=== PATIENT | female | born 1995 | race Caucasian/White ===

== ENCOUNTER 2020-04-21 18:13 | Inpatient (IN) | payer SELFPAY ==
--- NOTE | 2020-04-21 18:34 | ER Document Report ---
ED Medical Screen (RME) - General Chief Complaint: Chest Pain Stated Complaint: CHEST PAIN Time Seen by Provider: 04/21/20 18:26 Mode of Arrival: Ambulatory Information source: Patient Notes: 24-year-old female presented to ED for complaint of chest pain. She states she left [facility] AGAINST MEDICAL ADVICE due to the poor care and treatment she was getting on the floor she was on. She was therefore endocarditis and pneumonia. She states that when she went to the hospital she was septic about 2 to 3 weeks ago. She states that she was not getting proper care and her family encouraged her to leave that hospital and come down to [facility] because her family lives in this area. She does have a history of endocarditis pneumonia tonsillectomy and wisdom teeth removed. She states she is a former smoker last smoked 2 years ago she states she drinks alcohol maybe once or twice a year she is a recovering addict for heroin she used that last about 2 months ago she does use marijuana but has not used that in the last 2 or 3 weeks while she is been in the hospital. She states when she was admitted to [facility] she was septic and according to her close to . She states she was on the neurology floor but she does not remember the name of her doctor but the doctor did tell her that if the doctor here wanted to call them they call up there to find out what was going on. Patient is alert oriented respirations regular nonlabored speaking in full sentences. I have greeted and performed a rapid initial assessment of this patient. A comprehensive ED assessment and evaluation of the patient, analysis of test results and completion of medical decision making process will be conducted by an additional ED providers. Physical Exam - Vital signs Vitals: Temp Pulse Resp BP Pulse Ox 98.3 F 128 H 18 118/68 100 04/21/20 18:26 04/21/20 18:26 04/21/20 18:26 04/21/20 18:26 04/21/20 18:26 Course - Vital Signs Vital signs: Temp Pulse Resp BP Pulse Ox 98.3 F 128 H 18 118/68 100 04/21/20 18:26 04/21/20 18:26 04/21/20 18:26 04/21/20 18:26 04/21/20 18:26
--- NOTE | 2020-04-21 19:06 | RADIOLOGY REPORT (SQ) ---
EXAM DESCRIPTION: CHEST 2 VIEWS IMAGES COMPLETED DATE/TIME: 04/21/2020 6:53 pm REASON FOR STUDY: chest pain see hpi COMPARISON: None. TECHNIQUE: Frontal and lateral radiographic views of the chest acquired. NUMBER OF VIEWS: Two view. LIMITATIONS: None. FINDINGS: LUNGS AND PLEURA: Patchy bilateral areas of upper and lower lobe airspace disease. Potent ial nodules scattered throughout. No pneumothorax. Bilateral pleural effusions including what appea rs to be some loculated right lateral fluid. MEDIASTINUM AND HILAR STRUCTURES: No masses or contour abnormalities. HEART AND VASCULAR STRUCTURES: Heart normal size. No evidence for failure. BONES: Mild convex right scoliotic curve. HARDWARE: None in the chest. OTHER: No other significant finding. IMPRESSION: 1. Infiltrates and effusions as above. Presumably infectious/inflammatory. Possible loculated right lateral pleural fluid and suspected nodules. TECHNICAL DOCUMENTATION: JOB ID: [id number] 2010 [employer]- All Rights Reserved Reading location - IP/workstation name: [email or web address]
[2020-04-21 19:52] LABS: ALBUMIN 3.5 g/dL (3.5-5.0); ALKALINE PHOSPHATASE 70 U/L (38-126); ANION GAP 10 (5-19); ASPARTATE AMINO TRANSFERASE 20 U/L (14-36); BILIRUBIN,DIRECT 0.4 mg/dL (0.0-0.4); BILIRUBIN,TOTAL 0.6 mg/dL (0.2-1.3); BLOOD UREA NITROGEN 9 mg/dL (7-20); CALCIUM 9.1 mg/dL (8.4-10.2); CARBON DIOXIDE 26 mmol/L (22-30); CHLORIDE 102 mmol/L (98-107); CREATINE KINASE 43 U/L (30-135); GLUCOSE 94 mg/dL (75-110); POTASSIUM 4.7 mmol/L (3.6-5.0); TOTAL PROTEIN 8.3 g/dL (6.3-8.2)
[2020-04-21 19:54] LABS: APPEARANCE,URINE SLIGHTLY-CLOUDY; BILIRUBIN,URINE NEGATIVE (NEGATIVE); COLOR,URINE YELLOW; GLUCOSE, URINE NEGATIVE (NEGATIVE); KETONES,URINE NEGATIVE (NEGATIVE); LEUKOCYTE ESTERASE,URINE TRACE (NEGATIVE); NITRITE,URINE NEGATIVE (NEGATIVE); PROTEIN,URINE 30 mg/dL (NEGATIVE); URINE SPECIFIC GRAVITY 1.041; UROBILINOGEN,URINE NEGATIVE mg/dL (<2.0)
[2020-04-21] MEDS ORDERED: VANCOMYCIN HCL INJ 1000 MG VIAL IV ONE (20:40)
[2020-04-21] MEDS ORDERED: CEFEPIME INJ 1 GM VIAL IV ONE (20:40)
--- NOTE | 2020-04-21 20:42 | EKG REPORT ---
SEVERITY:- BORDERLINE ECG - SINUS TACHYCARDIA PROBABLE LEFT ATRIAL ABNORMALITY BORDERLINE RIGHT AXIS DEVIATION : Confirmed by: Andrea Chou MD 21-Apr-2020 20:41:34
[2020-04-21 20:45] LABS: ABSOLUTE BASOPHILS # (AUTO) 0.1 10^3/uL (0.0-0.2); ABSOLUTE LYMPHOCYTES (AUTO) 2.3 10^3/uL (0.5-4.7); ABSOLUTE MONOCYTES (AUTO) 0.6 10^3/uL (0.1-1.4); ABSOLUTE NEUT (AUTO) 9.9 10^3/uL (1.7-8.2); BASOPHILS % (AUTO) 0.8 % (0-2); EOSINOPHILS % (AUTO) 0.4 % (0-6); HEMATOCRIT 29.5 % (36.0-47.0); HEMOGLOBIN 9.8 g/dL (12.0-15.5); LYMPHOCYTES % (AUTO) 17.5 % (13-45); MEAN CORPUSCULAR HEMOGLOBIN 28.3 pg (27.0-33.4); MEAN CORPUSCULAR HGB CONC 33.3 g/dL (32.0-36.0); MEAN CORPUSCULAR VOLUME 85 fl (80-97); MONOCYTES % (AUTO) 4.9 % (3-13); PLATELET COUNT 323 10^3/uL (150-450); RED BLOOD COUNT 3.47 10^6/uL (3.72-5.28); RED CELL DISTRIBUTION WIDTH 18.4 % (11.5-14.0); SEGMENTED NEUTROPHILS % (AUTO) 76.4 % (42-78); TOTAL CELLS COUNTED % (AUTO) 100 %; WHITE BLOOD COUNT 12.9 10^3/uL (4.0-10.5)
[2020-04-21 20:51] LABS: INTERNATIONAL RATION (INR) 1.13; PROTHROMBIN TIME 14.7 SEC (11.4-15.4)
--- NOTE | 2020-04-21 20:51 | ER Document Report ---
ED General - General Chief Complaint: Chest Pain Stated Complaint: CHEST PAIN Time Seen by Provider: 04/21/20 18:26 Mode of Arrival: Ambulatory Notes: Patient is a 24-year-old female comes emergency department for chief complaint of intermittent chest pain, shortness of breath, and recent diagnosis of endocarditis and pneumonia. She states that she was at [facility] and has been hospitalized there for approximately 2 weeks, she states she left this morning by choice but told them that even though she was signing out AGAINST MEDICAL ADVICE that she was coming to [facility]. She has family in town here. Patient has a history of heroin abuse although she states that she has not used it for about 3 weeks and does not intend to use again. She smokes cigarettes and marijuana, denies any prescribed medications other than albuterol inhaler for asthma, denies medical history otherwise. Patient denies fever within the past 48 hours, she denies any other complaints. - Related Data Allergies/Adverse Reactions: No Known Allergies Allergy (Verified 04/21/20 18:32) Past Medical History - General Information source: Patient - Social History Smoking Status: Former Smoker Frequency of alcohol use: Rare Drug Abuse: Heroin, Marijuana Lives with: Family Family History: Reviewed & Not Pertinent Pulmonary Medical History: Reports: Hx Pneumonia Past Surgical History: Reports: Hx Oral Surgery - 2018 - Immunizations Hx Diphtheria, Pertussis, Tetanus Vaccination: Yes Review of Systems - Review of Systems Constitutional: See HPI EENT: No symptoms reported Cardiovascular: See HPI Respiratory: See HPI Gastrointestinal: No symptoms reported Genitourinary: No symptoms reported Female Genitourinary: No symptoms reported Musculoskeletal: No symptoms reported Skin: No symptoms reported Hematologic/Lymphatic: No symptoms reported Neurological/Psychological: No symptoms reported Physical Exam - Vital signs Vitals: Temp Pulse Resp BP Pulse Ox 98.3 F 128 H 18 118/68 100 04/21/20 18:26 04/21/20 18:26 04/21/20 18:26 04/21/20 18:26 04/21/20 18:26 - Notes Notes: GENERAL: Alert, interacts well. No acute distress. HEAD: Normocephalic, atraumatic. EYES: Pupils equal, round, and reactive to light. Extraocular movements intact. ENT: Oral mucosa moist, tongue midline. Oropharynx unremarkable. Airway patent. NECK: Full range of motion. Supple. Trachea midline. No lymphadenopathy. LUNGS: Clear to auscultation bilaterally, no wheezes, rales, or rhonchi. No respiratory distress. Non-tender chest wall. HEART: No overt murmur heard, tachycardia, normal rhythm ABDOMEN: Soft, non-tender. Non-distended. Bowel sounds present in all 4 quadrants. GENITOURINARY: Deferred EXTREMITIES: Moves all 4 extremities spontaneously. No edema, normal radial and dorsalis pedis pulses bilaterally. No cyanosis. BACK: no cervical, thoracic, lumbar midline tenderness. No saddle anesthesia, normal distal neurovascular exam. Moves all extremities in full range of motion. NEUROLOGICAL: Alert and oriented x3. Normal speech. Cranial nerves II through XII grossly intact. Strength 5/5 in all extremities. PSYCH: Normal affect, normal mood. SKIN: Warm, dry, normal turgor. No rashes or lesions noted. Course - Re-evaluation Re-evalutation: Patient tachycardic but otherwise well-appearing. We initially had some trouble establishing IV access but eventually this was obtained and work-up was obtained. This does show leukocytosis with elevation of neutrophils but no bandemia. Lactic acid is nonelevated, chemistry nonspecific. Troponin is 0.03 but this is still indeterminate. EKG nonspecific. Chest x-ray showing pneumonia but I suspect this is secondary to septic pulmonary emboli based on patient's clinical presentation. Patient reporting intermittent chest discomfort and shortness of breath but she is not in distress. She is not requesting narcotics and was resting comfortably after fluids and Toradol. Patient was started on vancomycin and cefepime pending [facility] records. We waited several hours and still have not had the records, they were contacted to get in soon after we obtain them. 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 Patient was being treated with cefazolin based on the cultures. Per their records patient was readmitted on 04/18/2020 and then was requesting [place] transfer because of her , they offered to transfer her but she signed out AGAINST MEDICAL ADVICE and then came here herself. Patient did have persistent vegetation on repeat echo of the tricuspid valve. I discussed with patient, will discuss with hospitalist for admission for endocarditis, septic pulmonary emboli. Patient states understanding and agreement. Discussed with Dr. Melgoza, hospitalist, patient accepted to telemetry full admission. - Vital Signs Vital signs: Temp Pulse Resp BP Pulse Ox 98.3 F 128 H 16 117/73 95 04/21/20 18:26 04/21/20 18:26 04/22/20 02:01 04/22/20 02:01 04/22/20 02:01 - Laboratory Result Diagrams: 04/21/20 20:30 04/21/20 19:11 Laboratory results interpreted by me: 04/21/20 04/21/20 04/21/20 19:11 19:30 20:30 WBC 12.9 H RBC 3.47 L Hgb 9.8 L Hct 29.5 L RDW 18.4 H Absolute Neuts (auto) 9.9 H ESR C-Reactive Protein Total Protein 8.3 H Urine Protein 30 H Ur Leukocyte Esterase TRACE H Urine Ascorbic Acid 20 H 04/21/20 04/22/20 20:30 00:59 WBC RBC Hgb Hct RDW Absolute Neuts (auto) ESR 64 H C-Reactive Protein 51.9 H Total Protein Urine Protein Ur Leukocyte Esterase Urine Ascorbic Acid - EKG Interpretation by Me Additional EKG results interpreted by me: EKG shows sinus tachycardia at a rate of 108, borderline right axis deviation, no T wave inversions or ST segment changes in consecutive leads. QTc 445 Discharge - Discharge Clinical Impression: Shortness of breath Septic pulmonary embolism Qualifiers: Chronicity: acute Acute cor pulmonale presence: without acute cor pulmonale Qualified Code(s): I26.90 - Septic pulmonary embolism without acute cor pulmonale Chest pain Qualifiers: Chest pain type: unspecified Qualified Code(s): R07.9 - Chest pain, unspecified Endocarditis Qualifiers: Endocarditis type: infective Infective endocarditis organism: bacterial Chronicity: acute Qualified Code(s): I33.0 - Acute and subacute infective endocarditis Condition: Stable Disposition: ADMITTED INPATIENT Admitting Provider: Abad (Hospitalist) Unit Admitted: Telemetry
[2020-04-21 20:52] LABS: PARTIAL THROMBOPLASTIN TIME 31.3 SEC (23.5-35.8)
[2020-04-21] MEDS ORDERED: KETOROLAC TROMETHAMINE INJ/PF 30 MG/1 ML SDV IV ONE (22:31)
[2020-04-21] MEDS ORDERED: NORMAL SALINE 1000 ML 1,000 ML IV ONE (22:31)
[2020-04-22] MEDS ORDERED: MAGNESIUM HYDROXIDE SUSP 30 ML UDCUP PO PRN (02:02)
[2020-04-22] MEDS ORDERED: LEVALBUTEROL HCL NEB 0.63 MG/3 ML AMPUL NEB PRN (02:02)
[2020-04-22] MEDS ORDERED: ONDANSETRON HCL INJ/PF 4 MG/2 ML SDV IV PRN (02:02)
[2020-04-22] MEDS ORDERED: MAG HYDROX/AL HYDROX/SIMETH SUSP 30 ML UDCUP PO PRN (02:02)
[2020-04-22] MEDS ORDERED: MORPHINE SULFATE 10 MG/ML INJ IV PRN (02:07)
[2020-04-22] MEDS ORDERED: ACETAMINOPHEN 325 MG TABLET PO PRN (02:07)
[2020-04-22] MEDS ORDERED: MELATONIN 5 MG TABLET PO PRN (02:07)
[2020-04-22] MEDS ORDERED: LORAZEPAM INJ 2 MG/1 ML VIAL IV PRN (02:07)
[2020-04-22] MEDS ORDERED: GUAIFENESIN SYRP 200 MG/10 ML UDC PO PRN (02:07)
--- NOTE | 2020-04-22 05:07 | PDOC H&P ---
History of Present Illness Admission Date/PCP: 04/22/20 01:31 No local PCP Patient complains of: Septic pulmonary emboli History of Present Illness: CHRIS MILLER is a 24 year old female who presents the emergency room with a 2-week history of septic pulmonary emboli. She admits that she was hospitalized at [facility] over the course of the last 2 weeks being treated for septic pulmonary emboli with IV antibiotics. She wished to be transferred to [facility] to be closer to her family and when immediate transfer was not available she signed out of the hospital at [facility] AGAINST MEDICAL ADVICE and brought herself to the emergency room here. She admits that she has occasional episodes of moderate chest pain and constant mild dyspnea. She denies other associated or accompanying signs and symptoms. She denies prior similar episodes. She admits sporadic use of IV heroin, with her last use 3 weeks ago. She has not identified any other aggravating or ameliorating factors for her septic pulmonary emboli. In the emergency room her [facility] records were obtained and were reviewed demonstrating a transesophageal echocardiogram showing a tricuspid valve endocarditis and a CT scan of the chest demonstrating acute septic pulmonary emboli. Patient had groin methicillin sensitive Staphylococcus aureus from her blood on her last positive blood cul ture and was being treated with IV cefazolin. Patient was subsequently admitted to hospital for further evaluation and treatment. Past Medical History Cardiac Medical History: Reports: Other - Acute tricuspid endocarditis Denies: Atrial Fibrillation, Coronary Artery Disease, DVT, Hypertension, Pulmonary Embolism Pulmonary Medical History: Reports: Asthma, Pneumonia EENT Medical History: Denies: Cataracts, Ears - Hearing aids Neurological Medical History: Denies: Multiple Sclerosis, Seizures Endocrine Medical History: Denies: Diabetes Mellitus Type 1, Hyperthyroidism, Hypothyroidism, Obesity Renal/ Medical History: Denies: Chronic Kidney Disease, Nephrolithiasis Malignancy Medical History: Reports: None GI Medical History: Denies: Cirrhosis, Hepatitis, Peptic Ulcer Disease Musculoskeltal Medical History: Denies: Arthritis, Fibromyalgia Skin Medical History: Denies: Eczema, Psoriasis Psychiatric Medical History: Reports: Substance Abuse, Tobacco Dependency Denies: Alcohol Dependency Traumatic Medical History: Reports: None Hematology: Denies: Anemia, Bleeding Tendencies Infectious Medical History: Reports: None Past Surgical History Past Surgical History: Reports: Other - Dental surgery Social History Information Source: Patient Lives with: Spouse/Significant other Smoking Status: Current Every Day Smoker Electronic Cigarette use?: No Frequency of Alcohol Use: Occasional Hx Recreational Drug Use: Yes Drugs: Heroin, Marijuana Hx Prescription Drug Abuse: No - Advance Directive Resuscitation Status: Full Code Surrogate healthcare decision maker:: [place] Family History Family History: denies: CAD, DM, Hypertension, Malignancy Parental Family History Reviewed: Yes Children Family History Reviewed: No Sibling(s) Family History Reviewed.: Yes Medication/Allergy Allergies/Adverse Reactions: No Known Allergies Allergy (Verified 04/21/20 18:32) Review of Systems Constitutional: PRESENT: chills - Initially with septic pulmonary emboli, fever(s) - Initially with septic pulmonary emboli Eyes: ABSENT: visual disturbances, other - Eye pain Ears: ABSENT: hearing changes, other - Ear pain Nose, Mouth, and Throat: ABSENT: headache(s), sore throat Cardiovascular: PRESENT: as per HPI, chest pain Respiratory: PRESENT: as per HPI, dyspnea. ABSENT: cough Gastrointestinal: ABSENT: abdominal pain, constipation, diarrhea, nausea, vomiting Genitourinary: ABSENT: dysuria, hematuria Musculoskeletal: ABSENT: back pain, joint swelling Integumentary: ABSENT: pruritus, rash Neurological: ABSENT: confusion, convulsions, focal weakness, memory loss, syncope Psychiatric: ABSENT: anxiety, depression Endocrine: ABSENT: cold intolerance, heat intolerance Hematologic/Lymphatic: ABSENT: easy bleeding, easy bruising Allergic/Immunologic: ABSENT: seasonal rhinorrhea Physical Exam Vital Signs: Temp Pulse Resp BP Pulse Ox 98.3 F 128 H 18 112/83 98 04/21/20 18:26 04/21/20 18:26 04/21/20 19:01 04/21/20 19:01 04/21/20 19:01 Intake & Output 04/20/20 04/21/20 04/22/20 23:59 23:59 23:59 Intake Total 1999 Balance 1999 Weight 68.946 kg General appearance: PRESENT: no acute distress, cooperative Head exam: PRESENT: atraumatic, normocephalic Eye exam: PRESENT: conjunctiva pink. ABSENT: conjunctival injection, scleral icterus Ear exam: PRESENT: normal external ear exam. ABSENT: bleeding, drainage Mouth exam: PRESENT: dry mucosa, neck supple Neck exam: ABSENT: thyromegaly, tracheal deviation Respiratory exam: PRESENT: clear to auscultation dustin, symmetrical, unlabored Cardiovascular exam: PRESENT: RRR. ABSENT: clicks, gallop, rubs Pulses: PRESENT: normal radial pulses, normal dorsalis pedis pul Vascular exam: PRESENT: normal capillary refill. ABSENT: pallor GI/Abdominal exam: PRESENT: normal bowel sounds, soft. ABSENT: tenderness Rectal exam: PRESENT: deferred Extremities exam: ABSENT: joint swelling, pedal edema Musculoskeletal exam: ABSENT: deformity, dislocation Neurological exam: PRESENT: alert, oriented to person, oriented to place, oriented to time, oriented to situation, CN II-XII grossly intact. ABSENT: motor sensory deficit Psychiatric exam: PRESENT: appropriate affect, normal mood Skin exam: PRESENT: dry, intact, warm. ABSENT: jaundice, rash, urticaria Results Laboratory Results: 04/21/20 20:30 04/21/20 19:11 04/21/20 04/21/20 04/21/20 19:11 19:11 19:11 WBC Cancelled RBC Cancelled Hgb Cancelled Hct Cancelled MCV Cancelled MCH Cancelled MCHC Cancelled RDW Cancelled Plt Count Cancelled Seg Neutrophils % Cancelled Sodium 138.3 Potassium 4.7 Chloride 102 Carbon Dioxide 26 Anion Gap 10 BUN 9 Creatinine 0.79 Est GFR ( Amer) > 60 Glucose 94 Lactic Acid Calcium 9.1 Magnesium 1.6 Total Bilirubin 0.6 AST 20 Alkaline Phosphatase 70 C-Reactive Protein Total Protein 8.3 H Albumin 3.5 Lipase 25.5 Urine Color Urine Appearance Urine pH Ur Specific [place] Urine Protein Urine Glucose (UA) Urine Ketones Urine Blood Urine Nitrite Ur Leukocyte Esterase Urine WBC (Auto) Urine RBC (Auto) 04/21/20 04/21/20 04/21/20 19:30 20:30 20:30 WBC 12.9 H RBC 3.47 L Hgb 9.8 L Hct 29.5 L MCV 85 MCH 28.3 MCHC 33.3 RDW 18.4 H Plt Count 323 Seg Neutrophils % 76.4 Sodium Potassium Chloride Carbon Dioxide Anion Gap BUN Creatinine Est GFR ( Amer) Glucose Lactic Acid Calcium Magnesium Total Bilirubin AST Alkaline Phosphatase C-Reactive Protein 51.9 H Total Protein Albumin Lipase Urine Color YELLOW Urine Appearance SLIGHTLY-CLOUDY Urine pH 6.0 Ur Specific [place] 1.041 Urine Protein 30 H Urine Glucose (UA) NEGATIVE Urine Ketones NEGATIVE Urine Blood NEGATIVE Urine Nitrite NEGATIVE Ur Leukocyte Esterase TRACE H Urine WBC (Auto) 9 Urine RBC (Auto) 6 04/21/20 04/22/20 21:57 00:59 WBC RBC Hgb Hct MCV MCH MCHC RDW Plt Count Seg Neutrophils % Sodium Potassium Chloride Carbon Dioxide Anion Gap BUN Creatinine Est GFR ( Amer) Glucose Lactic Acid 1.3 1.2 Calcium Magnesium Total Bilirubin AST Alkaline Phosphatase C-Reactive Protein Total Protein Albumin Lipase Urine Color Urine Appearance Urine pH Ur Specific [place] Urine Protein Urine Glucose (UA) Urine Ketones Urine Blood Urine Nitrite Ur Leukocyte Esterase Urine WBC (Auto) Urine RBC (Auto) 04/21/20 04/21/20 19:11 19:11 Creatine Kinase 43 Troponin I 0.039 Impressions: Chest X-Ray 04/21/20 18:35 IMPRESSION: 1. Infiltrates and effusions as above. Presumably infectious/inflammatory. Possible loculated right lateral pleural fluid and suspected nodules. Assessment and Plan - Diagnosis (1) Septic pulmonary embolism Qualifiers: Chronicity: acute Acute cor pulmonale presence: without acute cor pulmonale Qualified Code(s): I26.90 - Septic pulmonary embolism without acute cor pulmonale Is this a current diagnosis for this admission?: Yes (2) Acute bacterial endocarditis Is this a current diagnosis for this admission?: Yes (3) Intravenous drug abuse Is this a current diagnosis for this admission?: Yes (4) Tobacco use disorder, continuous Is this a current diagnosis for this admission?: Yes - Plan Summary Summary: Patient will be admitted to the hospital on the medical floor in a telemetry bed where she will receive routine supportive and symptomatic cares. Patient will be started back on cefazolin 2 g IV every 6 hours. Records from [facility] will be obtained. Cardiology consultation with Dr. Boyd will be obtained. Case management will be consulted. Patient will be on a regular diet. She will receive Ativan 1 mg IV every 4 hours as needed for anxiety or restlessness. She will receive morphine sulfate 2 to 4 mg IV every 2 hours as needed for pain. Smoking cessation is advised and counseled briefly at the bedside. Abstinence from IV heroin use is advised and counseled briefly at the bedside. - Time Time Spent with patient: 15-24 minutes Smoking Cessation Education: 3 to 10 minutes Anticipated Discharge Disposition: Home with Home Health Anticipated Discharge Timeframe: Undetermined - Inpatient Certification Based on my medical assessment, after consideration of the patient's comorbidities, presenting symptoms, or acuity I expect that the services needed warrant INPATIENT care.: Yes I certify that my determination is in accordance with my understanding of Medicare's requirements for reasonable and necessary INPATIENT services [42 CFR 412.3e].: Yes Medical Necessity: Need for IV Antibiotics, Risk of Complication if Not Cared For in Hospital
[2020-04-22] MEDS ORDERED: CEFAZOLIN 2 GM/D5W RTU 2 GM/50 ML RTUPB IV SCH (06:00)
--- NOTE | 2020-04-22 09:18 | PDOC CONSULTATION ---
Consultation Consult Date: 04/22/20 Attending physician:: ZANE DIXON Provider Consulted: YURI HENNING Consult reason:: Endocarditis History of Present Illness Admission Date/PCP: 04/22/20 01:31 History of Present Illness: 24y/o female with history of IV drug abuse, mainly heroin and fentanyl, who is consulted to our service for further evaluation and treatment of endocarditis. The patient was initially admitted to [facility] on APR 05 at which point she was found to be septic and had to be admitted to the ICU on vasopressors. She developed septic PE's and was eventually diagnosed with tricuspid valve endocarditis for which she had been on IV antibiotics for several weeks. Unfortunately she did not finish her antibiotic course and left AMA on APR 05. She was readmitted to finish her antibiotic course on APR 05 but, once again, she left AMA on the afternoon of MAY 06 but returned to the hospital on the evening of that same day. She left AMA, one more time, on MAY 06 at which point was admitted to our facility. It is strongly suspected that the patient left AMA so many times in order to use drugs. Physical exam on 04/22/2020: GENERAL: Sleeping comfortably. She has no cardiac complaints. Oriented x3 with normal mood. Not in acute distress. Well groomed and well developed. HEENT: Normocephalic, atraumatic. Sclerae anicteric. Oropharynx moist. NECK: No JVD. No carotid bruits. LUNGS: Clear to auscultation bilaterally. Normal respiratory effort without the use of accessory muscles or intercostal retractions. CARDIOVASCULAR: Regularl rate and rhythm, normal S1 and S2 without murmurs, rubs, or gallops. PMI not displaced. EXTREMITIES: No edema, no cyanosis, no clubbing. MUSCULOSKELETAL: No chest tenderness to palpation. NEUROLOGIC: Nonfocal. No gross sensory or motor deficits bilateral upper or lower extremities. Studies done at [facility]: Date of Service: April 20, 2020 [facility] ID Telephone Advice Consultation Chart reviewed. Patient is a 24-year-old woman with IVDU, mostly heroin, fentanyl, who has been in the hospital due to MSSA bacteremia, TV endocarditis and septic pulmonary emboli. She is an active drug user and has left against medical advice multiple times to use drugs and then returns to the hospital to continue treatment. She has been on cefazolin. Her blood cultures on 04/16 were negative (after returning from leaving [facility]), new blood cultures are in process from 04/18 after leaving [facility] again. She cleared blood cultures on 04/06. Last TTE on 04/03 showed 2 vegetations in TV, unclear what the status of these are. She is not a candidate for surgery yet and not a candidate for OPAT. She is currently on cefazolin 1g IV every 8 hr. ID consulted for recommendations. Assessment and Recommendations: Patient evaluated due to MSSA bacteremia and TV endocarditis with 2 large vegetations and moderate to severe tricuspid regurgitation but no signs of heart failure. She also has bilateral septic pulmonary emboli. Patient has had multiple sets of blood cultures positive. She cleared the bacteremia on 04/06, but has left the hospital against medical advice multiple times to inject. New blood cultures are in process. Will recommend to increase the dose of cefazolin to 2g IV every 8 hr. Will also recommend TTE to evaluate the size of the vegetations. Continue antibiotics for now. She will need 6 weeks of cefazolin 2g IV every 8 hr from the day of negative blood cultures. Off label alternative would be dalbavancin which is a long acting antibiotic but not available at this time. Not a candidate for oral antibiotics as therapy may be suboptimal and patient will likely be noncompliant. Please call if questions. CT CHEST W/ CONTRAST on 04/21/2020 9:05 am -LUNGS AND PLEURA: Interval development of moderate right and small left pleural effusions. Compressive atelectasis at the lung bases. Multifocal cavitary and solid nodules in both lungs are again demonstrated, not significantly changed from previous examination. No focal confluent consolidation. No pneumothorax. -HILAR AND MEDIASTINAL STRUCTURES: No identified masses or abnormal nodes. -HEART AND VASCULAR STRUCTURES: No aneurysm or dissection. No central pulmonary emboli. No pericardial effusion. -HARDWARE: None in the chest. -UPPER ABDOMEN: No significant findings. Limited exam. -THYROID AND OTHER SOFT TISSUES: No masses. No adenopathy. -BONES: No significant finding. -OTHER: No other significant finding. IMPRESSION: 1. Interval development of a moderate right and small left pleural effusion since previous. 2. Multifocal cavitary and solitary nodules in both lungs again demonstrated not significantly changed. Findings are suspicious for multifocal septic emboli. Limited echocardiogram on 04/20/2020 09:26 AM -The left ventricle is grossly normal size. -Left ventricular systolic function is normal (52-72%). -Left ventricular wall motion is normal. -Severe tricuspid regurgitation. -There are two masses on the tricuspid valve with associated flail leaflet that are unchanged from 04/05 assessment. Echocardiogram on 04/03/2020 09:22 AM -Normal left ventricular size and thickness with normal systolic function. -LVEF 55-60%. -Flattened septum is consistent with RV pressure overload. -Right ventricular systolic function is normal. -Right atrium is mildly dilated. -Severe tricuspid regurgitation. -Doppler findings suggest moderate pulmonary hypertension. -Two masses are noted. One is 1.3 cm x 1.3 cm on the tricuspid leaflet. There appears to be a flail tricuspid leaflet present. There is an additional mass measuring 1.8 cm x 1.3 cm on the lateral wall of the right ventricle. Unclear attachment site. The tricuspid valve is diffusely thickened. This is consistent with vegetation. Past Medical History Cardiac Medical History: Reports: Other - Acute tricuspid endocarditis Denies: Atrial Fibrillation, Coronary Artery Disease, DVT, Hypertension, Pulmonary Embolism Pulmonary Medical History: Reports: Asthma, Pneumonia EENT Medical History: Denies: Cataracts, Ears - Hearing aids Neurological Medical History: Denies: Multiple Sclerosis, Seizures Endocrine Medical History: Denies: Diabetes Mellitus Type 1, Hyperthyroidism, Hypothyroidism, Obesity Renal/ Medical History: Denies: Chronic Kidney Disease, Nephrolithiasis Malignancy Medical History: Reports: None GI Medical History: Denies: Cirrhosis, Hepatitis, Peptic Ulcer Disease Musculoskeltal Medical History: Denies: Arthritis, Fibromyalgia Skin Medical History: Denies: Eczema, Psoriasis Psychiatric Medical History: Reports: Substance Abuse, Tobacco Dependency Denies: Alcohol Dependency, Depression Traumatic Medical History: Reports: None Hematology: Denies: Anemia, Bleeding Tendencies Infectious Medical History: Reports: None Past Surgical History Past Surgical History: Reports: Other - Dental surgery Social History Lives with: Spouse/Significant other Smoking Status: Current Every Day Smoker Electronic Cigarette use?: No Frequency of Alcohol Use: Occasional Hx Recreational Drug Use: Yes Drugs: Heroin, Marijuana Hx Prescription Drug Abuse: No - Advance Directive Resuscitation Status: Full Code Family History Family History: denies: CAD, DM, Hypertension, Malignancy Parental Family History Reviewed: Yes Children Family History Reviewed: Yes Sibling(s) Family History Reviewed.: Yes Medication/Allergy Allergies/Adverse Reactions: No Known Allergies Allergy (Verified 04/21/20 18:32) Physical Exam Vital Signs: Temp Pulse Resp BP Pulse Ox 97.3 F 86 17 123/74 92 04/22/20 03:05 04/22/20 03:33 04/22/20 03:05 04/22/20 03:05 04/22/20 03:05 Intake & Output 04/20/20 04/21/20 04/22/20 06:59 06:59 06:59 Intake Total 1999 Balance 1999 Weight 71.7 kg Results Laboratory Results: 04/21/20 20:30 04/21/20 19:11 04/21/20 04/21/20 04/21/20 19:11 19:11 19:11 WBC Cancelled RBC Cancelled Hgb Cancelled Hct Cancelled MCV Cancelled MCH Cancelled MCHC Cancelled RDW Cancelled Plt Count Cancelled Seg Neutrophils % Cancelled Sodium 138.3 Potassium 4.7 Chloride 102 Carbon Dioxide 26 Anion Gap 10 BUN 9 Creatinine 0.79 Est GFR ( Amer) > 60 Glucose 94 Lactic Acid Calcium 9.1 Magnesium 1.6 Total Bilirubin 0.6 AST 20 Alkaline Phosphatase 70 C-Reactive Protein Total Protein 8.3 H Albumin 3.5 Lipase 25.5 Urine Color Urine Appearance Urine pH Ur Specific [place] Urine Protein Urine Glucose (UA) Urine Ketones Urine Blood Urine Nitrite Ur Leukocyte Esterase Urine WBC (Auto) Urine RBC (Auto) 04/21/20 04/21/20 04/21/20 19:30 20:30 20:30 WBC 12.9 H RBC 3.47 L Hgb 9.8 L Hct 29.5 L MCV 85 MCH 28.3 MCHC 33.3 RDW 18.4 H Plt Count 323 Seg Neutrophils % 76.4 Sodium Potassium Chloride Carbon Dioxide Anion Gap BUN Creatinine Est GFR ( Amer) Glucose Lactic Acid Calcium Magnesium Total Bilirubin AST Alkaline Phosphatase C-Reactive Protein 51.9 H Total Protein Albumin Lipase Urine Color YELLOW Urine Appearance SLIGHTLY-CLOUDY Urine pH 6.0 Ur Specific [place] 1.041 Urine Protein 30 H Urine Glucose (UA) NEGATIVE Urine Ketones NEGATIVE Urine Blood NEGATIVE Urine Nitrite NEGATIVE Ur Leukocyte Esterase TRACE H Urine WBC (Auto) 9 Urine RBC (Auto) 6 04/21/20 04/22/20 21:57 00:59 WBC RBC Hgb Hct MCV MCH MCHC RDW Plt Count Seg Neutrophils % Sodium Potassium Chloride Carbon Dioxide Anion Gap BUN Creatinine Est GFR ( Amer) Glucose Lactic Acid 1.3 1.2 Calcium Magnesium Total Bilirubin AST Alkaline Phosphatase C-Reactive Protein Total Protein Albumin Lipase Urine Color Urine Appearance Urine pH Ur Specific [place] Urine Protein Urine Glucose (UA) Urine Ketones Urine Blood Urine Nitrite Ur Leukocyte Esterase Urine WBC (Auto) Urine RBC (Auto) 04/21/20 04/21/20 19:11 19:11 Creatine Kinase 43 Troponin I 0.039 Impressions: Chest X-Ray 04/21/20 18:35 IMPRESSION: 1. Infiltrates and effusions as above. Presumably infectious/inflammatory. Possible loculated right lateral pleural fluid and suspected nodules. 04/21/20 20:30 04/21/20 19:11 MCV 85 fl (80-97) 04/21/20 20:30 MCH 28.3 pg (27.0-33.4) 04/21/20 20:30 MCHC 33.3 g/dL (32.0-36.0) 04/21/20 20:30 RDW 18.4 % (11.5-14.0) H 04/21/20 20:30 Seg Neutrophils % 76.4 % (42-78) 04/21/20 20:30 Chloride 102 mmol/L (98-107) 04/21/20 19:11 Carbon Dioxide 26 mmol/L (22-30) 04/21/20 19:11 Anion Gap 10 (5-19) 04/21/20 19:11 Est GFR ( Amer) > 60 (>60) 04/21/20 19:11 Glucose 94 mg/dL (75-110) 04/21/20 19:11 Lactic Acid 1.2 mmol/L (0.7-2.1) 04/22/20 00:59 Calcium 9.1 mg/dL (8.4-10.2) 04/21/20 19:11 Magnesium 1.6 mg/dL (1.6-2.3) 04/21/20 19:11 Total Bilirubin 0.6 mg/dL (0.2-1.3) 04/21/20 19:11 AST 20 U/L (14-36) 04/21/20 19:11 Alkaline Phosphatase 70 U/L (38-126) 04/21/20 19:11 C-Reactive Protein 51.9 mg/L (<10.0) H 04/21/20 20:30 Total Protein 8.3 g/dL (6.3-8.2) H 04/21/20 19:11 Albumin 3.5 g/dL (3.5-5.0) 04/21/20 19:11 Lipase 25.5 U/L (23-300) 04/21/20 19:11 Urine Color YELLOW 04/21/20 19:30 Urine Appearance SLIGHTLY-CLOUDY 04/21/20 19:30 Urine pH 6.0 (5.0-9.0) 04/21/20 19:30 Ur Specific [place] 1.041 04/21/20 19:30 Urine Protein 30 mg/dL (NEGATIVE) H 04/21/20 19:30 Urine Glucose (UA) NEGATIVE mg/dL (NEGATIVE) 04/21/20 19:30 Urine Ketones NEGATIVE mg/dL (NEGATIVE) 04/21/20 19:30 Urine Blood NEGATIVE (NEGATIVE) 04/21/20 19:30 Urine Nitrite NEGATIVE (NEGATIVE) 04/21/20 19:30 Ur Leukocyte Esterase TRACE (NEGATIVE) H 04/21/20 19:30 Urine WBC (Auto) 9 /HPF 04/21/20 19:30 Urine RBC (Auto) 6 /HPF 04/21/20 19:30 04/21/20 04/21/20 19:11 19:11 Creatine Kinase 43 Troponin I 0.039 Current Medication List Generic Name Dose Route Start Last Admin Trade Name Freq PRN Reason Stop Dose Admin Acetaminophen 650 mg 04/22/20 02:07 Tylenol 325 Mg Tablet PO 05/22/20 02:06 Q4HP PRN For headache, pain or fever Al Hydrox/Mg Hydrox/Simethicone 30 ml 04/22/20 02:02 Maalox Plus Susp 30 Udcup PO 05/22/20 02:01 Q6HP PRN [facility]ART[facility] Docusate Sodium 100 mg 04/22/20 10:00 Colace 100 Mg Capsule PO 05/22/20 09:59 BID ADELA Enoxaparin Sodium 40 mg 04/22/20 10:00 Lovenox Inj 40 Mg/0.4 Ml Disp.Syrin SUBCUT 05/22/20 09:59 DAILY ADELA Famotidine 20 mg 04/22/20 10:00 Pepcid 20 Mg Tablet PO 05/22/20 09:59 Q12 ADELA Guaifenesin 200 mg 04/22/20 02:07 Robitussin Syrup 200 Mg/10 Ml Ud Cup PO 05/22/20 02:06 Q4HP PRN COUGH Cefazolin Sodium 2 gm/ 100 mls @ 200 mls/hr 04/22/20 12:00 Dextrose IV 04/29/20 11:59 Q6 [facility] Levalbuterol HCl 0.63 mg 04/22/20 02:02 Xopenex Neb 0.63 Mg/3 Ml Ampul NEB 05/22/20 02:01 RTQ2HP PRN SHORTNESS OF BREATH Lorazepam 1 mg 04/22/20 02:07 Ativan Inj 2 Mg/1 Ml Vial IV 04/29/20 02:06 Q4HP PRN ANXIETY/AGITATION Magnesium Hydroxide 30 ml 04/22/20 02:02 Milk Of Magnesia 30 Ml Udcup PO 05/22/20 02:01 HSP PRN FOR CONSTIPATION Melatonin 5 mg 04/22/20 02:07 Melatonin 5 Mg Tablet PO 05/22/20 02:06 HSP PRN SLEEP OR INSOMNIA Morphine Sulfate 2 - 4 mg 04/22/20 02:07 Morphine 10 Mg/Ml Inj IV 04/29/20 02:06 Q2HP PRN See protocol Protocol Ondansetron HCl 4 mg 04/22/20 02:02 Zofran Inj/Pf 4 Mg/2 Ml Sdv IV 05/22/20 02:01 Q4HP PRN FOR NAUSEA/VOMITING Sodium Chloride 2.5 ml 04/22/20 06:00 04/22/20 05:47 Saline Flush 2.5 Ml Monoject Prefil Syrin IV 05/22/20 05:59 2.5 ml Q8 [facility] Administration Discontinued Medications Generic Name Dose Route Start Last Admin Trade Name Freq PRN Reason Stop Dose Admin Cefepime HCl 2 gm 04/21/20 20:40 04/21/20 22:04 Maxipime Inj 1 Gm Vial IV 04/21/20 20:41 2 gm NOW ONE Administration Sodium Chloride 1,000 mls @ 0 mls/hr 04/21/20 22:31 04/21/20 23:34 Nacl 0.9% 1000 Ml Iv Soln IV 04/21/20 22:32 Infused BOLUS ONE Infusion Wide Open Cefazolin Sodium/Dextrose 2 gm in 50 mls @ 100 mls/hr 04/22/20 06:00 04/22/20 06:17 Ancef Rtu 2 Gm/D5w 50 Ml Premix Bag IV 04/29/20 05:59 Infused Q6 ADELA Infusion Ketorolac Tromethamine 15 mg 04/21/20 22:31 04/21/20 22:46 Toradol Inj/Pf 30 Mg/1 Ml Sdv IV 04/21/20 22:32 15 mg NOW ONE Administration Vancomycin HCl 1,000 mg 04/21/20 20:40 04/21/20 23:31 Vancocin Inj 1000 Mg Vial IV 04/21/20 20:41 1,000 mg IVBAG (ED) ONE Administration Assessment & Plan - Diagnosis (1) Acute bacterial endocarditis Is this a current diagnosis for this admission?: Yes Plan: 24 y/o female, IV drug abuser with tricuspid valve endocarditis who has left [facility] multiple times to use drugs reason why she has not completed the prescribed IV antibiotic regimen. She is currently hemodynamically stable upon my evaluation this morning, without clinical evidence of right heart failure and without cardiac complaints. Unfortunately she is at a very high risk of leaving [facility] to use drugs again and will benefit from substance abuse counseling. She does not meet surgical criteria yet. Her TV vegetations are unchanged in size on limited TTE on 04/20/20 at [facility]. Recommendations: -Continue with IV antibiotic regimen as recommended by ID. -Continue with cardiac telemetry. -Repeat blood cultures if not done yet. -The patient will need surgical intervention if: there is recurrence of septic emboli, there is growth of the vegetations to >20mm, persistent bacteremia for 7 days despite adequate antibiotic treatment or if there is right heart failure with poor response to diuretic treatment.
[2020-04-22] MEDS ORDERED: ENOXAPARIN SODIUM INJ 40 MG/0.4 ML DISP.SYRIN SUBCUT SCH (10:00)
[2020-04-22] MEDS ORDERED: DOCUSATE SODIUM 100 MG CAPSULE PO SCH (10:00)
[2020-04-22] MEDS ORDERED: FAMOTIDINE 20 MG TABLET PO SCH (10:00)
[2020-04-22] MEDS ORDERED: CEFAZOLIN SODIUM 2 GM in DEXTROSE 5%-WATER 100 ML IV SCH (12:00)
[2020-04-22 14:31] VITALS: BP 123/74
--- NOTE | 2020-04-22 15:33 | Left Against Medical Advice ---
Against Medical Advice Admission Date/Time: 04/22/20 01:31 Primary Care Provider: Date of Patient Emigration: 04/22/20 - Diagnosis: (1) Acute bacterial endocarditis Is this a current diagnosis for this admission?: Yes (2) Intravenous drug abuse Is this a current diagnosis for this admission?: Yes - Summary: Summary: Please see Admission and Progress Notes as well. CHRIS MILLER is a 24 F, who LEFT AGAINST MEDICAL ADVICE. The Patient was admitted on 04/22/20 01:31. She came here after leaving [place] at [facility]. She was being treated for bacterial endocarditis.
== END 2020-04-22 14:30 | disposition left against medical advice (07) | DRG 290 ==
LOC: ER 18:13 → EH 04-22 01:31 → EEVIPCON 04-22 01:31 → 4S 04-22 03:05
PROVIDERS: ADMIT Emergency Medicine; ATTEND Internal Medicine
DX: I33.0 Acute and subacute infective endocarditis (principal); B95.61 Methicillin susceptible Staphylococcus aureus infection as the cause of diseases classified elsewhere; I07.1 Rheumatic tricuspid insufficiency; I27.20 Pulmonary hypertension, unspecified; F17.200 Nicotine dependence, unspecified, uncomplicated; F11.10 Opioid abuse, uncomplicated
CPT/HCPCS: 36415; 71046; 80053; 81001; 81025; 82550; 83605; 83690; 83735; 84484; 85025; 85610; 85652; 85730; 86140; 87040; 93005; 93010; 96361; 96365; 99285; J0690; J0692; J1650; J1885; J3370; J3490; J7030; J7060

== ENCOUNTER 2020-04-22 18:50 | Inpatient (IN) | payer OTHER ==
--- NOTE | 2020-04-22 20:02 | ER Document Report ---
ED Medical Screen (RME) - General Chief Complaint: Chest Pain Stated Complaint: CHEST PAIN Time Seen by Provider: 04/22/20 20:01 Mode of Arrival: Ambulatory Information source: Patient Notes: 24-year-old female presented to ED for complaint of chest pain. She states she was here yesterday with diagnosed endocarditis and pneumonia. She states she had to leave because her daughter was in a bad car accident and they told her that she would have to come back to the emergency room to get readmitted. She was up on the floor last night. Patient is alert and oriented she is very tachycardic. Patient states she knows she needs to go back upstairs. She is a former drug addict. I have greeted and performed a rapid initial assessment of this patient. A comprehensive ED assessment and evaluation of the patient, analysis of test results and completion of medical decision making process will be conducted by an additional ED providers. - Related Data Allergies/Adverse Reactions: No Known Allergies Allergy (Verified 04/21/20 18:32) Past Medical History - Past Medical History Cardiac Medical History: Denies: Hx Atrial Fibrillation, Hx Coronary Artery Disease, Hx DVT, Hx Hypertension, Hx Pulmonary Embolism Pulmonary Medical History: Reports: Hx Asthma, Hx Pneumonia Neurological Medical History: Denies: Hx Seizures Endocrine Medical History: Denies: Hx Diabetes Mellitus Type 1, Hx Hyperthyroi dism, Hx Hypothyroidism GI Medical History: Denies: Hx Cirrhosis, Hx Hepatitis Musculoskeltal Medical History: Denies Hx Arthritis, Denies Hx Fibromyalgia Skin Medical History: Denies Hx Eczema, Denies Hx Psoriasis Psychiatric Medical History: Denies: Hx Depression Infectious Medical History: Denies: Hx Hepatitis Past Surgical History: Reports: Hx Oral Surgery - 2018, Other - Dental surgery - Immunizations Hx Diphtheria, Pertussis, Tetanus Vaccination: Yes Physical Exam - Vital signs Vitals: Temp Pulse Resp BP Pulse Ox 98.4 F 127 H 16 104/60 95 04/22/20 19:20 04/22/20 19:20 04/22/20 19:20 04/22/20 19:20 04/22/20 19:20 Course - Vital Signs Vital signs: Temp Pulse Resp BP Pulse Ox 98.4 F 127 H 16 104/60 95 04/22/20 19:20 04/22/20 19:20 04/22/20 19:20 04/22/20 19:20 04/22/20 19:20
[2020-04-22 20:39] LABS: APPEARANCE,URINE SLIGHTLY-CLOUDY; BILIRUBIN,URINE NEGATIVE (NEGATIVE); COLOR,URINE YELLOW; GLUCOSE, URINE NEGATIVE (NEGATIVE); KETONES,URINE NEGATIVE (NEGATIVE); LEUKOCYTE ESTERASE,URINE NEGATIVE (NEGATIVE); NITRITE,URINE NEGATIVE (NEGATIVE); PROTEIN,URINE 30 mg/dL (NEGATIVE); URINE SPECIFIC GRAVITY 1.014; UROBILINOGEN,URINE NEGATIVE mg/dL (<2.0)
--- NOTE | 2020-04-22 20:43 | RADIOLOGY REPORT (SQ) ---
EXAM DESCRIPTION: X-ray, two views of the chest CLINICAL HISTORY: 24 years Female, diagnosed endocarditis chest pain COMPARISON: Radiographs of the chest April 21, 2020 FINDINGS: Lungs: Nodular infiltrate is again seen in both lungs with a cavitary lesion in the left lower lobe. Bilateral pleural effusions are seen in the right pleural effusion appears loculated with a component seen along the lateral chest wall. Findings are suggestive of septic embolization in addition to multifocal pneumonia. When compared to the previous exam the appearance is stable. Mediastinum: Cardiac and mediastinal silhouette are unchanged. Bones: Curvature of the thoracic spine convex right. IMPRESSION: 1. Multifocal infiltrate with bilateral pleural effusions. The right pleural effusion may be loculated. 2. There is a cavitation within multiple small nodular densities. This is suggestive of septic embolization. The appearance is stable.
[2020-04-22 20:57] LABS: URINE AMPHETAMINES SCREEN NEGATIVE; URINE BARBITURATES SCREEN NEGATIVE; URINE BENZODIAZEPINES SCREEN NEGATIVE; URINE COCAINE SCREEN NEGATIVE; URINE MARIJUANA (THC) SCREEN NEGATIVE; URINE METHADONE SCREEN NEGATIVE; URINE PHENCYCLIDINE SCREEN NEGATIVE
[2020-04-22 21:37] LABS: ABSOLUTE BASOPHILS # (AUTO) 0.2 10^3/uL (0.0-0.2); ABSOLUTE EOSINOPHILS # (AUTO) 0.1 10^3/uL (0.0-0.6); ABSOLUTE LYMPHOCYTES (AUTO) 2.6 10^3/uL (0.5-4.7); ABSOLUTE MONOCYTES (AUTO) 0.8 10^3/uL (0.1-1.4); ABSOLUTE NEUT (AUTO) 10.6 10^3/uL (1.7-8.2); BASOPHILS % (AUTO) 1.4 % (0-2); EOSINOPHILS % (AUTO) 0.6 % (0-6); HEMATOCRIT 28.8 % (36.0-47.0); HEMOGLOBIN 9.5 g/dL (12.0-15.5); MEAN CORPUSCULAR HEMOGLOBIN 28.4 pg (27.0-33.4); MEAN CORPUSCULAR VOLUME 86 fl (80-97); MONOCYTES % (AUTO) 5.6 % (3-13); PLATELET COUNT 382 10^3/uL (150-450); RED BLOOD COUNT 3.35 10^6/uL (3.72-5.28); RED CELL DISTRIBUTION WIDTH 18.1 % (11.5-14.0); SEGMENTED NEUTROPHILS % (AUTO) 74.4 % (42-78); TOTAL CELLS COUNTED % (AUTO) 100 %; WHITE BLOOD COUNT 14.3 10^3/uL (4.0-10.5)
[2020-04-22 21:51] LABS: ALBUMIN 3.5 g/dL (3.5-5.0); ALKALINE PHOSPHATASE 65 U/L (38-126); ANION GAP 12 (5-19); ASPARTATE AMINO TRANSFERASE 18 U/L (14-36); BILIRUBIN,DIRECT 0.3 mg/dL (0.0-0.4); BILIRUBIN,TOTAL 0.4 mg/dL (0.2-1.3); BLOOD UREA NITROGEN 11 mg/dL (7-20); CALCIUM 9.1 mg/dL (8.4-10.2); CARBON DIOXIDE 26 mmol/L (22-30); CHLORIDE 101 mmol/L (98-107); CREATINE KINASE 49 U/L (30-135); GLUCOSE 104 mg/dL (75-110); POTASSIUM 3.9 mmol/L (3.6-5.0); TOTAL PROTEIN 8.2 g/dL (6.3-8.2)
--- NOTE | 2020-04-22 22:00 | EKG REPORT ---
SEVERITY:- ABNORMAL ECG - SINUS TACHYCARDIA LEFT ATRIAL ABNORMALITY LEFT POSTERIOR FASCICULAR BLOCK : Confirmed by: Andrea Chou MD 22-Apr-2020 21:59:35
[2020-04-23] MEDS ORDERED: CEFAZOLIN 2 GM/D5W RTU 2 GM/50 ML RTUPB IV ONE (00:23)
--- NOTE | 2020-04-23 00:42 | ER Document Report ---
ED General - General Chief Complaint: Chest Pain Stated Complaint: CHEST PAIN Time Seen by Provider: 04/22/20 20:01 Mode of Arrival: Ambulatory Information source: Patient Notes: Patient is a 24-year-old female history of IV drug abuse and presents for readmission for acute endocarditis. She was initially seen at [facility] hospitalized for approximately 2 weeks ago diagnosis of the endocarditis and pneumonia. She left [facility] AGAINST MEDICAL ADVICE yesterday morning as she wanted to be admitted to [facility] due to having family nearby. Patient presented to the ED yesterday and was admitted. However she left AGAINST MEDICAL ADVICE last night due to her daughter being in a car accident. She has now returned and would like to be readmitted. She reports intermittent chest pain and fatigue but denies shortness of breath, fever, chills, nausea, and vomiting. Patient has a history of heroin abuse but states she has not used in about 3 weeks. Patient smokes cigarettes and marijuana. Patient has a history of asthma and uses an albuterol inhaler. She denies any other complaints at this time. - Related Data Allergies/Adverse Reactions: No Known Allergies Allergy (Verified 04/22/20 22:01) Past Medical History - General Information source: Patient - Social History Smoking Status: Current Every Day Smoker Chew tobacco use (# tins/day): No Frequency of alcohol use: None Drug Abuse: Heroin, Marijuana Family History: denies: CAD, DM, Hypertension, Malignancy Patient has homicidal ideation: No - Past Medical History Cardiac Medical History: Denies: Hx Atrial Fibrillation, Hx Coronary Artery Disease, Hx DVT, Hx Hypertension, Hx Pulmonary Embolism Pulmonary Medical History: Reports: Hx Asthma, Hx Pneumonia Neurological Medical History: Denies: Hx Seizures Endocrine Medical History: Denies: Hx Diabetes Mellitus Type 1, Hx Hyperthyroidism, Hx Hypothyroidism GI Medical History: Denies: Hx Cirrhosis, Hx Hepatitis Musculoskeletal Medical History: Denies Hx Arthritis, Denies Hx Fibromyalgia Skin Medical History: Denies Hx Eczema, Denies Hx Psoriasis Psychiatric Medical History: Denies: Hx Depression Infectious Medical History: Denies: Hx Hepatitis Past Surgical History: Reports: Hx Oral Surgery - 2018, Other - Dental surgery - Immunizations Hx Diphtheria, Pertussis, Tetanus Vaccination: Yes Review of Systems - Review of Systems Constitutional: No symptoms reported EENT: No symptoms reported Cardiovascular: See HPI Respiratory: No symptoms reported Gastrointestinal: No symptoms reported Genitourinary: No symptoms reported Female Genitourinary: No symptoms reported Musculoskeletal: No symptoms reported Skin: No symptoms reported Hematologic/Lymphatic: No symptoms reported Neurological/Psychological: No symptoms reported Physical Exam - Vital signs Vitals: Temp Pulse Resp BP Pulse Ox 98.4 F 127 H 16 104/60 95 04/22/20 19:20 04/22/20 19:20 04/22/20 19:20 04/22/20 19:20 04/22/20 19:20 - Notes Notes: PHYSICAL EXAMINATION: GENERAL: Well-appearing, well-nourished and in no acute distress. HEAD: Atraumatic, normocephalic. EYES: Pupils equal round and reactive to light, extraocular movements intact, sclera anicteric, conjunctiva are normal. ENT: nares patent, oropharynx clear without exudates. Moist mucous membranes. NECK: Normal range of motion, supple without lymphadenopathy LUNGS: Breath sounds clear to auscultation bilaterally and equal. No wheezes rales or rhonchi. HEART: Regular rate and rhythm. No overt murmur noted. ABDOMEN: Soft, nontender, normoactive bowel sounds. No guarding, no rebound. No masses appreciated. EXTREMITIES: Normal range of motion, no pitting or edema. No cyanosis. NEUROLOGICAL: No focal neurological deficits. Moves all extremities spontan eously and on command. PSYCH: Normal mood, normal affect. SKIN: Warm, Dry, normal turgor, no rashes or lesions noted. Course - Re-evaluation Re-evalutation: Patient is a 24-year-old female with a hx of IV drug use and presents for intermittent chest pain and a recent diagnosis of endocarditis. She was admitted last night but left AGAINST MEDICAL ADVICE because her daughter was in an accident. She has now returned to be readmitted. She is afebrile and her UDS was negative. WBC is elevated at 14.3 with absolute neutrophils at 10.6 and Hgb is low at 9.5. Tropinin negative (0.015). Patient restarted on 2g ancef IV and Dr. Melgoza was called for admission. Dr. Melgoza, hospitalist, accepted the patient for a full admission to telemetry. - Vital Signs Vital signs: Temp Pulse Resp BP Pulse Ox 98.7 F 127 H 11 L 107/77 95 04/22/20 21:53 04/22/20 19:20 04/23/20 01:02 04/23/20 01:02 04/23/20 01:02 - Laboratory Result Diagrams: 04/22/20 21:25 04/22/20 21:25 Laboratory results interpreted by me: 04/22/20 04/22/20 04/22/20 20:12 21:25 21:25 WBC 14.3 H RBC 3.35 L Hgb 9.5 L Hct 28.8 L RDW 18.1 H Absolute Neuts (auto) 10.6 H Lactic Acid 0.6 L Urine Protein 30 H Urine Blood SMALL H - EKG Interpretation by Me Additional EKG results interpreted by me: Sinus tachycardia with a rate of 123. QTc of 452. Right axis deviation. No T wave inversions or ST segment changes in consecutive leads. Discharge - Discharge Clinical Impression: Acute bacterial endocarditis, Septic embolism Chest pain Qualifiers: Chest pain type: unspecified Qualified Code(s): R07.9 - Chest pain, unspecified Condition: Stable Disposition: ADMITTED INPATIENT Admitting Provider: Abda (Hospitalist) Unit Admitted: Telemetry
[2020-04-23] MEDS ORDERED: CEFAZOLIN 1 GM/D5W RTU 2 GM/100 ML RTUPB IV ONE (01:11)
[2020-04-23] MEDS ORDERED: ONDANSETRON HCL INJ/PF 4 MG/2 ML SDV IV PRN (01:48)
[2020-04-23] MEDS ORDERED: MAG HYDROX/AL HYDROX/SIMETH SUSP 30 ML UDCUP PO PRN (01:48)
[2020-04-23] MEDS ORDERED: MAGNESIUM HYDROXIDE SUSP 30 ML UDCUP PO PRN (01:48)
[2020-04-23] MEDS ORDERED: GUAIFENESIN SYRP 200 MG/10 ML UDC PO PRN (01:52)
[2020-04-23] MEDS ORDERED: LORAZEPAM INJ 2 MG/1 ML VIAL IV PRN (01:52)
[2020-04-23] MEDS: MELATONIN 5 MG TABLET PO PRN ×2 (02:23→22:00)
[2020-04-23] MEDS: MORPHINE SULFATE 10 MG/ML INJ IV PRN ×2 (02:23→10:37)
--- NOTE | 2020-04-23 04:07 | PDOC H&P ---
History of Present Illness Admission Date/PCP: 04/23/20 00:59 No local PCP Patient complains of: Septic pulmonary emboli History of Present Illness: CHRIS MILLER is a 24 year old female who presented to the emergency room seeking readmission to the hospital after leaving AM on 04/22/2020. She denies any new symptoms or changes in her current status. She left the hospital AGAINST MEDICAL ADVICE because her daughter was involved in a car accident. She continues to have intermittent moderate chest pains and also continues to have mild to moderate fatigue. She continues to deny other associated or accompanying signs and symptoms. In the emergency room she had an essentially unchanged evaluation from earlier in the day. She was subsequently admitted to the hospital for continued IV antibiotic therapy. Past Medical History Cardiac Medical History: Denies: Atrial Fibrillation, Coronary Artery Disease, DVT, Hypertension, Pulmonary Embolism Pulmonary Medical History: Reports: Asthma, Pneumonia EENT Medical History: Denies: Cataracts, Ears - Hearing aids Neurological Medical History: Denies: Multiple Sclerosis, Seizures Endocrine Medical History: Denies: Diabetes Mellitus Type 1, Hyperthyroidism, Hypothyroidism Renal/ Medical History: Denies: Chronic Kidney Disease, Nephrolithiasis Malignancy Medical History: Reports: None GI Medical History: Denies: Cirrhosis, Hepatitis Musculoskeltal Medical History: Denies: Arthritis, Fibromyalgia Skin Medical History: Denies: Eczema, Psoriasis Psychiatric Medical History: Reports: Substance Abuse, Tobacco Dependency Denies: Alcohol Dependency, Depression Traumatic Medical History: Reports: None Hematology: Denies: Anemia, Bleeding Tendencies Infectious Medical History: Reports: None Past Surgical History Past Surgical History: Reports: Other - Dental surgery Social History Information Source: Patient Lives with: Family Smoking Status: Current Every Day Smoker Electronic Cigarette use?: No Frequency of Alcohol Use: Occasional Hx Recreational Drug Use: Yes Drugs: Heroin, Marijuana Hx Prescription Drug Abuse: No - Advance Directive Resuscitation Status: Full Code Surrogate healthcare decision maker:: [place] Family History Family History: denies: CAD, DM, Hypertension, Malignancy Parental Family History Reviewed: Yes Children Family History Reviewed: No Sibling(s) Family History Reviewed.: Yes Medication/Allergy Home Medications: No Home Medications 04/22/20 Allergies/Adverse Reactions: No Known Allergies Allergy (Verified 04/22/20 22:01) Review of Systems Constitutional: PRESENT: as per HPI, fatigue. ABSENT: chills, fever(s) Eyes: ABSENT: visual disturbances, other - Eye pain Ears: ABSENT: hearing changes, other - Ear pain Nose, Mouth, and Throat: ABSENT: headache(s), sore throat Cardiovascular: PRESENT: as per HPI, chest pain. ABSENT: palpitations Respiratory: ABSENT: cough, dyspnea Gastrointestinal: ABSENT: abdominal pain, constipation, diarrhea, nausea, vomiting Genitourinary: ABSENT: dysuria, hematuria Musculoskeletal: ABSENT: back pain, joint swelling, muscle weakness Integumentary: ABSENT: pruritus, rash Neurological: ABSENT: confusion, convulsions, focal weakness, memory loss, syncope Psychiatric: ABSENT: anxiety, depression Endocrine: ABSENT: cold intolerance, heat intolerance Hematologic/Lymphatic: ABSENT: easy bleeding, easy bruising Allergic/Immunologic: ABSENT: seasonal rhinorrhea Physical Exam Vital Signs: Temp Pulse Resp BP Pulse Ox 98.7 F 127 H 11 L 107/77 95 04/22/20 21:53 04/22/20 19:20 04/23/20 01:02 04/23/20 01:02 04/23/20 01:02 Intake & Output 04/21/20 04/22/20 04/23/20 23:59 23:59 23:59 Weight 63.503 kg General appearance: PRESENT: no acute distress, cooperative, well-developed Head exam: PRESENT: atraumatic, normocephalic Eye exam: PRESENT: conjunctiva pink. ABSENT: conjunctival injection, scleral icterus Ear exam: PRESENT: normal external ear exam. ABSENT: bleeding, drainage Mouth exam: PRESENT: dry mucosa, neck supple Neck exam: ABSENT: thyromegaly, tracheal deviation Respiratory exam: PRESENT: clear to auscultation dustin, symmetrical, unlabored Cardiovascular exam: PRESENT: RRR. ABSENT: clicks, gallop, rubs Pulses: ABSENT: normal radial pulses, normal dorsalis pedis pul Vascular exam: PRESENT: normal capillary refill. ABSENT: pallor GI/Abdominal exam: PRESENT: normal bowel sounds, soft Rectal exam: PRESENT: deferred Extremities exam: ABSENT: joint swelling, pedal edema Musculoskeletal exam: ABSENT: deformity, dislocation Neurological exam: PRESENT: alert, oriented to person, oriented to place, oriented to time, oriented to situation, CN II-XII grossly intact. ABSENT: motor sensory deficit Psychiatric exam: PRESENT: appropriate affect, normal mood Skin exam: PRESENT: dry, intact, warm. ABSENT: jaundice, rash, urticaria Results Laboratory Results: 04/22/20 21:25 04/22/20 21:25 04/22/20 04/22/20 04/22/20 20:12 21:25 21:25 WBC 14.3 H RBC 3.35 L Hgb 9.5 L Hct 28.8 L MCV 86 MCH 28.4 MCHC 33.0 RDW 18.1 H Plt Count 382 Seg Neutrophils % 74.4 Sodium 138.7 Potassium 3.9 Chloride 101 Carbon Dioxide 26 Anion Gap 12 BUN 11 Creatinine 0.86 Est GFR ( Amer) > 60 Glucose 104 Lactic Acid Calcium 9.1 Magnesium 1.8 Total Bilirubin 0.4 AST 18 Alkaline Phosphatase 65 Total Protein 8.2 Albumin 3.5 Urine Color YELLOW Urine Appearance SLIGHTLY-CLOUDY Urine pH 6.0 Ur Specific [place] 1.014 Urine Protein 30 H Urine Glucose (UA) NEGATIVE Urine Ketones NEGATIVE Urine Blood SMALL H Urine Nitrite NEGATIVE Ur Leukocyte Esterase NEGATIVE Urine WBC (Auto) 6 Urine RBC (Auto) 1 04/22/20 21:25 WBC RBC Hgb Hct MCV MCH MCHC RDW Plt Count Seg Neutrophils % Sodium Potassium Chloride Carbon Dioxide Anion Gap BUN Creatinine Est GFR ( Amer) Glucose Lactic Acid 0.6 L Calcium Magnesium Total Bilirubin AST Alkaline Phosphatase Total Protein Albumin Urine Color Urine Appearance Urine pH Ur Specific [place] Urine Protein Urine Glucose (UA) Urine Ketones Urine Blood Urine Nitrite Ur Leukocyte Esterase Urine WBC (Auto) Urine RBC (Auto) 04/22/20 04/22/20 21:25 21:25 Creatine Kinase 49 Troponin I 0.015 Impressions: Chest X-Ray 04/22/20 20:03 IMPRESSION: 1. Multifocal infiltrate with bilateral pleural effusions. The right pleural effusion may be loculated. 2. There is a cavitation within multiple small nodular densities. This is suggestive of septic embolization. The appearance is stable. Assessment and Plan - Diagnosis (1) Acute bacterial endocarditis Is this a current diagnosis for this admission?: Yes (2) Intravenous drug abuse Is this a current diagnosis for this admission?: Yes (3) Tobacco use disorder, continuous Is this a current diagnosis for this admission?: Yes (4) Septic embolism Is this a current diagnosis for this admission?: Yes (5) Chest pain Qualifiers: Chest pain type: unspecified Qualified Code(s): R07.9 - Chest pain, unspecified Is this a current diagnosis for this admission?: Yes - Plan Summary Summary: Patient will be readmitted to the medical floor on a monitor and storage bin tender. She will receive routine supportive and symptomatic cares. IV antibiotic therapy with cefazolin 2 g every 6 hours will be continued. Patient will receive Ativan 1 mg IV every 4 hours as needed for anxiety or restlessness. She will receive morphine sulfate 2 to 4 mg IV every 2 hours as needed for pain. She will be continued on a regular diet. CBCs metabolic profiles and additional radiographic and/or laboratory evaluations will be obtained as needed. - Time Time Spent with patient: Less than 15 minutes Medications reviewed and adjusted accordingly: No Anticipated Discharge Disposition: Undetermined Anticipated Discharge Timeframe: Undetermined - Inpatient Certification Based on my medical assessment, after consideration of the patient's comorbidities, presenting symptoms, or acuity I expect that the services needed warrant INPATIENT care.: Yes I certify that my determination is in accordance with my understanding of Medicare's requirements for reasonable and necessary INPATIENT services [42 CFR 412.3e].: Yes Medical Necessity: Need Close Monitoring Due to Risk of Patient Decompensation, Need for IV Antibiotics, Risk of Complication if Not Cared For in Hospital
[2020-04-23] MEDS ORDERED: CEFAZOLIN 2 GM/D5W RTU 2 GM/50 ML RTUPB IV SCH (06:00)
[2020-04-23] MEDS: ENOXAPARIN SODIUM INJ 40 MG/0.4 ML DISP.SYRIN SUBCUT SCH (10:37)
[2020-04-23] MEDS: DOCUSATE SODIUM 100 MG CAPSULE PO SCH ×2 (10:37→18:02)
[2020-04-23] MEDS: FAMOTIDINE 20 MG TABLET PO SCH ×2 (10:37→21:52)
[2020-04-23] MEDS: CEFAZOLIN SODIUM 2 GM in DEXTROSE 5%-WATER 100 ML IV SCH ×3 (11:47→23:02)
[2020-04-23] MEDS ORDERED: MORPHINE SULFATE 10 MG/ML INJ IV PRN ×4 (18:34→18:38)
--- NOTE | 2020-04-23 18:42 | PDOC PROGRESS REPORT ---
Subjective Progress Note for:: 04/23/20 Subjective:: Millie Iglesias is 24/F, known IV drug user, who came to our ED 04/21/20 after signing out AMA from [facility] where she was receiving treatment for Right sided endocarditis.because she wanted to be closer to her . She again left AMA 04/22/20 allegedly because her daughter was involved in a car accident and wanted to see her. She again came back the night of 04/22/20 in the ED to be readmitted to continue her cefazolin treatment. Per review of discharge summary report from [facility] she was initially admitted there 04/02/20 for endocarditis. She left AMA 04/14/20. She then came back 04/16/20 to resume her treatment for bacterial endocarditis. She again left AMA 04/18/20 in the morning because she wanted to smoke cigarette, then came back sometime in the afternoon. She was being treated for MSSA bacteremia/ tricuspid valve endocarditis with septic emboli to the lungs. Per documentation 04/18/20 repeat blood culture has been negative. Repeat 2d echo done 04/20/20 showed severe TR, 2 masses on the tricuspid valve with associated flail that are unchanged fr om 04/[address] done at [facility] showed multi cavitary lung lesions appear stable new right moderate pleural effusion. Chest x-ray that was done here at [place] on 04/22/2020 showed multifocal infiltrate with bilateral pleural effusion. The right pleural effusion may be loculated. She has since been restarted on cefazolin as this was what was used in [facility]. Will redraw blood cultures, do urine drug screen, and consult surgery for the possible loculated pleural effusion. Dr. Damon informed. She is afebrile, stable, not needing oxygen support. Reason For Visit: ACUTE BACTERIAL ENDOCARDITIS, SEPTIC PULMONARY Physical Exam Vital Signs: Temp Pulse Resp BP Pulse Ox 98.5 F 80 19 126/86 H 100 04/23/20 16:00 04/23/20 16:00 04/23/20 16:00 04/23/20 16:00 04/23/20 16:00 Intake & Output 04/22/20 04/23/20 04/24/20 06:59 06:59 06:59 Intake Total 272 650 Balance 272 650 Weight 62.8 kg General appearance: PRESENT: no acute distress, cooperative Head exam: PRESENT: atraumatic, normocephalic Eye exam: PRESENT: EOMI, PERRLA Mouth exam: PRESENT: moist Neck exam: PRESENT: full ROM. ABSENT: JVD Respiratory exam: PRESENT: decreased breath sounds - Bilateral, symmetrical, unlabored Cardiovascular exam: PRESENT: RRR, +S1, +S2 Pulses: PRESENT: +2 pedal pulses bilateral GI/Abdominal exam: PRESENT: normal bowel sounds, soft. ABSENT: distended, rebound Extremities exam: PRESENT: full ROM Musculoskeletal exam: PRESENT: full ROM Neurological exam: PRESENT: alert, awake, oriented to person, oriented to place, oriented to time, oriented to situation Psychiatric exam: PRESENT: normal mood Skin exam: PRESENT: normal color Results Laboratory Results: 04/22/20 21:25 04/22/20 21:25 04/22/20 04/22/20 04/22/20 20:12 21:25 21:25 WBC 14.3 H RBC 3.35 L Hgb 9.5 L Hct 28.8 L MCV 86 MCH 28.4 MCHC 33.0 RDW 18.1 H Plt Count 382 Seg Neutrophils % 74.4 Sodium 138.7 Potassium 3.9 Chloride 101 Carbon Dioxide 26 Anion Gap 12 BUN 11 Creatinine 0.86 Est GFR ( Amer) > 60 Glucose 104 Lactic Acid Calcium 9.1 Magnesium 1.8 Total Bilirubin 0.4 AST 18 Alkaline Phosphatase 65 Total Protein 8.2 Albumin 3.5 Urine Color YELLOW Urine Appearance SLIGHTLY-CLOUDY Urine pH 6.0 Ur Specific [place] 1.014 Urine Protein 30 H Urine Glucose (UA) NEGATIVE Urine Ketones NEGATIVE Urine Blood SMALL H Urine Nitrite NEGATIVE Ur Leukocyte Esterase NEGATIVE Urine WBC (Auto) 6 Urine RBC (Auto) 1 04/22/20 21:25 WBC RBC Hgb Hct MCV MCH MCHC RDW Plt Count Seg Neutrophils % Sodium Potassium Chloride Carbon Dioxide Anion Gap BUN Creatinine Est GFR ( Amer) Glucose Lactic Acid 0.6 L Calcium Magnesium Total Bilirubin AST Alkaline Phosphatase Total Protein Albumin Urine Color Urine Appearance Urine pH Ur Specific [place] Urine Protein Urine Glucose (UA) Urine Ketones Urine Blood Urine Nitrite Ur Leukocyte Esterase Urine WBC (Auto) Urine RBC (Auto) 04/22/20 04/22/20 21:25 21:25 Creatine Kinase 49 Troponin I 0.015 Impressions: Chest X-Ray 04/22/20 20:03 IMPRESSION: 1. Multifocal infiltrate with bilateral pleural effusions. The right pleural effusion may be loculated. 2. There is a cavitation within multiple small nodular densities. This is suggestive of septic embolization. The appearance is stable. Assessment and Plan - Diagnosis (1) Acute bacterial endocarditis Is this a current diagnosis for this admission?: Yes Plan: - admitted at [facility] 04/02/20 for right sided endarditis with septic emboli MSSA, 2/2 to IV drug use - she has left [place] twice at [facility] while undergoing treatment - per review of records latest blood cx have been negative - TTE 04/18/20 [place] tricuspid regurgitation, 2 masses on the tricuspid valve with associated flail leaflet that are unchanged from 820 assessment. - CT chest 04/18/20 showed interval development of a moderate right and small left pleural effusion. Multifocal cavitary and solitary nodules in both lungs again demonstrated not significantly changed from prior CT. lungs are suspicious for multifocal septic emboli -Not counting the days where and he was she was outside the hospital when she leaves [place], I suspect that she has had about 2 weeks of cumulative cefazolin treatment. Per notes from [facility] she is recommended to have a total of 6 weeks of treatment for right-sided endocarditis -Repeat blood cultures ordered -We will continue cefazolin -She will likely need to be transferred to a tertiary center where there is cardiothoracic surgery because of the severe tricuspid regurg and vegetation. Not sure how this is going to play out since she has a history of signing out A MA. (2) Septic embolism Is this a current diagnosis for this admission?: Yes Plan: -Secondary to right-sided bacterial endocarditis MSSA -CT scan done on April 18 showed interval development of a moderate right and small left pleural effusion since first CT on 04/16. Multifocal cavitary and solitary nodules in both lungs again demonstrated not significantly changed. Findings are suspicious for multifocal septic emboli. -Received about 2 weeks of cefazolin -We will continue cefazolin on this admission -Repeat CT chest ordered due to concern for loculated pleural effusion seen on x-ray done 04/22/20 (3) Pleural effusion due to bacterial infection Is this a current diagnosis for this admission?: Yes Plan: -Chest x-ray done on April 22, 2020 showed multifocal infiltrate with bilateral pleural effusions. The right pleural effusion may be loculated -Patient is afebrile not tachypneic not requiring oxygen with no complaints of shortness of breath -WBC count 14.3 -Dr. Damon consulted -Repeat CT chest ordered. She will need a chest tube if the CT shows loculation (4) Tricuspid valve regurgitation due to infection Is this a current diagnosis for this admission?: Yes Plan: -Reported on TTE done at [facility] on April 18, 2020. Severe tricuspid regurgitation 2 masses on the tricuspid valve with associated flail leaflet that are unchanged from prior echo on April 13. 52 to 72%. LV is grossly normal -No signs of decompensation -EKG done on April 22 showed sinus tachycardia left posterior fascicular block -Continue antibiotics (5) Chronic back pain Qualifiers: Back pain location: low back pain Sciatica presence: without sciatica Is this a current diagnosis for this admission?: Yes Plan: - has chronic back pain - midline tenderness lumbar L1-L2 area - according to her back pain is stable, not worsening - no focal deficit - will hold off MRI for now. Consider if back pain worsens (6) Intravenous drug abuse Is this a current diagnosis for this admission?: Yes Plan: - she has left AMA several times in the past in between admissions - I am afraid she gets heroine during these times. - will order drug screen (7) Tobacco use disorder, continuous Is this a current diagnosis for this admission?: Yes Plan: - counseling done - Plan Summary Summary: She is a 24-year-old female known IV drug user who was initially admitted at [facility] April 02 due to right-sided endocarditis with tricuspid regurgitation. Upon review of records from [facility] she went AMA April 14 came back April 16. Left AMA again April 18 only to come back on the same day. She then left AMA on April 21 and came to [facility] claiming that she is nearer to her family here. Cefazolin restarted for bacterial endocarditis surgery consulted for loculated pleural effusion seen on chest x- ray. - Time Time Spent with patient: 35 or more minutes Smoking Cessation Education: over 10 minutes Medications reviewed and adjusted accordingly: Yes Anticipated Discharge Disposition: Home, Self Care Anticipated Discharge Timeframe: to be determined
[2020-04-23 19:56] LABS: URINE AMPHETAMINES SCREEN NEGATIVE; URINE BARBITURATES SCREEN NEGATIVE; URINE BENZODIAZEPINES SCREEN NEGATIVE; URINE COCAINE SCREEN NEGATIVE; URINE MARIJUANA (THC) SCREEN NEGATIVE; URINE METHADONE SCREEN NEGATIVE; URINE PHENCYCLIDINE SCREEN NEGATIVE
--- NOTE | 2020-04-23 22:10 | RADIOLOGY REPORT (SQ) ---
EXAM DESCRIPTION: CT CHEST WITH IV CONTRAST COMPLETED DATE/TME: 04/23/2020 00:00 CLINICAL HISTORY: 24 years, Female, loculated pleural effusion. Cavitary lung lesions. COMPARISON: Chest x-ray 04/22/2020. TECHNIQUE: Axial images with 100 mL of Omnipaque 350. Sagittal coronal reconstruction. Images stored on PACS. All CT scanners at this facility use dose modulation, iterative reconstruction, and/or weight based dosing when appropriate to reduce radiation dose to as low as reasonably achievable (ALARA). FINDINGS: Limited study due to some motion artifact and limited IVP opacification. Normal size main pulmonary artery without central pulmonary embolus. Very limited evaluation of the middle and small size pulmonary arteries without ability to evaluate for PE. Aorta is unremarkable. There is gqiv-[id number] cardiomegaly including right and left heart. Presence of small mediastinal and bilateral hilar lymph nodes. No overt adenopathy. Small pericardial effusion. Bilateral pleural effusions, minimal to mild on the left and [id number] on the right. The majority of the fluid is not loculated. There may be minimal loculated component in the right upper chest. Multiple nodules bilaterally. Many are cavitated. Some are not cavitated. The mckeon of the cavitary lesions are relatively smooth and not thick. High suspicion of embolic infection. There is relative mild bilateral compressive atelectasis. There is no suspicious focal consolidation. No suspicious bony lesion. Limited images of the upper abdomen without obvious abnormality. Partially visualized borderline size spleen. IMPRESSION: 1. Multiple bilateral lung nodules some cavitary suspicious for embolic infectious process. 2. Non prominent bilateral pleural effusions larger on the right. Majority of the fluid is not loculated. Minimal loculated component possibly in the right upper chest. 3. Technically limited evaluation of the pulmonary arteries even centrally. No large pulmonary embolus. Difficult to exclude a small embolus. 4. Akge-ac-mykcawps cardiomegaly. Small pericardial effusion. Suspected borderline spleen size.
[2020-04-24 05:29] LABS: HEMATOCRIT 29.6 % (36.0-47.0); HEMOGLOBIN 10.1 g/dL (12.0-15.5); MEAN CORPUSCULAR HEMOGLOBIN 28.9 pg (27.0-33.4); MEAN CORPUSCULAR HGB CONC 34.1 g/dL (32.0-36.0); MEAN CORPUSCULAR VOLUME 85 fl (80-97); PLATELET COUNT 339 10^3/uL (150-450); RED BLOOD COUNT 3.49 10^6/uL (3.72-5.28); RED CELL DISTRIBUTION WIDTH 18.2 % (11.5-14.0); WHITE BLOOD COUNT 10.5 10^3/uL (4.0-10.5)
[2020-04-24 05:56] LABS: ANION GAP 9 (5-19); BLOOD UREA NITROGEN 9 mg/dL (7-20); CALCIUM 8.7 mg/dL (8.4-10.2); CARBON DIOXIDE 25 mmol/L (22-30); CHLORIDE 104 mmol/L (98-107); GLUCOSE 100 mg/dL (75-110); POTASSIUM 3.8 mmol/L (3.6-5.0)
[2020-04-24] MEDS: CEFAZOLIN SODIUM 2 GM in DEXTROSE 5%-WATER 100 ML IV SCH ×4 (06:36→23:12)
--- NOTE | 2020-04-24 07:02 | PDOC CONSULTATION ---
Consultation Consult Date: 04/24/20 Provider Consulted: SURGICAL SURGICALIST MD Consult reason:: Septic pulmonary emboli, with small pleural effusions. History of Present Illness Admission Date/PCP: 04/23/20 00:59 History of Present Illness: CHRIS MILLER is a 24 year old female with a history of IV drug abuse. She presents with multiple cavitary lung lesions and small pleural effusions bilaterally. She denies any shortness of breath or chest pain. The patient reports that she had "pneumonia" and was being treated at another hospital. She left that hospital, and now presents to [facility]. Surgery has been consulted to evaluate her pleural effusions. Currently she denies fevers, ch ills, shortness of breath, chest pain, nausea, vomiting, abdominal pain, melena, hematochezia. Her CT scan demonstrates multiple cavitary lesions in bilateral lung stark, consistent with septic emboli. She has a small amount of pleural fluid, without signs of loculation/empyema/complication. Past Medical History Cardiac Medical History: Denies: Atrial Fibrillation, Coronary Artery Disease, DVT, Hypertension, Pulmonary Embolism Pulmonary Medical History: Reports: Asthma, Pneumonia EENT Medical History: Denies: Cataracts, Ears - Hearing aids Neurological Medical History: Denies: Multiple Sclerosis, Seizures Endocrine Medical History: Denies: Diabetes Mellitus Type 1, Hyperthyroidism, Hypothyroidism Renal/ Medical History: Denies: Chronic Kidney Disease, Nephrolithiasis Malignancy Medical History: Reports: None GI Medical History: Denies: Cirrhosis, Hepatitis Musculoskeltal Medical History: Denies: Arthritis, Fibromyalgia Skin Medical History: Denies: Eczema, Psoriasis Psychiatric Medical History: Reports: Substance Abuse, Tobacco Dependency Denies: Alcohol Dependency, Depression Traumatic Medical History: Reports: None Hematology: Denies: Anemia, Bleeding Tendencies Infectious Medical History: Reports: None Past Surgical History Past Surgical History: Reports: Other - Dental surgery Social History Lives with: Family Smoking Status: Current Every Day Smoker Electronic Cigarette use?: No Frequency of Alcohol Use: Occasional Hx Recreational Drug Use: Yes Drugs: Heroin, Marijuana Hx Prescription Drug Abuse: No - Advance Directive Resuscitation Status: Full Code Family History Family History: denies: CAD, DM, Hypertension, Malignancy Parental Family History Reviewed: Yes Children Family History Reviewed: Yes Sibling(s) Family History Reviewed.: Yes Medication/Allergy Home Medications: No Home Medications 04/22/20 Allergies/Adverse Reactions: No Known Allergies Allergy (Verified 04/22/20 22:01) Review of Systems Constitutional: ABSENT: anorexia, chills, fatigue Eyes: ABSENT: visual disturbances Ears: ABSENT: hearing changes Nose, Mouth, and Throat: ABSENT: sore throat Cardiovascular: ABSENT: chest pain Respiratory: ABSENT: cough, dyspnea Gastrointestinal: ABSENT: abdominal pain, bloating Genitourinary: ABSENT: dysuria Musculoskeletal: ABSENT: back pain Integumentary: ABSENT: diaphoresis Neurological: ABSENT: confusion, convulsions, dizziness Psychiatric: ABSENT: anxiety, depression Endocrine: ABSENT: cold intolerance, heat intolerance Hematologic/Lymphatic: ABSENT: easy bleeding, easy bruising Physical Exam Vital Signs: Temp Pulse Resp BP Pulse Ox 98.3 F 90 17 132/80 H 94 04/23/20 23:15 04/24/20 02:00 04/23/20 23:15 04/23/20 23:15 04/23/20 23:15 Intake & Output 04/22/20 04/23/20 04/24/20 06:59 06:59 06:59 Intake Total 272 1450 Balance 272 1450 Weight 62.8 kg 64.7 kg General appearance: PRESENT: no acute distress, cooperative Head exam: PRESENT: atraumatic, normocephalic Eye exam: PRESENT: EOMI, PERRLA. ABSENT: scleral icterus Neck exam: ABSENT: meningismus, tenderness, thyromegaly, tracheal deviation Respiratory exam: PRESENT: unlabored. ABSENT: tachypnea, wheezes Vascular exam: PRESENT: normal capillary refill. ABSENT: pallor GI/Abdominal exam: PRESENT: soft. ABSENT: distended, tenderness Rectal exam: PRESENT: deferred Musculoskeletal exam: ABSENT: deformity Neurological exam: PRESENT: alert, awake, oriented to person, oriented to place, oriented to time, oriented to situation, CN II-XII grossly intact. ABSENT: motor sensory deficit Psychiatric exam: ABSENT: agitated, anxious, depressed Focused psych exam: ABSENT: delusional Skin exam: ABSENT: cyanosis, erythema, jaundice Results Laboratory Results: 04/24/20 04:54 04/24/20 04:54 04/24/20 04/24/20 04:54 04:54 WBC 10.5 RBC 3.49 L Hgb 10.1 L Hct 29.6 L MCV 85 MCH 28.9 MCHC 34.1 RDW 18.2 H Plt Count 339 Sodium 138.0 Potassium 3.8 Chloride 104 Carbon Dioxide 25 Anion Gap 9 BUN 9 Creatinine 0.65 Est GFR ( Amer) > 60 Glucose 100 Calcium 8.7 Magnesium 1.7 04/22/20 04/22/20 21:25 21:25 Creatine Kinase 49 Troponin I 0.015 Impressions: Chest X-Ray 04/22/20 20:03 IMPRESSION: 1. Multifocal infiltrate with bilateral pleural effusions. The right pleural effusion may be loculated. 2. There is a cavitation within multiple small nodular densities. This is suggestive of septic embolization. The appearance is stable. Chest CT 04/23/20 00:00 IMPRESSION: 1. Multiple bilateral lung nodules some cavitary suspicious for embolic infectious process. 2. Non prominent bilateral pleural effusions larger on the right. Majority of the fluid is not loculated. Minimal loculated component possibly in the right upper chest. 3. Technically limited evaluation of the pulmonary arteries even centrally. No large pulmonary embolus. Difficult to exclude a small embolus. 4. Ybzj-gk-ycjfzuzh cardiomegaly. Small pericardial effusion. Suspected borderline spleen size. Assessment & Plan - Diagnosis (1) Cavitary lesion of lung Is this a current diagnosis for this admission?: Yes (2) Septic embolism Is this a current diagnosis for this admission?: Yes - Plan Summary Plan Summary: This is a 24-year-old female with multiple cavitary lung lesions, consistent with septic emboli. She presents with very small bilateral pleural effusions. I have personally reviewed the patient's CT scan. I do not see any evidence of empyema or loculation. There is no air-fluid level, or suspicious finding. I would recommend continued treatment with intravenous antibiotics and repeat x- ray in 48 hours. If her pleural effusion is worsening, she may require thoracentesis versus chest tube placement. Continue with conservative/medical management for now. Follow-up with chest x-ray in 48 hours. Surgery will continue to follow with you.
[2020-04-24] MEDS: ENOXAPARIN SODIUM INJ 40 MG/0.4 ML DISP.SYRIN SUBCUT SCH (09:51)
[2020-04-24] MEDS: DOCUSATE SODIUM 100 MG CAPSULE PO SCH ×2 (09:51→18:17)
[2020-04-24] MEDS: FAMOTIDINE 20 MG TABLET PO SCH ×2 (09:51→22:22)
[2020-04-24] MEDS: MORPHINE SULFATE 10 MG/ML INJ IV PRN ×2 (10:06→16:45)
[2020-04-24] MEDS: HYDROMORPHONE HCL INJ/PF 2 MG/ML AMPULE IV PRN ×2 (18:52→23:11)
[2020-04-24] MEDS ORDERED: NICOTINE 7 MG/24 HR PATCH.TD24 TD PRN (18:57)
--- NOTE | 2020-04-24 19:07 | PDOC PROGRESS REPORT ---
Subjective Progress Note for:: 04/24/20 Subjective:: The patient is a 24-year-old female, known IV drug user, who came to the ED 04/21/2020 after signing out AMA for [facility] where she was receiving treatment for tricuspid valve endocarditis utilizing daptomycin. She was initially admitted there 04/02/2020, left AMA 04/14/2020, returned 04/16/2020, left again AMA 04/18/2020 returning the same day, and leaving again AMA 2% to [place]. Since admission here, she left AMA 04/22/2020 and returning that afternoon. Patient denies illicit drug use while out of the hospital. However, we will repeat blood cultures tomorrow morning for reassurance. Patient was seen on afternoon rounds. She is found resting in bed, comfortably, on room air. She reports continued back pain and pleuritic pain on deep breath and cough. She reports that the morphine is not adequate. We had a long discussion about transition to methadone versus Suboxone versus Subutex. Patient states that she has used methadone and Suboxone in the past but would prefer Subutex for its anti-abuse properties. However, she requests Dilaudid today ("that medication that starts with a 'D'") until her pain is improved. She is strongly counseled that although she is receiving opiate medications for her acute pain, she will be weaned from opiates and discharged without any narcotic prescriptions. She is strongly advised to transition to methadone or Subutex as early as possible as these can both be continued at the [facility] following discharge. We discussed endocarditis, tricuspid valve vegetations, septic emboli, and the need for prolonged antibiotic therapy and likely follow-up echocardiogram prior to her discharge to evaluate treatment success. Towards the end of the conversation, her mother to join us by speaker phone. All questions were addressed to their satisfaction. She denies fever, chills, dyspnea, orthopnea, abdominal pain, nausea vomiting or diarrhea. She reports good appetite. No concerns per nursing. Reason For Visit: ACUTE BACTERIAL ENDOCARDITIS, SEPTIC PULMONARY Physical Exam Vital Signs: Temp Pulse Resp BP Pulse Ox 98.3 F 83 17 132/80 H 94 04/24/20 10:00 04/24/20 07:00 04/23/20 23:15 04/23/20 23:15 04/23/20 23:15 Intake & Output 04/23/20 04/24/20 04/25/20 06:59 06:59 06:59 Intake Total 272 1450 200 Balance 272 1450 200 Weight 62.8 kg 64.7 kg General appearance: PRESENT: no acute distress, cooperative, disheveled, well- developed, well-nourished Head exam: PRESENT: atraumatic, normocephalic Eye exam: PRESENT: conjunctiva pink, EOMI, PERRLA. ABSENT: scleral icterus Mouth exam: PRESENT: moist, tongue midline Teeth exam: PRESENT: poor dentation Respiratory exam: PRESENT: clear to auscultation dustin, symmetrical, unlabored. ABSENT: rales, rhonchi, wheezes Cardiovascular exam: PRESENT: RRR, +S1, +S2, systolic murmur. ABSENT: diastolic murmur, rubs Pulses: PRESENT: normal dorsalis pedis pul Vascular exam: PRESENT: normal capillary refill Extremities exam: PRESENT: full ROM. ABSENT: calf tenderness, clubbing, pedal edema Neurological exam: PRESENT: alert, awake, oriented to person, oriented to place, oriented to time, oriented to situation, CN II-XII grossly intact. ABSENT: motor sensory deficit Psychiatric exam: PRESENT: appropriate affect, normal mood. ABSENT: homicidal ideation, suicidal ideation Skin exam: PRESENT: dry, intact, warm, other - scattered ecchymosis. ABSENT: cyanosis, rash Results Laboratory Results: 04/24/20 04:54 04/24/20 04:54 04/24/20 04/24/20 04:54 04:54 WBC 10.5 RBC 3.49 L Hgb 10.1 L Hct 29.6 L MCV 85 MCH 28.9 MCHC 34.1 RDW 18.2 H Plt Count 339 Sodium 138.0 Potassium 3.8 Chloride 104 Carbon Dioxide 25 Anion Gap 9 BUN 9 Creatinine 0.65 Est GFR ( Amer) > 60 Glucose 100 Calcium 8.7 Magnesium 1.7 04/22/20 20:12 Clean Catch Midstream Urine Culture - Final NO GROWTH 2 DAYS 04/22/20 04/22/20 21:25 21:25 Creatine Kinase 49 Troponin I 0.015 Impressions: Chest X-Ray 04/22/20 20:03 IMPRESSION: 1. Multifocal infiltrate with bilateral pleural effusions. The right pleural effusion may be loculated. 2. There is a cavitation within multiple small nodular densities. This is suggestive of septic embolization. The appearance is stable. Chest CT 04/23/20 00:00 IMPRESSION: 1. Multiple bilateral lung nodules some cavitary suspicious for embolic infectious process. 2. Non prominent bilateral pleural effusions larger on the right. Majority of the fluid is not loculated. Minimal loculated component possibly in the right upper chest. 3. Technically limited evaluation of the pulmonary arteries even centrally. No large pulmonary embolus. Difficult to exclude a small embolus. 4. Rwra-ls-pjdxgfdv cardiomegaly. Small pericardial effusion. Suspected borderline spleen size. Assessment and Plan - Diagnosis (1) Acute bacterial endocarditis Is this a current diagnosis for this admission?: Yes Plan: - admitted at [facility] 04/02/20 for right sided endarditis with septic emboli MSSA, 2 to IV drug use - she has left [place] twice at [facility] while undergoing treatment - per review of records latest blood cx have been negative - TTE 04/18/20 Severe tricuspid regurgitation, 2 masses on the tricuspid valve with associated flail leaflet that are unchanged from 820 assessment. - CT chest 04/18/20 showed interval development of a moderate right and small left pleural effusion. Multifocal cavitary and solitary nodules in both lungs again demonstrated not significantly changed from prior CT. lungs are suspicious for multifocal septic emboli -Repeat CT chest (04/23/2020) showed multiple bilateral lung nodules and sub- cavitary lesion suspicious for embolic infectious process, non-prominent bilateral pleural effusions, larger on the right. Majority of fluid is not loculated. Mild to moderate cardiomegaly with a small pericardial effusion. Suspect borderline spleen size. -Not counting the days where and he was she was outside the hospital when she leaves [place], I suspect that she has had about 2 weeks of cumulative cefazolin treatment. Per notes from [facility] she is recommended to have a total of 6 weeks of treatment for right-sided endocarditis Repeat blood cultures pending We will continue cefazolin Infectious Disease is consulted to help guide length of therapy considering the patient numerous AMA events. -She will likely need to be transferred to a tertiary center where there is cardiothoracic surgery because of the severe tricuspid regurg and vegetation. Will need repeat TTE/MARTI toward end of antibiotic course. (2) Chronic back pain Qualifiers: Back pain location: low back pain Sciatica presence: without sciatica Is this a current diagnosis for this admission?: Yes Plan: - has chronic back pain - midline tenderness lumbar L1-L2 area - according to her back pain is stable, not worsening - no focal deficit - will hold off MRI for now. Consider if back pain worsens (3) Septic embolism Is this a current diagnosis for this admission?: Yes Plan: -Secondary to right-sided bacterial endocarditis MSSA -CT scan done on April 18 showed interval development of a moderate right and small left pleural effusion since first CT on 04/16. Multifocal cavitary and solitary nodules in both lungs again demonstrated not significantly changed. Findings are suspicious for multifocal septic emboli. -Repeat CT chest (04/23/2020) showed multiple bilateral lung nodules and sub-cavitary lesion suspicious for embolic infectious process, non-prominent bilateral pleural effusions, larger on the right. Majority of fluid is not loculated. Mild to moderate cardiomegaly with a small pericardial effusion. Suspect borderline spleen size. -Received about 2 weeks of cefazolin -We will continue cefazolin on this admission Surgery was consulted; per Dr. Damon no indications for surgical intervention at this time. (4) Pleural effusion due to bacterial infection Is this a current diagnosis for this admission?: Yes Plan: -Chest x-ray done on April 22, 2020 showed multifocal infiltrate with bilateral pleural effusions. The right pleural effusion may be loculated -Patient is afebrile not tachypneic not requiring oxygen with no complaints of shortness of breath -Dr. Damon consulted; No indications for surgical intervention at this time. Remaining management as above. (5) Tricuspid valve regurgitation due to infection Is this a current diagnosis for this admission?: Yes Plan: -Reported on TTE done at [facility] on April 18, 2020. Severe tricuspid regurgitation 2 masses on the tricuspid valve with associated flail leaflet that are unchanged from prior echo on April 13. 52 to 72%. LV is grossly normal -No signs of decompensation -EKG done on April 22 showed sinus tachycardia left posterior fascicular block -Continue antibiotics (6) Intravenous drug abuse Is this a current diagnosis for this admission?: Yes Plan: - she has left [place] several times in the past in between admissions - I am afraid she gets heroine during these times. Drug screen positive for opiates; confirmation pending. She has received morphine/Dilaudid during her admissions for her pain related to septic emboli. Long discussion had today about need to transition to methadone or Subutex in anticipation that she will continue care through the [facility] post discharge. Patient is not receptive at this time; likely we will have to do a heart switch. (7) Tobacco use disorder, continuous Is this a current diagnosis for this admission?: Yes Plan: - counseling done Nicotine replacement therapies provided. - Time Time Spent with patient: 35 or more minutes Medications reviewed and adjusted accordingly: Yes Anticipated Discharge Disposition: Home, Self Care Anticipated Discharge Timeframe: >72 hours
[2020-04-24] MEDS: MELATONIN 5 MG TABLET PO PRN (23:12)
[2020-04-25] MEDS: HYDROMORPHONE HCL INJ/PF 2 MG/ML AMPULE IV PRN ×5 (04:35→22:13)
[2020-04-25 05:42] LABS: ANION GAP 8 (5-19); BLOOD UREA NITROGEN 14 mg/dL (7-20); CALCIUM 8.7 mg/dL (8.4-10.2); CARBON DIOXIDE 26 mmol/L (22-30); CHLORIDE 104 mmol/L (98-107); CREATINE KINASE 26 U/L (30-135); GLUCOSE 98 mg/dL (75-110); POTASSIUM 4.7 mmol/L (3.6-5.0)
[2020-04-25 05:43] LABS: HEMATOCRIT 32.8 % (36.0-47.0); HEMOGLOBIN 10.9 g/dL (12.0-15.5); MEAN CORPUSCULAR HEMOGLOBIN 28.4 pg (27.0-33.4); MEAN CORPUSCULAR HGB CONC 33.2 g/dL (32.0-36.0); MEAN CORPUSCULAR VOLUME 86 fl (80-97); PLATELET COUNT 375 10^3/uL (150-450); RED BLOOD COUNT 3.83 10^6/uL (3.72-5.28); RED CELL DISTRIBUTION WIDTH 18.2 % (11.5-14.0); WHITE BLOOD COUNT 12.1 10^3/uL (4.0-10.5)
[2020-04-25] MEDS: CEFAZOLIN SODIUM 2 GM in DEXTROSE 5%-WATER 100 ML IV SCH ×4 (05:46→23:18)
[2020-04-25] MEDS: DOCUSATE SODIUM 100 MG CAPSULE PO SCH ×2 (10:56→18:14)
[2020-04-25] MEDS: FAMOTIDINE 20 MG TABLET PO SCH ×2 (10:56→22:18)
[2020-04-25] MEDS: ENOXAPARIN SODIUM INJ 40 MG/0.4 ML DISP.SYRIN SUBCUT SCH (10:56)
[2020-04-25] MEDS ORDERED: ALBUTEROL SULFATE HFA (90 MCG/PUFF) 8 GM MDI IH PRN (14:17)
--- NOTE | 2020-04-25 14:30 | PDOC PROGRESS REPORT ---
Subjective Progress Note for:: 04/25/20 Subjective:: This 24 years old female with history of IVDA admitted initially on 04 21 after signing out from [facility] AGAINST MEDICAL ADVICE and he was currently under treatment for tricuspid valve endocarditis with daptomycin. She was initially admitted there on April 02, left AMA on April 14 and apparently returned on April 16 and then left again on April 18, returned the same day and then left again AMA and came to [facility] where she proceeded to sign out AMA again on April 22 and then returned that afternoon. Currently complaining of pain, generalized. She was given Dilaudid yesterday which she says works for her. The plan will be to start on methadone or Subutex. This time her records have been requested from [facility] and will review this when available. Reason For Visit: ACUTE BACTERIAL ENDOCARDITIS, SEPTIC PULMONARY Physical Exam Vital Signs: Temp Pulse Resp BP Pulse Ox 98.6 F 99 28 H 134/88 H 100 04/25/20 12:29 04/25/20 12:29 04/25/20 12:29 04/25/20 12:29 04/25/20 12:29 Intake & Output 04/24/20 04/25/20 04/26/20 06:59 06:59 06:59 Intake Total 1450 1100 100 Balance 1450 1100 100 Weight 64.7 kg 64.3 kg General appearance: PRESENT: no acute distress, thin Head exam: PRESENT: atraumatic, normocephalic Eye exam: PRESENT: conjunctiva pink, EOMI, PERRLA. ABSENT: scleral icterus Ear exam: PRESENT: normal external ear exam Mouth exam: PRESENT: moist, tongue midline Neck exam: ABSENT: carotid bruit, JVD, lymphadenopathy, thyromegaly Respiratory exam: PRESENT: clear to auscultation dustin. ABSENT: rales, rhonchi, wheezes Cardiovascular exam: PRESENT: RRR, +S1, +S2, systolic murmur. ABSENT: diastolic murmur, rubs Pulses: PRESENT: normal dorsalis pedis pul Vascular exam: PRESENT: normal capillary refill GI/Abdominal exam: PRESENT: normal bowel sounds, soft. ABSENT: distended, guarding, mass, organolmegaly, rebound, tenderness Rectal exam: PRESENT: deferred Extremities exam: PRESENT: full ROM. ABSENT: calf tenderness, clubbing, pedal edema Neurological exam: PRESENT: alert, awake, oriented to person, oriented to place, oriented to time, oriented to situation, CN II-XII grossly intact. ABSENT: motor sensory deficit Psychiatric exam: PRESENT: appropriate affect, normal mood. ABSENT: homicidal ideation, suicidal ideation Skin exam: PRESENT: dry, intact, warm. ABSENT: cyanosis, rash Results Laboratory Results: 04/25/20 04:37 04/25/20 04:37 04/25/20 04/25/20 04:37 04:37 WBC 12.1 H RBC 3.83 Hgb 10.9 L Hct 32.8 L MCV 86 MCH 28.4 MCHC 33.2 RDW 18.2 H Plt Count 375 Sodium 138.0 Potassium 4.7 Chloride 104 Carbon Dioxide 26 Anion Gap 8 BUN 14 Creatinine 0.70 Est GFR ( Amer) > 60 Glucose 98 Calcium 8.7 04/22/20 20:12 Clean Catch Midstream Urine Culture - Final NO GROWTH 2 DAYS 04/22/20 04/22/20 04/25/20 21:25 21:25 04:37 Creatine Kinase 49 26 L Troponin I 0.015 Impressions: Chest X-Ray 04/22/20 20:03 IMPRESSION: 1. Multifocal infiltrate with bilateral pleural effusions. The right pleural effusion may be loculated. 2. There is a cavitation within multiple small nodular densities. This is suggestive of septic embolization. The appearance is stable. Chest CT 04/23/20 00:00 IMPRESSION: 1. Multiple bilateral lung nodules some cavitary suspicious for embolic infectious process. 2. Non prominent bilateral pleural effusions larger on the right. Majority of the fluid is not loculated. Minimal loculated component possibly in the right upper chest. 3. Technically limited evaluation of the pulmonary arteries even centrally. No large pulmonary embolus. Difficult to exclude a small embolus. 4. Jxai-wd-tziiyeer cardiomegaly. Small pericardial effusion. Suspected borderline spleen size. Assessment and Plan - Diagnosis (1) Acute bacterial endocarditis Is this a current diagnosis for this admission?: Yes Plan: - admitted at [facility] 04/02/20 for right sided endarditis with septic emboli MSSA, 2/2 to IV drug use - she has left AMA twice at [facility] while undergoing treatment - per review of records latest blood cx have been negative - TTE 04/18/20 Severe tricuspid regurgitation, 2 masses on the tricuspid valve with associated flail leaflet that are unchanged from 820 assessment. - CT chest 04/18/20 showed interval development of a moderate right and small left pleural effusion. Multifocal cavitary and solitary nodules in both lungs again demonstrated not significantly changed from prior CT. lungs are suspicious for multifocal septic emboli -Repeat CT chest (04/23/2020) showed multiple bilateral lung nodules and sub- cavitary lesion suspicious for embolic infectious process, non-prominent bilateral pleural effusions, larger on the right. Majority of fluid is not loculated. Mild to moderate cardiomegaly with a small pericardial effusion. Suspect borderline spleen size. -Not counting the days where and he was she was outside the hospital when she leaves AMA, I suspect that she has had about 2 weeks of cumulative cefazolin treatment. Per notes from [facility] she is recommended to have a total of 6 weeks of treatment for right-sided endocarditis Repeat blood cultures pending We will continue cefazolin Infectious Disease is consulted to help guide length of therapy considering the patient numerous AMA events. -She will likely need to be transferred to a tertiary center where there is cardiothoracic surgery because of the severe tricuspid regurg and vegetation. Will need repeat TTE/MARTI toward end of antibiotic course. 04/25 Will follow up on records from [facility] (2) Cavitary lesion of lung Is this a current diagnosis for this admission?: Yes (3) Chronic back pain Qualifiers: Back pain location: low back pain Sciatica presence: without sciatica Is this a current diagnosis for this admission?: Yes Plan: - has chronic back pain - midline tenderness lumbar L1-L2 area - according to her back pain is stable, not worsening - no focal deficit Consider MRI if back pain worsens (4) Pleural effusion due to bacterial infection Is this a current diagnosis for this admission?: Yes Plan: -Chest x-ray done on April 22, 2020 showed multifocal infiltrate with bilateral pleural effusions. The right pleural effusion may be loculated -Patient is afebrile not tachypneic not requiring oxygen with no complaints of shortness of breath She is ambulatory -Dr. Damon consulted; No indications for surgical intervention at this time. Remaining management as above. (5) Septic embolism Is this a current diagnosis for this admission?: Yes Plan: -Secondary to right-sided bacterial endocarditis MSSA -CT scan done on April 18 showed interval development of a moderate right and small left pleural effusion since first CT on 04/16. Multifocal cavitary and s olitary nodules in both lungs again demonstrated not significantly changed. Findings are suspicious for multifocal septic emboli. -Repeat CT chest (04/23/2020) showed multiple bilateral lung nodules and sub- cavitary lesion suspicious for embolic infectious process, non-prominent bilateral pleural effusions, larger on the right. Majority of fluid is not loculated. Mild to moderate cardiomegaly with a small pericardial effusion. Suspect borderline spleen size. -Received about 2 weeks of cefazolin -We will continue cefazolin on this admission (6) Tricuspid valve regurgitation due to infection Is this a current diagnosis for this admission?: Yes Plan: -Reported on TTE done at [facility] on April 18, 2020. Severe tricuspid regurgitation 2 masses on the tricuspid valve with associated flail leaflet that are unchanged from prior echo on April 13. 52 to 72%. LV is grossly normal -No signs of decompensation -EKG done on April 22 showed sinus tachycardia left posterior fascicular block -Continue antibiotics, ID follow up (7) Intravenous drug abuse Is this a current diagnosis for this admission?: Yes Plan: - she has left AMA several times in the past in between admissions - I am afraid she gets heroine during these times. Drug screen positive for opiates; confirmation pending. She has received morphine/Dilaudid during her admissions for her pain related to septic emboli. Long discussion about need to transition to methadone or Subutex in anticipation that she will continue care through the [facility] post disch arge. Patient is not receptive at this time; likely we will have to do a heart switch!!!! (8) Tobacco use disorder, continuous Is this a current diagnosis for this admission?: Yes Plan: - counseling done Nicotine replacement therapies provided. - Plan Summary Summary: Her latest blood cultures have been negative. TTE on April 18 revealed severe tricuspid regurgitation, 2 masses on the tricuspid valve with associated flail leaflet and CT scan showed interval development of a moderate right and small left pleural effusion. Multifocal cavitary and solitary nodules in both lungs unchanged from prior CT and suspicious for multifocal septic emboli on the CT of April 18. Repeat CT chest in April 25 showed multiple bilateral lung nodules and some cavitary lesions suspicious for embolic infectious process, prominent bilateral pleural effusion larger on the right and mild to moderate cardiomegaly with a small pleural effusion. It has seemed that patient has had about 2 weeks of accumulative cefazolin treatment. I believe infectious disease has been consulted here to help was manage this patient due to recurrent AMA events - Time Time Spent with patient: 15-24 minutes Medications reviewed and adjusted accordingly: Yes Anticipated Discharge Disposition: Home, Self Care Anticipated Discharge Timeframe: TBD
--- NOTE | 2020-04-25 17:42 | PDOC PROGRESS REPORT ---
Subjective Progress Note for:: 04/25/20 Subjective:: Patient comfortable Reason For Visit: ACUTE BACTERIAL ENDOCARDITIS, SEPTIC PULMONARY Physical Exam Vital Signs: Temp Pulse Resp BP Pulse Ox 99.0 F 98 20 139/90 H 100 04/25/20 15:39 04/25/20 15:39 04/25/20 15:39 04/25/20 15:39 04/25/20 15:39 Intake & Output 04/24/20 04/25/20 04/26/20 06:59 06:59 06:59 Intake Total 1450 1100 100 Balance 1450 1100 100 Weight 64.7 kg 64.3 kg General appearance: PRESENT: no acute distress Respiratory exam: PRESENT: clear to auscultation dustin, other Results Laboratory Results: 04/25/20 04:37 04/25/20 04:37 04/25/20 04/25/20 04:37 04:37 WBC 12.1 H RBC 3.83 Hgb 10.9 L Hct 32.8 L MCV 86 MCH 28.4 MCHC 33.2 RDW 18.2 H Plt Count 375 Sodium 138.0 Potassium 4.7 Chloride 104 Carbon Dioxide 26 Anion Gap 8 BUN 14 Creatinine 0.70 Est GFR ( Amer) > 60 Glucose 98 Calcium 8.7 04/22/20 04/22/20 04/25/20 21:25 21:25 04:37 Creatine Kinase 49 26 L Troponin I 0.015 Impressions: Chest X-Ray 04/22/20 20:03 IMPRESSION: 1. Multifocal infiltrate with bilateral pleural effusions. The right pleural effusion may be loculated. 2. There is a cavitation within multiple small nodular densities. This is suggestive of septic embolization. The appearance is stable. Chest CT 04/23/20 00:00 IMPRESSION: 1. Multiple bilateral lung nodules some cavitary suspicious for embolic infectious process. 2. Non prominent bilateral pleural effusions larger on the right. Majority of the fluid is not loculated. Minimal loculated component possibly in the right upper chest. 3. Technically limited evaluation of the pulmonary arteries even centrally. No large pulmonary embolus. Difficult to exclude a small embolus. 4. Heyq-tg-umaqdsqk cardiomegaly. Small pericardial effusion. Suspected borderline spleen size. Assessment & Plan - Time Anticipated Discharge Disposition: Home, Self Care Anticipated Discharge Timeframe: As per PCP - Plan Summary Plan Summary: Assessment: History of IV drug abuse Bilateral pulmonary cavitations secondary to endocarditis Bilateral pleural effusion Plan: Possible unilateral or bilateral thoracentesis as per Dr. Damon tomorrow N.p.o. after midnight Chest x-ray two-view in the morning Hold Lovenox IV fluids
[2020-04-25] MEDS: NORMAL SALINE 1000 ML 1,000 ML IV PRN (18:14)
--- NOTE | 2020-04-25 21:10 | Progress Note ---
Provider Note Provider Note: [facility] ID Telephone Advice Consultation Chart reviewed. Patient is a 24-year-old woman with IVDU, mostly heroin, fentanyl, who has been in the hospital due to MSSA bacteremia, TV endocarditis and septic pulmonary emboli. She is an active drug user and has left against medical advice multiple times to use drugs and then returns to the hospital to continue treatment at [facility]. Her initial blood cultures were positive on 04/02 and 04/04. She cleared the bacteremia on 04/06. A TTE on 04/03 demonstrated 2 vegetations in the TV and flail tricuspid leaflet. She left AMA and returned on 04/16 then left again on 04/18 and cultures were all negative. She left again on 04/20. A new TTE at that time showed no changes on the vegetations or tricuspid leaflet. A CT scan of the chest showed new small bilateral pleural effusions and bilateral cavitary lesions consistent with septic pulmonary emboli. She has been on cefazolin. Not a candidate for OPAT. ID consulted for recommendations. PMH: IVDU TV endocarditis with septic pulmonary emboli MSSA infection Allergies: No Known Allergies Allergy (Verified 04/22/20 22:01) Medications: No Home Medications 04/22/20 Vital Signs: Temp Pulse Resp BP Pulse Ox 99.0 F 98 20 139/90 H 100 04/25/20 15:39 04/25/20 15:39 04/25/20 15:39 04/25/20 15:39 04/25/20 15:39 Intake & Output 04/24/20 04/25/20 04/26/20 06:59 06:59 06:59 Intake Total 1450 1100 100 Balance 1450 1100 100 Weight 64.7 kg 64.3 kg Weight/Height Weight 64.3 kg Height 5 ft 7 in Laboratories: 04/25/20 04:37 04/25/20 04:37 MCV 86 fl (80-97) 04/25/20 04:37 MCH 28.4 pg (27.0-33.4) 04/25/20 04:37 MCHC 33.2 g/dL (32.0-36.0) 04/25/20 04:37 RDW 18.2 % (11.5-14.0) H 04/25/20 04:37 Seg Neutrophils % 74.4 % (42-78) 04/22/20 21:25 Chloride 104 mmol/L (98-107) 04/25/20 04:37 Carbon Dioxide 26 mmol/L (22-30) 04/25/20 04:37 Anion Gap 8 (5-19) 04/25/20 04:37 Est GFR ( Amer) > 60 (>60) 04/25/20 04:37 Glucose 98 mg/dL (75-110) 04/25/20 04:37 Lactic Acid 0.6 mmol/L (0.7-2.1) L 04/22/20 21:25 Calcium 8.7 mg/dL (8.4-10.2) 04/25/20 04:37 Magnesium 1.7 mg/dL (1.6-2.3) 04/24/20 04:54 Total Bilirubin 0.4 mg/dL (0.2-1.3) 04/22/20 21:25 AST 18 U/L (14-36) 04/22/20 21:25 Alkaline Phosphatase 65 U/L (38-126) 04/22/20 21:25 Total Protein 8.2 g/dL (6.3-8.2) 04/22/20 21:25 Albumin 3.5 g/dL (3.5-5.0) 04/22/20 21:25 Urine Color YELLOW 04/22/20 20:12 Urine Appearance SLIGHTLY-CLOUDY 04/22/20 20:12 Urine pH 6.0 (5.0-9.0) 04/22/20 20:12 Ur Specific [place] 1.014 04/22/20 20:12 Urine Protein 30 mg/dL (NEGATIVE) H 04/22/20 20:12 Urine Glucose (UA) NEGATIVE mg/dL (NEGATIVE) 04/22/20 20:12 Urine Ketones NEGATIVE mg/dL (NEGATIVE) 04/22/20 20:12 Urine Blood SMALL (NEGATIVE) H 04/22/20 20:12 Urine Nitrite NEGATIVE (NEGATIVE) 04/22/20 20:12 Ur Leukocyte Esterase NEGATIVE (NEGATIVE) 04/22/20 20:12 Urine WBC (Auto) 6 /HPF 04/22/20 20:12 Urine RBC (Auto) 1 /HPF 04/22/20 20:12 04/22/20 04/22/20 04/25/20 21:25 21:25 04:37 Creatine Kinase 49 26 L Troponin I 0.015 Microbiology: Blood cultures: 04/02 MSSA 04/04 MSSA 04/06 NGTD 04/16 NGTD 04/18 NGTD 04/25 In process Radiology: Chest X-Ray 04/22/20 20:03 IMPRESSION: 1. Multifocal infiltrate with bilateral pleural effusions. The right pleural effusion may be loculated. 2. There is a cavitation within multiple small nodular densities. This is suggestive of septic embolization. The appearance is stable. Chest CT 04/23/20 00:00 IMPRESSION: 1. Multiple bilateral lung nodules some cavitary suspicious for embolic infectious process. 2. Non prominent bilateral pleural effusions larger on the right. Majority of the fluid is not loculated. Minimal loculated component possibly in the right upper chest. 3. Technically limited evaluation of the pulmonary arteries even centrally. No large pulmonary embolus. Difficult to exclude a small embolus. 4. [id number]-[id number] cardiomegaly. Small pericardial effusion. Suspected borderline spleen size. TTE 04/03 Two vegetations in TV first 1.3 x 1.3 the other 1.8 x 1.3, flail tricuspid leaflet, severe TR TTE 04/20 No changes from previous TTE on 04/03 Assessment and Recommendations: Patient evaluated due to TV endocarditis secondary to MSSA bacteremia with bilateral pulmonary emboli and now small bilateral pleural effusions. Her case is very challenging due to lack of compliance and active drug use. She still has 3 more weeks of antibiotic therapy. Her vegetations are likely sterile by now. She needs to continue cefazolin 2g iv every 8 hr. Blood cultures are in process, EOT will depend on cultures if positive, will have to start over, if negative, EOT will be 05/19/20. Bilateral pleural effusion should be monitored, if worsening, may need thoracentesis. CT surgery previously consulted on 04/05 and she was not a candidate for surgery at the time, it was recommended to repeat TTE at the end of therapy. Lakisha Noe MD [facility] ID [phone]
[2020-04-25] MEDS: MELATONIN 5 MG TABLET PO PRN (22:26)
[2020-04-26] MEDS: NORMAL SALINE 1000 ML 1,000 ML IV PRN (02:16)
[2020-04-26] MEDS: HYDROMORPHONE HCL INJ/PF 2 MG/ML AMPULE IV PRN ×5 (03:37→21:06)
[2020-04-26] MEDS: CEFAZOLIN SODIUM 2 GM in DEXTROSE 5%-WATER 100 ML IV SCH ×3 (05:15→17:05)
--- NOTE | 2020-04-26 08:42 | RADIOLOGY REPORT (SQ) ---
EXAM DESCRIPTION: CHEST 2 VIEWS IMAGES COMPLETED DATE/TIME: 04/26/2020 7:48 am REASON FOR STUDY: f/u lung effusion/cavitations COMPARISON: 04/22/2020 NUMBER OF VIEWS: Two view TECHNIQUE: Frontal and lateral radiographic images of the chest acquired. LIMITATIONS: None. FINDINGS: LUNGS AND PLEURA: Grossly stable in appearance. Minimal improvement in aeration in the trent ng bases. Persistent effusions. Persistent pleural-based opacification in the periphery of the righ t upper lobe. Scattered airspace disease in the left upper lobe. MEDIASTINUM AND HILAR STRUCTURES: Stable heart size and mediastinal structures. HEART AND VASCULAR STRUCTURES: Stable appearance. BONES: No acute findings. HARDWARE: None in the chest. OTHER: No other significant finding. IMPRESSION: Minimal improvement aeration in the lung bases. Otherwise stable two-view chest. TECHNICAL DOCUMENTATION: JOB ID: [id number] 2010 [employer]- All Rights Reserved Reading location - IP/workstation name: [email or web address]
--- NOTE | 2020-04-26 13:52 | PDOC PROGRESS REPORT ---
Subjective Progress Note for:: 04/26/20 Subjective:: 24-year-old female with septic emboli after lungs. She also has bilateral pleural effusions, tiny on the left, small to moderate on the right. She has no difficulty breathing. She denies any chest pain. She continues to receive intravenous antibiotics. She denies headache, nausea, vomiting, dizziness, orthostasis, blurry vision. Reason For Visit: ACUTE BACTERIAL ENDOCARDITIS, SEPTIC PULMONARY Physical Exam Vital Signs: Temp Pulse Resp BP Pulse Ox 99.0 F 80 16 127/82 H 100 04/26/20 11:02 04/26/20 11:02 04/26/20 11:02 04/26/20 11:02 04/26/20 11:02 Intake & Output 04/25/20 04/26/20 04/27/20 06:59 06:59 06:59 Intake Total 1100 1900 Balance 1100 1900 Weight 64.3 kg 63.1 kg General appearance: PRESENT: no acute distress, cooperative Head exam: PRESENT: atraumatic, normocephalic Eye exam: PRESENT: EOMI, PERRLA. ABSENT: scleral icterus Mouth exam: PRESENT: moist, neck supple Neck exam: ABSENT: meningismus, tenderness, thyromegaly, tracheal deviation Respiratory exam: PRESENT: unlabored. ABSENT: tachypnea Cardiovascular exam: ABSENT: tachycardia Pulses: PRESENT: normal femoral pulses GI/Abdominal exam: PRESENT: soft. ABSENT: distended, guarding, rebound, tenderness Rectal exam: PRESENT: deferred Extremities exam: ABSENT: clubbing Musculoskeletal exam: ABSENT: deformity Neurological exam: PRESENT: alert, awake, oriented to person, oriented to place, oriented to time, oriented to situation, CN II-XII grossly intact. ABSENT: motor sensory deficit Psychiatric exam: ABSENT: agitated, anxious, depressed Focused psych exam: ABSENT: delusional Skin exam: ABSENT: cyanosis, erythema, jaundice Results Laboratory Results: 04/25/20 04:37 04/25/20 04:37 04/22/20 04/22/20 04/25/20 21:25 21:25 04:37 Creatine Kinase 49 26 L Troponin I 0.015 Impressions: Chest CT 04/23/20 00:00 IMPRESSION: 1. Multiple bilateral lung nodules some cavitary suspicious for embolic infectious process. 2. Non prominent bilateral pleural effusions larger on the right. Majority of the fluid is not loculated. Minimal loculated component possibly in the right upper chest. 3. Technically limited evaluation of the pulmonary arteries even centrally. No large pulmonary embolus. Difficult to exclude a small embolus. 4. Ywck-fs-rhfbgzyb cardiomegaly. Small pericardial effusion. Suspected borderline spleen size. Chest X-Ray 04/26/20 05:00 IMPRESSION: Minimal improvement aeration in the lung bases. Otherwise stable two-view chest. Assessment & Plan - Diagnosis (1) Cavitary lesion of lung Is this a current diagnosis for this admission?: Yes (2) Septic embolism Is this a current diagnosis for this admission?: Yes - Time Anticipated Discharge Disposition: unknown Anticipated Discharge Timeframe: unknown - Plan Summary Plan Summary: 24-year-old female with septic emboli to bilateral lungs. She also has pleural effusions. Have offered her thoracentesis on the right side to diminish the amount of pleural fluid, as well as test the fluid for bacteria etc. The patient at this time has declined thoracentesis. She would prefer that her effusion be followed with x-ray. Today, I do believe her x-ray looks somewhat better. This is a reasonable course of action. If the patient's clinical exam declines, or the pleural fluid enlarges, intervention will be necessary. Repeat x-ray in several days. Renotify Dr. Damon if the patient changes her mind regarding thoracentesis.
[2020-04-26] MEDS: DOCUSATE SODIUM 100 MG CAPSULE PO SCH ×2 (15:03→20:12)
[2020-04-26] MEDS: FAMOTIDINE 20 MG TABLET PO SCH ×2 (15:03→21:06)
--- NOTE | 2020-04-26 15:41 | PDOC PROGRESS REPORT ---
Subjective Progress Note for:: 04/26/20 Subjective:: This 24 years old female with history of IVDA admitted initially on 04 21 after signing out from [facility] AGAINST MEDICAL ADVICE and he was currently under treatment for tricuspid valve endocarditis with daptomycin. She was initially admitted there on April 02, left AMA on April 14 and apparently returned on April 16 and then left again on April 18, returned the same day and then left again AMA and came to [facility] where she proceeded to sign out AMA again on April 22 and then returned that afternoon. Currently complaining of pain, generalized. She was given Dilaudid yesterday which she says works for her. The plan will be to start on methadone or Subutex. This time her records have been requested from [facility] and will review this when available. 04/26 plan had been to the chest tube due to the pleural effusion however patient has declined at this time. She is willing to wait and to proceed if clinically indicated subsequently. Chest x-ray done today shows stabilization and may be even improvement of the fluids and patient is hemodynamically stable. Reason For Visit: ACUTE BACTERIAL ENDOCARDITIS, SEPTIC PULMONARY Physical Exam Vital Signs: Temp Pulse Resp BP Pulse Ox 99.0 F 80 16 127/82 H 100 04/26/20 11:02 04/26/20 11:02 04/26/20 11:02 04/26/20 11:02 04/26/20 11:02 Intake & Output 04/25/20 04/26/20 04/27/20 06:59 06:59 06:59 Intake Total 1100 1900 100 Balance 1100 1900 100 Weight 64.3 kg 63.1 kg General appearance: PRESENT: no acute distress, well-developed, well-nourished Head exam: PRESENT: atraumatic, normocephalic Eye exam: PRESENT: conjunctiva pink, EOMI, PERRLA. ABSENT: scleral icterus Ear exam: PRESENT: normal external ear exam Mouth exam: PRESENT: moist, tongue midline Neck exam: ABSENT: carotid bruit, JVD, lymphadenopathy, thyromegaly Respiratory exam: PRESENT: clear to auscultation dustin, unlabored. ABSENT: rales, rhonchi, wheezes Cardiovascular exam: PRESENT: RRR, +S1, +S2, systolic murmur. ABSENT: diastolic murmur, rubs Pulses: PRESENT: normal dorsalis pedis pul Vascular exam: PRESENT: normal capillary refill GI/Abdominal exam: PRESENT: normal bowel sounds, soft. ABSENT: distended, gu arding, mass, organolmegaly, rebound, tenderness Rectal exam: PRESENT: deferred Extremities exam: PRESENT: full ROM. ABSENT: calf tenderness, clubbing, pedal edema Neurological exam: PRESENT: alert, awake, oriented to person, oriented to place, oriented to time, oriented to situation, CN II-XII grossly intact. ABSENT: mot or sensory deficit Psychiatric exam: PRESENT: appropriate affect, normal mood. ABSENT: homicidal ideation, suicidal ideation Skin exam: PRESENT: dry, intact, warm. ABSENT: cyanosis, rash Results Laboratory Results: 04/25/20 04:37 04/25/20 04:37 04/22/20 04/22/20 04/25/20 21:25 21:25 04:37 Creatine Kinase 49 26 L Troponin I 0.015 Impressions: Chest CT 04/23/20 00:00 IMPRESSION: 1. Multiple bilateral lung nodules some cavitary suspicious for embolic infectious process. 2. Non prominent bilateral pleural effusions larger on the right. Majority of the fluid is not loculated. Minimal loculated component possibly in the right upper chest. 3. Technically limited evaluation of the pulmonary arteries even centrally. No large pulmonary embolus. Difficult to exclude a small embolus. 4. Oyvy-ep-[id number] cardiomegaly. Small pericardial effusion. Suspected borderline spleen size. Chest X-Ray 04/26/20 05:00 IMPRESSION: Minimal improvement aeration in the lung bases. Otherwise stable two-view chest. Assessment and Plan - Diagnosis (1) Acute bacterial endocarditis Is this a current diagnosis for this admission?: Yes Plan: - admitted at [facility] 04/02/20 for right sided endarditis with septic emboli MSSA, 2/ to IV drug use - she has left AMA twice at [facility] while undergoing treatment - per review of records latest blood cx have been negative - TTE 04/18/20 Severe tricuspid regurgitation, 2 masses on the tricuspid valve with associated flail leaflet that are unchanged from 820 assessment. - CT chest 04/18/20 showed interval development of a moderate right and small left pleural effusion. Multifocal cavitary and solitary nodules in both lungs again demonstrated not significantly changed from prior CT. lungs are suspicious for multifocal septic emboli -Repeat CT chest (04/23/2020) showed multiple bilateral lung nodules and sub- cavitary lesion suspicious for embolic infectious process, non-prominent bilateral pleural effusions, larger on the right. Majority of fluid is not loculated. Mild to moderate cardiomegaly with a small pericardial effusion. Suspect borderline spleen size. -Not counting the days where and he was she was outside the hospital when she leaves AMA, I suspect that she has had about 2 weeks of cumulative cefazolin treatment. Per notes from [facility] she is recommended to have a total of 6 weeks of treatment for right-sided endocarditis Repeat blood cultures pending We will continue cefazolin Infectious Disease is consulted to help guide length of therapy considering the patient numerous AMA events. -She will likely need to be transferred to a tertiary center where there is cardiothoracic surgery because of the severe tricuspid regurg and vegetation. Will need repeat TTE/MARTI toward end of antibiotic course. 04/25 Will follow up on records from [facility] 04/26 serial chest x-ray to monitor pleural effusion, continue current antibiotics Continue to monitor as appropriate (2) Cavitary lesion of lung Is this a current diagnosis for this admission?: Yes (3) Chronic back pain Qualifiers: Back pain location: low back pain Sciatica presence: without sciatica Is this a current diagnosis for this admission?: Yes Plan: - has chronic back pain - midline tenderness lumbar L1-L2 area - according to her back pain is stable, not worsening - no focal deficit Consider MRI if back pain worsens (4) Pleural effusion due to bacterial infection Is this a current diagnosis for this admission?: Yes Plan: -Chest x-ray done on April 22, 2020 showed multifocal infiltrate with bilateral pleural effusions. The right pleural effusion may be loculated -Patient is afebrile not tachypneic not requiring oxygen with no complaints of shortness of breath She is ambulatory -Dr. Damon consulted; monitor with serial chest x-ray for now (5) Septic embolism Is this a current diagnosis for this admission?: Yes Plan: -Secondary to right-sided bacterial endocarditis MSSA -CT scan done on April 18 showed interval development of a moderate right and small left pleural effusion since first CT on 04/16. Multifocal cavitary and solitary nodules in both lungs again demonstrated not significantly changed. Findings are suspicious for multifocal septic emboli. -Repeat CT chest (04/23/2020) showed multiple bilateral lung nodules and sub- cavitary lesion suspicious for embolic infectious process, non-prominent bilateral pleural effusions, larger on the right. Majority of fluid is not loculated. Mild to moderate cardiomegaly with a small pericardial effusion. Suspect borderline spleen size. -Received about 2 weeks of cefazolin from her intermittent in and out hospital stays -We will continue cefazolin on this admission (6) Tricuspid valve regurgitation due to infection Is this a current diagnosis for this admission?: Yes Plan: -Reported on TTE done at [facility] on April 18, 2020. Severe tricuspid regurgitation 2 masses on the tricuspid valve with associated flail leaflet that are unchanged from prior echo on April 13. 52 to 72%. LV is grossly normal -No signs of decompensation -EKG done on April 22 showed sinus tachycardia left posterior fascicular block -Continue antibiotics, ID follow up (7) Intravenous drug abuse Is this a current diagnosis for this admission?: Yes Plan: - she has left AMA several times in the past in between admissions - I am afraid she gets heroine during these times. Drug screen positive for opiates; confirmation pending. She has received morphine/Dilaudid during her admissions for her pain related to septic emboli. Long discussion about need to transition to methadone or Subutex in anticipation that she will continue care through the [facility] post discharge. Patient is not receptive at this time; likely we will have to do a heart switch !!!! (8) Tobacco use disorder, continuous Is this a current diagnosis for this admission?: Yes Plan: - counseling done Nicotine replacement therapies provided. - Plan Summary Summary: Her latest blood cultures have been negative. TTE on April 18 revealed severe tricuspid regurgitation, 2 masses on the tricuspid valve with associated flail leaflet and CT scan showed interval development of a moderate right and small left pleural effusion. Multifocal cavitary and solitary nodules in both lungs unchanged from prior CT and suspicious for multifocal septic emboli on the CT of April 18. Repeat CT chest in April 25 showed multiple bilateral lung nodules and some cavitary lesions suspicious for embolic infectious process, prominent bilateral pleural effusion larger on the right and mild to moderate cardiomegaly with a small pleural effusion. It has seemed that patient has had about 2 weeks of accumulative cefazolin treatment. I believe infectious disease has been consulted here to help was manage this patient due to recurrent AMA events - Time Time Spent with patient: 15-24 minutes Medications reviewed and adjusted accordingly: Yes Anticipated Discharge Disposition: Home, Self Care Anticipated Discharge Timeframe: TBD
[2020-04-26] MEDS: TRAZODONE HCL 50 MG TABLET PO SCH (21:49)
[2020-04-27] MEDS: CEFAZOLIN SODIUM 2 GM in DEXTROSE 5%-WATER 100 ML IV SCH ×4 (00:21→18:23)
[2020-04-27] MEDS: NORMAL SALINE 1000 ML 1,000 ML IV PRN (02:58)
[2020-04-27] MEDS: HYDROMORPHONE HCL INJ/PF 2 MG/ML AMPULE IV PRN ×5 (02:58→20:33)
[2020-04-27 09:25] LABS: ABSOLUTE EOSINOPHILS # (AUTO) 0.4 10^3/uL (0.0-0.6); ABSOLUTE LYMPHOCYTES (AUTO) 2.3 10^3/uL (0.5-4.7); ABSOLUTE MONOCYTES (AUTO) 0.5 10^3/uL (0.1-1.4); ABSOLUTE NEUT (AUTO) 6.9 10^3/uL (1.7-8.2); BASOPHILS % (AUTO) 0.5 % (0-2); EOSINOPHILS % (AUTO) 3.9 % (0-6); HEMATOCRIT 30.6 % (36.0-47.0); HEMOGLOBIN 10.1 g/dL (12.0-15.5); LYMPHOCYTES % (AUTO) 22.4 % (13-45); MEAN CORPUSCULAR HEMOGLOBIN 28.3 pg (27.0-33.4); MEAN CORPUSCULAR HGB CONC 33.1 g/dL (32.0-36.0); MEAN CORPUSCULAR VOLUME 86 fl (80-97); MONOCYTES % (AUTO) 5.4 % (3-13); PLATELET COUNT 320 10^3/uL (150-450); RED BLOOD COUNT 3.57 10^6/uL (3.72-5.28); RED CELL DISTRIBUTION WIDTH 18.5 % (11.5-14.0); SEGMENTED NEUTROPHILS % (AUTO) 67.8 % (42-78); TOTAL CELLS COUNTED % (AUTO) 100 %; WHITE BLOOD COUNT 10.1 10^3/uL (4.0-10.5)
[2020-04-27] MEDS: FAMOTIDINE 20 MG TABLET PO SCH ×2 (10:52→22:33)
[2020-04-27] MEDS: DOCUSATE SODIUM 100 MG CAPSULE PO SCH ×2 (10:52→17:57)
[2020-04-27] MEDS: OXYCODONE-ACETAMINOPHEN 5-325 MG TABLET PO PRN (13:24)
--- NOTE | 2020-04-27 16:21 | PDOC PROGRESS REPORT ---
Subjective Progress Note for:: 04/27/20 Subjective:: This 24 years old female with history of IVDA admitted initially on 04 21 after signing out from [facility] AGAINST MEDICAL ADVICE and he was currently under treatment for tricuspid valve endocarditis with daptomycin. She was initially admitted there on April 02, left AMA on April 14 and apparently returned on April 16 and then left again on April 18, returned the same day and then left again AMA and came to [facility] where she proceeded to sign out AMA again on April 22 and then returned that afternoon. Currently complaining of pain, generalized. She was given Dilaudid yesterday which she says works for her. The plan will be to start on methadone or Subutex. This time her records have been requested from [facility] and will review this when available. 04/26 plan had been to the chest tube due to the pleural effusion however patient has declined at this time. She is willing to wait and to proceed if clinically indicated subsequently. Chest x-ray done today shows stabilization and may be even improvement of the fluids and patient is hemodynamically stable. Patient denies any new complaints. She is feeling better, no cough, chest pain or fever Reason For Visit: ACUTE BACTERIAL ENDOCARDITIS, SEPTIC PULMONARY Physical Exam Vital Signs: Temp Pulse Resp BP Pulse Ox 98.3 F 73 17 127/82 H 96 04/27/20 09:57 04/27/20 07:33 04/27/20 05:24 04/27/20 07:33 04/27/20 07:33 Intake & Output 04/26/20 04/27/20 04/28/20 06:59 06:59 06:59 Intake Total 1899 2019 100 Balance 1899 2019 100 Weight 63.1 kg 63.1 kg General appearance: PRESENT: no acute distress, well-developed, well-nourished Head exam: PRESENT: atraumatic, normocephalic Eye exam: PRESENT: conjunctiva pink, EOMI, PERRLA. ABSENT: scleral icterus Ear exam: PRESENT: normal external ear exam Mouth exam: PRESENT: moist, tongue midline Neck exam: ABSENT: carotid bruit, JVD, lymphadenopathy, thyromegaly Respiratory exam: PRESENT: decreased breath sounds. ABSENT: rales, rhonchi, wheezes Cardiovascular exam: PRESENT: RRR, +S1, +S2, systolic murmur. ABSENT: diastolic murmur, rubs Pulses: PRESENT: normal dorsalis pedis pul Vascular exam: PRESENT: normal capillary refill GI/Abdominal exam: PRESENT: normal bowel sounds, soft. ABSENT: distended, guarding, mass, organolmegaly, rebound, tenderness Rectal exam: PRESENT: deferred Extremities exam: PRESENT: full ROM. ABSENT: calf tenderness, clubbing, pedal edema Neurological exam: PRESENT: alert, awake, oriented to person, oriented to place, oriented to time, oriented to situation, CN II-XII grossly intact. ABSENT: motor sensory deficit Psychiatric exam: PRESENT: appropriate affect, normal mood. ABSENT: homicidal ideation, suicidal ideation Skin exam: PRESENT: dry, intact, warm. ABSENT: cyanosis, rash Results Laboratory Results: 04/27/20 09:16 04/25/20 04:37 04/27/20 09:16 WBC 10.1 RBC 3.57 L Hgb 10.1 L Hct 30.6 L MCV 86 MCH 28.3 MCHC 33.1 RDW 18.5 H Plt Count 320 Seg Neutrophils % 67.8 04/22/20 04/22/20 04/25/20 21:25 21:25 04:37 Creatine Kinase 49 26 L Troponin I 0.015 Impressions: Chest CT 04/23/20 00:00 IMPRESSION: 1. Multiple bilateral lung nodules some cavitary suspicious for embolic infectious process. 2. Non prominent bilateral pleural effusions larger on the right. Majority of the fluid is not loculated. Minimal loculated component possibly in the right upper chest. 3. Technically limited evaluation of the pulmonary arteries even centrally. No large pulmonary embolus. Difficult to exclude a small embolus. 4. [id number]-[id number] cardiomegaly. Small pericardial effusion. Suspected borderline spleen size. Chest X-Ray 04/26/20 05:00 IMPRESSION: Minimal improvement aeration in the lung bases. Otherwise stable two-view chest. Assessment and Plan - Diagnosis (1) Acute bacterial endocarditis Is this a current diagnosis for this admission?: Yes (2) Cavitary lesion of lung Is this a current diagnosis for this admission?: Yes (3) Chronic back pain Qualifiers: Back pain location: low back pain Sciatica presence: without sciatica Is this a current diagnosis for this admission?: Yes (4) Pleural effusion due to bacterial infection Is this a current diagnosis for this admission?: Yes (5) Septic embolism Is this a current diagnosis for this admission?: Yes (6) Tricuspid valve regurgitation due to infection Is this a current diagnosis for this admission?: Yes (7) Intravenous drug abuse Is this a current diagnosis for this admission?: Yes (8) Tobacco use disorder, continuous Is this a current diagnosis for this admission?: Yes - Plan Summary Summary: Her latest blood cultures have been negative. TTE on April 18 revealed severe tricuspid regurgitation, 2 masses on the tricuspid valve with associated flail leaflet and CT scan showed interval development of a moderate right and small left pleural effusion. Multifocal cavitary and solitary nodules in both lungs unchanged from prior CT and suspicious for multifocal septic emboli on the CT of April 18. Repeat CT chest in April 25 showed multiple bilateral lung nodules and some cavitary lesions suspicious for embolic infectious process, prominent bilateral pleural effusion larger on the right and mild to moderate cardiomegaly with a small pleural effusion. It has seemed that patient has had about 2 weeks of accumulative cefazolin treatment. 04/27 Will continue to monitor - Time Time Spent with patient: Less than 15 minutes Anticipated Discharge Disposition: Home, Self Care Anticipated Discharge Timeframe: TBD
[2020-04-27] MEDS: MELATONIN 5 MG TABLET PO PRN (22:33)
[2020-04-27] MEDS: TRAZODONE HCL 50 MG TABLET PO SCH (22:34)
[2020-04-28] MEDS: CEFAZOLIN SODIUM 2 GM in DEXTROSE 5%-WATER 100 ML IV SCH ×5 (00:35→23:21)
[2020-04-28] MEDS: HYDROMORPHONE HCL INJ/PF 2 MG/ML AMPULE IV PRN ×4 (00:35→15:16)
[2020-04-28] MEDS: FAMOTIDINE 20 MG TABLET PO SCH ×2 (13:17→21:34)
[2020-04-28] MEDS: DOCUSATE SODIUM 100 MG CAPSULE PO SCH ×2 (13:17→18:33)
[2020-04-28] MEDS: OXYCODONE-ACETAMINOPHEN 5-325 MG TABLET PO PRN ×2 (13:18→19:52)
--- NOTE | 2020-04-28 16:46 | PDOC PROGRESS REPORT ---
Subjective Progress Note for:: 04/28/20 Subjective:: This 24 years old female with history of IVDA admitted initially on 04 21 after signing out from [facility] AGAINST MEDICAL ADVICE and he was currently under treatment for tricuspid valve endocarditis with daptomycin. She was initially admitted there on April 02, left AMA on April 14 and apparently returned on April 16 and then left again on April 18, returned the same day and then left again AMA and came to [facility] where she proceeded to sign out AMA again on April 22 and then returned that afternoon. Currently complaining of pain, generalized. She was given Dilaudid yesterday which she says works for her. The plan will be to start on methadone or Subutex. This time her records have been requested from [facility] and will review this when available. 04/26 plan had been to the chest tube due to the pleural effusion however patient has declined at this time. She is willing to wait and to proceed if clinically indicated subsequently. Chest x-ray done today shows stabilization and may be even improvement of the fluids and patient is hemodynamically stable. Patient denies any new complaints. She is feeling better, no cough, chest pain or fever 04/28 no new complaints. Patient is stable. There is no fever and her back pain was never mentioned today. Her breathing is stable Reason For Visit: ACUTE BACTERIAL ENDOCARDITIS, SEPTIC PULMONARY Physical Exam Vital Signs: Temp Pulse Resp BP Pulse Ox 97.8 F 100 20 126/89 H 99 04/28/20 15:47 04/28/20 15:47 04/28/20 15:47 04/28/20 15:47 04/28/20 15:47 Intake & Output 04/27/20 04/28/20 04/29/20 06:59 06:59 06:59 Intake Total 2019 2142 1335 Balance 2019 2141 1335 Weight 63.1 kg 69 kg General appearance: PRESENT: no acute distress, thin Head exam: PRESENT: atraumatic, normocephalic Eye exam: PRESENT: conjunctiva pink, EOMI, PERRLA. ABSENT: scleral icterus Ear exam: PRESENT: normal external ear exam Mouth exam: PRESENT: moist, tongue midline Neck exam: ABSENT: carotid bruit, JVD, lymphadenopathy, thyromegaly Respiratory exam: PRESENT: clear to auscultation dustin. ABSENT: rales, rhonchi, wheezes Cardiovascular exam: PRESENT: RRR, +S1, +S2, systolic murmur. ABSENT: diastolic murmur, rubs Pulses: PRESENT: normal dorsalis pedis pul Vascular exam: PRESENT: normal capillary refill GI/Abdominal exam: PRESENT: normal bowel sounds, soft. ABSENT: distended, guarding, mass, organolmegaly, rebound, tenderness Rectal exam: PRESENT: deferred Extremities exam: PRESENT: full ROM. ABSENT: calf tenderness, clubbing, pedal edema Neurological exam: PRESENT: alert, awake, oriented to person, oriented to place, oriented to time, oriented to situation, CN II-XII grossly intact. ABSENT: motor sensory deficit Psychiatric exam: PRESENT: appropriate affect, normal mood. ABSENT: homicidal ideation, suicidal ideation Skin exam: PRESENT: dry, intact, warm. ABSENT: cyanosis, rash Results Laboratory Results: 04/27/20 09:16 04/25/20 04:37 04/22/20 04/22/20 04/25/20 21:25 21:25 04:37 Creatine Kinase 49 26 L Troponin I 0.015 Impressions: Chest CT 04/23/20 00:00 IMPRESSION: 1. Multiple bilateral lung nodules some cavitary suspicious for embolic infectious process. 2. Non prominent bilateral pleural effusions larger on the right. Majority of the fluid is not loculated. Minimal loculated component possibly in the right upper chest. 3. Technically limited evaluation of the pulmonary arteries even centrally. No large pulmonary embolus. Difficult to exclude a small embolus. 4. Bkce-ee-vlvbllnl cardiomegaly. Small pericardial effusion. Suspected borderline spleen size. Chest X-Ray 04/26/20 05:00 IMPRESSION: Minimal improvement aeration in the lung bases. Otherwise stable two-view chest. Assessment and Plan - Diagnosis (1) Acute bacterial endocarditis Is this a current diagnosis for this admission?: Yes (2) Cavitary lesion of lung Is this a current diagnosis for this admission?: Yes (3) Chronic back pain Qualifiers: Back pain location: low back pain Sciatica presence: without sciatica Is this a current diagnosis for this admission?: Yes (4) Pleural effusion due to bacterial infection Is this a current diagnosis for this admission?: Yes (5) Septic embolism Is this a current diagnosis for this admission?: Yes (6) Tricuspid valve regurgitation due to infection Is this a current diagnosis for this admission?: Yes (7) Intravenous drug abuse Is this a current diagnosis for this admission?: Yes (8) Tobacco use disorder, continuous Is this a current diagnosis for this admission?: Yes - Plan Summary Summary: Her latest blood cultures have been negative. TTE on April 18 revealed severe tricuspid regurgitation, 2 masses on the tricuspid valve with associated flail leaflet and CT scan showed interval development of a moderate right and small left pleural effusion. Multifocal cavitary and solitary nodules in both lungs unchanged from prior CT and suspicious for multifocal septic emboli on the CT of April 18. Repeat CT chest in April 25 showed multiple bilateral lung nodules and some cavitary lesions suspicious for embolic infectious process, prominent bilateral pleural effusion larger on the right and mild to moderate cardiomegaly with a small pleural effusion. It has seemed that patient has had about 2 weeks of accumulative cefazolin treatment. 04/27 Will continue to monitor 04/28 Continue to monitor. F/u CXR/Ct next week - Time Time Spent with patient: Less than 15 minutes Medications reviewed and adjusted accordingly: Yes Anticipated Discharge Disposition: Home, Self Care Anticipated Discharge Timeframe: TBD
[2020-04-28] MEDS ORDERED: NALOXONE HCL INJ/PF 0.4 MG/1 ML SDV ONE ×2 (17:58→18:00)
--- NOTE | 2020-04-28 19:07 | Progress Note ---
Provider Note Provider Note: Responded to rapid response code which was ultimately changed to CODE BLUE. Patient was apparently found on the floor cyanotic and unresponsive. She was placed back on the bed. She maintained a pulse throughout the whole episode. Her breathing was found to be compromised and patient was assisted with mask device. Patient was given 0.4 mg of Narcan and she immediately aroused and became alert and oriented. It is suspected that patient likely used illicit IV drug although she maintains she only use Percocet. Patient had also been on Dilaudid IV so this will be adjusted. Will obtain toxicology screen and patient will get a sitter to monitor her.
[2020-04-28] MEDS ORDERED: HYDROMORPHONE HCL INJ/PF 2 MG/ML AMPULE IV PRN (19:08)
[2020-04-28] MEDS: TRAZODONE HCL 50 MG TABLET PO SCH (21:34)
[2020-04-28] MEDS: MELATONIN 5 MG TABLET PO PRN (21:35)
[2020-04-29] MEDS: CEFAZOLIN SODIUM 2 GM in DEXTROSE 5%-WATER 100 ML IV SCH ×4 (05:10→23:55)
[2020-04-29] MEDS: OXYCODONE-ACETAMINOPHEN 5-325 MG TABLET PO PRN (09:54)
[2020-04-29] MEDS: DOCUSATE SODIUM 100 MG CAPSULE PO SCH ×2 (09:54→17:31)
[2020-04-29] MEDS: FAMOTIDINE 20 MG TABLET PO SCH ×2 (09:55→22:15)
[2020-04-29] MEDS ORDERED: NALOXONE HCL INJ/PF 0.4 MG/1 ML SDV ONE ×2 (10:52→10:54)
[2020-04-29] MEDS ORDERED: NALOXONE HCL INJ/PF 0.4 MG/1 ML SDV IV ONE ×2 (11:03)
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
[2020-04-29 14:17] LABS: URINE AMPHETAMINES SCREEN NEGATIVE; URINE BARBITURATES SCREEN NEGATIVE; URINE BENZODIAZEPINES SCREEN NEGATIVE; URINE COCAINE SCREEN NEGATIVE; URINE MARIJUANA (THC) SCREEN NEGATIVE; URINE METHADONE SCREEN NEGATIVE; URINE PHENCYCLIDINE SCREEN NEGATIVE
[2020-04-29] MEDS: METHADONE HCL 10 MG TABLET PO SCH ×2 (15:14→22:15)
--- NOTE | 2020-04-29 16:04 | PDOC PROGRESS REPORT ---
Subjective Progress Note for:: 04/29/20 Subjective:: The patient is a 24-year-old female, known IV drug user, who came to the ED 04/21/2020 after signing out AMA for [facility] where she was receiving treatment for tricuspid valve endocarditis utilizing daptomycin. She was initially admitted there 04/02/2020, left AMA 04/14/2020, returned 04/16/2020, left again AMA 04/18/2020 returning the same day, and leaving again AMA 2% to [place]. Since admission here, she left AMA 04/22/2020 and returning that afternoon. Blood cultures (04/25/20) remain negative at 4 days. Patient with 2 nurse first assist/24 hrs; both times requiring Narcan. Patient has now admitted to continuing Heroin use while admitted. Patient was seen on afternoon rounds. Upon entering the room, she was found lying face down at the foot of the bed with a dusky appearance. alarm security or surveillance monitor was noted to be at the patient's pillow. Empty flush syringe was noted underneath patient when she was rolled over. Nursing was notified immediately for need for airway assistance and Narcan. Patient was promptly repositioned with initiation of respiratory support via BVM and O2. Improved skin coloration was noted. Patient was provided Narcan 0.4 mg IV x1 w/ slight response (eyes fluttered, grimaced response to sternal rub). Continued to provide BVM until second dose of Narcan could be provided. Upon second dose, patient immediately responded w/ full alertness, now maintaining airway, and communicating with staff. Patient was asked what she had taken; she disclosed that she "had some heroin left over from yesterday." Review of telemetry shows that monitor was removed ~2 minutes prior to my entering the room. Patient was seen again shortly later. She asks if her current medical condition has caused her to be at increased risk of overdosing. She denies intentional OD/suicide attempt, however, does admit that she intentionally removed her telemetry prior to injecting Heroin "so I wouldn't get caught." She is informed that she is being placed under suicide precautions until she can be seen by Mental Health services and that it was expected that she would be placed under IVC status for a period of time as she has been making unsafe decisions. Patient expresses understanding; does not want her mother to be told. We discussed her medication options at this time; Subutex vs. Methadone only and that as needed medication doses would be considered on a [id number]-[id number] basis without standing orders to reduce future overdose risk. Patient expressed understanding and requested to trial Methadone for management of her addiction and pain. She denies fever, chills, dyspnea, orthopnea, abdominal pain, nausea vomiting or diarrhea. She has no other questions or concerns at this time. Plan of care discussed w/ nursing. Reason For Visit: ACUTE BACTERIAL ENDOCARDITIS, SEPTIC PULMONARY Physical Exam Vital Signs: Temp Pulse Resp BP Pulse Ox 97.9 F 97 19 121/87 H 99 04/29/20 11:11 04/29/20 11:11 04/29/20 11:11 04/29/20 11:11 04/29/20 11:11 Intake & Output 04/28/20 04/29/20 04/30/20 06:59 06:59 06:59 Intake Total 2142 2635 700 Balance 2142 2635 700 Weight 69 kg 69.2 kg General appearance: PRESENT: no acute distress - following [employer] care, disheveled, thin, well-developed, well-nourished Head exam: PRESENT: atraumatic, normocephalic Eye exam: PRESENT: conjunctiva pink, EOMI, PERRLA. ABSENT: scleral icterus Ear exam: PRESENT: normal external ear exam Mouth exam: PRESENT: moist, tongue midline Teeth exam: PRESENT: poor dentation Respiratory exam: PRESENT: clear to auscultation dustin, symmetrical, unlabored. ABSENT: rales, rhonchi, wheezes Cardiovascular exam: PRESENT: RRR, +S1, +S2, systolic murmur. ABSENT: diastolic murmur, rubs Pulses: PRESENT: normal dorsalis pedis pul Vascular exam: PRESENT: normal capillary refill Extremities exam: PRESENT: full ROM. ABSENT: calf tenderness, clubbing, pedal edema Neurological exam: PRESENT: alert, awake, oriented to person, oriented to place, oriented to time, oriented to situation, CN II-XII grossly intact. ABSENT: motor sensory deficit Psychiatric exam: PRESENT: anxious - tearful, normal mood. ABSENT: homicidal ideation, suicidal ideation Skin exam: PRESENT: dry, intact, warm. ABSENT: cyanosis, rash Results Laboratory Results: 04/27/20 09:16 04/25/20 04:37 04/22/20 04/22/20 04/25/20 21:25 21:25 04:37 Creatine Kinase 49 26 L Troponin I 0.015 Impressions: Chest CT 04/23/20 00:00 IMPRESSION: 1. Multiple bilateral lung nodules some cavitary suspicious for embolic infectious process. 2. Non prominent bilateral pleural effusions larger on the right. Majority of the fluid is not loculated. Minimal loculated component possibly in the right upper chest. 3. Technically limited evaluation of the pulmonary arteries even centrally. No large pulmonary embolus. Difficult to exclude a small embolus. 4. [id number] cardiomegaly. Small pericardial effusion. Suspected borderline spleen size. Chest X-Ray 04/26/20 05:00 IMPRESSION: Minimal improvement aeration in the lung bases. Otherwise stable two-view chest. Assessment and Plan - Diagnosis (1) Acute bacterial endocarditis Is this a current diagnosis for this admission?: Yes Plan: - admitted at [facility] 04/02/20 for right sided endarditis with septic emboli MSSA, 2/ to IV drug use - she has left [facility] twice at [facility] while undergoing treatment - per review of records latest blood cx have been negative - TTE 04/18/20 Severe tricuspid regurgitation, 2 masses on the tricuspid valve with associated flail leaflet that are unchanged from 820 assessment. - CT chest 04/18/20 showed interval development of a moderate right and small left pleural effusion. Multifocal cavitary and solitary nodules in both lungs again demonstrated not significantly changed from prior CT. lungs are suspicious for multifocal septic emboli -Repeat CT chest (04/23/2020) showed multiple bilateral lung nodules and sub-cavi tary lesion suspicious for embolic infectious process, non-prominent bilateral pleural effusions, larger on the right. Majority of fluid is not loculated. Mild to moderate cardiomegaly with a small pericardial effusion. Suspect borderline spleen size. -Not counting the days where and he was she was outside the hospital when she leaves [facility], I suspect that she has had about 2 weeks of cumulative cefazolin treatment. Per notes from [facility] she is recommended to have a total of 6 weeks of treatment for right-sided endocarditis Repeat blood cultures (04/25/20) negative at 4 days We will continue cefazolin Infectious Disease is consulted to help guide length of therapy considering the patient numerous AMA events. -She will likely need to be transferred to a tertiary center where there is cardiothoracic surgery because of the severe tricuspid regurg and vegetation. Will need repeat TTE/MARTI toward end of antibiotic course. (2) Chronic back pain Qualifiers: Back pain location: low back pain Sciatica presence: without sciatica Is this a current diagnosis for this admission?: Yes Plan: - has chronic back pain - midline tenderness lumbar L1-L2 area - according to her back pain is stable, not worsening - no focal deficit Consider MRI if back pain worsens (3) Septic embolism Is this a current diagnosis for this admission?: Yes Plan: -Secondary to right-sided bacterial endocarditis MSSA -CT scan done on April 18 showed interval development of a moderate right and small left pleural effusion since first CT on 04/16. Multifocal cavitary and solitary nodules in both lungs again demonstrated not significantly changed. Findings are suspicious for multifocal septic emboli. -Repeat CT chest (04/23/2020) showed multiple bilateral lung nodules and sub- cavitary lesion suspicious for embolic infectious process, non-prominent bilateral pleural effusions, larger on the right. Majority of fluid is not loculated. Mild to moderate cardiomegaly with a small pericardial effusion. Suspect borderline spleen size. -Received about 2 weeks of cefazolin from her intermittent in and out hospital stays -We will continue cefazolin on this admission (4) Pleural effusion due to bacterial infection Is this a current diagnosis for this admission?: Yes Plan: -Chest x-ray done on April 22, 2020 showed multifocal infiltrate with bilateral pleural effusions. The right pleural effusion may be loculated -Patient is afebrile not tachypneic not requiring oxygen with no complaints of shortness of breath Dr. Damon consulted; monitor with serial chest x-ray for now (5) Tricuspid valve regurgitation due to infection Is this a current diagnosis for this admission?: Yes Plan: -Reported on TTE done at [facility] on April 18, 2020. Severe tricuspid regurgitation 2 masses on the tricuspid valve with associated flail leaflet that are unchanged from prior echo on April 13. 52 to 72%. LV is grossly normal -No signs of decompensation -EKG done on April 22 showed sinus tachycardia left posterior fascicular block -Continue antibiotics, ID follow up (6) Intravenous drug abuse Is this a current diagnosis for this admission?: Yes Plan: - she has left AMA several times in the past in between admissions Drug screen positive for opiates; confirmation showed Morphine She has received morphine/Dilaudid during her admissions for her pain related to septic emboli. Long discussion about need to transition to methadone or Subutex in anticipation that she will continue care through the [facility] post discharge. Patient would like to trial Methadone. She is placed on Methadone 5 mg every 8 hours. (7) Tobacco use disorder, continuous Is this a current diagnosis for this admission?: Yes Plan: - counseling done Nicotine replacement therapies provided. (8) Opiate overdose Qualifiers: Encounter type: initial encounter Is this a current diagnosis for this admission?: Yes Plan: Patient with 2 nurse first assist/24 hrs; both times requiring Narcan. Patient has now admitted to continuing Heroin use while admitted. Patient was seen on afternoon rounds. Upon entering the room, she was found lying face down at the foot of the bed with a dusky appearance. Nursing was notified immediately for need for airway assistance and Narcan. Patient was promptly repositioned with initiation of respiratory support via BVM and O2. Improved skin coloration was noted. Patient was provided Narcan 0.4 mg IV x1 w/ slight response (eyes fluttered, grimaced response to sternal rub). Continued to provide BVM until second dose of Narcan could be provided. Upon second dose, patient immediately responded w/ full alertness, now maintaining airway, and communicating with staff. Patient was asked what she had taken; she disclosed that she "had some heroin left over from yesterday." Nursing found gum wrappers w/o gum and w/ powdered substance in room. Per [employer]PD; tested positive for Fentanyl and Heroin. Mental Health is consulted; now IVC'd. - Time Time Spent with patient: 35 or more minutes Medications reviewed and adjusted accordingly: Yes Anticipated Discharge Disposition: Home, Self Care Anticipated Discharge Timeframe: >72 hrs
[2020-04-29] MEDS: TRAZODONE HCL 50 MG TABLET PO SCH (22:14)
[2020-04-29] MEDS: MELATONIN 5 MG TABLET PO PRN (22:18)
[2020-04-30] MEDS: CEFAZOLIN SODIUM 2 GM in DEXTROSE 5%-WATER 100 ML IV SCH (06:05)
[2020-04-30] MEDS: METHADONE HCL 10 MG TABLET PO SCH ×3 (06:06→21:40)
--- NOTE | 2020-04-30 09:07 | RADIOLOGY REPORT (SQ) ---
EXAM DESCRIPTION: CHEST SINGLE VIEW IMAGES COMPLETED DATE/TIME: 04/30/2020 8:47 am REASON FOR STUDY: pleural effusions COMPARISON: 04/26/2020 EXAM PARAMETERS: NUMBER OF VIEWS: One view. TECHNIQUE: Single frontal radiographic view of the chest acquired. RADIATION DOSE: NA LIMITATIONS: None. FINDINGS: LUNGS AND PLEURA: Persistent mild bilateral effusions and bibasilar opacities, likely atel ectasis. Unchanged right mid lung peripheral opacity. Mildly improved left upper lobe aeration. Lo wer thorax. MEDIASTINUM AND HILAR STRUCTURES: Stable. HEART AND VASCULAR STRUCTURES: Stable. BONES: No acute findings. HARDWARE: None in the chest. OTHER: No other significant finding. IMPRESSION: Stable small bibasilar effusions with mildly improved patchy bilateral opacities. TECHNICAL DOCUMENTATION: JOB ID: [id number] 2010 [employer]- All Rights Reserved Reading location - IP/workstation name: [email or web address]
[2020-04-30] MEDS ORDERED: ACETAMINOPHEN 325 MG TABLET PO PRN (09:41)
[2020-04-30] MEDS: FAMOTIDINE 20 MG TABLET PO SCH ×2 (10:49→21:41)
[2020-04-30] MEDS: DOCUSATE SODIUM 100 MG CAPSULE PO SCH ×2 (10:49→18:26)
[2020-04-30] MEDS: KETOROLAC TROMETHAMINE INJ/PF 30 MG/1 ML SDV IV PRN (12:17)
[2020-04-30] MEDS: LIDOCAINE 5% (700 MG) TRANSDERMAL ADH..PATCH TP SCH (12:18)
--- NOTE | 2020-04-30 17:24 | PDOC PROGRESS REPORT ---
Subjective Progress Note for:: 04/30/20 Subjective:: 24-year-old female with septic emboli in bilateral lungs. She also has bilateral pleural effusions, tiny on the left, small to moderate on the right. She has no difficulty breathing. She still denies any chest pain. She continues to receive intravenous antibiotics. She denies headache, nausea, vomiting, dizziness, orthostasis, blurry vision. Reason For Visit: ACUTE BACTERIAL ENDOCARDITIS, SEPTIC PULMONARY Physical Exam Vital Signs: Temp Pulse Resp BP Pulse Ox 98.8 F 80 16 116/73 100 04/30/20 15:19 04/30/20 15:19 04/30/20 15:19 04/30/20 15:19 04/30/20 15:19 Intake & Output 04/29/20 04/30/20 05/01/20 06:59 06:59 06:59 Intake Total 2635 2350 260 Output Total 1300 Balance 2635 1050 260 Weight 69.2 kg 66.8 kg 66.8 kg Exam: General appearance: PRESENT: no acute distress, cooperative Head exam: PRESENT: atraumatic, normocephalic Eye exam: PRESENT: EOMI, PERRLA. ABSENT: scleral icterus Mouth exam: PRESENT: moist, neck supple Neck exam: ABSENT: meningismus, tenderness, thyromegaly, tracheal deviation Respiratory exam: PRESENT: unlabored. ABSENT: tachypnea Cardiovascular exam: ABSENT: tachycardia Pulses: PRESENT: normal femoral pulses GI/Abdominal exam: PRESENT: soft. ABSENT: distended, guarding, rebound, tenderness Rectal exam: PRESENT: deferred Extremities exam: ABSENT: clubbing Musculoskeletal exam: ABSENT: deformity Neurological exam: PRESENT: alert, awake, oriented to person, oriented to place, oriented to time, oriented to situation, CN II-XII grossly intact. ABSENT: motor sensory deficit Psychiatric exam: ABSENT: agitated, anxious, depressed Focused psych exam: ABSENT: delusional Skin exam: ABSENT: cyanosis, erythema, jaundice Results Laboratory Results: 04/27/20 09:16 04/25/20 04:37 04/25/20 06:55 Blood Blood Culture - Final NO GROWTH IN 5 DAYS 04/25/20 04:37 Blood Blood Culture - Final NO GROWTH IN 5 DAYS 04/22/20 04/22/20 04/25/20 21:25 21:25 04:37 Creatine Kinase 49 26 L Troponin I 0.015 Impressions: Chest CT 04/23/20 00:00 IMPRESSION: 1. Multiple bilateral lung nodules some cavitary suspicious for embolic infectious process. 2. Non prominent bilateral pleural effusions larger on the right. Majority of the fluid is not loculated. Minimal loculated component possibly in the right upper chest. 3. Technically limited evaluation of the pulmonary arteries even centrally. No large pulmonary embolus. Difficult to exclude a small embolus. 4. [id number] cardiomegaly. Small pericardial effusion. Suspected borderline spleen size. Chest X-Ray 04/30/20 00:00 IMPRESSION: Stable small bibasilar effusions with mildly improved patchy bilateral opacities. Assessment & Plan - Diagnosis (1) Cavitary lesion of lung Is this a current diagnosis for this admission?: Yes (2) Septic embolism Is this a current diagnosis for this admission?: Yes - Time Anticipated Discharge Disposition: Unknown Anticipated Discharge Timeframe: Unknown - Plan Summary Plan Summary: 24-year-old female with septic emboli to bilateral lungs. She also has pleural effusions. I previously offered her thoracentesis on the right side to diminish the amount of pleural fluid, as well as test the fluid for bacteria etc. The patient declined thoracentesis at that time. Repeat chest x-ray today appears stable. No intervention is planned. If the patient's clinical exam declines, intervention may be necessary. Tanay Dr. Damon if the patient's clinical status worsens.
--- NOTE | 2020-04-30 19:47 | PDOC PROGRESS REPORT ---
Subjective Progress Note for:: 04/30/20 Subjective:: The patient is a 24-year-old female, known IV drug user, who came to the ED 04/21/2020 after signing out AMA for [facility] where she was receiving treatment for tricuspid valve endocarditis utilizing daptomycin. She was initially admitted there 04/02/2020, left AMA 04/14/2020, returned 04/16/2020, left again AMA 04/18/2020 returning the same day, and leaving again AMA 2% to [place]. Since admission here, she left AMA 04/22/2020 and returning that afternoon. Blood cultures (04/25/20) remain negative at 4 days. Patient with 2 pigment pumper/24 hrs; both times requiring Narcan. Patient has now admitted to continuing Heroin use while admitted. Patient was seen on morning rounds. She was found resting in bed, comfortably, on room air. She was sleeping but woke easily when I said her name. She reports that she is having some generalized body aches and back discomfort, alth ough, " not unexpected." We discussed utilizing nonnarcotic and nonpharmacological interventions for her discomfort; patient is agreeable. She denies fever, chills, chest pain, palpitations, dyspnea, abdominal pain, nausea vomiting and diarrhea. She has no questions or concerns at this time. No concerns per nursing. Did speak with the patient's mother, Reba Guerra, this evening; provided update on clinical status and plan of care. Reason For Visit: ACUTE BACTERIAL ENDOCARDITIS, SEPTIC PULMONARY Physical Exam Vital Signs: Temp Pulse Resp BP Pulse Ox 98.8 F 80 16 116/73 100 04/30/20 15:19 04/30/20 15:19 04/30/20 15:19 04/30/20 15:19 04/30/20 15:19 Intake & Output 04/29/20 04/30/20 05/01/20 06:59 06:59 06:59 Intake Total 2635 2350 260 Output Total 1300 Balance 2635 1050 260 Weight 69.2 kg 66.8 kg 66.8 kg General appearance: PRESENT: no acute distress, disheveled, well-developed, well-nourished Head exam: PRESENT: atraumatic, normocephalic Eye exam: PRESENT: conjunctiva pink, EOMI, PERRLA. ABSENT: scleral icterus Ear exam: PRESENT: normal external ear exam Mouth exam: PRESENT: moist, tongue midline Neck exam: ABSENT: carotid bruit, JVD, lymphadenopathy, thyromegaly Respiratory exam: PRESENT: clear to auscultation dustin. ABSENT: rales, rhonchi, wheezes Cardiovascular exam: PRESENT: RRR. ABSENT: diastolic murmur, rubs, systolic murmur Pulses: PRESENT: normal dorsalis pedis pul Vascular exam: PRESENT: normal capillary refill GI/Abdominal exam: PRESENT: normal bowel sounds, soft. ABSENT: distended, guarding, mass, organolmegaly, rebound, tenderness Rectal exam: PRESENT: deferred Extremities exam: PRESENT: full ROM. ABSENT: calf tenderness, clubbing, pedal edema Neurological exam: PRESENT: alert, awake, oriented to person, oriented to place, oriented to time, oriented to situation, CN II-XII grossly intact. ABSENT: motor sensory deficit Psychiatric exam: PRESENT: appropriate affect, normal mood. ABSENT: homicidal ideation, suicidal ideation Skin exam: PRESENT: dry, intact, warm. ABSENT: cyanosis, rash Results Laboratory Results: 04/27/20 09:16 04/25/20 04:37 04/25/20 06:55 Blood Blood Culture - Final NO GROWTH IN 5 DAYS 04/25/20 04:37 Blood Blood Culture - Final NO GROWTH IN 5 DAYS 04/22/20 04/22/20 04/25/20 21:25 21:25 04:37 Creatine Kinase 49 26 L Troponin I 0.015 Impressions: Chest CT 04/23/20 00:00 IMPRESSION: 1. Multiple bilateral lung nodules some cavitary suspicious for embolic infectious process. 2. Non prominent bilateral pleural effusions larger on the right. Majority of the fluid is not loculated. Minimal loculated component possibly in the right upper chest. 3. Technically limited evaluation of the pulmonary arteries even centrally. No large pulmonary embolus. Difficult to exclude a small embolus. 4. [id number] cardiomegaly. Small pericardial effusion. Suspected borderline spleen size. Chest X-Ray 04/30/20 00:00 IMPRESSION: Stable small bibasilar effusions with mildly improved patchy bilateral opacities. Assessment and Plan - Diagnosis (1) Acute bacterial endocarditis Is this a current diagnosis for this admission?: Yes Plan: - admitted at [facility] 04/02/20 for right sided endarditis with septic emboli MSSA, 2/2 to IV drug use - she has left AMA twice at [facility] while undergoing treatment - per review of records latest blood cx have been negative - TTE 04/18/20 Severe tricuspid regurgitation, 2 masses on the tricuspid valve with associated flail leaflet that are unchanged from 820 assessment. - CT chest 04/18/20 showed interval development of a moderate right and small left pleural effusion. Multifocal cavitary and solitary nodules in both lungs again demonstrated not significantly changed from prior CT. lungs are suspicious for multifocal septic emboli -Repeat CT chest (04/23/2020) showed multiple bilateral lung nodules and sub- cavitary lesion suspicious for embolic infectious process, non-prominent bilateral pleural effusions, larger on the right. Majority of fluid is not loculated. Mild to moderate cardiomegaly with a small pericardial effusion. Suspect borderline spleen size. -Not counting the days where and he was she was outside the hospital when she leaves [facility], I suspect that she has had about 2 weeks of cumulative cefazolin treatment. Per notes from [facility] she is recommended to have a total of 6 weeks of treatment for right-sided endocarditis Repeat blood cultures (04/25/20) negative at 5 days Repeat blood cultures (05/01/2020) pending. We will continue cefazolin Infectious Disease is consulted to help guide length of therapy considering the patient numerous AMA events. -She will likely need to be transferred to a tertiary center where there is cardiothoracic surgery because of the severe tricuspid regurg and vegetation. Will need repeat TTE/MARTI toward end of antibiotic course. (2) Chronic back pain Qualifiers: Back pain location: low back pain Sciatica presence: without sciatica Is this a current diagnosis for this admission?: Yes Plan: - has chronic back pain - midline tenderness lumbar L1-L2 area - according to her back pain is stable, not worsening - no focal deficit Consider MRI if back pain worsens Now being managed with methadone 5 mg every 8 hours. Also providing Lidoderm patches, as needed Toradol, Tylenol, and heating pad. (3) Septic embolism Is this a current diagnosis for this admission?: Yes Plan: -Secondary to right-sided bacterial endocarditis MSSA -CT scan done on April 18 showed interval development of a moderate right and small left pleural effusion since first CT on 04/16. Multifocal cavitary and solitary nodules in both lungs again demonstrated not significantly changed. Findings are suspicious for multifocal septic emboli. -Repeat CT chest (04/23/2020) showed multiple bilateral lung nodules and sub- cavitary lesion suspicious for embolic infectious process, non-prominent bilateral pleural effusions, larger on the right. Majority of fluid is not loculated. Mild to moderate cardiomegaly with a small pericardial effusion. Suspect borderline spleen size. -Received about 2 weeks of cefazolin from her intermittent in and out hospital stays -We will continue cefazolin on this admission (4) Pleural effusion due to bacterial infection Is this a current diagnosis for this admission?: Yes Plan: -Chest x-ray done on April 22, 2020 showed multifocal infiltrate with bilateral pleural effusions. The right pleural effusion may be loculated -Patient is afebrile not tachypneic not requiring oxygen with no complaints of shortness of breath Dr. Damon consulted; serial chest x-rays are reassuring. Surgery has subsequently signed off. Greatly appreciate their evaluation and recommendations. (5) Tricuspid valve regurgitation due to infection Is this a current diagnosis for this admission?: Yes Plan: -Reported on TTE done at [facility] on April 18, 2020. Severe tricuspid regurgitation 2 masses on the tricuspid valve with associated flail leaflet that are unchanged from prior echo on April 13. 52 to 72%. LV is grossly normal -No signs of decompensation -EKG done on April 22 showed sinus tachycardia left posterior fascicular block -Continue antibiotics, ID follow up (6) Intravenous drug abuse Is this a current diagnosis for this admission?: Yes Plan: - she has left AMA several times in the past in between admissions To episodes of heroin use during this admission; both requiring Narcan. Drug screen positive for opiates; confirmation showed Morphine She has received morphine/Dilaudid during her admissions for her pain related to septic emboli. Long discussion about need to transition to methadone or Subutex in anticipation that she will continue care through the [facility] post discharge. Patient would like to trial Methadone. She is placed on Methadone 5 mg every 8 hours. (7) Tobacco use disorder, continuous Is this a current diagnosis for this admission?: Yes Plan: - counseling done Nicotine replacement therapies provided. (8) Opiate overdose Qualifiers: Encounter type: initial encounter Is this a current diagnosis for this admission?: Yes Plan: Patient with 2 pigment pumper/24 hrs; both times requiring Narcan. Patient has now admitted to continuing Heroin use while admitted. Nursing found gum wrappers w/o gum and w/ powdered substance in room. Per JPD; tested positive for Fentanyl and Heroin. Mental Health is consulted; now IVC'd. - Time Time Spent with patient: 25-34 minutes Medications reviewed and adjusted accordingly: Yes Anticipated Discharge Disposition: Home, Self Care Anticipated Discharge Timeframe: >72 hrs
[2020-04-30] MEDS: TRAZODONE HCL 50 MG TABLET PO SCH (21:41)
[2020-05-01] MEDS ORDERED: CEFAZOLIN 2 GM/D5W RTU 2 GM/50 ML RTUPB IV SCH
[2020-05-01] MEDS: CEFAZOLIN SODIUM 2 GM in DEXTROSE 5%-WATER 100 ML IV SCH ×4 (00:10→17:43)
[2020-05-01] MEDS: METHADONE HCL 10 MG TABLET PO SCH ×3 (05:24→21:18)
[2020-05-01] MEDS: FAMOTIDINE 20 MG TABLET PO SCH ×2 (09:32→21:17)
[2020-05-01] MEDS: DOCUSATE SODIUM 100 MG CAPSULE PO SCH ×2 (09:32→17:43)
[2020-05-01] MEDS: LIDOCAINE 5% (700 MG) TRANSDERMAL ADH..PATCH TP SCH (09:32)
--- NOTE | 2020-05-01 09:50 | PDOC PROGRESS REPORT ---
Subjective Progress Note for:: 05/01/20 Subjective:: Awakens easily. No agitation last night or this morning. Her only complaint is that of pain. She has a history of continuing to use her 1 while in the hospital. She has had to receive Narcan on occasion. Blood cultures were negative so far. Reason For Visit: ACUTE BACTERIAL ENDOCARDITIS, SEPTIC PULMONARY Physical Exam Vital Signs: Temp Pulse Resp BP Pulse Ox 98.5 F 73 16 117/73 96 05/01/20 08:10 05/01/20 08:10 05/01/20 08:10 05/01/20 08:10 05/01/20 08:10 Intake & Output 04/30/20 05/01/20 05/02/20 06:59 06:59 06:59 Intake Total 2350 1900 Output Total 1300 Balance 1050 1900 Weight 66.8 kg 69 kg General appearance: PRESENT: no acute distress, cooperative, well-developed Head exam: PRESENT: atraumatic, normocephalic Ear exam: PRESENT: normal external ear exam. ABSENT: bleeding, drainage Mouth exam: PRESENT: moist, tongue midline Respiratory exam: PRESENT: decreased breath sounds - At bases, symmetrical, unlabored. ABSENT: rales, rhonchi, tachypnea, wheezes Cardiovascular exam: PRESENT: RRR, +S1, +S2, systolic murmur - 3/6. ABSENT: bradycardia, diastolic murmur, irregular rhythm, tachycardia GI/Abdominal exam: PRESENT: normal bowel sounds, soft. ABSENT: distended, guarding, tenderness Rectal exam: PRESENT: deferred Gentrourinary exam: ABSENT: indwelling catheter Extremities exam: PRESENT: full ROM. ABSENT: pedal edema, tenderness, +1 edema Musculoskeletal exam: PRESENT: ambulatory, normal inspection. ABSENT: deformity, dislocation Neurological exam: PRESENT: alert, awake, oriented to person, oriented to place, oriented to time, oriented to situation, CN II-XII grossly intact. ABSENT: altered Psychiatric exam: PRESENT: flat affect. ABSENT: agitated, anxious Focused psych exam: ABSENT: delusional, paranoid, restlessness Skin exam: PRESENT: dry, warm. ABSENT: rash Results Laboratory Results: 04/27/20 09:16 04/25/20 04:37 04/25/20 06:55 Blood Blood Culture - Final NO GROWTH IN 5 DAYS 04/22/20 04/22/20 04/25/20 21:25 21:25 04:37 Creatine Kinase 49 26 L Troponin I 0.015 Impressions: Chest CT 04/23/20 00:00 IMPRESSION: 1. Multiple bilateral lung nodules some cavitary suspicious for embolic infectious process. 2. Non prominent bilateral pleural effusions larger on the right. Majority of the fluid is not loculated. Minimal loculated component possibly in the right upper chest. 3. Technically limited evaluation of the pulmonary arteries even centrally. No large pulmonary embolus. Difficult to exclude a small embolus. 4. Waeg-mr-qaerdwhv cardiomegaly. Small pericardial effusion. Suspected borderline spleen size. Chest X-Ray 04/30/20 00:00 IMPRESSION: Stable small bibasilar effusions with mildly improved patchy bilateral opacities. Assessment and Plan - Diagnosis (1) Acute bacterial endocarditis Is this a current diagnosis for this admission?: Yes (2) Chronic back pain Qualifiers: Back pain location: low back pain Sciatica presence: without sciatica Is this a current diagnosis for this admission?: Yes (3) Septic embolism Is this a current diagnosis for this admission?: Yes (4) Tricuspid valve regurgitation due to infection Is this a current diagnosis for this admission?: Yes (5) Pleural effusion due to bacterial infection Is this a current diagnosis for this admission?: Yes (6) Opiate overdose Qualifiers: Encounter type: initial encounter Is this a current diagnosis for this admission?: Yes (7) Intravenous drug abuse Is this a current diagnosis for this admission?: Yes (8) Tobacco use disorder, continuous Is this a current diagnosis for this admission?: Yes - Plan Summary Summary: 05/01/2020 Patient is resting comfortably. She has been afebrile. White blood cell count is normal. Ongoing treatment with cefazolin. Infectious diseases following to help determine length of treatment. Blood cultures from April 25 are no growth so far. I will reviewed the ID note. There was a question stay of repeat blood cultures. If the infectious disease note does suggest additional blood cultures we will obtain them tomorrow. The patient's oxygen saturation is in the 90s on room air. The septic emboli and pleural effusion have not caused any respiratory distress. She has declined chest to at this time. She does have chronic pain but we are limiting the narcotic analgesics. She is on a trial of methadone 5 mg every 8 hours. The hope is that after the resolution of this illness she will participate with a drug treatment program. Unfortunately the patient has admitted to ongoing use of narcotics. Heroin and fentanyl were found in her room. Because of this behavior she is now under involuntary commitment. - Time Time Spent with patient: 15-24 minutes Medications reviewed and adjusted accordingly: Yes Anticipated Discharge Disposition: Tertiary - Will need cardiac surgery after antibiotic therapy is completed Anticipated Discharge Timeframe: Unknown
[2020-05-01] MEDS: TRAZODONE HCL 50 MG TABLET PO SCH (21:18)
[2020-05-02] MEDS: CEFAZOLIN SODIUM 2 GM in DEXTROSE 5%-WATER 100 ML IV SCH ×5 (00:02→23:29)
[2020-05-02] MEDS: METHADONE HCL 10 MG TABLET PO SCH ×3 (05:54→21:30)
[2020-05-02] MEDS: DOCUSATE SODIUM 100 MG CAPSULE PO SCH ×2 (09:43→17:52)
[2020-05-02] MEDS: LIDOCAINE 5% (700 MG) TRANSDERMAL ADH..PATCH TP SCH (09:43)
[2020-05-02] MEDS: FAMOTIDINE 20 MG TABLET PO SCH ×2 (09:44→21:30)
--- NOTE | 2020-05-02 15:01 | PDOC PROGRESS REPORT ---
Subjective Progress Note for:: 05/02/20 Subjective:: The patient is reporting bruising on the inside of the left upper arm. It is an ecchymotic lesion that is resolving. She was also questioning her involuntary commitment as she would like her phone at least. She did verbalize that she had to complete her antibiotics but she can be unreliable as a patient. Reason For Visit: ACUTE BACTERIAL ENDOCARDITIS, SEPTIC PULMONARY Physical Exam Vital Signs: Temp Pulse Resp BP Pulse Ox 98.2 F 85 16 110/66 98 05/02/20 10:50 05/02/20 14:00 05/02/20 10:50 05/02/20 10:50 05/02/20 10:50 Intake & Output 05/01/20 05/02/20 05/03/20 06:59 06:59 06:59 Intake Total 1900 1832 300 Balance 1900 1832 300 Weight 69 kg 69 kg General appearance: PRESENT: no acute distress, cooperative, well-developed Head exam: PRESENT: atraumatic, normocephalic Respiratory exam: PRESENT: symmetrical, unlabored. ABSENT: rales, rhonchi, ta chypnea, wheezes Cardiovascular exam: PRESENT: RRR, systolic murmur - 3 of 6 GI/Abdominal exam: PRESENT: normal bowel sounds, soft. ABSENT: distended, tenderness Extremities exam: ABSENT: pedal edema Musculoskeletal exam: PRESENT: ambulatory. ABSENT: deformity, dislocation Neurological exam: PRESENT: alert, awake, oriented to person, oriented to place, oriented to time, oriented to situation, CN II-XII grossly intact Psychiatric exam: PRESENT: appropriate affect. ABSENT: agitated, anxious Focused psych exam: ABSENT: delusional, paranoid, restlessness Skin exam: PRESENT: other - Ecchymotic lesion left upper arm resolving Results Laboratory Results: 04/27/20 09:16 04/25/20 04:37 04/22/20 04/22/20 04/25/20 21:25 21:25 04:37 Creatine Kinase 49 26 L Troponin I 0.015 Impressions: Chest CT 04/23/20 00:00 IMPRESSION: 1. Multiple bilateral lung nodules some cavitary suspicious for embolic infectious process. 2. Non prominent bilateral pleural effusions larger on the right. Majority of the fluid is not loculated. Minimal loculated component possibly in the right upper chest. 3. Technically limited evaluation of the pulmonary arteries even centrally. No large pulmonary embolus. Difficult to exclude a small embolus. 4. Xuas-hs-[id number] cardiomegaly. Small pericardial effusion. Suspected borderline spleen size. Chest X-Ray 04/30/20 00:00 IMPRESSION: Stable small bibasilar effusions with mildly improved patchy bilateral opacities. Assessment and Plan - Diagnosis (1) Acute bacterial endocarditis Is this a current diagnosis for this admission?: Yes (2) Chronic back pain Qualifiers: Back pain location: low back pain Sciatica presence: without sciatica Is this a current diagnosis for this admission?: Yes (3) Septic embolism Is this a current diagnosis for this admission?: Yes (4) Tricuspid valve regurgitation due to infection Is this a current diagnosis for this admission?: Yes (5) Pleural effusion due to bacterial infection Is this a current diagnosis for this admission?: Yes (6) Opiate overdose Qualifiers: Encounter type: initial encounter Is this a current diagnosis for this admission?: Yes (7) Intravenous drug abuse Is this a current diagnosis for this admission?: Yes (8) Tobacco use disorder, continuous Is this a current diagnosis for this admission?: Yes (9) Involuntary commitment Is this a current diagnosis for this admission?: Yes - Plan Summary Summary: 05/01/2020 Patient is resting comfortably. She has been afebrile. White blood cell count is normal. Ongoing treatment with cefazolin. Infectious diseases following to help determine length of treatment. Blood cultures from April 25 are no growth so far. I will reviewed the ID note. There was a question stay of repeat blood cultures. If the infectious disease note does suggest additional blood cultures we will obtain them tomorrow. The patient's oxygen saturation is in the 90s on room air. The septic emboli and pleural effusion have not caused any respiratory distress. She has declined chest to at this time. She does have chronic pain but we are limiting the narcotic analgesics. She is on a trial of methadone 5 mg every 8 hours. The hope is that after the resolution of this illness she will participate with a drug treatment program. Unfortunately the patient has admitted to ongoing use of narcotics. Heroin and fentanyl were found in her room. Because of this behavior she is now under involuntary commitment. 05/02/2020 The patient is doing well. She is tolerating IV antibiotics. She is unsure of the continuity of the antibiotics but checking the MAR she has not missed any doses. She also felt that she was getting blood tests every other day and she has not had any blood work for at least 4 days. I did explain that we need to check blood work approximately once a week. Continue cefazolin and check weekly labs tomorrow. Last blood culture is no growth still. Still with murmur from her endocarditis. I reminded her that she will need another MARTI towards the end of her regimen and will be referred to cardiothoracic surgery. Psychiatry did see the patient again today. They recommend continuing the involuntary commitment. They did recommend 2.5 mg of Haldol every 6 hours if needed for agitation and I have written those orders. - Time Time Spent with patient: 15-24 minutes Medications reviewed and adjusted accordingly: Yes Anticipated Discharge Disposition: Home, Self Care Anticipated Discharge Timeframe: At end of treatment
--- NOTE | 2020-05-02 17:19 | PDOC CONSULTATION ---
Consultation-Blank Consultation: Behavioral Health Consult: Re evaluation from [phone]. Patient is a 24 year old female admitted to [facility]ist [facility] and on a FULL Involuntary Commitment after she obtained heroin laced with Fentanyl from an outside source and put it in her IV twice causing overdose. Today patient had been irritable and upset saying behavioral health did not see her and wanting to know what's going on with Involuntary Commitment since she was told it would be 72 hours. Reminded patient of discussion and psychoeducatio n provided Thursday regarding the Involuntary Commitment process and time frame. She stated she did get to talk to her mother Thursday to find out how her daughter was doing. She stated she did not get to talk to her daughter though. 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 She noted she told her boss she would not be able to work for 3 days and is concerned she may lose her job. Patient admitted "I made a mistake, I have a drug problem, I had a craving and was stressed, I won't do it again." She stated "I just wants my clothes (bra mainly) and phone back." patient denied suicidal and homicidal ideation. She was made aware she is still able to call mother to find out about daughter. She was also made pearl the Involuntary Commitment would be upheld based on her obtaining illegal substance and putting in IV twice causing overdose which is detrimental to her health in general but especially to her treatment course currently for endocarditis and lung issues. Attending medical staff and Patient Drift Miner noted patient talked about heroin overdose when she used phone, did not ask about her daughter, and did not tell mother to inform boss of additional days out of work (patient told this clinician about her conversation when patient informed of maintain Involuntary Commitment). Instructed medical staff patient is only allowed to call her mother and staff needs to be dialing then asking for mother to ensure it is her. Noted if patent abuses the privilege it will be taken away. Clinical Presentation: Heroin Overdose while medically admitted (2 times) History of Intravenous heroin use Multiple psychosocial stresses (recent breakup, 6 year old daughter in ICU, grandfather ill) Medical issues/stress (endocarditis and just learned about septic emboli in lung) Medication recommendations made by the psychiatric medication provider Dr. Smiley WALKER., includes: Add Haldol 2.5MG every 6 hours as needed for anxiety/agitation Impression/Plan: Recommendation to maintain FULL Involuntary Commitment. Patient has proven a danger to self and current treatment regimen given she obtained illegal substance from outside person and put in in her IV twice causing overdoses. Consulted with Dr. Nguyễn regarding the management and care of patient. Attending Hospitalist aware of recommendations.
[2020-05-02] MEDS ORDERED: HALOPERIDOL LACTATE INJ 5 MG/1 ML VIAL IV PRN (20:31)
[2020-05-02] MEDS: TRAZODONE HCL 50 MG TABLET PO SCH (21:30)
[2020-05-02] MEDS: KETOROLAC TROMETHAMINE INJ/PF 30 MG/1 ML SDV IV PRN (21:30)
[2020-05-02] MEDS: MELATONIN 5 MG TABLET PO PRN (21:30)
[2020-05-03] MEDS: CEFAZOLIN SODIUM 2 GM in DEXTROSE 5%-WATER 100 ML IV SCH ×4 (06:07→23:41)
[2020-05-03] MEDS: METHADONE HCL 10 MG TABLET PO SCH ×3 (06:08→21:33)
[2020-05-03] MEDS: FAMOTIDINE 20 MG TABLET PO SCH ×2 (10:08→21:33)
[2020-05-03] MEDS: DOCUSATE SODIUM 100 MG CAPSULE PO SCH ×2 (10:08→17:38)
[2020-05-03] MEDS: LIDOCAINE 5% (700 MG) TRANSDERMAL ADH..PATCH TP SCH (10:08)
[2020-05-03] MEDS: KETOROLAC TROMETHAMINE INJ/PF 30 MG/1 ML SDV IV PRN (13:26)
[2020-05-03 14:45] LABS: ABSOLUTE EOSINOPHILS # (AUTO) 0.4 10^3/uL (0.0-0.6); ABSOLUTE LYMPHOCYTES (AUTO) 2.1 10^3/uL (0.5-4.7); ABSOLUTE MONOCYTES (AUTO) 0.6 10^3/uL (0.1-1.4); ABSOLUTE NEUT (AUTO) 5.2 10^3/uL (1.7-8.2); BASOPHILS % (AUTO) 0.6 % (0-2); EOSINOPHILS % (AUTO) 4.3 % (0-6); HEMOGLOBIN 11.5 g/dL (12.0-15.5); LYMPHOCYTES % (AUTO) 25.4 % (13-45); MEAN CORPUSCULAR HEMOGLOBIN 28.9 pg (27.0-33.4); MEAN CORPUSCULAR HGB CONC 32.9 g/dL (32.0-36.0); MEAN CORPUSCULAR VOLUME 88 fl (80-97); MONOCYTES % (AUTO) 7.6 % (3-13); PLATELET COUNT 272 10^3/uL (150-450); RED BLOOD COUNT 3.99 10^6/uL (3.72-5.28); RED CELL DISTRIBUTION WIDTH 18.4 % (11.5-14.0); SEGMENTED NEUTROPHILS % (AUTO) 62.1 % (42-78); TOTAL CELLS COUNTED % (AUTO) 100 %; WHITE BLOOD COUNT 8.4 10^3/uL (4.0-10.5)
--- NOTE | 2020-05-03 16:40 | PDOC PROGRESS REPORT ---
Subjective Progress Note for:: 05/03/20 Subjective:: Patient is resting comfortably in bed. She has no complaints or concerns today. She denies headache, chest pain, shortness of breath, abdominal pain, NVD, or lower extremity swelling. Reason For Visit: ACUTE BACTERIAL ENDOCARDITIS, SEPTIC PULMONARY Physical Exam Vital Signs: Temp Pulse Resp BP Pulse Ox 98.0 F 86 18 108/69 100 05/03/20 15:58 05/03/20 15:58 05/03/20 15:58 05/03/20 15:58 05/03/20 15:58 Intake & Output 05/02/20 05/03/20 05/04/20 06:59 06:59 06:59 Intake Total 183 1900 100 Balance 183 1900 100 Weight 69 kg 66.9 kg General appearance: PRESENT: no acute distress, cooperative, well-developed, well-nourished Eye exam: PRESENT: EOMI, PERRLA. ABSENT: scleral icterus Mouth exam: PRESENT: moist, tongue midline Respiratory exam: PRESENT: clear to auscultation dustin, symmetrical, unlabored. ABSENT: rales, rhonchi, tachypnea, wheezes Cardiovascular exam: PRESENT: RRR, systolic murmur - 3/6. ABSENT: diastolic murmur Pulses: PRESENT: normal radial pulses, normal dorsalis pedis pul GI/Abdominal exam: PRESENT: normal bowel sounds, soft. ABSENT: distended, firm, guarding, tenderness Rectal exam: PRESENT: deferred Extremities exam: PRESENT: full ROM. ABSENT: calf tenderness, pedal edema Musculoskeletal exam: PRESENT: full ROM. ABSENT: ambulatory, deformity, di slocation Neurological exam: PRESENT: alert, awake, oriented to person, oriented to place, oriented to time, oriented to situation, CN II-XII grossly intact Psychiatric exam: PRESENT: appropriate affect, normal mood Skin exam: PRESENT: other - Ecchymotic lesion left upper arm resolving Results Laboratory Results: 05/03/20 14:25 05/03/20 14:25 05/03/20 05/03/20 14:25 14:25 WBC 8.4 RBC 3.99 Hgb 11.5 L Hct 35.0 L MCV 88 MCH 28.9 MCHC 32.9 RDW 18.4 H Plt Count 272 Seg Neutrophils % 62.1 Sodium Cancelled Potassium Cancelled Chloride Cancelled Carbon Dioxide Cancelled Anion Gap Cancelled BUN Cancelled Creatinine Cancelled Est GFR ( Amer) Cancelled Est GFR (Non-Af Amer) Cancelled Glucose Cancelled Calcium Cancelled Total Bilirubin Cancelled AST Cancelled Alkaline Phosphatase Cancelled Total Protein Cancelled Albumin Cancelled 04/22/20 04/22/20 04/25/20 21:25 21:25 04:37 Creatine Kinase 49 26 L Troponin I 0.015 Impressions: Chest CT 04/23/20 00:00 IMPRESSION: 1. Multiple bilateral lung nodules some cavitary suspicious for embolic infectious process. 2. Non prominent bilateral pleural effusions larger on the right. Majority of the fluid is not loculated. Minimal loculated component possibly in the right upper chest. 3. Technically limited evaluation of the pulmonary arteries even centrally. No large pulmonary embolus. Difficult to exclude a small embolus. 4. Zysa-iw-aishrwbi cardiomegaly. Small pericardial effusion. Suspected borderline spleen size. Chest X-Ray 04/30/20 00:00 IMPRESSION: Stable small bibasilar effusions with mildly improved patchy bilateral opacities. Assessment and Plan - Diagnosis (1) Acute bacterial endocarditis Is this a current diagnosis for this admission?: Yes (2) Chronic back pain Qualifiers: Back pain location: low back pain Sciatica presence: without sciatica Is this a current diagnosis for this admission?: Yes (3) Involuntary commitment Is this a current diagnosis for this admission?: Yes (4) Opiate overdose Qualifiers: Encounter type: initial encounter Is this a current diagnosis for this admission?: Yes (5) Pleural effusion due to bacterial infection Is this a current diagnosis for this admission?: Yes (6) Septic embolism Is this a current diagnosis for this admission?: Yes (7) Tricuspid valve 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 She has been afebrile. White blood cell count is normal. Ongoing treatment with cefazolin. Infectious diseases following to help determine length of treatment. Blood cultures from April 25 are no growth so far. I will reviewed the ID note. There was a question stay of repeat blood cultures. If the infectious disease note does suggest additional blood cultures we will obtain them tomorrow. The patient's oxygen saturation is in the 90s on room air. The septic emboli and pleural effusion have not caused any respiratory distress. She has declined chest to at this time. She does have chronic pain but we are limiting the narcotic analgesics. She is on a trial of methadone 5 mg every 8 hours. The hope is that after the resolution of this illness she will participate with a drug treatment program. Unfortunately the patient has admitted to ongoing use of narcotics. Heroin and fentanyl were found in her room. Because of this behavior she is now under involuntary commitment. 05/02/2020 The patient is doing well. She is tolerating IV antibiotics. She is unsure of the continuity of the antibiotics but checking the MAR she has not missed any doses. She also felt that she was getting blood tests every other day and she has not had any blood work for at least 4 days. I did explain that we need to check blood work approximately once a week. Continue cefazolin and check weekly labs tomorrow. Last blood culture is no growth still. Still with murmur from her endocarditis. I reminded her that she will need another MARTI towards the end of her regimen and will be referred to cardiothoracic surgery. Psychiatry did see the patient again today. They recommend continuing the involuntary commitment. They did recommend 2.5 mg of Haldol every 6 hours if needed for agitation and I have written those orders. 05/03/2020 Patient is doing well. Continues to tolerate IV antibiotics. No acute complaints or concerns discussed today. Continue Cefazoline. Blood cultures were drawn today, results pending; we expect these to be negative as most recent cultures 04/25/2020 were negative for any growth. Continue with weekly lab work. Murmur secondary to endocarditis still prevalent. We plan to get another MARTI tow ards the end of her regimen. She will inevitably be referred to a cardiothoracic surgeon for further care. She was pleasant and cooperative during exam today. Refer to psychiatric note, patient remains on IVC. Continue to utilize 2.5mg of Haldol every 6 hours if needed for agitation. Patient small business representative was present during exam, patient case discussed in detail. - Time Time Spent with patient: 15-24 minutes Anticipated Discharge Disposition: Home, Self Care Anticipated Discharge Timeframe: At the end of treatment
[2020-05-03 17:14] LABS: ALKALINE PHOSPHATASE 61 U/L (38-126); ANION GAP 9 (5-19); ASPARTATE AMINO TRANSFERASE 18 U/L (14-36); BILIRUBIN,DIRECT 0.3 mg/dL (0.0-0.4); BILIRUBIN,TOTAL 0.4 mg/dL (0.2-1.3); BLOOD UREA NITROGEN 21 mg/dL (7-20); CALCIUM 9.7 mg/dL (8.4-10.2); CARBON DIOXIDE 32 mmol/L (22-30); CHLORIDE 97 mmol/L (98-107); GLUCOSE 87 mg/dL (75-110); POTASSIUM 5.4 mmol/L (3.6-5.0); TOTAL PROTEIN 8.7 g/dL (6.3-8.2)
[2020-05-03] MEDS: MELATONIN 5 MG TABLET PO PRN (21:33)
[2020-05-03] MEDS: TRAZODONE HCL 50 MG TABLET PO SCH (21:33)
[2020-05-04] MEDS: CEFAZOLIN SODIUM 2 GM in DEXTROSE 5%-WATER 100 ML IV SCH ×3 (05:46→17:54)
[2020-05-04] MEDS: METHADONE HCL 10 MG TABLET PO SCH ×3 (05:47→21:57)
[2020-05-04] MEDS: DOCUSATE SODIUM 100 MG CAPSULE PO SCH ×2 (10:09→17:15)
[2020-05-04] MEDS: FAMOTIDINE 20 MG TABLET PO SCH ×2 (10:09→21:57)
[2020-05-04] MEDS: LIDOCAINE 5% (700 MG) TRANSDERMAL ADH..PATCH TP SCH (10:09)
--- NOTE | 2020-05-04 12:26 | PDOC CONSULTATION ---
Consultation-Blank Consultation: Behavioral Health Consult: Re evaluation from [id number]. Patient is a 24 year old female admitted to [facility] and on a FULL Involuntary Commitment after she obtained heroin laced with Fentanyl from an outside source and put it in her IV twice causing overdose. Today patient again talked about wanting to be off the Involuntary Commitment so that she "can have access to my phone, have my bra, and I am not going to get any pain medication until I am off the involuntary commitment." She stated she did not want another 7 days of Involuntary Commitment (after current one). She stated she did not call about her daughter today and commented "I am not going to start crying about her again" and was able to control her emotions. She stated she is getting Trazodone for sleep, "it helps but it is strong." She again commented about not getting pain medications right now. Psychoeducated how pain medications really don't take the pain away but make drowsy and allow for sleep so if Trazodone helps her sleep that is good. She commented "i never thought about that." She was made aware she is only to call her mother and said "oh I did not realize, my mother was working yesterday so I called my ex boyfriend's mother." Patient talked about getting a scan of her Chest/heart her fifth week here, it should be approaching, in order to know course of treatment. Patient commented "I am not going to give them a reason to do another Involuntary Commitment." She has continued to deny suicidal and homicidal ideation. She has continued to maintain her overdoses were not a suicide attempt but that she wanted to get high. She focused on suicide versus the fact that she had 2 overdoses which can affect her current treatment course. Clinical Presentation: Heroin Overdose while medically admitted (2 times) History of Intravenous heroin use Multiple psychosocial stresses (recent breakup, 6 year old daughter in ICU, grandfather ill) Medical issues/stress (endocarditis and just learned about septic emboli in lung) Impression/Plan: Recommendation to maintain FULL Involuntary Commitment. Patient has proven a danger to self and current treatment regimen given she obtained illegal substance from outside person and put in in her IV twice causing o verdoses. She does have future/forward/goal oriented thinking when having concerns for work and talking about Chest/heart scan that should be approaching so that they know course of treatment for encarditis. Consulted with Dr. Nguyễn regarding the management and care of patient. Attending Hospitalist aware of recommendations.
[2020-05-04 14:22] LABS: ANION GAP 7 (5-19); BLOOD UREA NITROGEN 18 mg/dL (7-20); CALCIUM 9.4 mg/dL (8.4-10.2); CARBON DIOXIDE 29 mmol/L (22-30); CHLORIDE 101 mmol/L (98-107); GLUCOSE 81 mg/dL (75-110); POTASSIUM 5.2 mmol/L (3.6-5.0)
--- NOTE | 2020-05-04 15:27 | PDOC PROGRESS REPORT ---
Subjective Progress Note for:: 05/04/20 Subjective:: Patient is resting comfortably in bed, awakens easily. No agitation last night or this morning. She continues to complain of chronic back pain, and is requesting treatment with pain medications. She also states that she has been struggling with anxiety for a long time and expresses interest in pursuing pharmacological treatment options at this time. She states that she has been meaning to discuss this with her doctors all this time but kept forgetting. She reports stresses including not being able to talk to her daughter, not being able to leave the hospital room, and not being able to work. She denies suicidal or homicidal ideation. She has not received psychiatric treatment in the past. She also is requesting that we increase her trazodone dose as she does not think the current dose is helping any more. Though she denies issues falling asleep or staying asleep. Otherwise denies headache, chest pain, shortness of breath, cough, abdominal pain, nausea vomiting diarrhea, lower extremity swelling. Reason For Visit: ACUTE BACTERIAL ENDOCARDITIS, SEPTIC PULMONARY Physical Exam Vital Signs: Temp Pulse Resp BP Pulse Ox 97.9 F 93 18 112/74 100 05/04/20 11:55 05/04/20 11:55 05/04/20 11:55 05/04/20 11:55 05/04/20 11:55 Intake & Output 05/03/20 05/04/20 05/05/20 06:59 06:59 06:59 Intake Total 1900 720 Balance 1900 720 Weight 66.9 kg 66.5 kg General appearance: PRESENT: no acute distress, cooperative, well-developed, well-nourished Head exam: PRESENT: atraumatic, normocephalic Eye exam: PRESENT: EOMI, PERRLA. ABSENT: scleral icterus Ear exam: PRESENT: normal external ear exam. ABSENT: bleeding, drainage Mouth exam: PRESENT: moist, tongue midline Neck exam: PRESENT: full ROM. ABSENT: tenderness Respiratory exam: PRESENT: clear to auscultation dustin, symmetrical, unlabored. ABSENT: rhonchi, tachypnea, wheezes Cardiovascular exam: PRESENT: RRR, systolic murmur - 3/6 Pulses: PRESENT: normal radial pulses GI/Abdominal exam: PRESENT: normal bowel sounds, soft. ABSENT: distended, firm, guarding, rigid, tenderness Rectal exam: PRESENT: deferred Extremities exam: PRESENT: full ROM. ABSENT: clubbing, pedal edema, tenderness Musculoskeletal exam: PRESENT: ambulatory, full ROM. ABSENT: deformity, dislocation Neurological exam: PRESENT: alert, awake, oriented to person, oriented to place, oriented to time, oriented to situation, CN II-XII grossly intact. ABSENT: motor sensory deficit Psychiatric exam: PRESENT: appropriate affect, normal mood. ABSENT: homicidal ideation, suicidal ideation Skin exam: PRESENT: dry, intact, warm, other - Ecchymotic area left upper arm.. ABSENT: erythema Results Laboratory Results: 05/03/20 14:25 05/04/20 13:47 05/03/20 05/03/20 05/03/20 14:25 14:25 16:10 WBC 8.4 RBC 3.99 Hgb 11.5 L Hct 35.0 L MCV 88 MCH 28.9 MCHC 32.9 RDW 18.4 H Plt Count 272 Seg Neutrophils % 62.1 Sodium Cancelled 137.8 Potassium Cancelled 5.4 H Chloride Cancelled 97 L Carbon Dioxide Cancelled 32 H Anion Gap Cancelled 9 BUN Cancelled 21 H Creatinine Cancelled 0.92 Est GFR ( Amer) Cancelled > 60 Est GFR (Non-Af Amer) Cancelled Glucose Cancelled 87 Calcium Cancelled 9.7 Total Bilirubin Cancelled 0.4 AST Cancelled 18 Alkaline Phosphatase Cancelled 61 Total Protein Cancelled 8.7 H Albumin Cancelled 4.0 05/04/20 13:47 WBC RBC Hgb Hct MCV MCH MCHC RDW Plt Count Seg Neutrophils % Sodium 137.0 Potassium 5.2 H Chloride 101 Carbon Dioxide 29 Anion Gap 7 BUN 18 Creatinine 0.69 Est GFR ( Amer) > 60 Est GFR (Non-Af Amer) Glucose 81 Calcium 9.4 Total Bilirubin AST Alkaline Phosphatase Total Protein Albumin 04/22/20 04/22/20 04/25/20 21:25 21:25 04:37 Creatine Kinase 49 26 L Troponin I 0.015 Impressions: Chest CT 04/23/20 00:00 IMPRESSION: 1. Multiple bilateral lung nodules some cavitary suspicious for embolic infectious process. 2. Non prominent bilateral pleural effusions larger on the right. Majority of the fluid is not loculated. Minimal loculated component possibly in the right upper chest. 3. Technically limited evaluation of the pulmonary arteries even centrally. No large pulmonary embolus. Difficult to exclude a small embolus. 4. Mkas-jv-dnlaarph cardiomegaly. Small pericardial effusion. Suspected borderline spleen size. Chest X-Ray 04/30/20 00:00 IMPRESSION: Stable small bibasilar effusions with mildly improved patchy bilateral opacities. Assessment and Plan - Diagnosis (1) Acute bacterial endocarditis Is this a current diagnosis for this admission?: Yes (2) Chronic back pain Qualifiers: Back pain location: low back pain Sciatica presence: without sciatica Is this a current diagnosis for this admission?: Yes (3) Involuntary commitment Is this a current diagnosis for this admission?: Yes (4) Opiate overdose Qualifiers: Encounter type: initial encounter Is this a current diagnosis for this admission?: Yes (5) Pleural effusion due to bacterial infection Is this a current diagnosis for this admission?: Yes (6) Septic embolism Is this a current diagnosis for this admission?: Yes (7) Tricuspid valve 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 She has been afebrile. White blood cell count is normal. Ongoing treatment with cefazolin. Infectious diseases following to help determine length of treatment. Blood cultures from April 25 are no growth so far. I will reviewed the ID note. There was a question stay of repeat blood cultures. If the infectious disease note does suggest additional blood cultures we will obtain them tomorrow. The patient's oxygen saturation is in the 90s on room air. The septic emboli and pleural effusion have not caused any respiratory distress. She has declined chest to at this time. She does have chronic pain but we are limiting the narcotic analgesics. She is on a trial of methadone 5 mg every 8 hours. The hope is that after the resolution of this illness she will participate with a drug treatment program. Unfortunately the patient has admitted to ongoing use of narcotics. Heroin and fentanyl were found in her room. Because of this behavior she is now under involuntary commitment. 05/02/2020 The patient is doing well. She is tolerating IV antibiotics. She is unsure of the continuity of the antibiotics but checking the MAR she has not missed any doses. She also felt that she was getting blood tests every other day and she has not had any blood work for at least 4 days. I did explain that we need to check blood work approximately once a week. Continue cefazolin and check weekly labs tomorrow. Last blood culture is no growth still. Still with murmur from her endocarditis. I reminded her that she will need another MARTI towards the end of her regimen and will be referred to cardio thoracic surgery. Psychiatry did see the patient again today. They recommend continuing the involuntary commitment. They did recommend 2.5 mg of Haldol every 6 hours if needed for agitation and I have written those orders. 05/03/2020 Patient is doing well. Continues to tolerate IV antibiotics. No acute complaints or concerns discussed today. Continue Cefazoline. Blood cultures were drawn today, results pending; we expect these to be negative as most recent cultures 04/25/2020 were negative for any growth. Continue with weekly lab work. Murmur secondary to endocarditis still prevalent. We plan to get another MARTI towards the end of her regimen. She will inevitably be referred to a cardioth oracic surgeon for further care. She was pleasant and cooperative during exam today. Refer to psychiatric note, patient remains on IVC. Continue to utilize 2.5mg of Haldol every 6 hours if needed for agitation. Patient sales representative womens health was present during exam, patient case discussed in detail. 05/04/2020 Overall patient is doing well. She has been afebrile with normal white blood cell count. She continues to do well with IV cefazolin. Her potassium is elevated today at 5.2. Patient denies drinking fluids outside of apple and pineapple juice. Suspect hyperkalemia secondary to dehydration. Encouraged increasing water intake. Will redraw labs tomorrow for comparison. If continues to be elevated will investigate IV fluids. She does have history of chronic pain but we are limiting her narcotic analgesics. Thus we are currently treating her pain with Toradol. We discussed utilizing combination therapy of NSAID and acetaminophen for control of pain; both of which medications are readily avai lable to her as needed. She is on a trial of methadone 5 mg every 8 hours, with the goal of transitioning to outpatient treatment upon discharge. She remains on involuntary commitment. Refer to psychiatric note. Patient discusses feelings of anxiety with me and is requesting pharmacological treatment at this time. She specifically inquires about Buspar. Old records were reviewed and she has not di scussed this with previous providers or on psychiatric visits. I will consult psych regarding treatment options. She denies suicidal or homicidal ideation. She has requested that her trazodone dosage be increased though she denies difficulty falling or staying sleeping. I will keep her trazodone dose as current and she can utilize melatonin as needed. - Time Time Spent with patient: 15-24 minutes Medications reviewed and adjusted accordingly: Yes Anticipated Discharge Disposition: Home, Self Care Anticipated Discharge Timeframe: unknown
--- NOTE | 2020-05-04 16:12 | Progress Note ---
Provider Note Provider Note: Infectious Diseases Telephone Consultation - Brief Note Asked by Pharmacy to review anticipated end date for IV cefazolin for MSSA bacteremia secondary to tricuspid valve endocarditis with septic pulmonary emboli in this patient with active IVDU as the underlying risk factor. As outlined by Dr. Noe previously, she should complete 6 weeks of treatment, starting from the date of negative blood cultures. Recommend continuing until 05/19/20. Dereck Evans MD [facility] Infectious Diseases pager [phone]
[2020-05-04] MEDS: TRAZODONE HCL 50 MG TABLET PO SCH (21:56)
[2020-05-04] MEDS: MELATONIN 5 MG TABLET PO PRN (21:56)
[2020-05-05] MEDS: CEFAZOLIN SODIUM 2 GM in DEXTROSE 5%-WATER 100 ML IV SCH ×3 (00:49→12:09)
[2020-05-05] MEDS: METHADONE HCL 10 MG TABLET PO SCH ×3 (05:17→21:12)
[2020-05-05] MEDS: FAMOTIDINE 20 MG TABLET PO SCH ×2 (09:48→21:12)
[2020-05-05] MEDS: DOCUSATE SODIUM 100 MG CAPSULE PO SCH ×2 (09:48→18:17)
[2020-05-05] MEDS: LIDOCAINE 5% (700 MG) TRANSDERMAL ADH..PATCH TP SCH (09:48)
--- NOTE | 2020-05-05 13:17 | PDOC PROGRESS REPORT ---
Subjective Progress Note for:: 05/05/20 Subjective:: Patient states that when she lays on her left side she experiences slight shortness of breath. It is not particularly painful. She does get up and walk to the bathroom. She typically does not sit in the chair. Because of the IVC she is unable to walk in the halls. In addition IV access was lost. Reason For Visit: ACUTE BACTERIAL ENDOCARDITIS, SEPTIC PULMONARY Physical Exam Vital Signs: Temp Pulse Resp BP Pulse Ox 97.7 F 69 16 104/58 L 95 05/05/20 11:28 05/05/20 11:28 05/05/20 11:28 05/05/20 11:28 05/05/20 11:28 Intake & Output 05/04/20 05/05/20 05/06/20 06:59 06:59 06:59 Intake Total 630 037 7295 Balance 238 986 7622 Weight 66.5 kg 65.4 kg General appearance: PRESENT: no acute distress, cooperative, well-developed Head exam: PRESENT: atraumatic, normocephalic Ear exam: PRESENT: normal external ear exam. ABSENT: bleeding, drainage Respiratory exam: PRESENT: rales - Left base, symmetrical, unlabored. ABSENT: rhonchi, tachypnea, wheezes Cardiovascular exam: PRESENT: RRR, +S1, +S2, systolic murmur - 3/6. ABSENT: bradycardia, diastolic murmur, irregular rhythm, tachycardia GI/Abdominal exam: PRESENT: normal bowel sounds, soft. ABSENT: distended, guarding, tenderness Rectal exam: PRESENT: deferred Gentrourinary exam: ABSENT: indwelling catheter Extremities exam: ABSENT: pedal edema Musculoskeletal exam: PRESENT: ambulatory, normal inspection. ABSENT: defor mity, dislocation Neurological exam: PRESENT: alert, awake, oriented to person, oriented to place, oriented to time, oriented to situation, CN II-XII grossly intact. ABSENT: altered Psychiatric exam: PRESENT: appropriate affect. ABSENT: agitated, anxious Focused psych exam: ABSENT: delusional, paranoid, restlessness Skin exam: PRESENT: dry, normal color, warm. ABSENT: rash Results Laboratory Results: 05/03/20 14:25 05/04/20 13:47 05/04/20 13:47 Sodium 137.0 Potassium 5.2 H Chloride 101 Carbon Dioxide 29 Anion Gap 7 BUN 18 Creatinine 0.69 Est GFR ( Amer) > 60 Glucose 81 Calcium 9.4 04/22/20 04/22/20 04/25/20 21:25 21:25 04:37 Creatine Kinase 49 26 L Troponin I 0.015 Impressions: Chest CT 04/23/20 00:00 IMPRESSION: 1. Multiple bilateral lung nodules some cavitary suspicious for embolic infectious process. 2. Non prominent bilateral pleural effusions larger on the right. Majority of the fluid is not loculated. Minimal loculated component possibly in the right upper chest. 3. Technically limited evaluation of the pulmonary arteries even centrally. No large pulmonary embolus. Difficult to exclude a small embolus. 4. Swlt-[id number] cardiomegaly. Small pericardial effusion. Suspected borderline spleen size. Chest X-Ray 04/30/20 00:00 IMPRESSION: Stable small bibasilar effusions with mildly improved patchy bilateral opacities. Assessment and Plan - Diagnosis (1) Acute bacterial endocarditis Is this a current diagnosis for this admission?: Yes (2) Chronic back pain Qualifiers: Back pain location: low back pain Sciatica presence: without sciatica Is this a current diagnosis for this admission?: Yes (3) Septic embolism Is this a current diagnosis for this admission?: Yes (4) Tricuspid valve regurgitation due to infection Is this a current diagnosis for this admission?: Yes (5) Pleural effusion due to bacterial infection Is this a current diagnosis for this admission?: Yes (6) Opiate overdose Qualifiers: Encounter type: initial encounter Is this a current diagnosis for this admission?: Yes (7) Intravenous drug abuse Is this a current diagnosis for this admission?: Yes (8) Tobacco use disorder, continuous Is this a current diagnosis for this admission?: Yes (9) Involuntary commitment Is this a current diagnosis for this admission?: Yes - Plan Summary Summary: 05/01/2020 Patient is resting comfortably. She has been afebrile. White blood cell count is normal. Ongoing treatment with cefazolin. Infectious diseases following to help determine length of treatment. Blood cultures from April 25 are no growth so far. I will reviewed the ID note. There was a question stay of repeat blood cultures. If the infectious disease note does suggest additional blood cultures we will obtain them tomorrow. The patient's oxygen saturation is in the 90s on room air. The septic emboli and pleural effusion have not caused any respiratory distress. She has declined chest to at this time. She does have chronic pain but we are limiting the narcotic analgesics. She is on a trial of methadone 5 mg every 8 hours. The hope is that after the resolution of this illness she will participate with a drug treatment program. Unfortunately the patient has admitted to ongoing use of narcotics. Heroin and fentanyl were found in her room. Because of this behavior she is now under involuntary commitment. 05/02/2020 The patient is doing well. She is tolerating IV antibiotics. She is unsure of the continuity of the antibiotics but checking the MAR she has not missed any doses. She also felt that she was getting blood tests every other day and she has not had any blood work for at least 4 days. I did explain that we need to check blood work approximately once a week. Continue cefazolin and check weekly labs tomorrow. Last blood culture is no growth still. Still with murmur from her endocarditis. I reminded her that she will need another MARTI towards the end of her regimen and will be referred to cardiothoracic surgery. Psychiatry did see the patient again today. They recommend continuing the involuntary commitment. They did recommend 2.5 mg of Haldol every 6 hours if needed for agitation and I have written those orders. 05/03/2020 Patient is doing well. Continues to tolerate IV antibiotics. No acute complaints or concerns discussed today. Continue Cefazoline. Blood cultures were drawn today, results pending; we expect these to be negative as most recent cultures 04/25/2020 were negative for any growth. Continue with weekly lab work. Murmur secondary to endocarditis still prevalent. We plan to get another MARTI towards the end of her regimen. She will inevitably be referred to a cardiothoracic surgeon for further care. She was pleasant and cooperative during exam today. Refer to psychiatric note, patient remains on IVC. Continue to utilize 2.5mg of Haldol every 6 hours if needed for agitation. Patient sales representative facility services was present during exam, patient case discussed in detail. 05/04/2020 Overall patient is doing well. She has been afebrile with normal white blood cell count. She continues to do well with IV cefazolin. Her potassium is elevated today at 5.2. Patient denies drinking fluids outside of apple and pineapple juice. Suspect hyperkalemia secondary to dehydration. Encouraged increasing water intake. Will redraw labs tomorrow for comparison. If continues to be elevated will initiate IV fluids. She does have history of chronic pain but we are limiting her narcotic analgesics. Thus we are currently treating her pain with Toradol. We discussed utilizing combination therapy of NSAID and acetaminophen for control of pain; both of which medications are readily available to her as needed. She is on a trial of methadone 5 mg every 8 hours, with the goal of transitioning to outpatient treatment upon discharge. She remains on involuntary commitment. Refer to psychiatric note. Patient discusses feelings of anxiety with me and is requesting pharmacological treatment at this time. She specifically inquires about Buspar. Old records were reviewed and she has not discussed this with previous providers or on psychiatric visits. I will consult psych regarding treatment options. She denies suicidal or homicidal ideation. She has requested that her trazodone dosage be increased though she denies difficulty falling or staying sleeping. I will keep her trazodone dose as current and she can utilize melatonin as needed. 05/05/2020 Serum potassium is better. She was educated on potassium content of pineapple juice and apple juice. Reasonable pain control. Continue trazodone for sleep Involuntary commitment remains in place Endocarditis-end of treatment May 19. Unfortunately IV access was lost. With her history of IV drug use it is difficult to achieve consistent IV access for this patient. I was notified that she had no IV access. This is critical and that she requires cefazolin every 6 hours for her endocarditis. A return to the patient's room. The nurse had educated her about the need for central line. She was crying in bed. She states the last time the upper central line and it was very traumatic. She experienced a significant amount of pain. She did all ow me to use the ultrasound machine to look at the internal jugular veins and attempt to visualize the subclavian veins. Her veins in fact are quite small. For the time being I have switched her to 1 g of cephalexin every 6 hours by mouth until we can regain IV access. This is less than ideal but an acceptable compromise. This may extend her end date by several days. She is willing to accept that. We will request PICC line placement as soon as possible. - Time Time Spent with patient: 35 or more minutes Medications reviewed and adjusted accordingly: Yes Anticipated Discharge Disposition: Home, Self Care Anticipated Discharge Timeframe: May 19
[2020-05-05] MEDS: CEPHALEXIN 500 MG CAPSULE PO SCH (18:44)
[2020-05-05] MEDS: TRAZODONE HCL 50 MG TABLET PO SCH (21:12)
[2020-05-06] MEDS: CEPHALEXIN 500 MG CAPSULE PO SCH ×5 (00:04→23:34)
[2020-05-06] MEDS: METHADONE HCL 10 MG TABLET PO SCH ×3 (05:27→21:38)
[2020-05-06] MEDS: LIDOCAINE 5% (700 MG) TRANSDERMAL ADH..PATCH TP SCH (09:19)
[2020-05-06] MEDS: DOCUSATE SODIUM 100 MG CAPSULE PO SCH ×2 (09:19→17:30)
[2020-05-06] MEDS: FAMOTIDINE 20 MG TABLET PO SCH ×2 (09:20→21:39)
[2020-05-06] MEDS: CEFAZOLIN SODIUM 2 GM in DEXTROSE 5%-WATER 100 ML IV SCH ×2 (17:58→23:35)
--- NOTE | 2020-05-06 17:59 | PDOC PROGRESS REPORT ---
Subjective Progress Note for:: 05/06/20 Subjective:: The patient is feeling good. Made a long discussion about the IVC ending and the need for her to remain compliant. A PICC line will be placed tomorrow morning and we can resume IV antibiotic therapy. We will obtain a MARTI later this week or first thing next week. Reason For Visit: ACUTE BACTERIAL ENDOCARDITIS, SEPTIC PULMONARY Physical Exam Vital Signs: Temp Pulse Resp BP Pulse Ox 98.4 F 93 19 114/64 98 05/06/20 16:00 05/06/20 16:00 05/06/20 16:00 05/06/20 16:00 05/06/20 16:00 Intake & Output 05/05/20 05/06/20 05/07/20 06:59 06:59 06:59 Intake Total 620 1520 120 Balance 620 1520 120 Weight 65.4 kg 65.4 kg General appearance: PRESENT: no acute distress, cooperative, well-developed Head exam: PRESENT: atraumatic, normocephalic Eye exam: PRESENT: conjunctiva pink. ABSENT: scleral icterus Ear exam: PRESENT: normal external ear exam. ABSENT: bleeding, drainage Mouth exam: PRESENT: moist, tongue midline Teeth exam: ABSENT: poor dentation Neck exam: ABSENT: carotid bruit, JVD, lymphadenopathy, tenderness Respiratory exam: PRESENT: clear to auscultation dustin, symmetrical, unlabored. ABSENT: rales, rhonchi, tachypnea, wheezes Cardiovascular exam: PRESENT: RRR, +S1, +S2, systolic murmur - 3/6. ABSENT: bradycardia, diastolic murmur, irregular rhythm, tachycardia GI/Abdominal exam: PRESENT: normal bowel sounds, soft. ABSENT: distended, guarding, tenderness Rectal exam: PRESENT: deferred Gentrourinary exam: ABSENT: indwelling catheter Extremities exam: ABSENT: joint swelling, pedal edema Musculoskeletal exam: PRESENT: ambulatory, normal inspection. ABSENT: defo rmity, dislocation Neurological exam: PRESENT: alert, awake, oriented to person, oriented to place, oriented to time, oriented to situation, CN II-XII grossly intact. ABSENT: altered, motor sensory deficit Psychiatric exam: PRESENT: appropriate affect. ABSENT: agitated, anxious Focused psych exam: ABSENT: delusional, paranoid, restlessness Skin exam: PRESENT: dry, normal color, warm. ABSENT: erythema, rash Results Laboratory Results: 05/03/20 14:25 05/04/20 13:47 04/22/20 04/22/20 04/25/20 21:25 21:25 04:37 Creatine Kinase 49 26 L Troponin I 0.015 Impressions: Chest CT 04/23/20 00:00 IMPRESSION: 1. Multiple bilateral lung nodules some cavitary suspicious for embolic infectious process. 2. Non prominent bilateral pleural effusions larger on the right. Majority of the fluid is not loculated. Minimal loculated component possibly in the right upper chest. 3. Technically limited evaluation of the pulmonary arteries even centrally. No large pulmonary embolus. Difficult to exclude a small embolus. 4. Wbze-nk-nmpxcmcy cardiomegaly. Small pericardial effusion. Suspected borderline spleen size. Chest X-Ray 04/30/20 00:00 IMPRESSION: Stable small bibasilar effusions with mildly improved patchy bilateral opacities. Assessment and Plan - Diagnosis (1) Acute bacterial endocarditis Is this a current diagnosis for this admission?: Yes (2) Chronic back pain Qualifiers: Back pain location: low back pain Sciatica presence: without sciatica Is this a current diagnosis for this admission?: Yes (3) Septic embolism Is this a current diagnosis for this admission?: Yes (4) Tricuspid valve regurgitation due to infection Is this a current diagnosis for this admission?: Yes (5) Pleural effusion due to bacterial infection Is this a current diagnosis for this admission?: Yes (6) Opiate overdose Qualifiers: Encounter type: initial encounter Is this a current diagnosis for this admission?: Yes (7) Intravenous drug abuse Is this a current diagnosis for this admission?: Yes (8) Tobacco use disorder, continuous Is this a current diagnosis for this admission?: Yes (9) Involuntary commitment Is this a current diagnosis for this admission?: Yes - Plan Summary Summary: 05/01/2020 Patient is resting comfortably. She has been afebrile. White blood cell count is normal. Ongoing treatment with cefazolin. Infectious diseases following to help determine length of treatment. Blood cultures from April 25 are no growth so far. I will reviewed the ID note. There was a question stay of repeat blood cultures. If the infectious disease note does suggest additional blood cultures we will obtain them tomorrow. The patient's oxygen saturation is in the 90s on room air. The septic emboli and pleural effusion have not caused any respiratory distress. She has declined chest to at this time. She does have chronic pain but we are limiting the narcotic analgesics. She is on a trial of methadone 5 mg every 8 hours. The hope is that after the resolution of this illness she will participate with a drug treatment program. Unfortunately the patient has admitted to ongoing use of narcotics. Heroin and fentanyl were found in her room. Because of this behavior she is now under involuntary commitment. 05/02/2020 The patient is doing well. She is tolerating IV antibiotics. She is unsure of the continuity of the antibiotics but checking the MAR she has not missed any doses. She also felt that she was getting blood tests every other day and she has not had any blood work for at least 4 days. I did explain that we need to check blood work approximately once a week. Continue cefazolin and check weekly labs tomorrow. Last blood culture is no growth still. Still with murmur from her endocarditis. I reminded her that she will need another MARTI towards the end of her regimen and will be referred to cardiothoracic surgery. Psychiatry did see the patient again today. They recommend continuing the involuntary commitment. They did recommend 2.5 mg of Haldol every 6 hours if needed for agitation and I have written those orders. 05/03/2020 Patient is doing well. Continues to tolerate IV antibiotics. No acute complaints or concerns discussed today. Continue Cefazoline. Blood cultures were drawn today, results pending; we expect these to be negative as most recent cultures 04/25/2020 were negative for any growth. Continue with weekly lab work. Murmur secondary to endocarditis still prevalent. We plan to get another MARTI towards the end of her regimen. She will inevitably be referred to a cardiothoracic surgeon for further care. She was pleasant and cooperative during exam today. Refer to psychiatric note, patient remains on IVC. Continue to utilize 2.5mg of Haldol every 6 hours if needed for agitation. Patient outside industrial sales representative was present during exam, patient case discussed in detail. 05/04/2020 Overall patient is doing well. She has been afebrile with normal white blood cell count. She continues to do well with IV cefazolin. Her potassium is elevated today at 5.2. Patient denies drinking fluids outside of apple and pineapple juice. Suspect hyperkalemia secondary to dehydration. Encouraged inc reasing water intake. Will redraw labs tomorrow for comparison. If continues to be elevated will initiate IV fluids. She does have history of chronic pain but we are limiting her narcotic analgesics. Thus we are currently treating her pain with Toradol. We discussed utilizing combination therapy of NSAID and acetaminophen for control of pain; both of which medications are readily available to her as needed. She is on a trial of methadone 5 mg every 8 hours, with the goal of transitioning to outpatient treatment upon discharge. She remains on involuntary commitment. Refer to psychiatric note. Patient discusses feelings of anxiety with me and is requesting pharmacological treatment at this time. She specifically inquires about Buspar. Old records were reviewed and she has not discussed this with previous providers or on psychiatric visits. I will consult psych regarding treatment options. She denies suicidal or homicidal ideation. She has requested that her trazodone dosage be increased though she denies difficulty falling or staying sleeping. I will keep her trazodone dose as current and she can utilize melatonin as needed. 05/05/2020 Serum potassium is better. She was educated on potassium content of pineapple juice and apple juice. Reasonable pain control. Continue trazodone for sleep Involuntary commitment remains in place Endocarditis-end of treatment May 19. Unfortunately IV access was lost. With her history of IV drug use it is difficult to achieve consistent IV access for this patient. I was notified that she had no IV access. This is critical and that she requires cefazolin every 6 hours for her endocarditis. A return to the patient's room. The nurse had educated her about the need for central line. She was crying in bed. She states the last time the upper central line and it was very traumatic. She experienced a significant amount of pain. She did allow me to use the ultrasound machine to look at the internal jugular veins and attempt to visualize the subclavian veins. Her veins in fact are quite small. For the time being I have switched her to 1 g of cephalexin every 6 hours by mouth until we can regain IV access. This is less than ideal but an acceptable compromise. This may extend her end date by several days. She is willing to a ccept that. We will request PICC line placement as soon as possible. 05/06/2020 We will check potassium levels tomorrow. She has been drinking less pineapple juice. Good pain control however she states that she normally takes 150 mg of trazodone at bedtime. I will increase her dose. Endocarditis-she is tolerating the oral antibiotics. PICC line insertion order has been placed for tomorrow morning. As soon as she gets her PICC line we can continue IV antibiotics. Patient is grateful for the PICC line as opposed to the central line. IVC expires. I had a very trini discussion with the patient about her need for compliance and that if this infection worsens it can be fatal. I explained that she will not be able to take a shower and leave her room however I will need to restrict visitors due to her previous behaviors. - Time Time Spent with patient: Less than 15 minutes Medications reviewed and adjusted accordingly: Yes Anticipated Discharge Disposition: Home, Self Care Anticipated Discharge Timeframe: May 20
[2020-05-06] MEDS: TRAZODONE HCL 50 MG TABLET PO SCH (21:38)
[2020-05-07] MEDS: CEFAZOLIN SODIUM 2 GM in DEXTROSE 5%-WATER 100 ML IV SCH ×3 (05:38→18:40)
[2020-05-07] MEDS: METHADONE HCL 10 MG TABLET PO SCH ×3 (05:55→21:58)
[2020-05-07] MEDS: CEPHALEXIN 500 MG CAPSULE PO SCH (05:55)
[2020-05-07 06:57] LABS: C-REACTIVE PROTEIN 29.7 mg/L (<10.0)
[2020-05-07] MEDS: DOCUSATE SODIUM 100 MG CAPSULE PO SCH ×2 (10:16→18:40)
[2020-05-07] MEDS: LIDOCAINE 5% (700 MG) TRANSDERMAL ADH..PATCH TP SCH (10:19)
--- NOTE | 2020-05-07 11:50 | RADIOLOGY REPORT (SQ) ---
EXAM DESCRIPTION: PICC INSERTION IMAGES COMPLETED DATE/TIME: 05/07/2020 11:38 am REASON FOR STUDY: Long-term IV antibiotics COMPARISON: None. FLUOROSCOPY TIME: 19 seconds 2 images saved to PACS. TECHNIQUE: Fluoroscopic and ultrasound guided PICC placement. LIMITATIONS: None. PROCEDURE: After written consent and assessment were obtained, the patient was brought into the fluo roscopy room and placed supine on the table. Ultrasound evaluation of potential access sites were per formed. After successfully identifying a patent left basilic vein, the left arm was prepped and drape d in a sterile fashion along with the ultrasound probe. The entry site was anesthetized with 1% lidoc jonathan. A 21 gauge 7 cm needle was advanced through the skin and into the basilic vein under live ultra sound guidance. An ultrasound image was saved to PACS confirming access site. A .018 guide wire was then inserted through the needle and into the venous system. The needle was then removed and an 11 b lade scalpel was used to make a 1cm skin incision. A 5 fr peel-away sheath was advanced over the wir e and into the venous system. A measurement was then made using the existing wire and live fluoroscop ic guidance. The wire was then removed and trimmed. The PICC was advanced through the peel-away sheat h and into the venous system. The peel-away sheath was removed and the catheter was adhered to the pa tients arm with a stat lock. The catheter was then aspirated and flushed and a sterile bandage was pl aced over the access site. A fluoroscopic spot image was saved to PACS confirming the catheter tip w ithin the superior vena cava. IMPRESSION: SUCCESSFUL PLACEMENT OF A 5 FR DUAL LUMEN 40 CM PICC IN THE LEFT BASILIC VEIN. COMMENT: Patient medication list reviewed: Yes- Quality ID# 130:Eligible professional attests to doc umenting in the medical record they obtained, updated, or reviewed the patient's current medications. . Quality ID 145: Final reports for procedures using fluoroscopy that document radiation exposure cherelle maged, or exposure time and number of fluorographic images (if radiation exposure indices are not avail able) Quality ID #76: The patient was prepped and draped using maximum sterile barrier technique including cap, mask, sterile gown, sterile gloves, a large sterile sheet, hand hygiene, and 2% Chlorhexidine fo r cutaneous antisepsis. When ultrasound is used, sterile ultrasound techniques are followed requiring sterile gel and sterile probes. TECHNICAL DOCUMENTATION: JOB ID: [id number] 2010 [employer]- All Rights Reserved Reading location - IP/workstation name: [email or web address]
[2020-05-07] MEDS: FAMOTIDINE 20 MG TABLET PO SCH ×2 (14:05→21:58)
[2020-05-07 14:17] LABS: ALBUMIN 3.9 g/dL (3.5-5.0); ALKALINE PHOSPHATASE 57 U/L (38-126); ANION GAP 11 (5-19); ASPARTATE AMINO TRANSFERASE 17 U/L (14-36); BILIRUBIN,DIRECT 0.3 mg/dL (0.0-0.4); BILIRUBIN,TOTAL 0.6 mg/dL (0.2-1.3); BLOOD UREA NITROGEN 18 mg/dL (7-20); CALCIUM 9.3 mg/dL (8.4-10.2); CARBON DIOXIDE 27 mmol/L (22-30); CHLORIDE 99 mmol/L (98-107); GLUCOSE 103 mg/dL (75-110); POTASSIUM 4.7 mmol/L (3.6-5.0); TOTAL PROTEIN 8.1 g/dL (6.3-8.2)
--- NOTE | 2020-05-07 16:52 | PDOC PROGRESS REPORT ---
Subjective Progress Note for:: 05/07/20 Subjective:: Patient is resting comfortably in bed. She is on the phone with her mother when I entered the room, and states that her mother is heading to the hospital to visit her. She is off IVC and has access to her cell phone and personal items. She had a PICC line placed today. No complaints regarding this. She mentioned long history of anxiety, not previously treated, and inquired about possible pharmacological treatment. She states that she was afraid to discuss this with psych as she thought it might affect her ability to get off of IVC. Denies suicidal or homicidal ideations. Her only complaint today is that experiences some pain when she lays on her left side, this is minimal. She otherwise denies fever, chills, chest pain, shortness of breath, cough, lower extremity swelling, abdominal pain, nausea, vomiting, or diarrhea. Reason For Visit: ACUTE BACTERIAL ENDOCARDITIS, SEPTIC PULMONARY Physical Exam Vital Signs: Temp Pulse Resp BP Pulse Ox 98.4 F 134 H 17 98/70 L 100 05/07/20 08:00 05/07/20 08:00 05/07/20 08:00 05/07/20 08:00 05/07/20 08:00 Intake & Output 05/06/20 05/07/20 05/08/20 06:59 06:59 06:59 Intake Total 1520 592 Balance 1520 592 Weight 65.4 kg 65.4 kg General appearance: PRESENT: no acute distress, cooperative, well-developed, well-nourished Head exam: PRESENT: atraumatic, normocephalic Eye exam: PRESENT: EOMI, PERRLA. ABSENT: scleral icterus Ear exam: PRESENT: normal external ear exam. ABSENT: bleeding, drainage Mouth exam: PRESENT: moist, tongue midline Neck exam: PRESENT: full ROM. ABSENT: lymphadenopathy, tenderness Respiratory exam: PRESENT: clear to auscultation dustin, symmetrical, unlabored. ABSENT: decreased breath sounds, rales, rhonchi, tachypnea, wheezes Cardiovascular exam: PRESENT: RRR, +S1, +S2, systolic murmur - 3/6. ABSENT: diastolic murmur, tachycardia Pulses: PRESENT: normal radial pulses, normal dorsalis pedis pul GI/Abdominal exam: PRESENT: normal bowel sounds, soft. ABSENT: tenderness Rectal exam: PRESENT: deferred Extremities exam: PRESENT: full ROM. ABSENT: calf tenderness, pedal edema Musculoskeletal exam: PRESENT: ambulatory, full ROM. ABSENT: tenderness Neurological exam: PRESENT: alert, awake, oriented to person, oriented to place, oriented to time, oriented to situation, CN II-XII grossly intact Psychiatric exam: PRESENT: appropriate affect, normal mood Skin exam: PRESENT: other - Previously notd ecchymosis has resolved. PICC line placed left arm. Results Laboratory Results: 05/03/20 14:25 05/07/20 05:31 05/07/20 05:31 Sodium Cancelled Potassium Cancelled Chloride Cancelled Carbon Dioxide Cancelled Anion Gap Cancelled BUN Cancelled Creatinine Cancelled Est GFR ( Amer) Cancelled Est GFR (Non-Af Amer) Cancelled Glucose Cancelled Calcium Cancelled Magnesium 2.0 Total Bilirubin Cancelled AST Cancelled Alkaline Phosphatase Cancelled C-Reactive Protein 29.7 H Total Protein Cancelled Albumin Cancelled 04/22/20 04/22/20 04/25/20 21:25 21:25 04:37 Creatine Kinase 49 26 L Troponin I 0.015 Impressions: Chest CT 04/23/20 00:00 IMPRESSION: 1. Multiple bilateral lung nodules some cavitary suspicious for embolic infectious process. 2. Non prominent bilateral pleural effusions larger on the right. Majority of the fluid is not loculated. Minimal loculated component possibly in the right upper chest. 3. Technically limited evaluation of the pulmonary arteries even centrally. No large pulmonary embolus. Difficult to exclude a small embolus. 4. [id number] cardiomegaly. Small pericardial effusion. Suspected borderline spleen size. Chest X-Ray 04/30/20 00:00 IMPRESSION: Stable small bibasilar effusions with mildly improved patchy bilateral opacities. PICC Line Insertion 05/07/20 00:00 IMPRESSION: SUCCESSFUL PLACEMENT OF A 5 FR DUAL LUMEN 40 CM PICC IN THE LEFT BASILIC VEIN. Assessment and Plan - Diagnosis (1) Acute bacterial endocarditis Is this a current diagnosis for this admission?: Yes (2) Chronic back pain Qualifiers: Back pain location: low back pain Sciatica presence: without sciatica Is this a current diagnosis for this admission?: Yes (3) Involuntary commitment Is this a current diagnosis for this admission?: Yes (4) Opiate overdose Qualifiers: Encounter type: initial encounter Is this a current diagnosis for this admission?: Yes (5) Pleural effusion due to bacterial infection Is this a current diagnosis for this admission?: Yes (6) Septic embolism Is this a current diagnosis for this admission?: Yes (7) Tricuspid valve 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 She has been afebrile. White blood cell count is normal. Ongoing treatment with cefazolin. Infectious diseases following to help determine length of treatment. Blood cultures from April 25 are no growth so far. I will reviewed the ID note. There was a question stay of repeat blood cultures. If the infectious disease note does suggest additional blood cultures we will obtain them tomorrow. The patient's oxygen saturation is in the 90s on room air. The septic emboli and pleural effusion have not caused any respiratory distress. She has declined chest to at this time. She does have chronic pain but we are limiting the narcotic analgesics. She is on a trial of methadone 5 mg every 8 hours. The hope is that after the resolution of this illness she will participate with a drug treatment program. Unfortunately the patient has admitted to ongoing use of narcotics. Heroin and fentanyl were found in her room. Because of this behavior she is now under involuntary commitment. 05/02/2020 The patient is doing well. She is tolerating IV antibiotics. She is unsure of the continuity of the antibiotics but checking the MAR she has not missed any doses. She also felt that she was getting blood tests every other day and she has not had any blood work for at least 4 days. I did explain that we need to check blood work approximately once a week. Continue cefazolin and check weekly labs tomorrow. Last blood culture is no growth still. Still with murmur from her endocarditis. I reminded her that she will need another MARTI towards the end of her regimen and will be referred to cardiothoracic surgery. Psychiatry did see the patient again today. They recommend continuing the involuntary commitment. They did recommend 2.5 mg of Haldol every 6 hours if needed for agitation and I have written those orders. 05/03/2020 Patient is doing well. Continues to tolerate IV antibiotics. No acute complaints or concerns discussed today. Continue Cefazoline. Blood cultures were drawn today, results pending; we expect these to be negative as most recent cultures 04/25/2020 were negative for any growth. Continue with weekly lab work. Murmur secondary to endocarditis still prevalent. We plan to get another MARTI towards the end of her regimen. She will inevitably be referred to a cardiothoracic surgeon for further care. She was pleasant and cooperative during exam today. Refer to psychiatric note, patient remains on IVC. Continue to utilize 2.5mg of Haldol every 6 hours if needed for agitation. Patient telephone sales representative was present during exam, patient case discussed in detail. 05/04/2020 Overall patient is doing well. She has been afebrile with normal white blood cell count. She continues to do well with IV cefazolin. Her potassium is elevated today at 5.2. Patient denies drinking fluids outside of apple and pineapple juice. Suspect hyperkalemia secondary to dehydration. Encouraged increasing water intake. Will redraw labs tomorrow for comparison. If continues to be elevated will initiate IV fluids. She does have history of chronic pain but we are limiting her narcotic analgesics. Thus we are currently treating her pain with Toradol. We discussed utilizing combination therapy of NSAID and acetaminophen for control of pain; both of which medications are readily available to her as needed. She is on a trial of methadone 5 mg every 8 hours, with the goal of transitioning to outpatient treatment upon discharge. She remains on involuntary commitment. Refer to psychiatric note. Patient discusses feelings of anxiety with me and is requesting pharmacological treatment at this time. She specifically inquires about Buspar. Old records were reviewed and she has not discussed this with previous providers or on psychiatric visits. I will consult psych regarding treatment options. She denies suicidal or homicidal ideation. She has requested that her trazodone dosage be increased though she denies difficulty falling or staying sleeping. I will keep her trazodone dose as current and she can utilize melatonin as needed. 05/05/2020 Serum potassium is better. She was educated on potassium content of pineapple juice and apple juice. Reasonable pain control. Continue trazodone for sleep Involuntary commitment remains in place Endocarditis-end of treatment May 19. Unfortunately IV access was lost. With her history of IV drug use it is difficult to achieve consistent IV access for this patient. I was notified that she had no IV access. This is critical and that she requires cefazolin every 6 hours for her endocarditis. A return to the patient's room. The nurse had educated her about the need for central line. She was crying in bed. She states the last time the upper central line and it was very traumatic. She experienced a significant amount of pain. She did allow me to use the ultrasound machine to look at the internal jugular veins and attempt to visualize the subclavian veins. Her veins in fact are quite small. For the time being I have switched her to 1 g of cephalexin every 6 hours by mouth until we can regain IV access. This is less than ideal but an acceptable compromise. This may extend her end date by several days. She is willing to accept that. We will request PICC line placement as soon as possible. 05/06/2020 We will check potassium levels tomorrow. She has been drinking less pineapple juice. Good pain control however she states that she normally takes 150 mg of trazodone at bedtime. I will increase her dose. Endocarditis-she is tolerating the oral antibiotics. PICC line insertion order has been placed for tomorrow morning. As soon as she gets her PICC line we can continue IV antibiotics. Patient is grateful for the PICC line as opposed to the central line. IVC expires. I had a very trini discussion with the patient about her need for compliance and that if this infection worsens it can be fatal. I explained that she will not be able to take a shower and leave her room however I will need to restrict visitors due to her previous behaviors. 05/07/2020 PICC line was inserted this morning, converted her back to IV antibiotics. Her IV therapy end date May 19. We will get a repeat echo this week, prior to discharge. We will have her follow up with cardiology after discharge. Potassium levels have normalized at this time. She continues to drink pineapple and apple juice primarily but agrees to limit intake and will start drinking more water. IVC yesterday. Psych was consulted regarding patient's complaint of anxiety. They are agreeing to see the patient. Will implement appropriate treatment as directed. - Time Time Spent with patient: 15-24 minutes Medications reviewed and adjusted accordingly: Yes Anticipated Discharge Disposition: Home, Self Care Anticipated Discharge Timeframe: May 19
[2020-05-07] MEDS: TRAZODONE HCL 50 MG TABLET PO SCH (21:58)
[2020-05-08] MEDS: CEFAZOLIN SODIUM 2 GM in DEXTROSE 5%-WATER 100 ML IV SCH ×5 (01:00→23:38)
[2020-05-08] MEDS: METHADONE HCL 10 MG TABLET PO SCH ×3 (05:51→21:19)
[2020-05-08] MEDS: FAMOTIDINE 20 MG TABLET PO SCH ×2 (10:34→21:20)
[2020-05-08] MEDS: VENLAFAXINE HCL 37.5 MG CAP.SR.24H PO SCH (10:34)
[2020-05-08] MEDS: DOCUSATE SODIUM 100 MG CAPSULE PO SCH ×2 (10:34→17:49)
[2020-05-08] MEDS: LIDOCAINE 5% (700 MG) TRANSDERMAL ADH..PATCH TP SCH (10:35)
--- NOTE | 2020-05-08 11:26 | PDOC PROGRESS REPORT ---
Subjective Progress Note for:: 05/08/20 Subjective:: 24 year old female who presented to the emergency room seeking readmission to the hospital after leaving AMA on 04/22/2020. She denies any new symptoms or changes in her current status. She left the hospital AGAINST MEDICAL ADVICE because her daughter was involved in a car accident. She continues to have intermittent moderate chest pains and also continues to have mild to moderate fatigue. She continues to deny other associated or accompanying signs and symptoms. In the emergency room she had an essentially unchanged evaluation from earlier in the day. She was subsequently admitted to the hospital for continued IV antibiotic therapy. 05/07/20 Subjective:: Patient is resting comfortably in bed. She is on the phone with her mother when I entered the room, and states that her mother is heading to the hospital to visit her. She is off IVC and has access to her cell phone and personal items. She had a PICC line placed today. No complaints regarding this. She mentioned long history of anxiety, not previously treated, and inquired about possible pharmacological treatment. She states that she was afraid to discuss this with psych as she thought it might affect her ability to get off of IVC. Denies suicidal or homicidal ideations. Her only complaint today is that experiences some pain when she lays on her left side, this is minimal. She otherwise denies fever, chills, chest pain, shortness of breath, cough, lower extremity swelling, abdominal pain, nausea, vomiting, or diarrhea. [id number] female getting cefazolin for bacterial endocarditis. Last day of antibiotic therapy will be May 18. Patient has a PICC line. Receiving methadone 5 mg every 6 hours requesting for more pain medications. Patient is also on Toradol. No acute events in the last 24 hours. Afebrile. Reason For Visit: ACUTE BACTERIAL ENDOCARDITIS, SEPTIC PULMONARY Physical Exam Vital Signs: Temp Pulse Resp BP Pulse Ox 97.9 F 87 18 105/59 L 100 05/08/20 07:52 05/08/20 07:52 05/08/20 07:52 05/08/20 07:52 05/08/20 07:52 Intake & Output 05/07/20 05/08/20 05/09/20 06:59 06:59 06:59 Intake Total 592 1435 Balance 592 1435 Weight 65.4 kg 64.2 kg General appearance: PRESENT: no acute distress, well-developed Head exam: PRESENT: atraumatic Eye exam: PRESENT: PERRLA Mouth exam: PRESENT: moist, tongue midline Teeth exam: PRESENT: poor dentation Neck exam: ABSENT: carotid bruit, JVD, lymphadenopathy, thyromegaly Respiratory exam: PRESENT: decreased breath sounds Cardiovascular exam: PRESENT: RRR, systolic murmur. ABSENT: diastolic murmur, rubs GI/Abdominal exam: PRESENT: normal bowel sounds, soft. ABSENT: distended, guarding, mass, organolmegaly, rebound, tenderness Rectal exam: PRESENT: deferred Extremities exam: PRESENT: full ROM. ABSENT: calf tenderness, clubbing, pedal edema Neurological exam: PRESENT: alert, awake, oriented to person, oriented to place, oriented to time, oriented to situation, CN II-XII grossly intact. ABSENT: motor sensory deficit Psychiatric exam: PRESENT: appropriate affect, normal mood. ABSENT: homicidal ideation, suicidal ideation Results Laboratory Results: 05/03/20 14:25 05/07/20 13:40 05/07/20 13:40 Sodium 136.7 L Potassium 4.7 Chloride 99 Carbon Dioxide 27 Anion Gap 11 BUN 18 Creatinine 1.09 Est GFR ( Amer) > 60 Glucose 103 Calcium 9.3 Total Bilirubin 0.6 AST 17 Alkaline Phosphatase 57 Total Protein 8.1 Albumin 3.9 04/22/20 04/22/20 04/25/20 21:25 21:25 04:37 Creatine Kinase 49 26 L Troponin I 0.015 Impressions: Chest CT 04/23/20 00:00 IMPRESSION: 1. Multiple bilateral lung nodules some cavitary suspicious for embolic infectious process. 2. Non prominent bilateral pleural effusions larger on the right. Majority of the fluid is not loculated. Minimal loculated component possibly in the right upper chest. 3. Technically limited evaluation of the pulmonary arteries even centrally. No large pulmonary embolus. Difficult to exclude a small embolus. 4. [id number] cardiomegaly. Small pericardial effusion. Suspected borderline spleen size. Chest X-Ray 04/30/20 00:00 IMPRESSION: Stable small bibasilar effusions with mildly improved patchy bilateral opacities. PICC Line Insertion 05/07/20 00:00 IMPRESSION: SUCCESSFUL PLACEMENT OF A 5 FR DUAL LUMEN 40 CM PICC IN THE LEFT BASILIC VEIN. Assessment and Plan - Diagnosis (1) Acute bacterial endocarditis Is this a current diagnosis for this admission?: Yes Plan: - admitted at [facility] 04/02/20 for right sided endarditis with septic emboli MSSA, 2/2 to IV drug use - she [facility] - per review of records latest blood cx have been negative - TTE 04/18/20 Severe tricuspid regurgitation, 2 masses on the tricuspid valve with associated flail leaflet that are unchanged from 820 assessment. - CT chest 04/18/20 showed interval development of a moderate right and small left pleural effusion. Multifocal cavitary and solitary nodules in both lungs again demonstrated not significantly changed from prior CT. lungs are suspicious for multifocal septic emboli -Repeat CT chest (04/23/2020) showed multiple bilateral lung nodules and sub- cavitary lesion suspicious for embolic infectious process, non-prominent bilateral pleural effusions, larger on the right. Majority of fluid is not loculated. Mild to moderate cardiomegaly with a small pericardial effusion. Suspect borderline spleen size. -Not counting the days where and he was she was outside the hospital when she leaves [facility], I suspect that she has had about 2 weeks of cumulative cefazolin treatment. Per notes from [facility] she is recommended to have a total of 6 weeks of treatment for right-sided endocarditis Repeat blood cultures (04/25/20) negative at 5 days Repeat blood cultures (05/01/2020) pending. We will continue cefazolin Infectious Disease is consulted to help guide length of therapy considering the patient numerous AMA events. -She will likely need to be transferred to a tertiary center where there is cardiothoracic surgery because of the severe tricuspid regurg and vegetation. Will need repeat TTE/MARTI toward end of antibiotic course. 05/08/2020-patient is receiving cefazolin at this time has a PICC line. Last day of antibiotic therapy will be May 19. (2) Chronic back pain Qualifiers: Back pain location: low back pain Sciatica presence: without sciatica Is this a current diagnosis for this admission?: Yes Plan: - has chronic back pain - midline tenderness lumbar L1-L2 area - according to her back pain is stable, not worsening - no focal deficit Consider MRI if back pain worsens Now being managed with methadone 5 mg every 8 hours. Also providing Lidoderm patches, as needed Toradol, Tylenol, and heating pad. 05/08/2020-patient is receiving methadone 5 mg every 8 hours, Lidoderm patches, Toradol as needed, heating pad. Plan is to continue the present management at this time. (3) Involuntary commitment Is this a current diagnosis for this admission?: Yes Plan: 05/08/2020-IVC commitment yesterday. (4) Tricuspid valve regurgitation due to infection Is this a current diagnosis for this admission?: Yes Plan: -Reported on TTE done at [facility] on April 18, 2020. Severe tricuspid regurgitation 2 masses on the tricuspid valve with associated flail leaflet that are unchanged from prior echo on April 13. 52 to 72%. LV is grossly normal -No signs of decompensation -EKG done on April 22 showed sinus tachycardia left posterior fascicular block -Continue antibiotics, ID follow up 05/08/2020-patient is receiving cefazolin for infective endocarditis. Last dose of antibiotic therapy will be May 19. (5) Opiate overdose Qualifiers: Encounter type: initial encounter Is this a current diagnosis for this admission?: Yes Plan: Patient with 2 tobacco sorter/24 hrs; both times requiring Narcan. Patient has now admitted to continuing Heroin use while admitted. Nursing found gum wrappers w/o gum and w/ powdered substance in room. Per JPD; tested positive for Fentanyl and Heroin. Mental Health is consulted; now IVC'd. (6) Pleural effusion due to bacterial infection Is this a current diagnosis for this admission?: Yes Plan: -Chest x-ray done on April 22, 2020 showed multifocal infiltrate with bilateral pleural effusions. The right pleural effusion may be loculated -Patient is afebrile not tachypneic not requiring oxygen with no complaints of shortness of breath Dr. Damon consulted; serial chest x-rays are reassuring. Surgery has subsequently signed off. Greatly appreciate their evaluation and recommendations. - Plan Summary Summary: 05/01/2020 Patient is resting comfortably. She has been afebrile. White blood cell count is normal. Ongoing treatment with cefazolin. Infectious diseases following to help determine length of treatment. Blood cultures from April 25 are no growth so far. I will reviewed the ID note. There was a question stay of repeat blood cultures. If the infectious disease note does suggest additional blood cultures we will obtain them tomorrow. The patient's oxygen saturation is in the 90s on room air. The septic emboli and pleural effusion have not caused any respiratory distress. She has declined chest to at this time. She does have chronic pain but we are limiting the narcotic analgesics. She is on a trial of methadone 5 mg every 8 hours. The hope is that after the resolution of this illness she will participate with a drug treatment program. Unfortunately the patient has admitted to ongoing use of narcotics. Heroin and fentanyl were found in her room. Because of this behavior she is now under involuntary commitment. 05/02/2020 The patient is doing well. She is tolerating IV antibiotics. She is unsure of the continuity of the antibiotics but checking the MAR she has not missed any doses. She also felt that she was getting blood tests every other day and she has not had any blood work for at least 4 days. I did explain that we need to check blood work approximately once a week. Continue cefazolin and check weekly labs tomorrow. Last blood culture is no growth still. Still with murmur from her endocarditis. I reminded her that she will need another MARTI towards the end of her regimen and will be referred to cardiothoracic surgery. Psychiatry did see the patient again today. They recommend continuing the involuntary commitment. They did recommend 2.5 mg of Haldol every 6 hours if needed for agitation and I have written those orders. 05/03/2020 Patient is doing well. Continues to tolerate IV antibiotics. No acute complaints or concerns discussed today. Continue Cefazoline. Blood cultures were drawn today, results pending; we expect these to be negative as most recent cultures 04/25/2020 were negative for any growth. Continue with weekly lab work. Murmur secondary to endocarditis still prevalent. We plan to get another MARTI towards the end of her regimen. She will inevitably be referred to a cardiothoracic surgeon for further care. She was pleasant and cooperative during exam today. Refer to psychiatric note, patient remains on IVC. Continue to utilize 2.5mg of Haldol every 6 hours if needed for agitation. Patient education courses sales representative was present during exam, patient case discussed in detail. 05/04/2020 Overall patient is doing well. She has been afebrile with normal white blood cell count. She continues to do well with IV cefazolin. Her potassium is elevated today at 5.2. Patient denies drinking fluids outside of apple and pineapple juice. Suspect hyperkalemia secondary to dehydration. Encouraged increasing water intake. Will redraw labs tomorrow for comparison. If continues to be elevated will initiate IV fluids. She does have history of chronic pain but we are limiting her narcotic analgesics. Thus we are currently treating her pain with Toradol. We discussed utilizing combination therapy of NSAID and acetaminophen for control of pain; both of which medications are readily available to her as needed. She is on a trial of methadone 5 mg every 8 hours, with the goal of transitioning to outpatient treatment upon discharge. She re jaya on involuntary commitment. Refer to psychiatric note. Patient discusses feelings of anxiety with me and is requesting pharmacological treatment at this time. She specifically inquires about Buspar. Old records were reviewed and she has not discussed this with previous providers or on psychiatric visits. I will consult psych regarding treatment options. She denies suicidal or homicidal ideation. She has requested that her trazodone dosage be increased though she denies difficulty falling or staying sleeping. I will keep her trazodone dose as current and she can utilize melatonin as needed. 05/05/2020 Serum potassium is better. She was educated on potassium content of pineapple juice and apple juice. Reasonable pain control. Continue trazodone for sleep Involuntary commitment remains in place Endocarditis-end of treatment May 19. Unfortunately IV access was lost. With her history of IV drug use it is difficult to achieve consistent IV access for this patient. I was notified that she had no IV access. This is critical and that she requires cefazolin every 6 hours for her endocarditis. A return to the patient's room. The nurse had educated her about the need for central line. She was crying in bed. She states the last time the upper central line and it was very traumatic. She experienced a significant amount of pain. She did allow me to use the ultrasound machine to look at the internal jugular veins and attempt to visualize the subclavian veins. Her veins in fact are quite small. For the time being I have switched her to 1 g of cephalexin every 6 hours by mouth until we can regain IV access. This is less than ideal but an acceptable compromise. This may extend her end date by several days. She is willing to accept that. We will request PICC line placement as soon as possible. 05/06/2020 We will check potassium levels tomorrow. She has been drinking less pineapple juice. Good pain control however she states that she normally takes 150 mg of trazodone at bedtime. I will increase her dose. Endocarditis-she is tolerating the oral antibiotics. PICC line insertion order has been placed for tomorrow morning. As soon as she gets her PICC line we can continue IV antibiotics. Patient is grateful for the PICC line as opposed to the central line. IVC expires. I had a very trini discussion with the patient about her need for compliance and that if this infection worsens it can be fatal. I explained that she will not be able to take a shower and leave her room however I will need to restrict visitors due to her previous behaviors. 05/07/2020 PICC line was inserted this morning, converted her back to IV antibiotics. Her IV therapy end date May 19. We will get a repeat echo this week, prior to discharge. We will have her follow up with cardiology after discharge. Potassium levels have normalized at this time. She continues to drink pineapple and apple juice primarily but agrees to limit intake and will start drinking more water. IVC yesterday. Psych was consulted regarding patient's complaint of anxiety. They are agreeing to see the patient. Will implement appropriate treatment as directed. - Time Anticipated Discharge Disposition: Home, Self Care Anticipated Discharge Timeframe: may 19
[2020-05-08] MEDS: TRAZODONE HCL 50 MG TABLET PO SCH (21:20)
[2020-05-08] MEDS: NORMAL SALINE 10 ML SDV (SCHEDULED) IV SCH (21:21)
[2020-05-09] MEDS: METHADONE HCL 10 MG TABLET PO SCH ×3 (05:32→21:48)
[2020-05-09] MEDS: CEFAZOLIN SODIUM 2 GM in DEXTROSE 5%-WATER 100 ML IV SCH ×4 (05:33→23:02)
[2020-05-09] MEDS: DOCUSATE SODIUM 100 MG CAPSULE PO SCH ×2 (10:10→17:09)
[2020-05-09] MEDS: VENLAFAXINE HCL 37.5 MG CAP.SR.24H PO SCH (10:10)
[2020-05-09] MEDS: FAMOTIDINE 20 MG TABLET PO SCH ×2 (10:10→22:07)
[2020-05-09] MEDS: NORMAL SALINE 10 ML SDV (SCHEDULED) IV SCH ×2 (10:11→22:07)
[2020-05-09] MEDS: LIDOCAINE 5% (700 MG) TRANSDERMAL ADH..PATCH TP SCH (10:11)
[2020-05-09] MEDS ORDERED: LORAZEPAM 1 MG TABLET PO PRN (11:51)
--- NOTE | 2020-05-09 11:56 | PDOC PROGRESS REPORT ---
Subjective Progress Note for:: 05/09/20 Subjective:: 24 year old female who presented to the emergency room seeking readmission to the hospital after leaving AMA on 04/22/2020. She denies any new symptoms or changes in her current status. She left the hospital AGAINST MEDICAL ADVICE because her daughter was involved in a car accident. She continues to have intermittent moderate chest pains and also continues to have mild to moderate fatigue. She continues to deny other associated or accompanying signs and symptoms. In the emergency room she had an essentially unchanged evaluation from earlier in the day. She was subsequently admitted to the hospital for continued IV antibiotic therapy. 05/07/20 Subjective:: Patient is resting comfortably in bed. She is on the phone with her mother when I entered the room, and states that her mother is heading to the hospital to visit her. She is off IVC and has access to her cell phone and personal items. She had a PICC line placed today. No complaints regarding this. She mentioned long history of anxiety, not previously treated, and inquired about possible pharmacological treatment. She states that she was afraid to discuss this with psych as she thought it might affect her ability to get off of IVC. Denies suicidal or homicidal ideations. Her only complaint today is that experiences some pain when she lays on her left side, this is minimal. She otherwise denies fever, chills, chest pain, shortness of breath, cough, lower extremity swelling, abdominal pain, nausea, vomiting, or diarrhea. [id number] female getting cefazolin for bacterial endocarditis. Last day of antibiotic therapy will be May 18. Patient has a PICC line. Receiving methadone 5 mg every 6 hours requesting for more pain medications. Patient is also on Toradol. No acute events in the last 24 hours. Afebrile. 05/09/2020-patient is receiving IV cefazolin for endocarditis. Last day of antibiotic therapy will be May 19. Comfortably in the bed communicating well. Requesting lorazepam for anxiety. Reason For Visit: ACUTE BACTERIAL ENDOCARDITIS, SEPTIC PULMONARY Physical Exam Vital Signs: Temp Pulse Resp BP Pulse Ox 97.5 F 87 19 101/60 98 05/09/20 07:55 05/09/20 07:55 05/09/20 07:55 05/09/20 07:55 05/09/20 07:55 Intake & Output 05/08/20 05/09/20 05/10/20 06:59 06:59 06:59 Intake Total 1435 2130 Balance 1435 2130 Weight 64.2 kg 64.2 kg General appearance: PRESENT: no acute distress Head exam: PRESENT: atraumatic Eye exam: PRESENT: PERRLA Mouth exam: PRESENT: moist, tongue midline Neck exam: ABSENT: carotid bruit, JVD, lymphadenopathy, thyromegaly Respiratory exam: PRESENT: decreased breath sounds Cardiovascular exam: PRESENT: systolic murmur GI/Abdominal exam: PRESENT: normal bowel sounds, soft. ABSENT: distended, guarding, mass, organolmegaly, rebound, tenderness Rectal exam: PRESENT: deferred Extremities exam: PRESENT: full ROM. ABSENT: calf tenderness, clubbing, pedal edema Neurological exam: PRESENT: alert, awake, oriented to person, oriented to place, oriented to time, oriented to situation, CN II-XII grossly intact. ABSENT: motor sensory deficit Psychiatric exam: PRESENT: appropriate affect, normal mood. ABSENT: homicidal ideation, suicidal ideation Skin exam: PRESENT: dry, intact, warm. ABSENT: cyanosis, rash Results Laboratory Results: 05/03/20 14:25 05/07/20 13:40 05/03/20 14:15 Blood Blood Culture - Final NO GROWTH IN 5 DAYS 05/03/20 14:25 Blood Blood Culture - Final NO GROWTH IN 5 DAYS 04/22/20 04/22/20 04/25/20 21:25 21:25 04:37 Creatine Kinase 49 26 L Troponin I 0.015 Impressions: Chest CT 04/23/20 00:00 IMPRESSION: 1. Multiple bilateral lung nodules some cavitary suspicious for embolic infectious process. 2. Non prominent bilateral pleural effusions larger on the right. Majority of the fluid is not loculated. Minimal loculated component possibly in the right upper chest. 3. Technically limited evaluation of the pulmonary arteries even centrally. No large pulmonary embolus. Difficult to exclude a small embolus. 4. [id number] cardiomegaly. Small pericardial effusion. Suspected borderline spleen size. Chest X-Ray 04/30/20 00:00 IMPRESSION: Stable small bibasilar effusions with mildly improved patchy bilateral opacities. PICC Line Insertion 05/07/20 00:00 IMPRESSION: SUCCESSFUL PLACEMENT OF A 5 FR DUAL LUMEN 40 CM PICC IN THE LEFT BASILIC VEIN. Assessment and Plan - Diagnosis (1) Acute bacterial endocarditis Is this a current diagnosis for this admission?: Yes Plan: - admitted at [facility] 04/02/20 for right sided endarditis with septic emboli MSSA, 2/2 to IV drug use - she has left [place] twice at [facility] while undergoing treatment - per review of records latest blood cx have been negative - TTE 04/18/20 Severe tricuspid regurgitation, 2 masses on the tricuspid valve with associated flail leaflet that are unchanged from 820 assessment. - CT chest 04/18/20 showed interval development of a moderate right and small left pleural effusion. Multifocal cavitary and solitary nodules in both lungs again demonstrated not significantly changed from prior CT. lungs are suspicious for multifocal septic emboli -Repeat CT chest (04/23/2020) showed multiple bilateral lung nodules and sub- cavitary lesion suspicious for embolic infectious process, non-prominent bi lateral pleural effusions, larger on the right. Majority of fluid is not loculated. Mild to moderate cardiomegaly with a small pericardial effusion. Suspect borderline spleen size. -Not counting the days where and he was she was outside the hospital when she leaves [place], I suspect that she has had about 2 weeks of cumulative cefazolin treatment. Per notes from [facility] she is recommended to have a total of 6 weeks of treatment for right-sided endocarditis Repeat blood cultures (04/25/20) negative at 5 days Repeat blood cultures (05/01/2020) pending. We will continue cefazolin Infectious Disease is consulted to help guide length of therapy considering the patient numerous AMA events. -She will likely need to be transferred to a tertiary center where there is cardiothoracic surgery because of the severe tricuspid regurg and vegetation. Will need repeat TTE/MARTI toward end of antibiotic course. 05/08/2020-patient is receiving cefazolin at this time has a PICC line. Last day of antibiotic therapy will be May 19. 05/09/1990-patient is receiving IV cefazolin for right-sided endocarditis with septic emboli and MSSA. Patient has history of IV drug abuse. MARTI was done on 04/18/2020 found to have severe tricuspid regurgitation, tricuspid valve endocarditis. Patient is going to complete the IV antibiotic therapy on May 19. (2) Chronic back pain Qualifiers: Back pain location: low back pain Sciatica presence: without sciatica Is this a current diagnosis for this admission?: Yes Plan: - has chronic back pain - midline tenderness lumbar L1-L2 area - according to her back pain is stable, not worsening - no focal deficit Consider MRI if back pain worsens Now being managed with methadone 5 mg every 8 hours. Also providing Lidoderm patches, as needed Toradol, Tylenol, and heating pad. 05/08/2020-patient is receiving methadone 5 mg every 8 hours, Lidoderm patches, Toradol as needed, heating pad. Plan is to continue the present management at this time. (3) Involuntary commitment Is this a current diagnosis for this admission?: Yes Plan: 05/08/2020-IVC commitment yesterday. (4) Tricuspid valve regurgitation due to infection Is this a current diagnosis for this admission?: Yes Plan: -Reported on TTE done at [facility] on April 18, 2020. Severe tricuspid regurgitation 2 masses on the tricuspid valve with associated flail leaflet that are unchanged from prior echo on April 13. 52 to 72%. LV is grossly normal -No signs of decompensation -EKG done on April 22 showed sinus tachycardia left posterior fascicular block -Continue antibiotics, ID follow up 05/08/2020-patient is receiving cefazolin for infective endocarditis. Last dose of antibiotic therapy will be May 19. 05/09/2020-patient is receiving IV cefazolin for endocarditis. She will finish the course on May 19. 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 Patient has now admitted to continuing Heroin use while admitted. Nursing found gum wrappers w/o gum and w/ powdered substance in room. Per JPD; tested positive for Fentanyl and Heroin. Mental Health is consulted; now IVC'd. (6) Pleural effusion due to bacterial infection Is this a current diagnosis for this admission?: Yes Plan: -Chest x-ray done on April 22, 2020 showed multifocal infiltrate with bilateral pleural effusions. The right pleural effusion may be loculated -Patient is afebrile not tachypneic not requiring oxygen with no complaints of shortness of breath Dr. Damon consulted; serial chest x-rays are reassuring. Surgery has subsequently signed off. Greatly appreciate their evaluation and recommendations. - Plan Summary Summary: 05/01/2020 Patient is resting comfortably. She has been afebrile. White blood cell count is normal. Ongoing treatment with cefazolin. Infectious diseases following to help determine length of treatment. Blood cultures from April 25 are no growth so far. I will reviewed the ID note. There was a question stay of repeat blood cultures. If the infectious disease note does suggest additional blood cultures we will obtain them tomorrow. The patient's oxygen saturation is in the 90s on room air. The septic emboli and pleural effusion have not caused any respiratory distress. She has declined chest to at this time. She does have chronic pain but we are limiting the narcotic analgesics. She is on a trial of methadone 5 mg every 8 hours. The hope is that after the resolution of this illness she will participate with a drug treatment program. Unfortunately the patient has admitted to ongoing use of narcotics. Heroin and fentanyl were found in her room. Because of this behavior she is now under involuntary commitment. 05/02/2020 The patient is doing well. She is tolerating IV antibiotics. She is unsure of the continuity of the antibiotics but checking the MAR she has not missed any doses. She also felt that she was getting blood tests every other day and she has not had any blood work for at least 4 days. I did explain that we need to check blood work approximately once a week. Continue cefazolin and check weekly labs tomorrow. Last blood culture is no growth still. Still with murmur from her endocarditis. I reminded her that she will need another MARTI towards the end of her regimen and will be referred to cardiothoracic surgery. Psychiatry did see the patient again today. They recommend continuing the involuntary commitment. They did recommend 2.5 mg of Haldol every 6 hours if needed for agitation and I have written those orders. 05/03/2020 Patient is doing well. Continues to tolerate IV antibiotics. No acute complaints or concerns discussed today. Continue Cefazoline. Blood cultures were drawn today, results pending; we expect these to be negative as most recent cultures 04/25/2020 were negative for any growth. Continue with weekly lab work. Murmur secondary to endocarditis still prevalent. We plan to get another MARTI towards the end of her regimen. She will inevitably be referred to a c ardiothoracic surgeon for further care. She was pleasant and cooperative during exam today. Refer to psychiatric note, patient remains on IVC. Continue to utilize 2.5mg of Haldol every 6 hours if nee ded for agitation. Patient paper sales representative was present during exam, patient case discussed in detail. 05/04/2020 Overall patient is doing well. She has been afebrile with normal white blood cell count. She continues to do well with IV cefazolin. Her potassium is elevated today at 5.2. Patient denies drinking fluids outside of apple and pineapple juice. Suspect hyperkalemia secondary to dehydration. Encouraged increasing water intake. Will redraw labs tomorrow for comparison. If continues to be elevated will initiate IV fluids. She does have history of chronic pain but we are limiting her narcotic analgesics. Thus we are currently treating her pain with Toradol. We discussed utilizing combination therapy of NSAID and acetaminophen for control of pain; both of which medications are readily available to her as needed. She is on a trial of methadone 5 mg every 8 hours, with the goal of transitioning to outpatient treatment upon discharge. She remains on involuntary commitment. Refer to psychiatric note. Patient discusses feelings of anxiety with me and is requesting pharmacological treatment at this time. She specifically inquires about Buspar. Old records were reviewed and she has not discussed this with previous providers or on psychiatric visits. I will consult psych regarding treatment options. She denies suicidal or homicidal ideation. She has requested that her trazodone dosage be increased though she denies difficulty falling or staying sleeping. I will keep her trazodone dose as current and she can utilize melatonin as needed. 05/05/2020 Serum potassium is better. She was educated on potassium content of pineapple juice and apple juice. Reasonable pain control. Continue trazodone for sleep Involuntary commitment remains in place Endocarditis-end of treatment May 19. Unfortunately IV access was lost. With her history of IV drug use it is difficult to achieve consistent IV access for this patient. I was notified that she had no IV access. This is critical and that she requires cefazolin every 6 hours for her endocarditis. A return to the patient's room. The nurse had educated her about the need for central line. She was crying in bed. She states the last time the upper central line and it was very traumatic. She experienced a significant amount of pain. She did allow me to use the ultrasound machine to look at the internal jugular veins and attempt to visualize the subclavian veins. Her veins in fact are quite small. For the time being I have switched her to 1 g of cephalexin every 6 hours by mouth until we can regain IV access. This is less than ideal but an acceptable compromise. This may extend her end date by several days. She is willing to accept that. We will request PICC line placement as soon as possible. 05/06/2020 We will check potassium levels tomorrow. She has been drinking less pineapple juice. Good pain control however she states that she normally takes 150 mg of trazodone at bedtime. I will increase her dose. Endocarditis-she is tolerating the oral antibiotics. PICC line insertion order has been placed for tomorrow morning. As soon as she gets her PICC line we can continue IV antibiotics. Patient is grateful for the PICC line as opposed to the central line. IVC expires. I had a very trini discussion with the patient about her need for compliance and that if this infection worsens it can be fatal. I explained that she will not be able to take a shower and leave her room however I will need to restrict visitors due to her previous behaviors. 05/07/2020 PICC line was inserted this morning, converted her back to IV antibiotics. Her IV therapy end date May 19. We will get a repeat echo this week, prior to discharge. We will have her follow up with cardiology after discharge. Potassium levels have normalized at this time. She continues to drink pineapple and apple juice primarily but agrees to limit intake and will start drinking more water. IVC yesterday. Psych was consulted regarding patient's complaint of anxiety. They are agreeing to see the patient. Will implement appropriate treatment as directed. - Time Anticipated Discharge Disposition: Home, Self Care Anticipated Discharge Timeframe: may 19
[2020-05-09] MEDS: KETOROLAC TROMETHAMINE INJ/PF 30 MG/1 ML SDV IV PRN ×2 (12:10→22:06)
[2020-05-09] MEDS: TRAZODONE HCL 50 MG TABLET PO SCH (21:48)
[2020-05-10] MEDS: METHADONE HCL 10 MG TABLET PO SCH ×3 (05:39→22:04)
[2020-05-10] MEDS: CEFAZOLIN SODIUM 2 GM in DEXTROSE 5%-WATER 100 ML IV SCH ×4 (05:40→23:34)
[2020-05-10 06:58] LABS: ABSOLUTE EOSINOPHILS # (AUTO) 0.3 10^3/uL (0.0-0.6); ABSOLUTE LYMPHOCYTES (AUTO) 2.4 10^3/uL (0.5-4.7); ABSOLUTE MONOCYTES (AUTO) 0.5 10^3/uL (0.1-1.4); ABSOLUTE NEUT (AUTO) 2.9 10^3/uL (1.7-8.2); BASOPHILS % (AUTO) 0.5 % (0-2); HEMATOCRIT 32.3 % (36.0-47.0); HEMOGLOBIN 11.1 g/dL (12.0-15.5); LYMPHOCYTES % (AUTO) 39.2 % (13-45); MEAN CORPUSCULAR HEMOGLOBIN 29.6 pg (27.0-33.4); MEAN CORPUSCULAR HGB CONC 34.2 g/dL (32.0-36.0); MEAN CORPUSCULAR VOLUME 87 fl (80-97); MONOCYTES % (AUTO) 7.6 % (3-13); PLATELET COUNT 198 10^3/uL (150-450); RED BLOOD COUNT 3.74 10^6/uL (3.72-5.28); RED CELL DISTRIBUTION WIDTH 17.6 % (11.5-14.0); SEGMENTED NEUTROPHILS % (AUTO) 47.7 % (42-78); TOTAL CELLS COUNTED % (AUTO) 100 %
[2020-05-10 07:23] LABS: ALBUMIN 3.6 g/dL (3.5-5.0); ALKALINE PHOSPHATASE 53 U/L (38-126); ANION GAP 10 (5-19); ASPARTATE AMINO TRANSFERASE 17 U/L (14-36); BILIRUBIN,DIRECT 0.3 mg/dL (0.0-0.4); BILIRUBIN,TOTAL 0.4 mg/dL (0.2-1.3); BLOOD UREA NITROGEN 21 mg/dL (7-20); CALCIUM 9.1 mg/dL (8.4-10.2); CARBON DIOXIDE 28 mmol/L (22-30); CHLORIDE 101 mmol/L (98-107); GLUCOSE 86 mg/dL (75-110); POTASSIUM 4.7 mmol/L (3.6-5.0); TOTAL PROTEIN 7.7 g/dL (6.3-8.2)
--- NOTE | 2020-05-10 08:57 | PDOC PROGRESS REPORT ---
Subjective Progress Note for:: 05/10/20 Subjective:: 24 year old female who presented to the emergency room seeking readmission to the hospital after leaving AMA on 04/22/2020. She denies any new symptoms or changes in her current status. She left the hospital AGAINST MEDICAL ADVICE because her daughter was involved in a car accident. She continues to have intermittent moderate chest pains and also continues to have mild to moderate fatigue. She continues to deny other associated or accompanying signs and symptoms. In the emergency room she had an essentially unchanged evaluation from earlier in the day. She was subsequently admitted to the hospital for continued IV antibiotic therapy. 05/07/20 Subjective:: Patient is resting comfortably in bed. She is on the phone with her mother when I entered the room, and states that her mother is heading to the hospital to visit her. She is off IVC and has access to her cell phone and personal items. She had a PICC line placed today. No complaints regarding this. She mentioned long history of anxiety, not previously treated, and inquired about possible pharmacological treatment. She states that she was afraid to discuss this with psych as she thought it might affect her ability to get off of IVC. Denies suicidal or homicidal ideations. Her only complaint today is that experiences some pain when she lays on her left side, this is minimal. She otherwise denies fever, chills, chest pain, shortness of breath, cough, lower extremity swelling, abdominal pain, nausea, vomiting, or diarrhea. [id number]-old female getting cefazolin for bacterial endocarditis. Last day of antibiotic therapy will be May 18. Patient has a PICC line. Receiving methadone 5 mg every 6 hours requesting for more pain medications. Patient is also on Toradol. No acute events in the last 24 hours. Afebrile. 05/09/2020-patient is receiving IV cefazolin for endocarditis. Last day of antibiotic therapy will be May 19. Comfortably in the bed communicating well. Requesting lorazepam for anxiety. 05/10/2020-no acute events the last 24 hours. Afebrile. Plan is to continue IV cefazolin until May 19. Reason For Visit: ACUTE BACTERIAL ENDOCARDITIS, SEPTIC PULMONARY Physical Exam Vital Signs: Temp Pulse Resp BP Pulse Ox 97.9 F 73 19 102/59 L 97 05/10/20 08:06 05/10/20 08:06 05/10/20 08:06 05/10/20 08:06 05/10/20 08:06 Intake & Output 05/09/20 05/10/20 05/11/20 06:59 06:59 06:59 Intake Total 2130 260 Balance 2130 260 Weight 64.2 kg 67 kg General appearance: PRESENT: no acute distress, well-developed Head exam: PRESENT: atraumatic Eye exam: PRESENT: PERRLA Mouth exam: PRESENT: moist, tongue midline Teeth exam: PRESENT: poor dentation Neck exam: ABSENT: carotid bruit, JVD, lymphadenopathy, thyromegaly Respiratory exam: PRESENT: decreased breath sounds Cardiovascular exam: PRESENT: systolic murmur GI/Abdominal exam: PRESENT: normal bowel sounds, soft. ABSENT: distended, guarding, mass, organolmegaly, rebound, tenderness Rectal exam: PRESENT: deferred Extremities exam: PRESENT: full ROM. ABSENT: calf tenderness, clubbing, pedal edema Neurological exam: PRESENT: alert, awake, oriented to person, oriented to place, oriented to time, oriented to situation, CN II-XII grossly intact. ABSENT: motor sensory deficit Psychiatric exam: PRESENT: appropriate affect, normal mood. ABSENT: homicidal ideation, suicidal ideation Results Laboratory Results: 05/10/20 06:05 05/10/20 06:05 05/10/20 05/10/20 06:05 06:05 WBC 6.0 RBC 3.74 Hgb 11.1 L Hct 32.3 L MCV 87 MCH 29.6 MCHC 34.2 RDW 17.6 H Plt Count 198 Seg Neutrophils % 47.7 Sodium 138.7 Potassium 4.7 Chloride 101 Carbon Dioxide 28 Anion Gap 10 BUN 21 H Creatinine 0.78 Est GFR ( Amer) > 60 Glucose 86 Calcium 9.1 Magnesium 2.1 Total Bilirubin 0.4 AST 17 Alkaline Phosphatase 53 Total Protein 7.7 Albumin 3.6 04/22/20 04/22/20 04/25/20 21:25 21:25 04:37 Creatine Kinase 49 26 L Troponin I 0.015 Impressions: Chest CT 04/23/20 00:00 IMPRESSION: 1. Multiple bilateral lung nodules some cavitary suspicious for embolic infectious process. 2. Non prominent bilateral pleural effusions larger on the right. Majority of the fluid is not loculated. Minimal loculated component possibly in the right upper chest. 3. Technically limited evaluation of the pulmonary arteries even centrally. No large pulmonary embolus. Difficult to exclude a small embolus. 4. Omuy-mw-updzilep cardiomegaly. Small pericardial effusion. Suspected borderline spleen size. Chest X-Ray 04/30/20 00:00 IMPRESSION: Stable small bibasilar effusions with mildly improved patchy bilateral opacities. PICC Line Insertion 05/07/20 00:00 IMPRESSION: SUCCESSFUL PLACEMENT OF A 5 FR DUAL LUMEN 40 CM PICC IN THE LEFT BASILIC VEIN. Assessment and Plan - Diagnosis (1) Acute bacterial endocarditis Is this a current diagnosis for this admission?: Yes Plan: - admitted at [facility] 04/02/20 for right sided endarditis with septic emboli MSSA, 2/ to IV drug use - she has left [place] twice at [facility] while undergoing treatment - per review of records latest blood cx have been negative - TTE 04/18/20 Severe tricuspid regurgitation, 2 masses on the tricuspid valve with associated flail leaflet that are unchanged from 820 assessment. - CT chest 04/18/20 showed interval development of a moderate right and small left pleural effusion. Multifocal cavitary and solitary nodules in both lungs again demonstrated not significantly changed from prior CT. lungs are suspicious for multifocal septic emboli -Repeat CT chest (04/23/2020) showed multiple bilateral lung nodules and sub- cavitary lesion suspicious for embolic infectious process, non-prominent bilateral pleural effusions, larger on the right. Majority of fluid is not loculated. Mild to moderate cardiomegaly with a small pericardial effusion. Suspect borderline spleen size. -Not counting the days where and he was she was outside the hospital when she leaves [place], I suspect that she has had about 2 weeks of cumulative cefazolin treatment. Per notes from [facility] she is recommended to have a total of 6 weeks of treatment for right-sided endocarditis Repeat blood cultures (04/25/20) negative at 5 days Repeat blood cultures (05/01/2020) pending. We will continue cefazolin Infectious Disease is consulted to help guide length of therapy considering the patient numerous AMA events. -She will likely need to be transferred to a tertiary center where there is cardiothoracic surgery because of the severe tricuspid regurg and vegetation. Will need repeat TTE/MARTI toward end of antibiotic course. 05/08/2020-patient is receiving cefazolin at this time has a PICC line. Last day of antibiotic therapy will be May 19. 05/09/20-patient is receiving IV cefazolin for right-sided endocarditis with septic emboli and MSSA. Patient has history of IV drug abuse. MARTI was done on 04/18/2020 found to have severe tricuspid regurgitation, tricuspid valve endoca rditis. Patient is going to complete the IV antibiotic therapy on May 19. 05/09/2020-patient is receiving IV cefazolin for endocarditis. Plan is to complete the antibiotic therapy on May 19. (2) Chronic back pain Qualifiers: Back pain location: low back pain Sciatica presence: without sciatica Is this a current diagnosis for this admission?: Yes Plan: - has chronic back pain - midline tenderness lumbar L1-L2 area - according to her back pain is stable, not worsening - no focal deficit Consider MRI if back pain worsens Now being managed with methadone 5 mg every 8 hours. Also providing Lidoderm patches, as needed Toradol, Tylenol, and heating pad. 05/08/2020-patient is receiving methadone 5 mg every 8 hours, Lidoderm patches, Toradol as needed, heating pad. Plan is to continue the present management at this time. (3) Involuntary commitment Is this a current diagnosis for this admission?: Yes Plan: 05/08/2020-IVC commitment yesterday. (4) Tricuspid valve regurgitation due to infection Is this a current diagnosis for this admission?: Yes Plan: -Reported on TTE done at [facility] on April 18, 2020. Severe tricuspid regurgitation 2 masses on the tricuspid valve with associated flail leaflet that are unchanged from prior echo on April 13. 52 to 72%. LV is grossly normal -No signs of decompensation -EKG done on April 22 showed sinus tachycardia left posterior fascicular block -Continue antibiotics, ID follow up 05/08/2020-patient is receiving cefazolin for infective endocarditis. Last dose of antibiotic therapy will be May 19. 05/09/2020-patient is receiving IV cefazolin for endocarditis. She will finish the course on May 19. 05/10/20-patient is receiving IV cefazolin for endocarditis. She will complete the antibiotic therapy in May 19. (5) Opiate overdose Qualifiers: Encounter type: initial encounter Is this a current diagnosis for this admission?: Yes Plan: Patient with 2 food sanitarian/24 hrs; both times requiring Narcan. Patient has now admitted to continuing Heroin use while admitted. Nursing found gum wrappers w/o gum and w/ powdered substance in room. Per JPD; tested positive for Fentanyl and Heroin. Mental Health is consulted; now IVC'd. (6) Pleural effusion due to bacterial infection Is this a current diagnosis for this admission?: Yes Plan: -Chest x-ray done on April 22, 2020 showed multifocal infiltrate with bilateral pleural effusions. The right pleural effusion may be loculated -Patient is afebrile not tachypneic not requiring oxygen with no complaints of shortness of breath Dr. Damon consulted; serial chest x-rays are reassuring. Surgery has subsequently signed off. Greatly appreciate their evaluation and recommendations. - Plan Summary Summary: 05/01/2020 Patient is resting comfortably. She has been afebrile. White blood cell count is normal. Ongoing treatment with cefazolin. Infectious diseases following to help det ermine length of treatment. Blood cultures from April 25 are no growth so far. I will reviewed the ID note. There was a question stay of repeat blood cultures. If the infectious disease note does suggest additional blood cultures we will obtain them tomorrow. The patient's oxygen saturation is in the 90s on room air. The septic emboli and pleural effusion have not caused any respiratory distress. She has declined chest to at this time. She does have chronic pain but we are limiting the narcotic analgesics. She is on a trial of methadone 5 mg every 8 hours. The hope is that after the resolution of this illness she will participate with a drug treatment program. Unfortunately the patient has admitted to ongoing use of narcotics. Heroin and fentanyl were found in her room. Because of this behavior she is now under involuntary commitment. 05/02/2020 The patient is doing well. She is tolerating IV antibiotics. She is unsure of the continuity of the antibiotics but checking the MAR she has not missed any doses. She also felt that she was getting blood tests every other day and she has not had any blood work for at least 4 days. I did explain that we need to check blood work approximately once a week. Continue cefazolin and check weekly labs tomorrow. Last blood culture is no growth still. Still with murmur from her endocarditis. I reminded her that she will need an other MARTI towards the end of her regimen and will be referred to cardiothoracic surgery. Psychiatry did see the patient again today. They recommend continuing the involuntary commitment. They did recommend 2.5 mg of Haldol every 6 hours if needed for agitation and I have written those orders. 05/03/2020 Patient is doing well. Continues to tolerate IV antibiotics. No acute complaints or concerns discussed today. Continue Cefazoline. Blood cultures were drawn today, results pending; we expect these to be negative as most recent cultures 04/25/2020 were negative for any growth. Continue with weekly lab work. Murmur secondary to endocarditis still prevalent. We plan to get another MARTI towards the end of her regimen. She will inevitably be referred to a cardiothoracic surgeon for further care. She was pleasant and cooperative during exam today. Refer to psychiatric note, patient remains on IVC. Continue to utilize 2.5mg of Haldol every 6 hours if needed for agitation. Patient field representatives director was present during exam, patient case discussed in detail. 05/04/2020 Overall patient is doing well. She has been afebrile with normal white blood cell count. She continues to do well with IV cefazolin. Her potassium is elevated today at 5.2. Patient denies drinking fluids outside of apple and pineapple juice. Suspect hyperkalemia secondary to dehydration. Encouraged increasing water intake. Will redraw labs tomorrow for comparison. If continues to be elevated will initiate IV fluids. She does have history of chronic pain but we are limiting her narcotic analgesics. Thus we are currently treating her pain with Toradol. We discussed utilizing combination therapy of NSAID and acetaminophen for control of pain; both of which medications are readily available to her as needed. She is on a trial of methadone 5 mg every 8 hours, with the goal of transitioning to outpatient treatment upon discharge. She remains on involuntary commitment. Refer to psychiatric note. Patient discusses feelings of anxiety with me and is requesting pharmacological treatment at this time. She specifically inquires about Buspar. Old records were reviewed and she has not discussed this with previous providers or on psychiatric visits. I will consult psych regarding treatment options. She denies suicidal or homicidal ideation. She has requested that her trazodone dosage be increased though she denies difficulty falling or staying sleeping. I will keep her trazodone dose as current and she can utilize melatonin as needed. 05/05/2020 Serum potassium is better. She was educated on potassium content of pineapple juice and apple juice. Reasonable pain control. Continue trazodone for sleep Involuntary commitment remains in place Endocarditis-end of treatment May 19. Unfortunately IV access was lost. With her history of IV drug use it is difficult to achieve consistent IV access for this patient. I was notified that she had no IV access. This is critical and that she requires cefazolin every 6 hours for her endocarditis. A return to the patient's room. The nurse had educated her about the need for central line. She was crying in bed. She states the last time the upper central line and it was very traumatic. She experienced a significant amount of pain. She did allow me to use the ultrasound machine to look at the internal jugular veins and attempt to visualize the subclavian veins. Her veins in fact are quite small. For the time being I have switched her to 1 g of cephalexin every 6 hours by mouth until we can regain IV access. This is less than ideal but an acceptable compromise. This may extend her end date by several days. She is willing to accept that. We will request PICC line placement as soon as possible. 05/06/2020 We will check potassium levels tomorrow. She has been drinking less pineapple juice. Good pain control however she states that she normally takes 150 mg of trazodone at bedtime. I will increase her dose. Endocarditis-she is tolerating the oral antibiotics. PICC line insertion order has been placed for tomorrow morning. As soon as she gets her PICC line we can continue IV antibiotics. Patient is grateful for the PICC line as opposed to the central line. IVC expires. I had a very trini discussion with the patient about her need for compliance and that if this infection worsens it can be fatal. I explained that she will not be able to take a shower and leave her room however I will need to restrict visitors due to her previous behaviors. 05/07/2020 PICC line was inserted this morning, converted her back to IV antibiotics. Her IV therapy end date May 19. We will get a repeat echo this week, prior to discharge. We will have her follow up with cardiology after discharge. Potassium levels have normalized at this time. She continues to drink pineapple and apple juice primarily but agrees to limit intake and will start drinking more water. IVC yesterday. Psych was consulted regarding patient's complaint of an xiety. They are agreeing to see the patient. Will implement appropriate treatment as directed. - Time Anticipated Discharge Disposition: Home, Self Care Anticipated Discharge Timeframe: may 19
[2020-05-10] MEDS: DOCUSATE SODIUM 100 MG CAPSULE PO SCH ×2 (09:18→18:03)
[2020-05-10] MEDS: LIDOCAINE 5% (700 MG) TRANSDERMAL ADH..PATCH TP SCH (09:19)
[2020-05-10] MEDS: VENLAFAXINE HCL 37.5 MG CAP.SR.24H PO SCH ×2 (09:22→22:06)
[2020-05-10] MEDS: NORMAL SALINE 10 ML SDV (SCHEDULED) IV SCH ×2 (09:23→22:06)
[2020-05-10] MEDS: FAMOTIDINE 20 MG TABLET PO SCH ×2 (09:26→22:05)
[2020-05-10] MEDS: KETOROLAC TROMETHAMINE INJ/PF 30 MG/1 ML SDV IV PRN (09:26)
--- NOTE | 2020-05-10 11:42 | PDOC CONSULTATION ---
Consultation-Blank Consultation: Psychiatric Consultation: DOS: 05.07.2020 Time: 1630 Met with Patient and mother in her room at request of her attending physician. Consult was requested due to patient continually asking for medication to address her anxiety. Spent approximately 90 minutes providing psycho-education and cognitive behavioral therapy intervention to patient regarding how heroin/methamphetamine/etc impacts the neurotransmitters and other chemicals of the body and of the mind/body connection in recovery. Discussed with patient and mother the importance of beginning recovery now, while being the hospital for an extended stay due to her medical condition, by utilizing mobile phone, tablet apps designed for the journey in recovery. Emphasized the importance of persistence in follow through, follow up, regime, daily structure, etc, but most of all the need for healthy support people in her life and the need to "flip the script" in her head. Provided patient with examples, had her practice, had her mother practice, and had them both look up applications on the mobile devices. Additionally, provided them with online virtual recovery resources to access for support (NA, 12-step programming, etc) while in the hospital and during COVID. Continued to stress the importance of abstinence due to Endocarditis and the increased risk of a fatal outcome should she choose to return to using heroin, methamphetamine or abuse of prescription or illegal drugs. Patient was receptive to feedback and indicated she had a desire to maintain sobriety despite her many failed attempts. Discussed with her and her mother the importance that Patient needed to take ownership and responsibility in her recovery and that mother could not continue to enable the Patient by "making" her go to recovery or rehab facilities. Provided mother with resources for her own support as well. In summary, discussed with Patient that instead of turning to medication each time she felt emotionally uncomfortable, it might be helpful to start to utilize her supports and some of the other coping skills discussed during the session. Discussed that it is likely her addiction started by turning to drugs to alter or ameliorate her feeling of discomfort and that if she wants to change her behavior, she needs to begin to change how she things about how she problem solves or deals with her uncomfortable feelings. Thus, she was challenged to try this while in a safe place such as the hospital and has a great deal of support, versus taking a pill. Impression/Plan: Patient is cleared from acute psychiatric care services. Her IVC was rescinded the previous night as she no longer met IVC criteria. She denied suicidal/homicidal ideation, intent, or plan. She was engaged in the conversation and appeared motivated for change, though continued to demonstrate passive-aggressive reliance on her mother to find her an inpatient rehabilitation, but wanted to make sure it was one that patient agreed with (i.e. could have her phone, access to outside things, etc.). She also continued to demonstrate reliance on medicine to ease her discomfort as she still asked about the possibility of medication if "this doesn't work." At this time, there are no medication recommendations as it is important she make a concerted effort to utilize the available copings and employ new healthy skills as moves towards medical clearance and discharge. Attending physician was advised of completion of evaluation and agreed with recommendation and disposition. Please contact behavioral health office at [phone] if further assistance is needed.
--- NOTE | 2020-05-10 12:23 | PSYCHOLOGICAL NOTE ---
Psych Note - Psych Note Date seen by psych provider: 05/10/20 Psych Note: updated Medication recommendations per [facility]'s contracted psychiatrist are as follows: please discontinue Ativan The patient has been recommended not to receive anti-anxiety medications Please increase Effexor 37.5mg to twice daily Please schedule Haldol 2.5mg three times daily Impression/Plan: Patient has been cleared from acute psychiatric services. She struggles with substance abuse and has been frequently asking for anxiety medications. Dr. Nguyễn conducted an in-depth psycho-education and cognitive behavioral therapy intervention with patient on 05/07/2020 regarding how heroin/methamphetamine/etc impacts the neurotransmitters and other chemicals of the body and of the mind/body connection in recovery. Patient needs to make a concerted effort to utilize the available copings and employ new healthy skills as moves towards medical clearance and discharge.
[2020-05-10] MEDS ORDERED: ONDANSETRON HCL INJ/PF 4 MG/2 ML SDV IV PRN (13:00)
[2020-05-10] MEDS: HALOPERIDOL 5 MG TABLET PO SCH ×3 (15:43→22:04)
[2020-05-10] MEDS: TRAZODONE HCL 50 MG TABLET PO SCH (22:04)
[2020-05-10] MEDS: MELATONIN 5 MG TABLET PO PRN (22:05)
[2020-05-10] MEDS: PHARMACY COMMUNICATION ORDER MC SCH (22:10)
[2020-05-11] MEDS: METHADONE HCL 10 MG TABLET PO SCH ×3 (05:24→21:34)
[2020-05-11] MEDS: HALOPERIDOL 5 MG TABLET PO SCH ×3 (05:24→21:35)
[2020-05-11] MEDS: CEFAZOLIN SODIUM 2 GM in DEXTROSE 5%-WATER 100 ML IV SCH ×4 (05:24→23:50)
[2020-05-11] MEDS: DOCUSATE SODIUM 100 MG CAPSULE PO SCH ×2 (10:07→17:05)
[2020-05-11] MEDS: LIDOCAINE 5% (700 MG) TRANSDERMAL ADH..PATCH TP SCH (10:07)
[2020-05-11] MEDS: FAMOTIDINE 20 MG TABLET PO SCH ×2 (10:08→21:35)
[2020-05-11] MEDS: VENLAFAXINE HCL 37.5 MG CAP.SR.24H PO SCH ×2 (10:10→21:35)
[2020-05-11] MEDS: NORMAL SALINE 10 ML SDV (SCHEDULED) IV SCH ×2 (10:11→21:36)
--- NOTE | 2020-05-11 12:01 | PDOC PROGRESS REPORT ---
Subjective Progress Note for:: 05/11/20 Subjective:: 24 year old female who presented to the emergency room seeking readmission to the hospital after leaving AMA on 04/22/2020. She denies any new symptoms or changes in her current status. She left the hospital AGAINST MEDICAL ADVICE because her daughter was involved in a car accident. She continues to have intermittent moderate chest pains and also continues to have mild to moderate fatigue. She continues to deny other associated or accompanying signs and symptoms. In the emergency room she had an essentially unchanged evaluation from earlier in the day. She was subsequently admitted to the hospital for continued IV antibiotic therapy. 05/07/20 Subjective:: Patient is resting comfortably in bed. She is on the phone with her mother when I entered the room, and states that her mother is heading to the hospital to visit her. She is off IVC and has access to her cell phone and personal items. She had a PICC line placed today. No complaints regarding this. She mentioned long history of anxiety, not previously treated, and inquired about possible pharmacological treatment. She states that she was afraid to discuss this with psych as she thought it might affect her ability to get off of IVC. Denies suicidal or homicidal ideations. Her only complaint today is that experiences some pain when she lays on her left side, this is minimal. She otherwise denies fever, chills, chest pain, shortness of breath, cough, lower extremity swelling, abdominal pain, nausea, vomiting, or diarrhea. [id number] female getting cefazolin for bacterial endocarditis. Last day of antibiotic therapy will be May 18. Patient has a PICC line. Receiving methadone 5 mg every 6 hours requesting for more pain medications. Patient is also on Toradol. No acute events in the last 24 hours. Afebrile. 05/09/2020-patient is receiving IV cefazolin for endocarditis. Last day of antibiotic therapy will be May 19. Comfortably in the bed communicating well. Requesting lorazepam for anxiety. 05/10/2020-no acute events the last 24 hours. Afebrile. Plan is to continue IV cefazolin until May 19. 05/11-patient is comfortable in the bed communicating well. Not in distress. Reason For Visit: ACUTE BACTERIAL ENDOCARDITIS, SEPTIC PULMONARY Physical Exam Vital Signs: Temp Pulse Resp BP Pulse Ox 97.8 F 66 18 117/71 99 05/11/20 07:58 05/11/20 07:58 05/11/20 07:58 05/11/20 07:58 05/11/20 07:58 Intake & Output 05/10/20 05/11/20 05/12/20 06:59 06:59 06:59 Intake Total 260 950 Balance 260 950 Weight 67 kg 67.5 kg General appearance: PRESENT: no acute distress, well-developed Head exam: PRESENT: atraumatic Eye exam: PRESENT: PERRLA Mouth exam: PRESENT: neck supple Teeth exam: PRESENT: poor dentation Neck exam: ABSENT: carotid bruit, JVD, lymphadenopathy, thyromegaly Respiratory exam: PRESENT: decreased breath sounds Cardiovascular exam: PRESENT: RRR. ABSENT: diastolic murmur, rubs, systolic murmur GI/Abdominal exam: PRESENT: normal bowel sounds, soft. ABSENT: distended, guarding, mass, organolmegaly, rebound, tenderness Rectal exam: PRESENT: deferred Extremities exam: PRESENT: full ROM. ABSENT: calf tenderness, clubbing, pedal edema Neurological exam: PRESENT: alert, awake, oriented to person, oriented to place, oriented to time, oriented to situation, CN II-XII grossly intact. ABSENT: motor sensory deficit Psychiatric exam: PRESENT: appropriate affect, normal mood. ABSENT: homicidal ideation, suicidal ideation Results Laboratory Results: 05/10/20 06:05 05/10/20 06:05 04/22/20 04/22/20 04/25/20 21:25 21:25 04:37 Creatine Kinase 49 26 L Troponin I 0.015 Impressions: Chest CT 04/23/20 00:00 IMPRESSION: 1. Multiple bilateral lung nodules some cavitary suspicious for embolic infectious process. 2. Non prominent bilateral pleural effusions larger on the right. Majority of the fluid is not loculated. Minimal loculated component possibly in the right upper chest. 3. Technically limited evaluation of the pulmonary arteries even centrally. No large pulmonary embolus. Difficult to exclude a small embolus. 4. [id number] cardiomegaly. Small pericardial effusion. Suspected borderline spleen size. Chest X-Ray 04/30/20 00:00 IMPRESSION: Stable small bibasilar effusions with mildly improved patchy bilateral opacities. PICC Line Insertion 05/07/20 00:00 IMPRESSION: SUCCESSFUL PLACEMENT OF A 5 FR DUAL LUMEN 40 CM PICC IN THE LEFT BASILIC VEIN. Assessment and Plan - Diagnosis (1) Acute bacterial endocarditis Is this a current diagnosis for this admission?: Yes Plan: - [facility] for right sided endarditis with septic emboli MSSA, 2/2 to IV drug use - she has left [place] twice at [facility] while undergoing treatment - per review of records latest blood cx have been negative - TTE 04/18/20 Severe tricuspid regurgitation, 2 masses on the tricuspid valve with associated flail leaflet that are unchanged from 820 assessment. - CT chest 04/18/20 showed interval development of a moderate right and small left pleural effusion. Multifocal cavitary and solitary nodules in both lungs again demonstrated not significantly changed from prior CT. lungs are suspicious for multifocal septic emboli -Repeat CT chest (04/23/2020) showed multiple bilateral lung nodules and sub- cavitary lesion suspicious for embolic infectious process, non-prominent bilateral pleural effusions, larger on the right. Majority of fluid is not loculated. Mild to moderate cardiomegaly with a small pericardial effusion. Suspect borderline spleen size. -Not counting the days where and he was she was outside the hospital when she leaves [place], I suspect that she has had about 2 weeks of cumulative cefazolin treatment. Per notes from [facility] she is recommended to have a total of 6 weeks of treatment for right-sided endocarditis Repeat blood cultures (04/25/20) negative at 5 days Repeat blood cultures (05/01/2020) pending. We will continue cefazolin Infectious Disease is consulted to help guide length of therapy considering the patient numerous AMA events. -She will likely need to be transferred to a tertiary center where there is cardiothoracic surgery because of the severe tricuspid regurg and vegetation. Will need repeat TTE/MARTI toward end of antibiotic course. 05/08/2020-patient is receiving cefazolin at this time has a PICC line. Last day of antibiotic therapy will be May 19. 05/09/20-patient is receiving IV cefazolin for right-sided endocarditis with septic emboli and MSSA. Patient has history of IV drug abuse. MARTI was done on 04/18/2020 found to have severe tricuspid regurgitation, tricuspid valve endocarditis. Patient is going to complete the IV antibiotic therapy on May 19. 05/09/2020-patient is receiving IV cefazolin for endocarditis. Plan is to complete the antibiotic therapy on May 19. 05/11/2020-patient is receiving IV cefazolin for endocarditis. She is going to complete the antibiotic therapy on May 19. (2) Chronic back pain Qualifiers: Back pain location: low back pain Sciatica presence: without sciatica Is this a current diagnosis for this admission?: Yes Plan: - has chronic back pain - midline tenderness lumbar L1-L2 area - according to her back pain is stable, not worsening - no focal deficit Consider MRI if back pain worsens Now being managed with methadone 5 mg every 8 hours. Also providing Lidoderm patches, as needed Toradol, Tylenol, and heating pad. 05/08/2020-patient is receiving methadone 5 mg every 8 hours, Lidoderm patches, Toradol as needed, heating pad. Plan is to continue the present management at this time. (3) Involuntary commitment Is this a current diagnosis for this admission?: Yes Plan: 05/08/2020-IVC commitment yesterday. As per psych recommendations patient is on Haldol 2.5 mg p.o. 3 times daily, Effexor 37.5 mg twice a day. (4) Tricuspid valve regurgitation due to infection Is this a current diagnosis for this admission?: Yes Plan: -Reported on TTE done at [facility] on April 18, 2020. Severe tricuspid regurgitation 2 masses on the tricuspid valve with associated flail leaflet that are unchanged from prior echo on April 13. 52 to 72%. LV is grossly normal -No signs of decompensation -EKG done on April 22 showed sinus tachycardia left posterior fascicular blo ck -Continue antibiotics, ID follow up 05/08/2020-patient is receiving cefazolin for infective endocarditis. Last dose of antibiotic therapy will be May 19. 05/09/2020-patient is receiving IV cefazolin for endocarditis. She will finish the course on May 19. 05/10/20-patient is receiving IV cefazolin for endocarditis. She will complete the antibiotic therapy in May 19. 05/11/20-patient is receiving IV cefazolin for endocarditis. (5) Opiate overdose Qualifiers: Encounter type: initial encounter Is this a current diagnosis for this admission?: Yes Plan: Patient with 2 supervisor brine/24 hrs; both times requiring Narcan. Patient has now admitted to continuing Heroin use while admitted. Nursing found gum wrappers w/o gum and w/ powdered substance in room. Per JPD; tested positive for Fentanyl and Heroin. Mental Health is consulted; now PAUL'dMelinda (6) Pleural effusion due to bacterial infection Is this a current diagnosis for this admission?: Yes Plan: -Chest x-ray done on April 22, 2020 showed multifocal infiltrate with bilateral pleural effusions. The right pleural effusion may be loculated -Patient is afebrile not tachypneic not requiring oxygen with no complaints of shortness of breath Dr. Damon consulted; serial chest x-rays are reassuring. Surgery has subsequently signed off. Greatly appreciate their evaluation and recommendations. - Plan Summary Summary: 05/01/2020 Patient is resting comfortably. She has been afebrile. White blood cell count is normal. Ongoing treatment with cefazolin. Infectious diseases following to help determine length of treatment. Blood cultures from April 25 are no growth so far. I will reviewed the ID note. There was a question stay of repeat blood cultures. If the infectious disease note does suggest additional blood cultures we will obtain them tomorrow. The patient's oxygen saturation is in the 90s on room air. The septic emboli and pleural effusion have not caused any respiratory distress. She has declined chest to at this time. She does have chronic pain but we are limiting the narcotic analgesics. She is on a trial of methadone 5 mg every 8 hours. The hope is that after the resolution of this illness she will participate with a drug treatment program. Unfortunately the patient has admitted to ongoing use of narcotics. Heroin and fentanyl were found in her room. Because of this behavior she is now under involuntary commitment. 05/02/2020 The patient is doing well. She is tolerating IV antibiotics. She is unsure of the continuity of the antibiotics but checking the MAR she has not missed any doses. She also felt that she was getting blood tests every other day and she has not had any blood work for at least 4 days. I did explain that we need to check blood work approximately once a week. Continue cefazolin and check weekly labs tomorrow. Last blood culture is no growth still. Still with murmur from her endocarditis. I reminded her that she will need another MARTI towards the end of her regimen and will be referred to cardiothoracic surgery. Psychiatry did see the patient again today. They recommend continuing the involuntary commitment. They did recommend 2.5 mg of Haldol every 6 hours if needed for agitation and I have written those orders. 05/03/2020 Patient is doing well. Continues to tolerate IV antibiotics. No acute complaints or concerns discussed today. Continue Cefazoline. Blood cultures were drawn today, results pending; we expect these to be negative as most recent cultures 04/25/2020 were negative for any growth. Continue with weekly lab work. Murmur secondary to endocarditis still prevalent. We plan to get another MARTI towards the end of her regimen. She will inevitably be referred to a cardiothoracic surgeon for further care. She was pleasant and cooperative during exam today. Refer to psychiatric note, patient remains on IVC. Continue to utilize 2.5mg of Haldol every 6 hours if needed for agitation. Patient surgical sales representative was present during exam, patient case discussed in detail. 05/04/2020 Overall patient is doing well. She has been afebrile with normal white blood cell count. She continues to do well with IV cefazolin. Her potassium is elevated today at 5.2. Patient denies drinking fluids outside of apple and pineapple juice. Suspect hyperkalemia secondary to dehydration. Encouraged increasing water intake. Will redraw labs tomorrow for comparison. If continues to be elevated will initiate IV fluids. She does have history of chronic pain but we are limiting her narcotic analgesics. Thus we are currently treating her pain with Toradol. We discussed utilizing combination therapy of NSAID and acetaminophen for control of pain; both of which medications are readily available to her as needed. She is on a trial of methadone 5 mg every 8 hours, with the goal of transitioning to outpatient treatment upon discharge. She remains on involuntary commitment. Refer to psychiatric note. Patient discusses feelings of anxiety with me and is requesting pharmacological treatment at this time. She specifically inquires about Buspar. Old records were reviewed and she has not discussed this with previous providers or on psychiatric visits. I will consult psych regarding treatment options. She denies suicidal or homicidal ideation. She has requested that her trazodone dosage be increased though she denies difficulty falling or staying sleeping. I will keep her trazodone dose as current and she can utilize melatonin as needed. 05/05/2020 Serum potassium is better. She was educated on potassium content of pineapple juice and apple juice. Reasonable pain control. Continue trazodone for sleep Involuntary commitment remains in place Endocarditis-end of treatment May 19. Unfortunately IV access was lost. With her history of IV drug use it is difficult to achieve consistent IV access for this patient. I was notified that she had no IV access. This is critical and that she requires cefazolin every 6 hours for her endocarditis. A return to the patient's room. The nurse had educated her about the need for central line. She was crying in bed. She states the last time the upper central line and it was very traumatic. She experienced a significant amount of pain. She did allow me to use the ultrasound machine to look at the internal jugular veins and attempt to visualize the subclavian veins. Her veins in fact are quite small. For the time being I have switched her to 1 g of cephalexin every 6 hours by mouth until we can regain IV access. This is less than ideal but an acceptable compromise. This may extend her end date by several days. She is willing to accept that. We will request PICC line placement as soon as possible. 05/06/2020 We will check potassium levels tomorrow. She has been drinking less pineapple juice. Good pain control however she states that she normally takes 150 mg of trazodone at bedtime. I will increase her dose. Endocarditis-she is tolerating the oral antibiotics. PICC line insertion order has been placed for tomorrow morning. As soon as she gets her PICC line we can continue IV antibiotics. Patient is grateful for the PICC line as opposed to the central line. IVC expires. I had a very trini discussion with the patient about her need for compliance and that if this infection worsens it can be fatal. I explained that she will not be able to take a shower and leave her room however I will need to restrict visitors due to her previous behaviors. 05/07/2020 PICC line was inserted this morning, converted her back to IV antibiotics. Her IV therapy end date May 19. We will get a repeat echo this week, prior to discharge. We will have her follow up with cardiology after discharge. Potassium levels have normalized at this time. She continues to drink pineapple and apple juice primarily but agrees to limit intake and will start drinking more water. IVC yesterday. Psych was consulted regarding patient's complaint of anxiety. They are agreeing to see the patient. Will implement appropriate treatment as directed. - Time Anticipated Discharge Disposition: Home, Self Care Anticipated Discharge Timeframe: within 48 hours
[2020-05-11] MEDS: TRAZODONE HCL 50 MG TABLET PO SCH (21:35)
[2020-05-11] MEDS: PHARMACY COMMUNICATION ORDER MC SCH (21:36)
[2020-05-12] MEDS: METHADONE HCL 10 MG TABLET PO SCH ×3 (05:44→21:42)
[2020-05-12] MEDS: CEFAZOLIN SODIUM 2 GM in DEXTROSE 5%-WATER 100 ML IV SCH ×4 (05:44→23:20)
[2020-05-12] MEDS: HALOPERIDOL 5 MG TABLET PO SCH ×3 (05:45→21:42)
--- NOTE | 2020-05-12 09:55 | PDOC PROGRESS REPORT ---
Subjective Progress Note for:: 05/12/20 Subjective:: 24 year old female who presented to the emergency room seeking readmission to the hospital after leaving AMA on 04/22/2020. She denies any new symptoms or changes in her current status. She left the hospital AGAINST MEDICAL ADVICE because her daughter was involved in a car accident. She continues to have intermittent moderate chest pains and also continues to have mild to moderate fatigue. She continues to deny other associated or accompanying signs and symptoms. In the emergency room she had an essentially unchanged evaluation from earlier in the day. She was subsequently admitted to the hospital for continued IV antibiotic therapy. 05/07/20 Subjective:: Patient is resting comfortably in bed. She is on the phone with her mother when I entered the room, and states that her mother is heading to the hospital to visit her. She is off IVC and has access to her cell phone and personal items. She had a PICC line placed today. No complaints regarding this. She mentioned long history of anxiety, not previously treated, and inquired about possible pharmacological treatment. She states that she was afraid to discuss this with psych as she thought it might affect her ability to get off of IVC. Denies suicidal or homicidal ideations. Her only complaint today is that experiences some pain when she lays on her left side, this is minimal. She otherwise denies fever, chills, chest pain, shortness of breath, cough, lower extremity swelling, abdominal pain, nausea, vomiting, or diarrhea. 05/[id number]-old female getting cefazolin for bacterial endocarditis. Last day of antibiotic therapy will be May 18. Patient has a PICC line. Receiving methadone 5 mg every 6 hours requesting for more pain medications. Patient is also on Toradol. No acute events in the last 24 hours. Afebrile. 05/09/2020-patient is receiving IV cefazolin for endocarditis. Last day of antibiotic therapy will be May 19. Comfortably in the bed communicating well. Requesting lorazepam for anxiety. 05/10/2020-no acute events the last 24 hours. Afebrile. Plan is to continue IV cefazolin until May 19. 05/11-patient is comfortable in the bed communicating well. Not in distress. 05/12/2020-patient is comfortable in the bed sleeping. Denies any problems. Reason For Visit: ACUTE BACTERIAL ENDOCARDITIS, SEPTIC PULMONARY Physical Exam Vital Signs: Temp Pulse Resp BP Pulse Ox 98.0 F 70 15 94/62 L 99 05/12/20 07:58 05/12/20 07:58 05/12/20 07:58 05/12/20 07:58 05/12/20 07:58 Intake & Output 05/11/20 05/12/20 05/13/20 06:59 06:59 06:59 Intake Total 950 354 Balance 950 354 Weight 67.5 kg 65.4 kg General appearance: PRESENT: no acute distress, well-developed Head exam: PRESENT: atraumatic Eye exam: PRESENT: PERRLA Mouth exam: PRESENT: moist, tongue midline Teeth exam: PRESENT: poor dentation Neck exam: ABSENT: carotid bruit, JVD, lymphadenopathy, thyromegaly Respiratory exam: PRESENT: decreased breath sounds Cardiovascular exam: PRESENT: systolic murmur GI/Abdominal exam: PRESENT: normal bowel sounds, soft. ABSENT: distended, guarding, mass, organolmegaly, rebound, tenderness Rectal exam: PRESENT: deferred Extremities exam: PRESENT: full ROM. ABSENT: calf tenderness, clubbing, pedal edema Neurological exam: PRESENT: alert, awake, oriented to person, oriented to place, oriented to time, oriented to situation, CN II-XII grossly intact. ABSENT: motor sensory deficit Psychiatric exam: PRESENT: appropriate affect, normal mood. ABSENT: homicidal ideation, suicidal ideation Results Laboratory Results: 05/10/20 06:05 05/10/20 06:05 04/22/20 04/22/20 04/25/20 21:25 21:25 04:37 Creatine Kinase 49 26 L Troponin I 0.015 Impressions: Chest CT 04/23/20 00:00 IMPRESSION: 1. Multiple bilateral lung nodules some cavitary suspicious for embolic infectious process. 2. Non prominent bilateral pleural effusions larger on the right. Majority of the fluid is not loculated. Minimal loculated component possibly in the right upper chest. 3. Technically limited evaluation of the pulmonary arteries even centrally. No large pulmonary embolus. Difficult to exclude a small embolus. 4. Cqah-yi-vdumfhel cardiomegaly. Small pericardial effusion. Suspected borderline spleen size. Chest X-Ray 04/30/20 00:00 IMPRESSION: Stable small bibasilar effusions with mildly improved patchy bilateral opacities. PICC Line Insertion 05/07/20 00:00 IMPRESSION: SUCCESSFUL PLACEMENT OF A 5 FR DUAL LUMEN 40 CM PICC IN THE LEFT BASILIC VEIN. Assessment and Plan - Diagnosis (1) Acute bacterial endocarditis Is this a current diagnosis for this admission?: Yes Plan: - admitted at [facility] 04/02/20 for right sided endarditis with septic emboli MSSA, 2/2 to IV drug use - she has left AMA twice at [facility] while undergoing treatment - per review of records latest blood cx have been negative - TTE 04/18/20 Severe tricuspid regurgitation, 2 masses on the tricuspid valve with associated flail leaflet that are unchanged from 820 assessment. - CT chest 04/18/20 showed interval development of a moderate right and small left pleural effusion. Multifocal cavitary and solitary nodules in both lungs again demonstrated not significantly changed from prior CT. lungs are suspicious for multifocal septic emboli -Repeat CT chest (04/23/2020) showed multiple bilateral lung nodules and sub- cavitary lesion suspicious for embolic infectious process, non-prominent bilateral pleural effusions, larger on the right. Majority of fluid is not loculated. Mild to moderate cardiomegaly with a small pericardial effusion. Suspect borderline spleen size. -Not counting the days where and he was she was outside the hospital when she leaves [place], I suspect that she has had about 2 weeks of cumulative cefazolin sabrina atment. Per notes from [facility] she is recommended to have a total of 6 weeks of treatment for right-sided endocarditis Repeat blood cultures (04/25/20) negative at 5 days Repeat blood cultures (05/01/2020) pending. We will continue cefazolin Infectious Disease is consulted to help guide length of therapy considering the patient numerous AMA events. -She will likely need to be transferred to a tertiary center where there is cardiothoracic surgery because of the severe tricuspid regurg and vegetation. Will need repeat TTE/MARTI toward end of antibiotic course. 05/08/2020-patient is receiving cefazolin at this time has a PICC line. Last day of antibiotic therapy will be May 19. 05/09/20-patient is receiving IV cefazolin for right-sided endocarditis with septic emboli and MSSA. Patient has history of IV drug abuse. MARTI was done on 04/18/2020 found to have severe tricuspid regurgitation, tricuspid valve endocarditis. Patient is going to complete the IV antibiotic therapy on May 19. 05/09/2020-patient is receiving IV cefazolin for endocarditis. Plan is to complete the antibiotic therapy on May 19. 05/11/2020-patient is receiving IV cefazolin for endocarditis. She is going to complete the antibiotic therapy on May 19. 05/12/2020-patient is receiving iv cefazolin for endocarditis. Plan is to continue the present management at this time. (2) Chronic back pain Qualifiers: Back pain location: low back pain Sciatica presence: without sciatica Is this a current diagnosis for this admission?: Yes Plan: - has chronic back pain - midline tenderness lumbar L1-L2 area - according to her back pain is stable, not worsening - no focal deficit Consider MRI if back pain worsens Now being managed with methadone 5 mg every 8 hours. Also providing Lidoderm patches, as needed Toradol, Tylenol, and heating pad. 05/08/2020-patient is receiving methadone 5 mg every 8 hours, Lidoderm patches, Toradol as needed, heating pad. Plan is to continue the present management at this time. (3) Involuntary commitment Is this a current diagnosis for this admission?: Yes Plan: 05/08/2020-IVC commitment yesterday. As per psych recommendations patient is on Haldol 2.5 mg p.o. 3 times daily, Effexor 37.5 mg twice a day. (4) Tricuspid valve regurgitation due to infection Is this a current diagnosis for this admission?: Yes Plan: -Reported on TTE done at [facility] on April 18, 2020. Severe tricuspid regurgitation 2 masses on the tricuspid valve with associated flail leaflet that are unchanged from prior echo on April 13. 52 to 72%. LV is grossly normal -No signs of decompensation -EKG done on April 22 showed sinus tachycardia left posterior fascicular block -Continue antibiotics, ID follow up 05/08/2020-patient is receiving cefazolin for infective endocarditis. Last dose of antibiotic therapy will be May 19. 05/09/2020-patient is receiving IV cefazolin for endocarditis. She will finish the course on May 19. 05/10/20-patient is receiving IV cefazolin for endocarditis. She will complete the antibiotic therapy in May 19. 05/11/20-patient is receiving IV cefazolin for endocarditis. 05/12/2020-last day of antibiotic therapy will be May 19. (5) Opiate overdose Qualifiers: Encounter type: initial encounter Is this a current diagnosis for this admission?: Yes Plan: Patient with 2 take away attendant/24 hrs; both times requiring Narcan. Patient has now admitted to continuing Heroin use while admitted. Nursing found gum wrappers w/o gum and w/ powdered substance in room. Per JPD; tested positive for Fentanyl and Heroin. Mental Health is consulted; now IVC'd. (6) Pleural effusion due to bacterial infection Is this a current diagnosis for this admission?: Yes Plan: -Chest x-ray done on April 22, 2020 showed multifocal infiltrate with bilateral pleural effusions. The right pleural effusion may be loculated -Patient is afebrile not tachypneic not requiring oxygen with no complaints of shortness of breath Dr. Damon consulted; serial chest x-rays are reassuring. Surgery has subsequently signed off. Greatly appreciate their evaluation and recommendations. - Plan Summary Summary: 05/01/2020 Patient is resting comfortably. She has been afebrile. White blood cell count is normal. Ongoing treatment with cefazolin. Infectious diseases following to help determine length of treatment. Blood cultures from April 25 are no growth so far. I will reviewed the ID note. There was a question stay of repeat blood cultures. If the infectious disease note does suggest additional blood cultures we will obtain them tomorrow. The patient's oxygen saturation is in the 90s on room air. The septic emboli and pleural effusion have not caused any respiratory distress. She has declined chest to at this time. She does have chronic pain but we are limiting the narcotic analgesics. She is on a trial of methadone 5 mg every 8 hours. The hope is that after the resolution of this illness she will participate with a drug treatment program. Unfortunately the patient has admitted to ongoing use of narcotics. Heroin and fentanyl were found in her room. Because of this behavior she is now under involuntary commitment. 05/02/2020 The patient is doing well. She is tolerating IV antibiotics. She is unsure of the continuity of the antibiotics but checking the MAR she has not missed any doses. She also felt that she was getting blood tests every other day and she has not had any blood work for at least 4 days. I did explain that we need to c heck blood work approximately once a week. Continue cefazolin and check weekly labs tomorrow. Last blood culture is no growth still. Still with murmur from her endocarditis. I reminded her that she will need another MARTI towards the end of her regimen and will be referred to cardiothoracic surgery. Psychiatry did see the patient again today. They recommend continuing the involuntary commitment. They did recommend 2.5 mg of Haldol every 6 hours if needed for agitation and I have written those orders. 05/03/2020 Patient is doing well. Continues to tolerate IV antibiotics. No acute complaints or concerns discussed today. Continue Cefazoline. Blood cultures were drawn today, results pending; we expect these to be negative as most recent cultures 04/25/2020 were negative for any growth. Continue with weekly lab work. Murmur secondary to endocarditis still prevalent. We plan to get another MARTI towards the end of her regimen. She will inevitably be referred to a cardiothoracic surgeon for further care. She was pleasant and cooperative during exam today. Refer to psychiatric note, patient remains on IVC. Continue to utilize 2.5mg of Haldol every 6 hours if needed for agitation. Patient enrollment eligibility representative was present during exam, patient case discussed in detail. 05/04/2020 Overall patient is doing well. She has been afebrile with normal white blood cell count. She continues to do well with IV cefazolin. Her potassium is elevated today at 5.2. Patient denies drinking fluids outside of apple and pineapple juice. Suspect hyperkalemia secondary to dehydration. Encouraged increasing water intake. Will redraw labs tomorrow for comparison. If continues to be elevated will initiate IV fluids. She does have history of chronic pain but we are limiting her narcotic analgesics. Thus we are currently treating her pain with Toradol. We discussed utilizing combination therapy of NSAID and acetaminophen for control of pain; both of which medications are readily available to her as needed. She is on a trial of methadone 5 mg every 8 hours, with the goal of transitioning to outpatient treatment upon discharge. She remains on involuntary commitment. Refer to psychiatric note. Patient discusses feelings of anxiety with me and is requesting pharmacological treatment at this time. She specifically inquires about Buspar. Old records were reviewed and she has not discussed this with previous providers or on psychiatric visits. I will consult psych regarding treatment options. She denies suicidal or homicidal ideation. She has requested that her trazodone dosage be increased though she denies difficulty falling or staying sleeping. I will keep her trazodone dose as current and she can utilize melatonin as needed. 05/05/2020 Serum potassium is better. She was educated on potassium content of pineapple juice and apple juice. Reasonable pain control. Continue trazodone for sleep Involuntary commitment remains in place Endocarditis-end of treatment May 19. Unfortunately IV access was lost. With her history of IV drug use it is difficult to achieve consistent IV access for this patient. I was notified that she had no IV access. This is critical and that she requires cefazolin every 6 hours for her endocarditis. A return to the patient's room. The nurse had educated her about the need for central line. She was crying in bed. She states the last time the upper central line and it was very traumatic. She experienced a significant amount of pain. She did allow me to use the ultrasound machine to look at the internal jugular veins and attempt to visualize the subclavian veins. Her veins in fact are quite small. For the time being I have switched her to 1 g of cephalexin every 6 hours by mouth until we can regain IV access. This is less than ideal but an acceptable compromise. This may extend her end date by several days. She is willing to accept that. We will request PICC line placement as soon as possible. 05/06/2020 We will check potassium levels tomorrow. She has been drinking less pineapple juice. Good pain control however she states that she normally takes 150 mg of trazodone at bedtime. I will increase her dose. Endocarditis-she is tolerating the oral antibiotics. PICC line insertion order has been placed for tomorrow morning. As soon as she gets her PICC line we can continue IV antibiotics. Patient is grateful for the PICC line as opposed to the central line. IVC expires. I had a very trini discussion with the patient about her need for compliance and that if this infection worsens it can be fatal. I explained that she will not be able to take a shower and leave her room however I will need to restrict visitors due to her previous behaviors. 05/07/2020 PICC line was inserted this morning, converted her back to IV antibiotics. Her IV therapy end date May 19. We will get a repeat echo this week, prior to discharge. We will have her follow up with cardiology after discharge. Potassium levels have normalized at this time. She continues to drink pineapple and apple juice primarily but agrees to limit intake and will start drinking more water. IVC yesterday. Psych was consulted regarding patient's complaint of anxiety. They are agreeing to see the patient. Will implement appropriate treatment as directed. - Time Anticipated Discharge Disposition: Home, Self Care Anticipated Discharge Timeframe: may 19
[2020-05-12] MEDS: DOCUSATE SODIUM 100 MG CAPSULE PO SCH ×2 (10:47→17:14)
[2020-05-12] MEDS: LIDOCAINE 5% (700 MG) TRANSDERMAL ADH..PATCH TP SCH (10:47)
[2020-05-12] MEDS: NORMAL SALINE 10 ML SDV (SCHEDULED) IV SCH ×2 (11:08→21:43)
[2020-05-12] MEDS: VENLAFAXINE HCL 37.5 MG CAP.SR.24H PO SCH ×2 (11:08→21:41)
[2020-05-12] MEDS: FAMOTIDINE 20 MG TABLET PO SCH ×2 (11:11→21:41)
[2020-05-12] MEDS: KETOROLAC TROMETHAMINE INJ/PF 30 MG/1 ML SDV IV SCH ×3 (12:10→23:20)
[2020-05-12] MEDS: NORMAL SALINE 10 ML SDV (AFTER EACH USE) IV PRN (13:01)
[2020-05-12] MEDS: TRAZODONE HCL 50 MG TABLET PO SCH (21:41)
[2020-05-12] MEDS: PHARMACY COMMUNICATION ORDER MC SCH (21:43)
[2020-05-13] MEDS: KETOROLAC TROMETHAMINE INJ/PF 30 MG/1 ML SDV IV SCH ×4 (05:27→23:23)
[2020-05-13] MEDS: CEFAZOLIN SODIUM 2 GM in DEXTROSE 5%-WATER 100 ML IV SCH ×4 (05:27→23:22)
[2020-05-13] MEDS: METHADONE HCL 10 MG TABLET PO SCH ×4 (05:27→23:23)
[2020-05-13] MEDS: HALOPERIDOL 5 MG TABLET PO SCH ×3 (05:28→21:04)
[2020-05-13 07:15] LABS: ALBUMIN 3.4 g/dL (3.5-5.0); ALKALINE PHOSPHATASE 51 U/L (38-126); ANION GAP 9 (5-19); ASPARTATE AMINO TRANSFERASE 16 U/L (14-36); BILIRUBIN,DIRECT 0.2 mg/dL (0.0-0.4); BILIRUBIN,TOTAL 0.2 mg/dL (0.2-1.3); BLOOD UREA NITROGEN 22 mg/dL (7-20); CALCIUM 8.9 mg/dL (8.4-10.2); CARBON DIOXIDE 26 mmol/L (22-30); CHLORIDE 104 mmol/L (98-107); GLUCOSE 84 mg/dL (75-110); POTASSIUM 4.8 mmol/L (3.6-5.0); TOTAL PROTEIN 7.4 g/dL (6.3-8.2)
[2020-05-13 07:21] LABS: ABSOLUTE EOSINOPHILS # (AUTO) 0.4 10^3/uL (0.0-0.6); ABSOLUTE LYMPHOCYTES (AUTO) 2.6 10^3/uL (0.5-4.7); ABSOLUTE MONOCYTES (AUTO) 0.5 10^3/uL (0.1-1.4); ABSOLUTE NEUT (AUTO) 2.9 10^3/uL (1.7-8.2); BASOPHILS % (AUTO) 0.5 % (0-2); HEMATOCRIT 32.8 % (36.0-47.0); HEMOGLOBIN 10.9 g/dL (12.0-15.5); LYMPHOCYTES % (AUTO) 40.5 % (13-45); MEAN CORPUSCULAR HGB CONC 33.2 g/dL (32.0-36.0); MEAN CORPUSCULAR VOLUME 87 fl (80-97); MONOCYTES % (AUTO) 7.8 % (3-13); PLATELET COUNT 217 10^3/uL (150-450); RED BLOOD COUNT 3.76 10^6/uL (3.72-5.28); RED CELL DISTRIBUTION WIDTH 17.3 % (11.5-14.0); SEGMENTED NEUTROPHILS % (AUTO) 45.2 % (42-78); TOTAL CELLS COUNTED % (AUTO) 100 %; WHITE BLOOD COUNT 6.4 10^3/uL (4.0-10.5)
--- NOTE | 2020-05-13 09:59 | PDOC PROGRESS REPORT ---
Subjective Progress Note for:: 05/13/20 Subjective:: 24 year old female who presented to the emergency room seeking readmission to the hospital after leaving AMA on 04/22/2020. She denies any new symptoms or changes in her current status. She left the hospital AGAINST MEDICAL ADVICE because her daughter was involved in a car accident. She continues to have intermittent moderate chest pains and also continues to have mild to moderate fatigue. She continues to deny other associated or accompanying signs and symptoms. In the emergency room she had an essentially unchanged evaluation from earlier in the day. She was subsequently admitted to the hospital for continued IV antibiotic therapy. 05/07/20 Subjective:: Patient is resting comfortably in bed. She is on the phone with her mother when I entered the room, and states that her mother is heading to the hospital to visit her. She is off IVC and has access to her cell phone and personal items. She had a PICC line placed today. No complaints regarding this. She mentioned long history of anxiety, not previously treated, and inquired about possible pharmacological treatment. She states that she was afraid to discuss this with psych as she thought it might affect her ability to get off of IVC. Denies suicidal or homicidal ideations. Her only complaint today is that experiences some pain when she lays on her left side, this is minimal. She otherwise denies fever, chills, chest pain, shortness of breath, cough, lower extremity swelling, abdominal pain, nausea, vomiting, or diarrhea. [id number]-old female getting cefazolin for bacterial endocarditis. Last day of antibiotic therapy will be May 18. Patient has a PICC line. Receiving methadone 5 mg every 6 hours requesting for more pain medications. Patient is also on Toradol. No acute events in the last 24 hours. Afebrile. 05/09/2020-patient is receiving IV cefazolin for endocarditis. Last day of antibiotic therapy will be May 19. Comfortably in the bed communicating well. Requesting lorazepam for anxiety. 05/10/2020-no acute events the last 24 hours. Afebrile. Plan is to continue IV cefazolin until May 19. 05/11-patient is comfortable in the bed communicating well. Not in distress. 05/12/2020-patient is comfortable in the bed sleeping. Denies any problems. 05/13/20-no acute events in the last 24 hours. Afebrile. Receiving cefazolin for endocarditis. Reason For Visit: ACUTE BACTERIAL ENDOCARDITIS, SEPTIC PULMONARY Physical Exam Vital Signs: Temp Pulse Resp BP Pulse Ox 97.9 F 67 14 111/73 98 05/13/20 08:15 05/13/20 08:15 05/13/20 08:15 05/13/20 08:15 05/13/20 08:15 Intake & Output 05/12/20 05/13/20 05/14/20 06:59 06:59 06:59 Intake Total 354 1180 Balance 354 1180 Weight 65.4 kg 67.5 kg General appearance: PRESENT: no acute distress, well-developed Head exam: PRESENT: atraumatic Eye exam: PRESENT: PERRLA Neck exam: ABSENT: carotid bruit, JVD, lymphadenopathy, thyromegaly Respiratory exam: PRESENT: clear to auscultation dustin, decreased breath sounds. ABSENT: rales, rhonchi, wheezes Cardiovascular exam: PRESENT: systolic murmur GI/Abdominal exam: PRESENT: normal bowel sounds, soft. ABSENT: distended, guarding, mass, organolmegaly, rebound, tenderness Rectal exam: PRESENT: deferred Extremities exam: PRESENT: full ROM. ABSENT: calf tenderness, clubbing, pedal edema Neurological exam: PRESENT: alert, awake, oriented to person, oriented to place, oriented to time, oriented to situation, CN II-XII grossly intact. ABSENT: motor sensory deficit Psychiatric exam: PRESENT: appropriate affect, normal mood. ABSENT: homicidal ideation, suicidal ideation Results Laboratory Results: 05/13/20 06:30 05/13/20 06:30 05/13/20 05/13/20 06:30 06:30 WBC 6.4 RBC 3.76 Hgb 10.9 L Hct 32.8 L MCV 87 MCH 29.0 MCHC 33.2 RDW 17.3 H Plt Count 217 Seg Neutrophils % 45.2 Sodium 138.8 Potassium 4.8 Chloride 104 Carbon Dioxide 26 Anion Gap 9 BUN 22 H Creatinine 0.75 Est GFR ( Amer) > 60 Glucose 84 Calcium 8.9 Magnesium 2.0 Total Bilirubin 0.2 AST 16 Alkaline Phosphatase 51 Total Protein 7.4 Albumin 3.4 L 04/22/20 04/22/20 04/25/20 21:25 21:25 04:37 Creatine Kinase 49 26 L Troponin I 0.015 Impressions: Chest CT 04/23/20 00:00 IMPRESSION: 1. Multiple bilateral lung nodules some cavitary suspicious for embolic infectious process. 2. Non prominent bilateral pleural effusions larger on the right. Majority of the fluid is not loculated. Minimal loculated component possibly in the right upper chest. 3. Technically limited evaluation of the pulmonary arteries even centrally. No large pulmonary embolus. Difficult to exclude a small embolus. 4. Bfie-zl-oadtdneo cardiomegaly. Small pericardial effusion. Suspected borderline spleen size. Chest X-Ray 04/30/20 00:00 IMPRESSION: Stable small bibasilar effusions with mildly improved patchy bilateral opacities. PICC Line Insertion 05/07/20 00:00 IMPRESSION: SUCCESSFUL PLACEMENT OF A 5 FR DUAL LUMEN 40 CM PICC IN THE LEFT BASILIC VEIN. Assessment and Plan - Diagnosis (1) Acute bacterial endocarditis Is this a current diagnosis for this admission?: Yes Plan: - admitted at [facility] 04/02/20 for right sided endarditis with septic emboli MSSA, 09/18 to IV drug use - she has left [facility] twice at [facility] while undergoing treatment - per review of records latest blood cx have been negative - TTE 04/18/20 Severe tricuspid regurgitation, 2 masses on the tricuspid valve with associated flail leaflet that are unchanged from 820 assessment. - CT chest 04/18/20 showed interval development of a moderate right and small left pleural effusion. Multifocal cavitary and solitary nodules in both lungs again demonstrated not significantly changed from prior CT. lungs are suspicious for multifocal septic emboli -Repeat CT chest (04/23/2020) showed multiple bilateral lung nodules and sub- cavitary lesion suspicious for embolic infectious process, non-prominent bilateral pleural effusions, larger on the right. Majority of fluid is not loculated. Mild to moderate cardiomegaly with a small pericardial effusion. Suspect borderline spleen size. -Not counting the days where and he was she was outside the hospital when she leaves [facility], I suspect that she has had about 2 weeks of cumulative cefazolin treatment. Per notes from [facility] she is recommended to have a total of 6 weeks of treatment for right-sided endocarditis Repeat blood cultures (04/25/20) negative at 5 days Repeat blood cultures (05/01/2020) pending. We will continue cefazolin Infectious Disease is consulted to help guide length of therapy considering the patient numerous AMA events. -She will likely need to be transferred to a tertiary center where there is cardiothoracic surgery because of the severe tricuspid regurg and vegetation. Will need repeat TTE/MARTI toward end of antibiotic course. 05/08/2020-patient is receiving cefazolin at this time has a PICC line. Last day of antibiotic therapy will be May 19. 05/09/20-patient is receiving IV cefazolin for right-sided endocarditis with septic emboli and MSSA. Patient has history of IV drug abuse. MARTI was done on 04/18/2020 found to have severe tricuspid regurgitation, tricuspid valve endocarditis. Patient is going to complete the IV antibiotic therapy on May 19. 05/09/2020-patient is receiving IV cefazolin for endocarditis. Plan is to complete the antibiotic therapy on May 19. 05/11/2020-patient is receiving IV cefazolin for endocarditis. She is going to complete the antibiotic therapy on May 19. 05/12/2020-patient is receiving iv cefazolin for endocarditis. Plan is to continue the present management at this time. 05/13/2020-patient is on cefazolin for endocarditis. She will complete antibiotic therapy on May 19. (2) Chronic back pain Qualifiers: Back pain location: low back pain Sciatica presence: without sciatica Is this a current diagnosis for this admission?: Yes Plan: - has chronic back pain - midline tenderness lumbar L1-L2 area - according to her back pain is stable, not worsening - no focal deficit Consider MRI if back pain worsens Now being managed with methadone 5 mg every 8 hours. Also providing Lidoderm patches, as needed Toradol, Tylenol, and heating pad. 05/08/2020-patient is receiving methadone 5 mg every 8 hours, Lidoderm patches, Toradol as needed, heating pad. Plan is to continue the present management at this time. (3) Involuntary commitment Is this a current diagnosis for this admission?: Yes Plan: 05/08/2020-IVC commitment yesterday. As per psych recommendations patient is on Haldol 2.5 mg p.o. 3 times daily, Effexor 37.5 mg twice a day. (4) Tricuspid valve regurgitation due to infection Is this a current diagnosis for this admission?: Yes Plan: -Reported on TTE done at [facility] on April 18, 2020. Severe tricuspid regurgitation 2 masses on the tricuspid valve with associated flail leaflet that are unchanged from prior echo on April 13. 52 to 72%. LV is grossly normal -No signs of decompensation -EKG done on April 22 showed sinus tachycardia left posterior fascicular block -Continue antibiotics, ID follow up 05/08/2020-patient is receiving cefazolin for infective endocarditis. Last dose of antibiotic therapy will be May 19. 05/09/2020-patient is receiving IV cefazolin for endocarditis. She will finish the course on May 19. 05/10/20-patient is receiving IV cefazolin for endocarditis. She will complete the antibiotic therapy in May 19. 05/11/20-patient is receiving IV cefazolin for endocarditis. 05/12/2020-last day of antibiotic therapy will be May 19. 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 Patient has now admitted to continuing Heroin use while admitted. Nursing found gum wrappers w/o gum and w/ powdered substance in room. Per JPD; tested positive for Fentanyl and Heroin. Mental Health is consulted; now IVC'd. (6) Pleural effusion due to bacterial infection Is this a current diagnosis for this admission?: Yes Plan: -Chest x-ray done on April 22, 2020 showed multifocal infiltrate with bilateral pleural effusions. The right pleural effusion may be loculated -Patient is afebrile not tachypneic not requiring oxygen with no complaints of shortness of breath Dr. Damon consulted; serial chest x-rays are reassuring. Surgery has subsequently signed off. Greatly appreciate their evaluation and recommendations. - Plan Summary Summary: 05/01/2020 Patient is resting comfortably. She has been afebrile. White blood cell count is normal. Ongoing treatment with cefazolin. Infectious diseases following to help determine length of treatment. Blood cultures from April 25 are no growth so far. I will reviewed the ID note. There was a question stay of repeat blood cultures. If the infectious disease note does suggest additional blood cultures we will obtain them tomorrow. The patient's oxygen saturation is in the 90s on room air. The septic emboli and pleural effusion have not caused any respiratory distress. She has declined chest to at this time. She does have chronic pain but we are limiting the narcotic analgesics. She is on a trial of methadone 5 mg every 8 hours. The hope is that after the resolution of this illness she will participate with a drug treatment program. Unfortunately the patient has admitted to ongoing use of narcotics. Heroin and fentanyl were found in her room. Because of this behavior she is now under involuntary commitment. 05/02/2020 The patient is doing well. She is tolerating IV antibiotics. She is unsure of the continuity of the antibiotics but checking the MAR she has not missed any doses. She also felt that she was getting blood tests every other day and she has not had any blood work for at least 4 days. I did explain that we need to check blood work approximately once a week. Continue cefazolin and check weekly labs tomorrow. Last blood culture is no growth still. Still with murmur from her endocarditis. I reminded her that she will need another MARTI towards the end of her regimen and will be referred to cardiothoracic surgery. Psychiatry did see the patient again today. They recommend continuing the involuntary commitment. They did recommend 2.5 mg of Haldol every 6 hours if needed for agitation and I have written those orders. 05/03/2020 Patient is doing well. Continues to tolerate IV antibiotics. No acute complaints or concerns discussed today. Continue Cefazoline. Blood cultures were drawn today, results pending; we expect these to be negative as most recent cultures 04/25/2020 were negative for any growth. Continue with weekly lab work. Murmur secondary to endocarditis still prevalent. We plan to get another MARTI towards the end of her regimen. She will inevitably be referred to a cardiothoracic surgeon for further care. She was pleasant and cooperative during exam today. Refer to psychiatric note, patient remains on IVC. Continue to utilize 2.5mg of Haldol every 6 hours if needed for agitation. Patient pharmaceutical specialty representative was present during exam, patient case discussed in detail. 05/04/2020 Overall patient is doing well. She has been afebrile with normal white blood cell count. She continues to do well with IV cefazolin. Her potassium is elevated today at 5.2. Patient denies drinking fluids outside of apple and pineapple juice. Suspect hyperkalemia secondary to dehydration. Encouraged increasing water intake. Will redraw labs tomorrow for comparison. If continues to be elevated will initiate IV fluids. She does have history of chronic pain but we are limiting her narcotic analgesics. Thus we are currently treating her pain with Toradol. We discussed utilizing combination therapy of NSAID and acetaminophen for control of pain; both of which medications are readily available to her as needed. She is on a trial of methadone 5 mg every 8 hours, with the goal of transitioning to outpatient treatment upon discharge. She remains on involuntary commitment. Refer to psychiatric note. Patient discusses feelings of anxiety with me and is requesting pharmacological treatment at this time. She specifically inquires about Buspar. Old records were reviewed and she has not discussed this with previous providers or on psychiatric visits. I will consult psych regarding treatment options. She denies suicidal or homicidal ideation. She has requested that her trazodone dosage be increased though she denies difficulty falling or staying sleeping. I will keep her trazodone dose as current and she can utilize melatonin as needed. 05/05/2020 Serum potassium is better. She was educated on potassium content of pineapple juice and apple juice. Reasonable pain control. Continue trazodone for sleep Involuntary commitment remains in place Endocarditis-end of treatment May 19. Unfortunately IV access was lost. With her history of IV drug use it is difficult to achieve consistent IV access for this patient. I was notified that she had no IV access. This is critical and that she requires cefazolin every 6 hours for her endocarditis. A return to the patient's room. The nurse had educated her about the need for central line. She was crying in bed. She states the last time the upper central line and it was very traumatic. She experienced a significant amount of pain. She did allow me to use the ultrasound machine to look at the internal jugular veins and attempt to visualize the subclavian veins. Her veins in fact are quite small. For the time being I have switched her to 1 g of cephalexin every 6 hours by michell until we can regain IV access. This is less than ideal but an acceptable compromise. This may extend her end date by several days. She is willing to accept that. We will request PICC line placement as soon as possible. 05/06/2020 We will check potassium levels tomorrow. She has been drinking less pineapple juice. Good pain control however she states that she normally takes 150 mg of trazodone at bedtime. I will increase her dose. Endocarditis-she is tolerating the oral antibiotics. PICC line insertion order has been placed for tomorrow morning. As soon as she gets her PICC line we can continue IV antibiotics. Patient is grateful for the PICC line as opposed to the central line. IVC expires. I had a very trini discussion with the patient about her need for compliance and that if this infection worsens it can be fatal. I explained that she will not be able to take a shower and leave her room however I will need to restrict visitors due to her previous behaviors. 05/07/2020 PICC line was inserted this morning, converted her back to IV antibiotics. Her IV therapy end date May 19. We will get a repeat echo this week, prior to discharge. We will have her follow up with cardiology after discharge. Potassium levels have normalized at this time. She continues to drink pineapple and apple juice primarily but agrees to limit intake and will start drinking more water. IVC yesterday. Psych was consulted regarding patient's complaint of anxiety. They are agreeing to see the patient. Will implement appropriate treatment as directed. - Time Anticipated Discharge Disposition: Home, Self Care Anticipated Discharge Timeframe: may 19
[2020-05-13] MEDS: VENLAFAXINE HCL 37.5 MG CAP.SR.24H PO SCH ×2 (11:49→21:05)
[2020-05-13] MEDS: NORMAL SALINE 10 ML SDV (SCHEDULED) IV SCH ×2 (11:53→21:05)
[2020-05-13] MEDS: DOCUSATE SODIUM 100 MG CAPSULE PO SCH ×2 (11:55→17:40)
[2020-05-13] MEDS: FAMOTIDINE 20 MG TABLET PO SCH ×2 (11:56→21:04)
[2020-05-13] MEDS: LIDOCAINE 5% (700 MG) TRANSDERMAL ADH..PATCH TP SCH (11:56)
--- NOTE | 2020-05-13 15:11 | RADIOLOGY REPORT (SQ) ---
EXAM DESCRIPTION: CHEST 2 VIEWS IMAGES COMPLETED DATE/TIME: 05/13/2020 2:22 pm REASON FOR STUDY: plural effusion COMPARISON: 04/30/2020. EXAM PARAMETERS: NUMBER OF VIEWS: two views TECHNIQUE: Digital Frontal and Lateral radiographic views of the chest acquired. RADIATION DOSE: NA LIMITATIONS: none FINDINGS: LUNGS AND PLEURA: Faint densities in the mid right lung and left base, unchanged. Possibl e developing faint densities in the left upper lobe. Right pleural effusion unchanged. MEDIASTINUM AND HILAR STRUCTURES: No masses or contour abnormalities. HEART AND VASCULAR STRUCTURES: Heart normal size. No evidence for failure. BONES: No acute findings. HARDWARE: PICC line. OTHER: No other significant finding. IMPRESSION: POSSIBLE DEVELOPING FAINT DENSITIES IN THE LEFT UPPER LOBE. OTHERWISE NO CHANGE. TECHNICAL DOCUMENTATION: JOB ID: [id number] 2010 [employer]- All Rights Reserved Reading location - IP/workstation name: [email or web address]
[2020-05-13] MEDS: TRAZODONE HCL 50 MG TABLET PO SCH (21:04)
[2020-05-13] MEDS: PHARMACY COMMUNICATION ORDER MC SCH (21:06)
[2020-05-14] MEDS: METHADONE HCL 10 MG TABLET PO SCH ×3 (06:11→17:56)
[2020-05-14] MEDS: CEFAZOLIN SODIUM 2 GM in DEXTROSE 5%-WATER 100 ML IV SCH ×3 (06:11→17:55)
[2020-05-14] MEDS: HALOPERIDOL 5 MG TABLET PO SCH ×3 (06:12→21:40)
[2020-05-14] MEDS: KETOROLAC TROMETHAMINE INJ/PF 30 MG/1 ML SDV IV SCH ×3 (06:13→17:57)
[2020-05-14] MEDS: FAMOTIDINE 20 MG TABLET PO SCH ×2 (09:34→21:40)
[2020-05-14] MEDS: DOCUSATE SODIUM 100 MG CAPSULE PO SCH ×2 (09:34→17:56)
[2020-05-14] MEDS: VENLAFAXINE HCL 37.5 MG CAP.SR.24H PO SCH ×2 (09:34→21:41)
[2020-05-14] MEDS: LIDOCAINE 5% (700 MG) TRANSDERMAL ADH..PATCH TP SCH (09:35)
--- NOTE | 2020-05-14 16:15 | PDOC PROGRESS REPORT ---
Subjective Subjective:: Per previous physician: "24 year old female who presented to the emergency room seeking readmission to the hospital after leaving [facility] on 04/22/2020. She denies any new symptoms or changes in her current status. She left the hospital AGAINST MEDICAL ADVICE because her daughter was involved in a car accident. She continues to have intermittent moderate chest pains and also continues to have mild to moderate fatigue. She continues to deny other associated or accompanying signs and symptoms. In the emergency room she had an essentially unchanged evaluation from earlier in the day. She was subsequently admitted to the hospital for continued IV antibiotic therapy. 05/07/20 Patient is resting comfortably in bed. She is on the phone with her mother when I entered the room, and states that her mother is heading to the hospital to visit her. She is off IVC and has access to her cell phone and personal items. She had a PICC line placed today. No complaints regarding this. She mentioned long history of anxiety, not previously treated, and inquired about possible pharmacological treatment. She states that she was afraid to discuss this with psych as she thought it might affect her ability to get off of IVC. Denies suicidal or homicidal ideations. Her only complaint today is that experiences some pain when she lays on her left side, this is minimal. She otherwise denies fever, chills, chest pain, shortness of breath, cough, lower extremity swelling, abdominal pain, nausea, vomiting, or diarrhea. 05/08/[id number] female getting cefazolin for bacterial endocarditis. Last day of antibiotic therapy will be May 18. Patient has a PICC line. Receiving methadone 5 mg every 6 hours requesting for more pain medications. Patient is also on Toradol. No acute events in the last 24 hours. Afebrile. 05/09/2020-patient is receiving IV cefazolin for endocarditis. Last day of antibiotic therapy will be May 19. Comfortably in the bed communicating well. Requesting lorazepam for anxiety. 05/10/2020-no acute events the last 24 hours. Afebrile. Plan is to continue IV cefazolin until May 19. 05/11-patient is comfortable in the bed communicating well. Not in distress. 05/12/2020-patient is comfortable in the bed sleeping. Denies any problems. 05/13/20-no acute events in the last 24 hours. Afebrile. Receiving cefazolin for endocarditis." 05/14/2020 No significant changes since yesterday. Patient will continue on cefazolin until 05/19. Blood cultures negative on 04/25 and 05/03. Patient requesting additional narcotics but she appears quite comfortable and is smiling frequently during our conversation. Does not appear to be in acute pain. Reason For Visit: ACUTE BACTERIAL ENDOCARDITIS, SEPTIC PULMONARY Physical Exam Vital Signs: Temp Pulse Resp BP Pulse Ox 97.4 F 66 16 126/87 H 99 05/14/20 12:15 05/14/20 12:15 05/14/20 12:15 05/14/20 12:15 05/14/20 12:15 Intake & Output 05/13/20 05/14/20 05/15/20 06:59 06:59 06:59 Intake Total 1180 1545 390 Balance 1180 1545 390 Weight 67.5 kg 69.5 kg 69.5 kg General appearance: PRESENT: no acute distress, well-developed, well-nourished Head exam: PRESENT: atraumatic, normocephalic Eye exam: PRESENT: conjunctiva pink. ABSENT: scleral icterus Ear exam: PRESENT: normal external ear exam Mouth exam: PRESENT: moist Neck exam: ABSENT: carotid bruit, JVD, lymphadenopathy, thyromegaly Respiratory exam: PRESENT: clear to auscultation dustin. ABSENT: rales, rhonchi, wheezes Cardiovascular exam: PRESENT: RRR. ABSENT: diastolic murmur, rubs, systolic murmur Pulses: PRESENT: normal dorsalis pedis pul Vascular exam: PRESENT: normal capillary refill GI/Abdominal exam: PRESENT: normal bowel sounds, soft. ABSENT: distended, guarding, mass, organolmegaly, rebound, tenderness Rectal exam: PRESENT: deferred Extremities exam: ABSENT: pedal edema Neurological exam: PRESENT: alert, awake, oriented to person, oriented to place, oriented to time, oriented to situation Psychiatric exam: PRESENT: appropriate affect, normal mood Skin exam: PRESENT: dry, intact, warm Results Laboratory Results: 05/13/20 06:30 05/13/20 06:30 04/22/20 04/22/20 04/25/20 21:25 21:25 04:37 Creatine Kinase 49 26 L Troponin I 0.015 Impressions: Chest CT 04/23/20 00:00 IMPRESSION: 1. Multiple bilateral lung nodules some cavitary suspicious for embolic infectious process. 2. Non prominent bilateral pleural effusions larger on the right. Majority of the fluid is not loculated. Minimal loculated component possibly in the right upper chest. 3. Technically limited evaluation of the pulmonary arteries even centrally. No large pulmonary embolus. Difficult to exclude a small embolus. 4. Rlcy-kr-[id number] cardiomegaly. Small pericardial effusion. Suspected borderline spleen size. PICC Line Insertion 05/07/20 00:00 IMPRESSION: SUCCESSFUL PLACEMENT OF A 5 FR DUAL LUMEN 40 CM PICC IN THE LEFT BASILIC VEIN. Chest X-Ray 05/13/20 00:00 IMPRESSION: POSSIBLE DEVELOPING FAINT DENSITIES IN THE LEFT UPPER LOBE. OTHERWISE NO CHANGE. Assessment and Plan - Diagnosis (1) Acute bacterial endocarditis Is this a current diagnosis for this admission?: Yes Plan: - admitted at [facility] 04/02/20 for right sided endarditis with septic emboli MSSA, 2/ to IV drug use - she has [facility] - per review of records latest blood cx have been negative - TTE 04/18/20 Severe tricuspid regurgitation, 2 masses on the tricuspid valve with associated flail leaflet that are unchanged from 820 assessment. - CT chest 04/18/20 showed interval development of a moderate right and small left pleural effusion. Multifocal cavitary and solitary nodules in both lungs again demonstrated not significantly changed from prior CT. lungs are suspicious for multifocal septic emboli -Repeat CT chest (04/23/2020) showed multiple bilateral lung nodules and sub- cavitary lesion suspicious for embolic infectious process, non-prominent bilater al pleural effusions, larger on the right. Majority of fluid is not loculated. Mild to moderate cardiomegaly with a small pericardial effusion. Suspect borderline spleen size. -Not counting the days where and he was she was outside the hospital when she leaves [facility], I suspect that she has had about 2 weeks of cumulative cefazolin treatment. Per notes from [facility] she is recommended to have a total of 6 weeks of treatment for right-sided endocarditis Repeat blood cultures (04/25/20) negative at 5 days Repeat blood cultures (05/01/2020) pending. We will continue cefazolin Infectious Disease is consulted to help guide length of therapy considering the patient numerous AMA events. -She will likely need to be transferred to a tertiary center where there is cardiothoracic surgery because of the severe tricuspid regurg and vegetation. Will need repeat TTE/MARTI toward end of antibiotic course. 05/08/2020-patient is receiving cefazolin at this time has a PICC line. Last day of antibiotic therapy will be May 19. 05/09/20-patient is receiving IV cefazolin for right-sided endocarditis with septic emboli and MSSA. Patient has history of IV drug abuse. MARTI was done on 04/18/2020 found to have severe tricuspid regurgitation, tricuspid valve endocarditis. Patient is going to complete the IV antibiotic therapy on May 19. 05/09/2020-patient is receiving IV cefazolin for endocarditis. Plan is to complete the antibiotic therapy on May 19. 05/11/2020-patient is receiving IV cefazolin for endocarditis. She is going to complete the antibiotic therapy on May 1905/12/2020-patient is receiving iv cefazolin for endocarditis. Plan is to continue the present management at this time. 05/13/2020-patient is on cefazolin for endocarditis. She will complete antibioti c therapy on May 19. 05/14/2020 Continued on cefazolin until 05/19 (2) Chronic back pain Qualifiers: Back pain location: low back pain Sciatica presence: without sciatica Is this a current diagnosis for this admission?: Yes Plan: - has chronic back pain - midline tenderness lumbar L1-L2 area - according to her back pain is stable, not worsening - no focal deficit Consider MRI if back pain worsens Now being managed with methadone 5 mg every 8 hours. Also providing Lidoderm patches, as needed Toradol, Tylenol, and heating pad. 05/08/2020-patient is receiving methadone 5 mg every 8 hours, Lidoderm patches, Toradol as needed, heating pad. Plan is to continue the present management at this time. 05/14/2020 Patient requesting additional narcotics. He appears quite comfortable. No need to increase these (3) Involuntary commitment Is this a current diagnosis for this admission?: Yes Plan: Per previous physician: "05/08/2020-IVC commitment yesterday. As per psych recommendations patient is on Haldol 2.5 mg p.o. 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 Patient has now admitted to continuing Heroin use while admitted. Nursing found gum wrappers w/o gum and w/ powdered substance in room. Per JPD; tested positive for Fentanyl and Heroin. Mental Health is consulted; now IVC'd." (5) Pleural effusion due to bacterial infection Is this a current diagnosis for this admission?: Yes Plan: Per previous physician: "-Chest x-ray done on April 22, 2020 showed multifocal infiltrate with bilateral pleural effusions. The right pleural effusion may be loculated -Patient is afebrile not tachypneic not requiring oxygen with no complaints of shortness of breath Dr. Damon consulted; serial chest x-rays are reassuring. Surgery has subsequently signed off. Greatly appreciate their evaluation and recommendations. We will (6) Tricuspid valve regurgitation due to infection Is this a current diagnosis for this admission?: Yes Plan: Per Previous Physician: "-Reported on TTE done at [facility] on April 18, 2020. Severe tricuspid regurgitation 2 masses on the tricuspid valve with associated flail leaflet that are unchanged from prior echo on April 13. 52 to 72%. LV is grossly normal -No signs of decompensation -EKG done on April 22 showed sinus tachycardia left posterior fascicular block -Continue antibiotics, ID follow up 05/08/2020-patient is receiving cefazolin for infective endocarditis. Last dose of antibiotic therapy will be May 19. 05/09/2020-patient is receiving IV cefazolin for endocarditis. She will finish the course on May 19. 05/10/20-patient is receiving IV cefazolin for endocarditis. She will complete the antibiotic therapy in May 19. 05/11/20-patient is receiving IV cefazolin for endocarditis. 05/12/2020-last day of antibiotic therapy will be May 19." (7) Intravenous drug abuse Is this a current diagnosis for this admission?: Yes Plan: - Per Previous Physician: "she has left [facility] several times in the past in between admissions To episodes of heroin use during this admission; both requiring Narcan. Drug screen positive for opiates; confirmation showed Morphine She has received morphine/Dilaudid during her admissions for her pain related to septic emboli. Long discussion about need to transition to methadone or Subutex in anticipation that she will continue care through the [facility] post discharge. Patient would like to trial Methadone. She is placed on Methadone 5 mg every 8 hours." (8) Tobacco use disorder, continuous Is this a current diagnosis for this admission?: Yes Plan: - counseling done Nicotine replacement therapies provided. - Plan Summary Summary: 05/01/2020 Patient is resting comfortably. She has been afebrile. White blood cell count is normal. Ongoing treatment with cefazolin. Infectious diseases following to help determine length of treatment. Blood cultures from April 25 are no growth so far. I will reviewed the ID note. There was a question stay of repeat blood cultures. If the infectious disease note does suggest additional blood cultures we will obtain them tomorrow. The patient's oxygen saturation is in the 90s on room air. The septic emboli and pleural effusion have not caused any respiratory distress. She has declined chest to at this time. She does have chronic pain but we are limiting the narcotic analgesics. She is on a trial of methadone 5 mg every 8 hours. The hope is that after the resolution of this illness she will participate with a drug treatment program. Unfortunately the patient has admitted to ongoing use of narcotics. Heroin and fentanyl were found in her room. Because of this behavior she is now under involuntary commitment. 05/02/2020 The patient is doing well. She is tolerating IV antibiotics. She is unsure of the continuity of the antibiotics but checking the MAR she has not missed any doses. She also felt that she was getting blood tests every other day and she has not had any blood work for at least 4 days. I did explain that we need to check blood work approximately once a week. Continue cefazolin and check weekly labs tomorrow. Last blood culture is no growth still. Still with murmur from her endocarditis. I reminded her that she will need another MARTI towards the end of her regimen and will be referred to cardiothoracic surgery. Psychiatry did see the patient again today. They recommend continuing the involuntary commitment. They did recommend 2.5 mg of Haldol every 6 hours if needed for agitation and I have written those orders. 05/03/2020 Patient is doing well. Continues to tolerate IV antibiotics. No acute complaints or concerns discussed today. Continue Cefazoline. Blood cultures were drawn today, results pending; we expect these to be negative as most recent cultures 04/25/2020 were negative for any growth. Continue with weekly lab work. Murmur secondary to endocarditis still prevalent. We plan to get another MARTI towards the end of her regimen. She will inevitably be referred to a cardiothoracic surgeon for further care. She was pleasant and cooperative during exam today. Refer to psychiatric note, patient remains on IVC. Continue to utilize 2.5mg of Haldol every 6 hours if needed for agitation. Patient community health program representative was present during exam, patient case discussed in detail. 05/04/2020 Overall patient is doing well. She has been afebrile with normal white blood cell count. She continues to do well with IV cefazolin. Her potassium is elevated today at 5.2. Patient denies drinking fluids outside of apple and pineapple juice. Suspect hyperkalemia secondary to dehydration. Encouraged increasing water intake. Will redraw labs tomorrow for comparison. If continues to be elevated will initiate IV fluids. She does have history of chronic pain but we are limiting her narcotic analgesics. Thus we are currently treating her pain with Toradol. We discussed utilizing combination therapy of NSAID and acetaminophen for control of pain; both of which medications are readily available to her as needed. She is on a trial of methadone 5 mg every 8 hours, with the goal of transitioning to outpatient treatment upon discharge. She remains on involuntary commitment. Refer to psychiatric note. Patient discusses feelings of anxiety with me and is requesting pharmacological treatment at this time. She specifically inquires about Buspar. Old records were reviewed and she has not discussed this with previous providers or on psychiatric visits. I will consult psych regarding treatment options. She denies suicidal or homicidal idea tion. She has requested that her trazodone dosage be increased though she denies difficulty falling or staying sleeping. I will keep her trazodone dose as current and she can utilize melatonin as needed. 05/05/2020 Serum potassium is better. She was educated on potassium content of pineapple juice and apple juice. Reasonable pain control. Continue trazodone for sleep Involuntary commitment remains in place Endocarditis-end of treatment May 19. Unfortunately IV access was lost. With her history of IV drug use it is difficult to achieve consistent IV access for this patient. I was notified that she had no IV access. This is critical and that she requires cefazolin every 6 hours for her endocarditis. A return to the patient's room. The nurse had educated her about the need for central line. She was crying in bed. She states the last time the upper central line and it was very traumatic. She experienced a significant amount of pain. She did allow me to use the ultrasound machine to look at the internal jugular veins and attempt to visualize the subclavian veins. Her veins in fact are quite small. For the time being I have switched her to 1 g of cephalexin every 6 hours by mouth until we can regain IV access. This is less than ideal but an acceptable compromise. This may extend her end date by several days. She is willing to accept that. We will request PICC line placement as soon as possible. 05/06/2020 We will check potassium levels tomorrow. She has been drinking less pineapple juice. Good pain control however she states that she normally takes 150 mg of trazodone at bedtime. I will increase her dose. Endocarditis-she is tolerating the oral antibiotics. PICC line insertion order has been placed for tomorrow morning. As soon as she gets her PICC line we can continue IV antibiotics. Patient is grateful for the PICC line as opposed to the central line. IVC expires. I had a very trini discussion with the patient about her need for compliance and that if this infection worsens it can be fatal. I explained that she will not be able to take a shower and leave her room however I will need to restrict visitors due to her previous behaviors. 05/07/2020 PICC line was inserted this morning, converted her back to IV antibiotics. Her IV therapy end date May 19. We will get a repeat echo this week, prior to discharge. We will have her follow up with cardiology after discharge. Potassium levels have normalized at this time. She continues to drink pineapple and apple juice primarily but agrees to limit intake and will start drinking more water. IVC yesterday. Psych was consulted regarding patient's complaint of anxiety. They are agreeing to see the patient. Will implement appropriate treatment as directed. - Time Time Spent with patient: 15-24 minutes Medications reviewed and adjusted accordingly: Yes Anticipated Discharge Disposition: Home, Self Care Anticipated Discharge Timeframe: Antibiotics finish 05/19 - Inpatient Certification Based on my medical assessment, after consideration of the patient's comorbidities, presenting symptoms, or acuity I expect that the services needed warrant INPATIENT care.: Yes I certify that my determination is in accordance with my understanding of Medicare's requirements for reasonable and necessary INPATIENT services [42 CFR 412.3e].: Yes Medical Necessity: Significant Comorbidiites Make Outpatient Treatment Too Risky, Need Close Monitoring Due to Risk of Patient Decompensation, Need for IV Antibiotics, Risk of Complication if Not Cared For in Hospital, Risk of Diagnosis Which Will Require Inpatient Eval/Care/Monitoring
[2020-05-14] MEDS: TRAZODONE HCL 50 MG TABLET PO SCH (21:39)
[2020-05-14] MEDS: NORMAL SALINE 10 ML SDV (SCHEDULED) IV SCH (21:42)
[2020-05-14] MEDS: PHARMACY COMMUNICATION ORDER MC SCH (21:43)
[2020-05-15] MEDS: CEFAZOLIN SODIUM 2 GM in DEXTROSE 5%-WATER 100 ML IV SCH ×5 (00:37→23:44)
[2020-05-15] MEDS: METHADONE HCL 10 MG TABLET PO SCH ×5 (00:37→23:43)
[2020-05-15] MEDS: KETOROLAC TROMETHAMINE INJ/PF 30 MG/1 ML SDV IV SCH ×5 (00:38→23:44)
[2020-05-15] MEDS: HALOPERIDOL 5 MG TABLET PO SCH ×3 (05:27→22:34)
[2020-05-15] MEDS: VENLAFAXINE HCL 37.5 MG CAP.SR.24H PO SCH ×2 (09:49→22:34)
[2020-05-15] MEDS: LIDOCAINE 5% (700 MG) TRANSDERMAL ADH..PATCH TP SCH (09:57)
[2020-05-15] MEDS: DOCUSATE SODIUM 100 MG CAPSULE PO SCH ×2 (09:57→17:49)
[2020-05-15] MEDS: FAMOTIDINE 20 MG TABLET PO SCH ×2 (09:58→22:34)
--- NOTE | 2020-05-15 17:49 | PDOC PROGRESS REPORT ---
Subjective Progress Note for:: 05/15/20 Subjective:: Millie Iglesias is 24/F, known IV drug user, who came to our ED 04/21/20 after signing out AMA from [facility] where she was receiving treatment for Right sided endocarditis.because she wanted to be closer to her . She again left AMA 04/22/20 allegedly because her daughter was involved in a car accident and wanted to see her. She again came back the night of 04/22/20 in the ED to be readmitted to continue her cefazolin treatment. Per review of discharge summary report from [facility] she was initially admitted there 04/02/20 for endocarditis. She left AMA 04/14/20. She then came back 04/16/20 to resume her treatment for bacterial endocarditis. She again left AMA 04/18/20 in the morning because she wanted to smoke cigarette, then came back sometime in the afternoon. She was being treated for MSSA bacteremia/ tricuspid valve endocarditis with septic emboli to the lungs. Per documentation 04/18/20 repeat blood culture has been negative. Repeat 2d echo done 04/20/20 showed severe TR, 2 masses on the tricuspid valve with associated flail that are unchanged fr om 04/[address] done at [facility] showed multi cavitary lung lesions appear stable new right moderate pleural effusion. Chest x-ray that was done here at [place] on 04/22/2020 showed multifocal infiltrate with bilateral pleural effusion. The right pleural effusion may be loculated. She has since been restarted on cefazolin as this was what was used in [facility]. She is afebrile, stable, not needing oxygen support. 05/15/20Care resumed today. She is on cefazolin D22 at [place], prior to that she received about 2 weeks in total cefazolin at [facility]. Per psych notes IVC rescinded 05/06/20. She denied suicidal/homicidal ideation, intent, or plan. She is receiving methadone for pain. Blood cultures have been negative 05/03/20. Per ID recs, cefazolin will be completed by May 19, 2020 with advise to repeat echo after completion. She was seen and examined at bedside. Sleeping in bed comfortably, denies any chest pain, no SOB. Afebrile, good appetite. Reason For Visit: ACUTE BACTERIAL ENDOCARDITIS, SEPTIC PULMONARY Physical Exam Vital Signs: Temp Pulse Resp BP Pulse Ox 98.2 F 71 15 121/87 H 97 05/15/20 16:08 05/15/20 16:08 05/15/20 16:08 05/15/20 16:08 05/15/20 16:08 Intake & Output 05/14/20 05/15/20 05/16/20 06:59 06:59 06:59 Intake Total 1542003 237 Balance 1542003 Weight 69.5 kg 69.5 kg General appearance: PRESENT: no acute distress, cooperative, thin Head exam: PRESENT: atraumatic, normocephalic Eye exam: PRESENT: EOMI, PERRLA Mouth exam: PRESENT: moist Neck exam: PRESENT: full ROM Respiratory exam: PRESENT: clear to auscultation dustin, symmetrical, unlabored Cardiovascular exam: PRESENT: RRR, +S1, +S2 Pulses: PRESENT: +2 pedal pulses bilateral GI/Abdominal exam: PRESENT: normal bowel sounds, soft. ABSENT: rebound, tenderness Extremities exam: PRESENT: full ROM Musculoskeletal exam: PRESENT: full ROM Neurological exam: PRESENT: alert, awake, oriented to person, oriented to place, oriented to time, oriented to situation Psychiatric exam: PRESENT: normal mood Skin exam: PRESENT: normal color Results Laboratory Results: 05/13/20 06:30 05/13/20 06:30 04/22/20 04/22/20 04/25/20 21:25 21:25 04:37 Creatine Kinase 49 26 L Troponin I 0.015 Impressions: Chest CT 04/23/20 00:00 IMPRESSION: 1. Multiple bilateral lung nodules some cavitary suspicious for embolic infectious process. 2. Non prominent bilateral pleural effusions larger on the right. Majority of the fluid is not loculated. Minimal loculated component possibly in the right upper chest. 3. Technically limited evaluation of the pulmonary arteries even centrally. No large pulmonary embolus. Difficult to exclude a small embolus. 4. Cldh-ya-dfzjrdso cardiomegaly. Small pericardial effusion. Suspected borderline spleen size. PICC Line Insertion 05/07/20 00:00 IMPRESSION: SUCCESSFUL PLACEMENT OF A 5 FR DUAL LUMEN 40 CM PICC IN THE LEFT BASILIC VEIN. Chest X-Ray 05/13/20 00:00 IMPRESSION: POSSIBLE DEVELOPING FAINT DENSITIES IN THE LEFT UPPER LOBE. OTHERWISE NO CHANGE. Assessment and Plan - Diagnosis (1) Acute bacterial endocarditis Is this a current diagnosis for this admission?: Yes Plan: - admitted at [facility] 04/02/20 for right sided endocarditis with septic emboli MSSA, 2/ to IV drug use - she has left [place] twice at [facility] while undergoing treatment - per review of records latest blood cx have been negative - TTE 04/18/20 Severe tricuspid regurgitation, 2 masses on the tricuspid valve with associated flail leaflet that are unchanged from 820 assessment. - CT chest 04/18/20 showed interval development of a moderate right and small left pleural effusion. Multifocal cavitary and solitary nodules in both lungs again demonstrated not significantly changed from prior CT. lungs are suspicious for multifocal septic emboli -Repeat CT chest (04/23/2020) showed multiple bilateral lung nodules and sub-cavit isiah lesion suspicious for embolic infectious process, non-prominent bilateral pleural effusions, larger on the right. Majority of fluid is not loculated. Mild to moderate cardiomegaly with a small pericardial effusion. Suspect borderline spleen size. -Not counting the days where she was outside the hospital when she leaves [place], I suspect that she has had about 2 weeks of cumulative cefazolin treatment. Per notes from [facility] she is recommended to have a total of 6 weeks of treatment for right-sided endocarditis Repeat blood cultures (04/25/20) negative at 5 days Repeat blood cultures (05/03/2020) negative We will continue cefazolin Infectious Disease is consulted to help guide length of therapy considering the patient numerous AMA events. Currently d22 of cefazolin here at [place], she got about 2 weeks of cefazolin at [facility] Per ID last day of abx May 19. Should repeat TTE after completion (2) Septic embolism Is this a current diagnosis for this admission?: No Plan: -Secondary to right-sided bacterial endocarditis MSSA -CT scan done on April 18 showed interval development of a moderate right and small left pleural effusion since first CT on 04/16. Multifocal cavitary and solitary nodules in both lungs again demonstrated not significantly changed. Findings are suspicious for multifocal septic emboli. -Repeat CT chest (04/23/2020) showed multiple bilateral lung nodules and sub- cavitary lesion suspicious for embolic infectious process, non-prominent bilateral pleural effusions, larger on the right. Majority of fluid is not loculated. Mild to moderate cardiomegaly with a small pericardial effusion. Suspect borderline spleen size. - on cefazolin - continue to monitor (3) Pleural effusion due to bacterial infection Is this a current diagnosis for this admission?: Yes Plan: Per previous physician: "-Chest x-ray done on April 22, 2020 showed multifocal infiltrate with bilateral pleural effusions. The right pleural effusion may be loculated -Patient is afebrile not tachypneic not requiring oxygen with no complaints of shortness of breath Dr. Damon consulted; serial chest x-rays are reassuring. Surgery has beckman bsequently signed off. (4) Tricuspid valve regurgitation due to infection Is this a current diagnosis for this admission?: Yes Plan: Per Previous Physician: "-Reported on TTE done at [facility] on April 18, 2020. Severe tricuspid regurgitation 2 masses on the tricuspid valve with associated flail leaflet that are unchanged from prior echo on April 13. 52 to 72%. LV is grossly normal -No signs of decompensation -EKG done on April 22 showed sinus tachycardia left posterior fascicular block -Continue Cefazolin. LAst Day May 19. repeat TTE after completion (5) Chronic back pain Qualifiers: Back pain location: low back pain Sciatica presence: without sciatica Is this a current diagnosis for this admission?: Yes Plan: - has chronic back pain - midline tenderness lumbar L1-L2 area - according to her back pain is stable, not worsening - no focal deficit -Now being managed with methadone 5 mg every 8 hours. -Also providing Lidoderm patches, as needed Toradol, Tylenol, and heating pad. -Consider MRI if back pain worsens (6) Intravenous drug abuse Is this a current diagnosis for this admission?: Yes Plan: - Per Previous Physician: "she has left AMA several times in the past in between admissions To episodes of heroin use during this admission; both requiring Narcan. Drug screen positive for opiates; confirmation showed Morphine She has received morphine/Dilaudid during her admissions for her pain related to septic emboli. Long discussion about need to transition to methadone or Subutex in anticipation that she will continue care through the [facility] post discharge. Patient would like to trial Methadone. She is placed on Methadone 5 mg every 8 hours." (7) Tobacco use disorder, continuous Is this a current diagnosis for this admission?: Yes Plan: - counseling done Nicotine replacement therapies provided. (8) Involuntary commitment Is this a current diagnosis for this admission?: Yes Plan: Per previous physician: 05/08/2020-IVC commitment yesterday. As per psych recommendations patient is on Haldol 2.5 mg p.o. 3 times daily, Effexor 37.5 mg twice a day. 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 Patient has now admitted to continuing Heroin use while admitted. Nursing found gum wrappers w/o gum and w/ powdered substance in room. Per JPD; tested positive for Fentanyl and Heroin. IVC rescinded. psych signed off - Plan Summary Summary: 05/01/2020 Patient is resting comfortably. She has been afebrile. White blood cell count is normal. Ongoing treatment with cefazolin. Infectious diseases following to help determine length of treatment. Blood cultures from April 25 are no growth so far. I will reviewed the ID note. There was a question stay of repeat blood cultures. If the infectious disease note does suggest additional blood cultures we will obtain them tomorrow. The patient's oxygen saturation is in the 90s on room air. The septic emboli and pleural effusion have not caused any respiratory distress. She has declined chest to at this time. She does have chronic pain but we are limiting the narcotic analgesics. She is on a trial of methadone 5 mg every 8 hours. The hope is that after the resolut ion of this illness she will participate with a drug treatment program. Unfortunately the patient has admitted to ongoing use of narcotics. Heroin and fentanyl were found in her room. Because of this behavior she is now under involuntary commitment. 05/02/2020 The patient is doing well. She is tolerating IV antibiotics. She is unsure of the continuity of the antibiotics but checking the MAR she has not missed any doses. She also felt that she was getting blood tests every other day and she has not had any blood work for at least 4 days. I did explain that we need to check blood work approximately once a week. Continue cefazolin and check weekly labs tomorrow. Last blood culture is no growth still. Still with murmur from her endocarditis. I reminded her that she will need another MARTI towards the end of her regimen and will be referred to cardiothoracic surgery. Psychiatry did see the patient again today. They recommend continuing the involuntary commitment. They did recommend 2.5 mg of Haldol every 6 hours if needed for agitation and I have written those orders. 05/03/2020 Patient is doing well. Continues to tolerate IV antibiotics. No acute complaints or concerns discussed today. Continue Cefazoline. Blood cultures were drawn today, results pending; we expect these to be negative as most recent cultures 04/25/2020 were negative for any growth. Continue with weekly lab work. Murmur secondary to endocarditis still prevalent. We plan to get another MARTI towards the end of her regimen. She will inevitably be referred to a cardiothoracic surgeon for further care. She was pleasant and cooperative during exam today. Refer to psychiatric note, patient remains on IVC. Continue to utilize 2.5mg of Haldol every 6 hours if needed for agitation. 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 05/04/2020 Overall patient is doing well. She has been afebrile with normal white blood cell count. She continues to do well with IV cefazolin. Her potassium is elevated today at 5.2. Patient denies drinking fluids outside of apple and pineapple juice. Suspect hyperkalemia secondary to dehydration. Encouraged increasing water intake. Will redraw labs tomorrow for comparison. If continues to be elevated will initiate IV fluids. She does have history of chronic pain but we are limiting her narcotic analgesics. Thus we are currently treating her pain with Toradol. We discussed utilizing combination therapy of NSAID and acetaminophen for control of pain; both of which medications are readily available to her as needed. She is on a trial of methadone 5 mg every 8 hours, with the goal of transitioning to outpatient treatment upon discharge. She remains on involuntary commitment. Refer to psychiatric note. Patient discusses feelings of anxiety with me and is requesting pharmacological treatment at this time. She specifically inquires about Buspar. Old records were reviewed and she has not discussed this with previous providers or on psychiatric visits. I will consult psych regarding treatment options. She denies suicidal or homicidal ideation. She has requested that her trazodone dosage be increased though she denies difficulty falling or staying sleeping. I will keep her trazodone dose as current and she can utilize melatonin as needed. 05/05/2020 Serum potassium is better. She was educated on potassium content of pineapple juice and apple juice. Reasonable pain control. Continue trazodone for sleep Involuntary commitment remains in place Endocarditis-end of treatment May 19. Unfortunately IV access was lost. Wi th her history of IV drug use it is difficult to achieve consistent IV access for this patient. I was notified that she had no IV access. This is critical and that she requires cefazolin every 6 hours for her endocarditis. A return to the patient's room. The nurse had educated her about the need for central line. She was crying in bed. She states the last time the upper central line and it was very traumatic. She experienced a significant amount of pain. She did allow me to use the ultrasound machine to look at the internal jugular veins and attempt to visualize the subclavian veins. Her veins in fact are quite small. For the time being I have switched her to 1 g of cephalexin every 6 hours by mouth until we can regain IV access. This is less than ideal but an acceptable compromise. This may extend her end date by several days. She is willing to accept that. We will request PICC line placement as soon as possible. 05/06/2020 We will check potassium levels tomorrow. She has been drinking less pineapple juice. Good pain control however she states that she normally takes 150 mg of trazodone at bedtime. I will increase her dose. Endocarditis-she is tolerating the oral antibiotics. PICC line insertion order has been placed for tomorrow morning. As soon as she gets her PICC line we can continue IV antibiotics. Patient is grateful for the PICC line as opposed to the central line. IVC expires. I had a very trini discussion with the patient about her need for compliance and that if this infection worsens it can be fatal. I explained that she will not be able to take a shower and leave her room however I will need to restrict visitors due to her previous behaviors. 05/07/2020 PICC line was inserted this morning, converted her back to IV antibiotics. Her IV therapy end date May 19. We will get a repeat echo this week, prior to discharge. We will have her follow up with cardiology after discharge. Potassium levels have normalized at this time. She continues to drink pineapple and apple juice primarily but agrees to limit intake and will start drinking more water. IVC yesterday. Psych was consulted regarding patient's complaint of anxiety. They are agreeing to see the patient. Will implement appropriate treatment as directed. - Time Time Spent with patient: 25-34 minutes Medications reviewed and adjusted accordingly: Yes Anticipated Discharge Disposition: Home, Self Care Anticipated Discharge Timeframe: to be determined
[2020-05-15] MEDS: NORMAL SALINE 10 ML SDV (SCHEDULED) IV SCH ×2 (20:47→22:37)
[2020-05-15] MEDS: MELATONIN 5 MG TABLET PO PRN (22:35)
[2020-05-15] MEDS: TRAZODONE HCL 50 MG TABLET PO SCH (22:36)
[2020-05-15] MEDS: PHARMACY COMMUNICATION ORDER MC SCH (22:38)
[2020-05-16] MEDS: KETOROLAC TROMETHAMINE INJ/PF 30 MG/1 ML SDV IV SCH ×3 (05:41→18:15)
[2020-05-16] MEDS: METHADONE HCL 10 MG TABLET PO SCH ×3 (05:42→18:15)
[2020-05-16] MEDS: CEFAZOLIN SODIUM 2 GM in DEXTROSE 5%-WATER 100 ML IV SCH ×3 (05:43→18:15)
[2020-05-16] MEDS: HALOPERIDOL 5 MG TABLET PO SCH ×3 (05:43→21:27)
[2020-05-16] MEDS: NORMAL SALINE 10 ML SDV (AFTER EACH USE) IV PRN (06:53)
[2020-05-16] MEDS: NORMAL SALINE 10 ML SDV (SCHEDULED) IV SCH ×2 (09:47→21:28)
[2020-05-16] MEDS: VENLAFAXINE HCL 37.5 MG CAP.SR.24H PO SCH ×2 (09:48→21:29)
[2020-05-16] MEDS: DOCUSATE SODIUM 100 MG CAPSULE PO SCH ×2 (09:48→19:19)
[2020-05-16] MEDS: FAMOTIDINE 20 MG TABLET PO SCH ×2 (09:49→21:28)
[2020-05-16] MEDS: LIDOCAINE 5% (700 MG) TRANSDERMAL ADH..PATCH TP SCH (09:52)
--- NOTE | 2020-05-16 19:03 | PDOC PROGRESS REPORT ---
Subjective Progress Note for:: 05/16/20 Subjective:: Millie Iglesias is 24/F, known IV drug user, who came to our ED 04/21/20 after signing out AMA from [facility] where she was receiving treatment for Right sided endocarditis.because she wanted to be closer to her . She again left AMA 04/22/20 allegedly because her daughter was involved in a car accident and wanted to see her. She again came back the night of 04/22/20 in the ED to be readmitted to continue her cefazolin treatment. Per review of discharge summary report from [facility] she was initially admitted there 04/02/20 for endocarditis. She left AMA 04/14/20. She then came back 04/16/20 to resume her treatment for bacterial endocarditis. She again left AMA 04/18/20 in the morning because she wanted to smoke cigarette, then came back sometime in the afternoon. She was being treated for MSSA bacteremia/ tricuspid valve endocarditis with septic emboli to the lungs. Per documentation 04/18/20 repeat blood culture has been negative. Repeat 2d echo done 04/20/20 showed severe TR, 2 masses on the tricuspid valve with associated flail that are unchanged fr om 04/[address] done at [facility] showed multi cavitary lung lesions appear stable new right moderate pleural effusion. Chest x-ray that was done here at [facility] on 04/22/2020 showed multifocal infiltrate with bilateral pleural effusion. The right pleural effusion may be loculated. She has since been restarted on cefazolin as this was what was used in [facility]. She is afebrile, stable, not needing oxygen support. 05/15/20Care resumed today. She is on cefazolin D22 at [facility], prior to that she received about 2 weeks in total cefazolin at [facility]. Per psych notes IVC rescinded 05/06/20. She denied suicidal/homicidal ideation, intent, or plan. She is receiving methadone for pain. Blood cultures have been negative 05/03/20. Per ID recs, cefazolin will be completed by May 19, 2020 with advise to repeat echo after completion. She was seen and examined at bedside. Sleeping in bed comfortably, denies any chest pain, no SOB. Afebrile, good appetite. 05/16/20. Seen and examined at bedside. No new complains. She is eager to go home. Discussed the need to follow up with a supplier quality engineering manager outpatient after treatment. Reason For Visit: ACUTE BACTERIAL ENDOCARDITIS, SEPTIC PULMONARY Physical Exam Vital Signs: Temp Pulse Resp BP Pulse Ox 97.9 F 78 16 116/77 100 05/16/20 16:09 05/16/20 16:09 05/16/20 16:09 05/16/20 16:09 05/16/20 16:09 Intake & Output 05/15/20 05/16/20 05/17/20 06:59 06:59 06:59 Intake Total 2003 1607 1294 Balance 2003 1607 1294 Weight 69.5 kg 67 kg General appearance: PRESENT: no acute distress, cooperative Head exam: PRESENT: atraumatic, normocephalic Eye exam: PRESENT: EOMI, PERRLA Mouth exam: PRESENT: moist Neck exam: PRESENT: full ROM Respiratory exam: PRESENT: clear to auscultation dustin, symmetrical, unlabored Cardiovascular exam: PRESENT: RRR, +S1, +S2 Pulses: PRESENT: +2 pedal pulses bilateral GI/Abdominal exam: PRESENT: normal bowel sounds, soft. ABSENT: tenderness Extremities exam: PRESENT: full ROM Musculoskeletal exam: PRESENT: full ROM Neurological exam: PRESENT: alert, awake, oriented to person, oriented to place, oriented to time, oriented to situation Psychiatric exam: PRESENT: normal mood Skin exam: PRESENT: normal color Results Laboratory Results: 05/13/20 06:30 05/13/20 06:30 04/22/20 04/22/20 04/25/20 21:25 21:25 04:37 Creatine Kinase 49 26 L Troponin I 0.015 Impressions: Chest CT 04/23/20 00:00 IMPRESSION: 1. Multiple bilateral lung nodules some cavitary suspicious for embolic infectious process. 2. Non prominent bilateral pleural effusions larger on the right. Majority of the fluid is not loculated. Minimal loculated component possibly in the right upper chest. 3. Technically limited evaluation of the pulmonary arteries even centrally. No large pulmonary embolus. Difficult to exclude a small embolus. 4. [id number] cardiomegaly. Small pericardial effusion. Suspected borderline spleen size. PICC Line Insertion 05/07/20 00:00 IMPRESSION: SUCCESSFUL PLACEMENT OF A 5 FR DUAL LUMEN 40 CM PICC IN THE LEFT BASILIC VEIN. Chest X-Ray 05/13/20 00:00 IMPRESSION: POSSIBLE DEVELOPING FAINT DENSITIES IN THE LEFT UPPER LOBE. OTHERWISE NO CHANGE. Assessment and Plan - Diagnosis (1) Acute bacterial endocarditis Is this a current diagnosis for this admission?: Yes Plan: - admitted at [facility] 04/02/20 for right sided endocarditis with septic emboli MSSA, 2/2 to IV drug use - she has left [place] twice at [facility] while undergoing treatment - per review of records latest blood cx have been negative - TTE 04/18/20 Severe tricuspid regurgitation, 2 masses on the tricuspid valve with associated flail leaflet that are unchanged from 820 assessment. - CT chest 04/18/20 showed interval development of a moderate right and small left pleural effusion. Multifocal cavitary and solitary nodules in both lungs again demonstrated not significantly changed from prior CT. lungs are suspicious for multifocal septic emboli -Repeat CT chest (04/23/2020) showed multiple bilateral lung nodules and sub- cavitary lesion suspicious for embolic infectious process, non-prominent bilateral pleural effusions, larger on the right. Majority of fluid is not loculated. Mild to moderate cardiomegaly with a small pericardial effusion. Suspect borderline spleen size. -Not counting the days where she was outside the hospital when she leaves [place], I suspect that she has had about 2 weeks of cumulative cefazolin treatment. Per notes from [facility] she is recommended to have a total of 6 weeks of treatment for right-sided endocarditis Repeat blood cultures (04/25/20) negative at 5 days Repeat blood cultures (05/03/2020) negative We will continue cefazolin Infectious Disease is consulted to help guide length of therapy considering the patient numerous AMA events. Currently d22 of cefazolin here at [facility], she got about 2 weeks of cefazolin at [facility] Per ID last day of abx May 19. Should repeat TTE after completion (2) Septic embolism Is this a current diagnosis for this admission?: No Plan: -Secondary to right-sided bacterial endocarditis MSSA -CT scan done on April 18 showed interval development of a moderate right and small left pleural effusion since first CT on 04/16. Multifocal cavitary and solitary nodules in both lungs again demonstrated not significantly changed. Findings are suspicious for multifocal septic emboli. -Repeat CT chest (04/23/2020) showed multiple bilateral lung nodules and sub- cavitary lesion suspicious for embolic infectious process, non-prominent bilateral pleural effusions, larger on the right. Majority of fluid is not loculated. Mild to moderate cardiomegaly with a small pericardial effusion. Suspect borderline spleen size. - on cefazolin - continue to monitor (3) Pleural effusion due to bacterial infection Is this a current diagnosis for this admission?: Yes Plan: Per previous physician: "-Chest x-ray done on April 22, 2020 showed multifocal infiltrate with bilateral pleural effusions. The right pleural effusion may be loculated -Patient is afebrile not tachypneic not requiring oxygen with no complaints of shortness of breath Dr. Damon consulted; serial chest x-rays are reassuring. Surgery has subsequently signed off. (4) Tricuspid valve regurgitation due to infection Is this a current diagnosis for this admission?: Yes Plan: Per Previous Physician: "-Reported on TTE done at [facility] on April 18, 2020. Severe tricuspid regurgitation 2 masses on the tricuspid valve with associated flail leaflet that are unchanged from prior echo on April 13. 52 to 72%. LV is grossly normal -No signs of decompensation -EKG done on April 22 showed sinus tachycardia left posterior fascicular block -Continue Cefazolin. LAst Day May 19. repeat TTE after completion (5) Chronic back pain Qualifiers: Back pain location: low back pain Sciatica presence: without sciatica Is this a current diagnosis for this admission?: Yes Plan: - has chronic back pain - midline tenderness lumbar L1-L2 area - according to her back pain is stable, not worsening - no focal deficit -Now being managed with methadone 5 mg every 8 hours. -Also providing Lidoderm patches, as needed Toradol, Tylenol, and heating pad. -Consider MRI if back pain worsens (6) Intravenous drug abuse Is this a current diagnosis for this admission?: Yes Plan: - Per Previous Physician: "she has left AMA several times in the past in between admissions To episodes of heroin use during this admission; both requiring Narcan. Drug screen positive for opiates; confirmation showed Morphine She has received morphine/Dilaudid during her admissions for her pain related to septic emboli. Long discussion about need to transition to methadone or Subutex in anticipation that she will continue care through the [facility] post discharge. Patient would like to trial Methadone. She is placed on Methadone 5 mg every 8 hours." (7) Tobacco use disorder, continuous Is this a current diagnosis for this admission?: Yes Plan: - counseling done Nicotine replacement therapies provided. (8) Involuntary commitment Is this a current diagnosis for this admission?: Yes Plan: Per previous physician: 05/08/2020-IVC commitment yesterday. As per psych recommendations patient is on Haldol 2.5 mg p.o. 3 times daily, Effexor 37.5 mg twice a day. (9) Opiate overdose Qualifiers: Encounter type: initial encounter Is this a current diagnosis for this admission?: Yes Plan: Per previous physician: "Patient with 2 health information specialist/24 hrs; both times requiring Narcan. Patient has now admi tted to continuing Heroin use while admitted. Nursing found gum wrappers w/o gum and w/ powdered substance in room. Per JPD; tested positive for Fentanyl and Heroin. IVC rescinded. psych signed off - Time Time Spent with patient: 25-34 minutes Anticipated Discharge Disposition: Home, Self Care Anticipated Discharge Timeframe: to be determined
[2020-05-16] MEDS: TRAZODONE HCL 50 MG TABLET PO SCH (21:28)
[2020-05-16] MEDS: MELATONIN 5 MG TABLET PO PRN (21:29)
[2020-05-16] MEDS: PHARMACY COMMUNICATION ORDER MC SCH (21:30)
[2020-05-17] MEDS: CEFAZOLIN SODIUM 2 GM in DEXTROSE 5%-WATER 100 ML IV SCH ×5 (00:30→23:41)
[2020-05-17] MEDS: METHADONE HCL 10 MG TABLET PO SCH ×5 (00:31→23:41)
[2020-05-17] MEDS: KETOROLAC TROMETHAMINE INJ/PF 30 MG/1 ML SDV IV SCH ×2 (00:31→06:42)
[2020-05-17] MEDS: NORMAL SALINE 10 ML SDV (AFTER EACH USE) IV PRN ×2 (01:44→20:08)
[2020-05-17] MEDS: HALOPERIDOL 5 MG TABLET PO SCH ×3 (06:42→22:37)
[2020-05-17 08:48] LABS: ABSOLUTE MONOCYTES (AUTO) 0.5 10^3/uL (0.1-1.4); HEMOGLOBIN 11.1 g/dL (12.0-15.5); TOTAL CELLS COUNTED % (AUTO) 100 %
[2020-05-17 08:51] LABS: ABSOLUTE EOSINOPHILS # (AUTO) 0.4 10^3/uL (0.0-0.6); ABSOLUTE LYMPHOCYTES (AUTO) 2.2 10^3/uL (0.5-4.7); ABSOLUTE NEUT (AUTO) 3.6 10^3/uL (1.7-8.2); BASOPHILS % (AUTO) 0.7 % (0-2); EOSINOPHILS % (AUTO) 6.5 % (0-6); HEMATOCRIT 32.1 % (36.0-47.0); LYMPHOCYTES % (AUTO) 32.1 % (13-45); MEAN CORPUSCULAR HEMOGLOBIN 29.8 pg (27.0-33.4); MEAN CORPUSCULAR HGB CONC 34.6 g/dL (32.0-36.0); MEAN CORPUSCULAR VOLUME 86 fl (80-97); MONOCYTES % (AUTO) 7.1 % (3-13); PLATELET COUNT 216 10^3/uL (150-450); RED BLOOD COUNT 3.73 10^6/uL (3.72-5.28); RED CELL DISTRIBUTION WIDTH 16.9 % (11.5-14.0); SEGMENTED NEUTROPHILS % (AUTO) 53.6 % (42-78); WHITE BLOOD COUNT 6.7 10^3/uL (4.0-10.5)
[2020-05-17 09:05] LABS: ALBUMIN 3.5 g/dL (3.5-5.0); ALKALINE PHOSPHATASE 51 U/L (38-126); ANION GAP 7 (5-19); ASPARTATE AMINO TRANSFERASE 19 U/L (14-36); BILIRUBIN,DIRECT 0.2 mg/dL (0.0-0.4); BILIRUBIN,TOTAL 0.3 mg/dL (0.2-1.3); BLOOD UREA NITROGEN 17 mg/dL (7-20); CALCIUM 8.9 mg/dL (8.4-10.2); CARBON DIOXIDE 28 mmol/L (22-30); CHLORIDE 103 mmol/L (98-107); GLUCOSE 90 mg/dL (75-110); POTASSIUM 5.2 mmol/L (3.6-5.0); TOTAL PROTEIN 7.4 g/dL (6.3-8.2)
[2020-05-17] MEDS: FAMOTIDINE 20 MG TABLET PO SCH ×2 (09:19→22:38)
[2020-05-17] MEDS: VENLAFAXINE HCL 37.5 MG CAP.SR.24H PO SCH ×2 (09:19→22:40)
[2020-05-17] MEDS: LIDOCAINE 5% (700 MG) TRANSDERMAL ADH..PATCH TP SCH (09:26)
[2020-05-17] MEDS: DOCUSATE SODIUM 100 MG CAPSULE PO SCH ×2 (09:26→17:24)
[2020-05-17] MEDS: NORMAL SALINE 10 ML SDV (SCHEDULED) IV SCH ×2 (11:24→22:39)
--- NOTE | 2020-05-17 14:39 | PDOC PROGRESS REPORT ---
Subjective Progress Note for:: 05/17/20 Subjective:: Millie Iglesias is 24/F, known IV drug user, who came to our ED 04/21/20 after signing out AMA from [facility] where she was receiving treatment for Right sided endocarditis.because she wanted to be closer to her . She again left AMA 04/22/20 allegedly because her daughter was involved in a car accident and wanted to see her. She again came back the night of 04/22/20 in the ED to be readmitted to continue her cefazolin treatment. Per review of discharge summary report from [facility] she was initially admitted there 04/02/20 for endocarditis. She left AMA 04/14/20. She then came back 04/16/20 to resume her treatment for bacterial endocarditis. She again left AMA 04/18/20 in the morning because she wanted to smoke cigarette, then came back sometime in the afternoon. She was being treated for MSSA bacteremia/ tricuspid valve endocarditis with septic emboli to the lungs. Per documentation 04/18/20 repeat blood culture has been negative. Repeat 2d echo done 04/20/20 showed severe TR, 2 masses on the tricuspid valve with associated flail that are unchanged fr om 04/[address] done at [facility] showed multi cavitary lung lesions appear stable new right moderate pleural effusion. Chest x-ray that was done here at [facility] on 04/22/2020 showed multifocal infiltrate with bilateral pleural effusion. The right pleural effusion may be loculated. She has since been restarted on cefazolin as this was what was used in [facility]. She is afebrile, stable, not needing oxygen support. 05/15/20Care resumed today. She is on cefazolin D22 at [facility], prior to that she received about 2 weeks in total cefazolin at [facility]. Per psych notes IVC rescinded 05/06/20. She denied suicidal/homicidal ideation, intent, or plan. She is receiving methadone for pain. Blood cultures have been negative 05/03/20. Per ID recs, cefazolin will be completed by May 19, 2020 with advise to repeat echo after completion. She was seen and examined at bedside. Sleeping in bed comfortably, denies any chest pain, no SOB. Afebrile, good appetite. 05/16/20. Seen and examined at bedside. No new complains. She is eager to go home. Discussed the need to follow up with a restaurant inspector outpatient after treatment. 05/17/20. Seen and examined at bedside. No new complains. She stated that she was suppose to go home by tomorrow per another provider. I told her that her last dose of abx is scheduled to be complete May 19, 2020. I also spoke to her about needing to follow up with a restaurant inspector outpatient regarding her tricuspid valve regurg. Reason For Visit: ACUTE BACTERIAL ENDOCARDITIS, SEPTIC PULMONARY Physical Exam Vital Signs: Temp Pulse Resp BP Pulse Ox 97.7 F 71 16 132/88 H 98 05/17/20 08:11 05/17/20 08:11 05/17/20 08:11 05/17/20 08:11 05/17/20 08:11 Intake & Output 05/16/20 05/17/20 05/18/20 06:59 06:59 06:59 Intake Total 1607 2134 580 Balance 1607 2134 580 Weight 67 kg 67 kg General appearance: PRESENT: no acute distress, cooperative, thin Head exam: PRESENT: atraumatic, normocephalic Eye exam: PRESENT: EOMI, PERRLA Mouth exam: PRESENT: moist Neck exam: PRESENT: full ROM Respiratory exam: PRESENT: clear to auscultation dustin, symmetrical, unlabored Cardiovascular exam: PRESENT: RRR, +S1, +S2 Pulses: PRESENT: +2 pedal pulses bilateral GI/Abdominal exam: PRESENT: normal bowel sounds, soft. ABSENT: rebound, tenderness Extremities exam: PRESENT: full ROM Musculoskeletal exam: PRESENT: full ROM Neurological exam: PRESENT: alert, awake, oriented to person, oriented to place, oriented to time Psychiatric exam: PRESENT: normal mood Results Laboratory Results: 05/17/20 08:30 05/17/20 08:30 05/17/20 05/17/20 08:30 08:30 WBC 6.7 RBC 3.73 Hgb 11.1 L Hct 32.1 L MCV 86 MCH 29.8 MCHC 34.6 RDW 16.9 H Plt Count 216 Seg Neutrophils % 53.6 Sodium 137.8 Potassium 5.2 H Chloride 103 Carbon Dioxide 28 Anion Gap 7 BUN 17 Creatinine 0.81 Est GFR ( Amer) > 60 Glucose 90 Calcium 8.9 Total Bilirubin 0.3 AST 19 Alkaline Phosphatase 51 Total Protein 7.4 Albumin 3.5 04/22/20 04/22/20 04/25/20 21:25 21:25 04:37 Creatine Kinase 49 26 L Troponin I 0.015 Impressions: Chest CT 04/23/20 00:00 IMPRESSION: 1. Multiple bilateral lung nodules some cavitary suspicious for embolic infectious process. 2. Non prominent bilateral pleural effusions larger on the right. Majority of the fluid is not loculated. Minimal loculated component possibly in the right upper chest. 3. Technically limited evaluation of the pulmonary arteries even centrally. No large pulmonary embolus. Difficult to exclude a small embolus. 4. Rlzf-rn-[id number] cardiomegaly. Small pericardial effusion. Suspected borderline spleen size. PICC Line Insertion 05/07/20 00:00 IMPRESSION: SUCCESSFUL PLACEMENT OF A 5 FR DUAL LUMEN 40 CM PICC IN THE LEFT BASILIC VEIN. Chest X-Ray 05/13/20 00:00 IMPRESSION: POSSIBLE DEVELOPING FAINT DENSITIES IN THE LEFT UPPER LOBE. OTHERWISE NO CHANGE. Assessment and Plan - Diagnosis (1) Acute bacterial endocarditis Is this a current diagnosis for this admission?: Yes Plan: - admitted at [facility] 04/02/20 for right sided endocarditis with septic emboli MSSA, 2 to IV drug use - she has left [place] twice at [facility] while undergoing treatment - per review of records latest blood cx have been negative - TTE 04/18/20 Severe tricuspid regurgitation, 2 masses on the tricuspid valve with associated flail leaflet that are unchanged from 820 assessment. - CT chest 04/18/20 showed interval development of a moderate right and small left pleural effusion. Multifocal cavitary and solitary nodules in both lungs again demonstrated not significantly changed from prior CT. lungs are suspicious for multifocal septic emboli -Repeat CT chest (04/23/2020) showed multiple bilateral lung nodules and sub- cavitary lesion suspicious for embolic infectious process, non-prominent bilateral pleural effusions, larger on the right. Majority of fluid is not loculated. Mild to moderate cardiomegaly with a small pericardial effusion. Suspect borderline spleen size. -Not counting the days where she was outside the hospital when she leaves [place], I suspect that she has had about 2 weeks of cumulative cefazolin treatment. Per notes from [facility] she is recommended to have a total of 6 weeks of treatment for right-sided endocarditis Repeat blood cultures (04/25/20) negative at 5 days Repeat blood cultures (05/03/2020) negative We will continue cefazolin Infectious Disease is consulted to help guide length of therapy considering the patient numerous AMA events. Currently d23 of cefazolin here at [facility], she got about 2 weeks of cefazolin at [facility] Per ID last day of abx May 19. repeat TTE ordered (2) Septic embolism Is this a current diagnosis for this admission?: No Plan: -Secondary to right-sided bacterial endocarditis MSSA -CT scan done on April 18 showed interval development of a moderate right and small left pleural effusion since first CT on 04/16. Multifocal cavitary and solitary nodules in both lungs again demonstrated not significantly changed. Findings are suspicious for multifocal septic emboli. -Repeat CT chest (04/23/2020) showed multiple bilateral lung nodules and sub- cavitary lesion suspicious for embolic infectious process, non-prominent bilateral pleural effusions, larger on the right. Majority of fluid is not loculated. Mild to moderate cardiomegaly with a small pericardial effusion. Suspect borderline spleen size. - on cefazolin - continue to monitor (3) Pleural effusion due to bacterial infection Is this a current diagnosis for this admission?: Yes Plan: Per previous physician: "-Chest x-ray done on April 22, 2020 showed multifocal infiltrate with bilateral pleural effusions. The right pleural effusion may be loculated -Patient is afebrile not tachypneic not requiring oxygen with no complaints of shortness of breath Dr. Damon consulted; serial chest x-rays are reassuring. Surgery has s ubsequently signed off. (4) Tricuspid valve regurgitation due to infection Is this a current diagnosis for this admission?: Yes Plan: Per Previous Physician: "-Reported on TTE done at [facility] on April 18, 2020. Severe tricuspid regurgitation 2 masses on the tricuspid valve with associated flail leaflet that are unchanged from prior echo on April 13. 52 to 72%. LV is grossly normal -No signs of decompensation -EKG done on April 22 showed sinus tachycardia left posterior fascicular block -Continue Cefazolin. LAst Day May 19. repeat TTE after completion (5) Chronic back pain Qualifiers: Back pain location: low back pain Sciatica presence: without sciatica Is this a current diagnosis for this admission?: Yes Plan: - has chronic back pain - midline tenderness lumbar L1-L2 area - according to her back pain is stable, not worsening - no focal deficit -Now being managed with methadone 5 mg every 8 hours. -Also providing Lidoderm patches, as needed Toradol, Tylenol, and heating pad. -Consider MRI if back pain worsens (6) Intravenous drug abuse Is this a current diagnosis for this admission?: Yes Plan: - Per Previous Physician: "she has left AMA several times in the past in between admissions To episodes of heroin use during this admission; both requiring Narcan. Drug screen positive for opiates; confirmation showed Morphine She has received morphine/Dilaudid during her admissions for her pain related to septic emboli. Long discussion about need to transition to methadone or Subutex in anticipation that she will continue care through the [facility] post discharge. Patient would like to trial Methadone. She is placed on Methadone 5 mg every 8 hours." (7) Tobacco use disorder, continuous Is this a current diagnosis for this admission?: Yes Plan: - counseling done Nicotine replacement therapies provided. (8) Involuntary commitment Is this a current diagnosis for this admission?: Yes Plan: Per previous physician: 05/08/2020-IVC commitment yesterday. As per psych recommendations patient is on Haldol 2.5 mg p.o. 3 times daily, Effexor 37.5 mg twice a day. (9) Opiate overdose Qualifiers: Encounter type: initial encounter Is this a current diagnosis for this admission?: Yes Plan: Per previous physician: "Patient with 2 geologist petroleum/24 hrs; both times requiring Narcan. Patient has now admitted to continuing Heroin use while admitted. Nursing found gum wrappers w/o gum and w/ powdered substance in room. Per JPD; tested positive for Fentanyl and Heroin. IVC rescinded. psych signed off - Time Time Spent with patient: 15-24 minutes Anticipated Discharge Disposition: Home, Self Care Anticipated Discharge Timeframe: within 48 hours
[2020-05-17] MEDS: TRAZODONE HCL 50 MG TABLET PO SCH (22:38)
[2020-05-17] MEDS: MELATONIN 5 MG TABLET PO PRN (22:38)
[2020-05-17] MEDS: PHARMACY COMMUNICATION ORDER MC SCH (22:39)
[2020-05-18] MEDS: HALOPERIDOL 5 MG TABLET PO SCH ×3 (06:43→21:24)
[2020-05-18] MEDS: METHADONE HCL 10 MG TABLET PO SCH ×4 (06:43→23:27)
[2020-05-18] MEDS: CEFAZOLIN SODIUM 2 GM in DEXTROSE 5%-WATER 100 ML IV SCH ×4 (06:44→23:20)
[2020-05-18] MEDS: FAMOTIDINE 20 MG TABLET PO SCH ×2 (10:20→21:23)
[2020-05-18] MEDS: VENLAFAXINE HCL 37.5 MG CAP.SR.24H PO SCH ×2 (10:20→21:24)
[2020-05-18] MEDS: NORMAL SALINE 10 ML SDV (SCHEDULED) IV SCH ×2 (10:21→23:16)
[2020-05-18] MEDS: DOCUSATE SODIUM 100 MG CAPSULE PO SCH ×2 (10:22→17:42)
[2020-05-18] MEDS: LIDOCAINE 5% (700 MG) TRANSDERMAL ADH..PATCH TP SCH (10:22)
--- NOTE | 2020-05-18 16:29 | PDOC PROGRESS REPORT ---
Subjective Progress Note for:: 05/18/20 Subjective:: Millie Iglesias is 24/F, known IV drug user, who came to our ED 04/21/20 after signing out AMA from [facility] where she was receiving treatment for Right sided endocarditis.because she wanted to be closer to her . She again left AMA 04/22/20 allegedly because her daughter was involved in a car accident and wanted to see her. She again came back the night of 04/22/20 in the ED to be readmitted to continue her cefazolin treatment. Per review of discharge summary report from [facility] she was initially admitted there 04/02/20 for endocarditis. She left AMA 04/14/20. She then came back 04/16/20 to resume her treatment for bacterial endocarditis. She again left AMA 04/18/20 in the morning because she wanted to smoke cigarette, then came back sometime in the afternoon. She was being treated for MSSA bacteremia/ tricuspid valve endocarditis with septic emboli to the lungs. Per documentation 04/18/20 repeat blood culture has been negative. Repeat 2d echo done 04/20/20 showed severe TR, 2 masses on the tricuspid valve with associated flail that are unchanged fr om 04/[address] done at [facility] showed multi cavitary lung lesions appear stable new right moderate pleural effusion. Chest x-ray that was done here at [facility] on 04/22/2020 showed multifocal infiltrate with bilateral pleural effusion. The right pleural effusion may be loculated. She has since been restarted on cefazolin as this was what was used in [facility]. She is afebrile, stable, not needing oxygen support. 05/15/20Care resumed today. She is on cefazolin D22 at [facility], prior to that she received about 2 weeks in total cefazolin at [facility]. Per psych notes IVC rescinded 05/06/20. She denied suicidal/homicidal ideation, intent, or plan. She is receiving methadone for pain. Blood cultures have been negative 05/03/20. Per ID recs, cefazolin will be completed by May 19, 2020 with advise to repeat echo after completion. She was seen and examined at bedside. Sleeping in bed comfortably, denies any chest pain, no SOB. Afebrile, good appetite. 05/16/20. Seen and examined at bedside. No new complains. She is eager to go home. Discussed the need to follow up with a x ray equipment servicer outpatient after treatment. 05/17/20. Seen and examined at bedside. No new complains. She stated that she was suppose to go home by tomorrow per another provider. I told her that her last dose of abx is scheduled to be complete May 19, 2020. I also spoke to her about needing to follow up with a x ray equipment servicer outpatient regarding her tricuspid valve regurg. 05/18/20. She was seen and examined at bedside. No new complains, afebrile, good appetite. Reason For Visit: ACUTE BACTERIAL ENDOCARDITIS, SEPTIC PULMONARY Physical Exam Vital Signs: Temp Pulse Resp BP Pulse Ox 98.1 F 81 16 123/81 99 05/18/20 15:10 05/18/20 15:10 05/18/20 15:10 05/18/20 15:10 05/18/20 15:10 Intake & Output 05/17/20 05/18/20 05/19/20 06:59 06:59 06:59 Intake Total 2134 1830 100 Balance 2134 1830 100 Weight 67 kg 67.5 kg General appearance: PRESENT: no acute distress, cooperative Head exam: PRESENT: atraumatic, normocephalic Eye exam: PRESENT: EOMI, PERRLA Mouth exam: PRESENT: moist Neck exam: PRESENT: full ROM Respiratory exam: PRESENT: clear to auscultation dustin, symmetrical. ABSENT: rales, unlabored Cardiovascular exam: PRESENT: RRR, +S1, +S2 Pulses: PRESENT: +2 pedal pulses bilateral GI/Abdominal exam: PRESENT: normal bowel sounds, soft. ABSENT: rebound, tenderness Extremities exam: ABSENT: joint swelling, +2 edema Musculoskeletal exam: PRESENT: full ROM Neurological exam: PRESENT: alert, awake, oriented to person, oriented to place, oriented to time Psychiatric exam: PRESENT: normal mood Skin exam: PRESENT: normal color Results Laboratory Results: 05/17/20 08:30 05/17/20 08:30 04/22/20 04/22/20 04/25/20 21:25 21:25 04:37 Creatine Kinase 49 26 L Troponin I 0.015 Impressions: Chest CT 04/23/20 00:00 IMPRESSION: 1. Multiple bilateral lung nodules some cavitary suspicious for embolic infectious process. 2. Non prominent bilateral pleural effusions larger on the right. Majority of the fluid is not loculated. Minimal loculated component possibly in the right upper chest. 3. Technically limited evaluation of the pulmonary arteries even centrally. No large pulmonary embolus. Difficult to exclude a small embolus. 4. Uxid-lt-dgyhrkmb cardiomegaly. Small pericardial effusion. Suspected borderline spleen size. PICC Line Insertion 05/07/20 00:00 IMPRESSION: SUCCESSFUL PLACEMENT OF A 5 FR DUAL LUMEN 40 CM PICC IN THE LEFT BASILIC VEIN. Chest X-Ray 05/13/20 00:00 IMPRESSION: POSSIBLE DEVELOPING FAINT DENSITIES IN THE LEFT UPPER LOBE. OTHE RWISE NO CHANGE. Assessment and Plan - Diagnosis (1) Acute bacterial endocarditis Is this a current diagnosis for this admission?: Yes Plan: - admitted at [facility] 04/02/20 for right sided endocarditis with septic emboli MSSA, 2/ to IV drug use - she has left [facility] twice at [facility] while undergoing treatment - per review of records latest blood cx have been negative - TTE 04/18/20 Severe tricuspid regurgitation, 2 masses on the tricuspid valve with associated flail leaflet that are unchanged from 820 assessment. - CT chest 04/18/20 showed interval development of a moderate right and small left pleural effusion. Multifocal cavitary and solitary nodules in both lungs again demonstrated not significantly changed from prior CT. lungs are suspicious for multifocal septic emboli -Repeat CT chest (04/23/2020) showed multiple bilateral lung nodules and sub- cavitary lesion suspicious for embolic infectious process, non-prominent bilateral pleural effusions, larger on the right. Majority of fluid is not loculated. Mild to moderate cardiomegaly with a small pericardial effusion. Suspect borderline spleen size. -Not counting the days where she was outside the hospital when she leaves [facility], I suspect that she has had about 2 weeks of cumulative cefazolin treatment. Per notes from [facility] she is recommended to have a total of 6 weeks of treatment for right-sided endocarditis Repeat blood cultures (04/25/20) negative at 5 days Repeat blood cultures (05/03/2020) negative We will continue cefazolin Infectious Disease is consulted to help guide length of therapy considering the patient numerous AMA events. Currently d25of cefazolin here at [facility], she got about 2 weeks of cefazolin at [facility] Per ID last day of abx Oct 3. repeat TTE ordered (2) Septic embolism Is this a current diagnosis for this admission?: No Plan: -Secondary to right-sided bacterial endocarditis MSSA -CT scan done on April 18 showed interval development of a moderate right and small left pleural effusion since first CT on 04/16. Multifocal cavitary and solitary nodules in both lungs again demonstrated not significantly changed. Findings are suspicious for multifocal septic emboli. -Repeat CT chest (04/23/2020) showed multiple bilateral lung nodules and sub- cavitary lesion suspicious for embolic infectious process, non-prominent bilateral pleural effusions, larger on the right. Majority of fluid is not loculated. Mild to moderate cardiomegaly with a small pericardial effusion. Suspect borderline spleen size. - on cefazolin - continue to monitor (3) Pleural effusion due to bacterial infection Is this a current diagnosis for this admission?: Yes Plan: Per previous physician: "-Chest x-ray done on April 22, 2020 showed multifocal infiltrate with bilateral pleural effusions. The right pleural effusion may be loculated -Patient is afebrile not tachypneic not requiring oxygen with no complaints of shortness of breath Dr. Damon consulted; serial chest x-rays are reassuring. Surgery has subsequently signed off. (4) Tricuspid valve regurgitation due to infection Is this a current diagnosis for this admission?: Yes Plan: Per Previous Physician: "-Reported on TTE done at [facility] on April 18, 2020. Severe tricuspid regurgitation 2 masses on the tricuspid valve with associated flail leaflet that are unchanged from prior echo on April 13. 52 to 72%. LV is grossly normal -No signs of decompensation -EKG done on April 22 showed sinus tachycardia left posterior fascicular block -Continue Cefazolin. LAst Day May 19. repeat TTE after completion (5) Chronic back pain Qualifiers: Back pain location: low back pain Sciatica presence: without sciatica Is this a current diagnosis for this admission?: Yes Plan: - has chronic back pain - midline tenderness lumbar L1-L2 area - according to her back pain is stable, not worsening - no focal deficit -Now being managed with methadone 5 mg every 8 hours. -Also providing Lidoderm patches, as needed Toradol, Tylenol, and heating pad. -Consider MRI if back pain worsens (6) Intravenous drug abuse Is this a current diagnosis for this admission?: Yes Plan: - Per Previous Physician: "she has left AMA several times in the past in between admissions To episodes of heroin use during this admission; both requiring Narcan. Drug screen positive for opiates; confirmation showed Morphine She has received morphine/Dilaudid during her admissions for her pain related to septic emboli. Long discussion about need to transition to methadone or Subutex in anticipation that she will continue care through the [facility] post discharge. Patient would like to trial Methadone. She is placed on Methadone 5 mg every 8 hours." (7) Tobacco use disorder, continuous Is this a current diagnosis for this admission?: Yes Plan: - counseling done Nicotine replacement therapies provided. (8) Involuntary commitment Is this a current diagnosis for this admission?: Yes Plan: Per previous physician: 05/08/2020-IVC commitment yesterday. As per psych recommendations patient is on Haldol 2.5 mg p.o. 3 times daily, Effexor 37.5 mg twice a day. (9) Opiate overdose Qualifiers: Encounter type: initial encounter Is this a current diagnosis for this admission?: Yes Plan: Per previous physician: "Patient with 2 architectural representative/24 hrs; both times requiring Narcan. Patient has now admitted to continuing Heroin use while admitted. Nursing found gum wrappers w/o gum and w/ powdered substance in room. Per JPD; tested positive for Fentanyl and Heroin. IVC rescinded. psych signed off - Time Time Spent with patient: 15-24 minutes Anticipated Discharge Disposition: Home, Self Care Anticipated Discharge Timeframe: within 48 hours
[2020-05-18] MEDS: TRAZODONE HCL 50 MG TABLET PO SCH (21:25)
[2020-05-18] MEDS: PHARMACY COMMUNICATION ORDER MC SCH (22:27)
[2020-05-18] MEDS: KETOROLAC TROMETHAMINE INJ/PF 30 MG/1 ML SDV IV SCH (23:13)
--- NOTE | 2020-05-19 01:30 | XCELERA REPORT ---
[address] [address] Transthoracic Echocardiogram Report Name: CHRIS MILLER Age: 24 yrs Gender: Female : 1995 Patient Status: Inpatient Patient Location: [facility]^A Study Date: 05/17/2020 06:06 PM Height: 67 in Weight: 147 lb BSA: 1.8 m2 Procedure: A two-dimensional transthoracic echocardiogram with color flow and Doppler was performed in limited views only. Study Quality: Fair. Reason For Study: follow up echo for endocarditis post treatment History: follow up echo for endocarditis post treatment. Ordering Physician: ZAID ORTIZ Performed By: NF Interpretation Summary There is a moderate size vegetation or mass on the tricuspid valve. There is no tricuspid stenosis. Moderate to severe eccentric tr jet.RVSP is 40 to 45 mm of HG , with RA mean of 15 to 20.Hence there is mild pulmonary hypertension. The inferior vena cava appeared dilated and decreased < 50% with respiration (RAP 15-20 mmHg) MMode/2D Measurements & Calculations RVDd: 3.0 cm LVIDd: 4.2 cm FS: 27.3 % Ao root diam: 3.1 cm IVSd: 0.89 cm LVIDs: 3.1 cm EDV(Teich): Ao root area: LVPWd: 0.90 cm 78.8 ml 7.4 cm2 ESV(Teich): LA dimension: 2.8 cm 36.6 ml EF(Teich): 53.6 % LVLd ap4: 7.1 cm SV(MOD-sp4): EDV(MOD-sp4): 50.0 ml 76.0 ml LVLs ap4: 5.9 cm ESV(MOD-sp4): 26.0 ml EF(MOD-sp4): 65.8 % Doppler Measurements & Calculations MV E max romel: MV P1/2t max romel: Ao V2 max: LV V1 max P.7 cm/sec 63.8 cm/sec 121.6 cm/sec 3.5 mmHg MV A max romel: MV P1/2t: 69.8 msec Ao max PG: LV V1 max: 61.1 cm/sec MVA(P1/2t): 3.2 cm2 5.9 mmHg 93.6 cm/sec MV E/A: 0.96 MV dec slope: 267.5 cm/sec2 MV dec time: 0.36 sec PA V2 max: PI end-d romel: TR max romel: MV P1/2t-pr_phl: 62.4 cm/sec 91.2 cm/sec 248.5 cm/sec 69.8 msec PA max PG: TR max P.6 mmHg 24.7 mmHg Tricuspid Valve There is a moderate size vegetation or mass on the tricuspid valve. There is no tricuspid stenosis. Moderate to severe eccentric tr jet.RVSP is 40 to 45 mm of HG , with RA mean of 15 to 20.Hence there is mild pulmonary hypertension. Great Vessels The inferior vena cava appeared dilated and decreased < 50% with respiration (RAP 15-20 mmHg). : ZAID ORTIZ Lakshmi
[2020-05-19] MEDS: KETOROLAC TROMETHAMINE INJ/PF 30 MG/1 ML SDV IV SCH ×2 (06:08→11:58)
[2020-05-19] MEDS: CEFAZOLIN SODIUM 2 GM in DEXTROSE 5%-WATER 100 ML IV SCH ×2 (06:09→11:58)
[2020-05-19] MEDS: HALOPERIDOL 5 MG TABLET PO SCH (06:09)
[2020-05-19] MEDS: METHADONE HCL 10 MG TABLET PO SCH ×2 (06:20→12:02)
[2020-05-19 08:16] VITALS: BP 109/68
[2020-05-19] MEDS: DOCUSATE SODIUM 100 MG CAPSULE PO SCH (10:13)
[2020-05-19] MEDS: VENLAFAXINE HCL 37.5 MG CAP.SR.24H PO SCH (10:16)
[2020-05-19] MEDS: FAMOTIDINE 20 MG TABLET PO SCH (10:16)
[2020-05-19] MEDS: NORMAL SALINE 10 ML SDV (SCHEDULED) IV SCH (10:17)
[2020-05-19] MEDS: LIDOCAINE 5% (700 MG) TRANSDERMAL ADH..PATCH TP SCH (10:17)
[2020-05-19] MEDS: NORMAL SALINE 10 ML SDV (AFTER EACH USE) IV PRN (13:05)
--- NOTE | 2020-06-03 18:29 | Left Against Medical Advice ---
Against Medical Advice Admission Date/Time: 04/23/20 00:59 Primary Care Provider: Date of Patient Emigration: 05/19/20 - Diagnosis: (1) Acute bacterial endocarditis Is this a current diagnosis for this admission?: Yes (2) Septic embolism Is this a current diagnosis for this admission?: No (3) Pleural effusion due to bacterial infection Is this a current diagnosis for this admission?: Yes (4) Tricuspid valve regurgitation due to infection Is this a current diagnosis for this admission?: Yes (5) Chronic back pain Is this a current diagnosis for this admission?: Yes (6) Intravenous drug abuse Is this a current diagnosis for this admission?: Yes (7) Tobacco use disorder, continuous Is this a current diagnosis for this admission?: Yes (8) Involuntary commitment Is this a current diagnosis for this admission?: Yes (9) Opiate overdose Is this a current diagnosis for this admission?: Yes - Summary: Summary: Please see Admission and Progress Notes as well. CHRIS MILLER is a 24 F, who LEFT AGAINST MEDICAL ADVICE. The Patient was admitted on 04/23/20 00:59.
== END 2020-05-19 13:58 | disposition left against medical advice (07) | DRG 288 ==
LOC: ER 18:50 → EH 04-23 00:59 → EEVIPCON 04-23 00:59 → 4N 04-23 02:18
PROVIDERS: ADMIT Emergency Medicine; ATTEND Internal Medicine
PROC: 02HV33Z Insertion of Infusion Device into Superior Vena Cava, Percutaneous Approach (ICD-10-PCS; principal; 2020-05-07)
PROC: B24BZZ4 Ultrasonography of Heart with Aorta, Transesophageal (ICD-10-PCS; 2020-05-17)
DX: I33.0 Acute and subacute infective endocarditis (principal); I26.90 Septic pulmonary embolism without acute cor pulmonale; T40.1X1A Poisoning by heroin, accidental (unintentional), initial encounter; T40.411A Poisoning by fentanyl or fentanyl analogs, accidental (unintentional), initial encounter; R91.1 Solitary pulmonary nodule; Y92.239 Unspecified place in hospital as the place of occurrence of the external cause; A49.01 Methicillin susceptible Staphylococcus aureus infection, unspecified site; G89.29 Other chronic pain; M54.5 Low back pain; I07.1 Rheumatic tricuspid insufficiency; I44.5 Left posterior fascicular block; E87.5 Hyperkalemia; E86.0 Dehydration; F17.210 Nicotine dependence, cigarettes, uncomplicated; Z63.0 Problems in relationship with spouse or partner; Z63.79 Other stressful life events affecting family and household
CPT/HCPCS: 36415; 36573; 71045; 71046; 71260; 80048; 80053; 80307; 80361; 81001; 82550; 82962; 83605; 83735; 84484; 85025; 85027; 86140; 87040; 87086; 92950; 93005; 93010; 93306; 94799; 96365; 99285; J0690; J1170; J1630; J1642; J1650; J1885; J2270; J2310; J3490; J7030; J7060

== ENCOUNTER → 2020-06-26 | Outpatient (CLI) | payer OTHER ==
--- NOTE | 2020-06-26 17:54 | XCELERA REPORT ---
[address] [address] Transthoracic Echocardiogram Report Name: CHRIS MILLER Age: 24 yrs Gender: Female : 1995 Patient Status: Outpatient Patient Location: Study Date: 06/26/2020 08:25 AM History: Infective Endocarditis Height: 67 in Weight: 140 lb BSA: 1.7 m2 Procedure: A complete two-dimensional transthoracic echocardiogram was performed (2D, M-mode, spectral and color flow Doppler). The study was technically adequate with some images being suboptimal in quality. Reason For Study: ENDOCARDITIS Ordering Physician: DONALDO CASTILLO Performed By: Mary Carmen Padilla Interpretation Summary Left ventricular systolic function is normal. The Ejection Fraction estimate is 55-60% The right ventricle is moderately dilated. There is no mitral regurgitation noted. There is no aortic valve stenosis There is a trace amount of aortic regurgitation There is a severe amount of tricuspid regurgitation Leaflet appears flail-lateral There is no pericardial effusion. MMode/2D Measurements & Calculations RVDd: 2.1 cm LVIDd: 4.2 cm FS: 30.1 % Ao root diam: IVSd: 1.1 cm LVIDs: 2.9 cm EDV(Teich): 76.5 ml 2.5 cm Ao root area: LVPWd: 1.1 cm ESV(Teich): 32.3 ml EF(Teich): 57.7 % 5.1 cm2 LA dimension: 2.5 cm LVLd ap4: 8.4 cm SV(MOD-sp4): RA Length_phl: RV Length_phl: EDV(MOD-sp4): 47.0 ml 5.6 cm 4.3 cm 78.0 ml RA Width_phl: LVLs ap4: 6.7 cm 5.0 cm ESV(MOD-sp4): 31.0 ml EF(MOD-sp4): 60.3 % Doppler Measurements & Calculations MV E max romel: MV P1/2t max romel: Ao V2 max: LV V1 max P.7 cm/sec 69.0 cm/sec 110.9 cm/sec 4.4 mmHg MV A max romel: MV P1/2t: 45.7 msec Ao max PG: LV V1 max: 67.2 cm/sec MVA(P1/2t): 4.8 cm2 4.9 mmHg 104.9 cm/sec MV E/A: 0.92 MV dec slope: 442.3 cm/sec2 MV dec time: 0.15 sec TV V2 max: PA V2 max: TR max romel: MV P1/2t-pr_phl: 256.4 cm/sec 63.7 cm/sec 235.0 cm/sec 45.7 msec TV max PG: PA max P.6 mmHg TR max P.3 mmHg 22.1 mmHg Left Ventricle The left ventricle is normal in size. There is normal left ventricular wall thickness. Left ventricular systolic function is normal. The Ejection Fraction estimate is 55-60%. LV diastolic function not assessed. No regional wall motion abnormalities noted. Right Ventricle The right ventricle is moderately dilated. The right ventricular systolic function is normal. Atria The right atrium is normal. The left atrial size is normal. The interatrial septum is intact with no evidence for an atrial septal defect. Mitral Valve The mitral valve is grossly normal. There is no evidence of mitral valve prolapse. There is no vegetation seen on the mitral valve. There is no mitral valve stenosis. There is no mitral regurgitation noted. Aortic Valve The aortic valve is normal in structure and function. The aortic valve is trileaflet. The aortic valve opens well. There is no aortic valvular vegetation. There is no aortic valve stenosis. There is a trace amount of aortic regurgitation. Tricuspid Valve The tricuspid valve is normal in structure but shows some degree of being functionally abnormal. The non-septal leaflet is thickened. Leaflet appears flail-lateral. There is no tricuspid stenosis. There is a severe amount of tricuspid regurgitation. Unable to assess PA pressure. Likely severe PAH. Pulmonic Valve The pulmonic valve is normal in structure and function. There is no pulmonic valvular stenosis. There is no pulmonic valvular regurgitation. Great Vessels The inferior vena cava appeared normal and decreased > 50% with respiration (RAP 5-10 mmHg). Effusions There is no pericardial effusion. : DONALDO CASTILLO Anil
== END ==
LOC: SP 08:11
PROVIDERS: ATTEND Internal Medicine
DX: I33.0 Acute and subacute infective endocarditis (principal)
CPT/HCPCS: 93306